=== PATIENT | female | born 1940 | race Caucasian/White ===

== ENCOUNTER 2020-03-25 10:28 | Outpatient (REF) | payer MEDICARE, SELFPAY | END 2020-03-25 10:29 | disposition home or self-care (01) | LOC: HO.LAB 10:28 | PROVIDERS: PCP Internal Medicine; Visit Provider Internal Medicine | DX: Z20.828 Contact with and (suspected) exposure to other viral communicable diseases (principal) | CPT/HCPCS: 36415; 87635 ==

== ENCOUNTER 2020-04-01 10:37 | Outpatient (REF) | payer MEDICARE, SELFPAY ==
--- NOTE | 2020-04-01 | US_ITS ---
EXAMINATION: US THYROID CLINICAL INFORMATION: Nontoxic multinodular goiter. COMPARISON: Ultrasound soft tissue head/neck thyroid dated 11/12/2018 and 04/22/2018. TECHNIQUE: Linear transducer alba-scale and color Doppler examination with attention to the region of the thyroid. FINDINGS: SIZE: Measurements of the thyroid lobes and nodules are given in sagittal, anteroposterior and transverse dimensions respectively. Right Thyroid Lobe: 3.7 x 1.4 x 1.4 cm, volume 3.7 mL. Previously 3.5 x 1.2 x 1.2 cm, volume 2.6 mL. Parenchyma: The gland echotexture is homogeneous. Thyroid vascularity is normal. Left Thyroid Lobe: 3.4 x 1.1 x 0.9 cm, volume 1.8 mL. Previously 3.2 x 0.8 x 1.2 cm, volume 1.6 mL. Parenchyma: The gland echotexture is homogeneous. Thyroid vascularity is normal. Isthmus: 0.2 cm in maximum AP dimension. Previously 0.2 cm. RIGHT THYROID LOBE: No nodules. ISTHMUS: No nodules. LEFT THYROID LOBE: There is 1 nodule seen. 1. Location: Middle. Size: 0.3 x 0.2 x 0.3 cm. Previous: Not documented on the prior study. Nodule characteristics: Hyperechoic, smooth margin, no calcification and no intranodular flow. NODES: No lymphadenopathy is seen in the tissue surrounding the thyroid gland. IMPRESSION: Small thyroid gland. Newly appreciated 3 mm hyperechoic nodule in the left lobe. The previously identified nodules in the right lobe are not appreciated on the current exam.
== END 2020-04-01 10:38 | disposition home or self-care (01) ==
LOC: HO.HMGCX 10:37
PROVIDERS: PCP Internal Medicine; Visit Provider Internal Medicine Endocrinology, Diabetes & Metabolism
DX: E04.2 Nontoxic multinodular goiter (principal)
CPT/HCPCS: 76536

== ENCOUNTER 2020-04-06 07:58 | Outpatient (REF) | payer MEDICARE, SELFPAY ==
[2020-04-06 11:29] LABS: Basophils Percent Auto 0.6 % (0-2); Eosinophils Absolute Auto 0.1 X10*3/uL (0.0-0.4); Eosinophils Percent Auto 2.2 % (0-4); Hematocrit 42.8 % (37-47); Hemoglobin 14.2 g/dl (12.0-16.0); Imm Gran Abs Auto 0.01 X10*3/uL (0.00-0.03); Imm Gran Pct Auto 0.3 % (0.0-0.4); Lymphocytes Absolute Auto 0.5 X10*3/uL (1.2-4.9); Lymphocytes Percent Auto 16.5 % (20-40); MANUAL DIFF FLAG SCAN; Mean Corpuscular HGB Conc 33.2 g/dl (31.0-35.0); Mean Corpuscular Hemoglobin 29.5 pg (27.0-33.0); Mean Platelet Volume 9.7 fL (9.4-12.3); Monocytes Absolute Auto 0.4 X10*3/uL (0.1-1.2); Monocytes Percent Auto 11.1 % (2-11); Neutrophils Absolute Auto 2.2 X10*3/uL (2.0-8.3); Neutrophils Percent Auto 69.3 % (45-73); Platelet Count 111 X10*3/uL (160-400); Red Blood Count 4.81 X10*6/uL (4.20-5.50); Red Cell Distribution Width 14.1 % (11.0-16.0); SCAN SMEAR FLAG 1; White Blood Count 3.2 X10*3/uL (4.8-10.8)
[2020-04-06 11:37] LABS: Estimated Average Glucose 108 mg/dL; Hemoglobin A1c % 5.4 %
[2020-04-06 12:12] LABS: Alanine Aminotransferase 21 U/L (0-31); Albumin Level 4.5 g/dL (3.5-5.0); Alkaline Phosphatase 85 U/L (39-117); Aspartate Amino Transferase 19 U/L (5-31); Bilirubin Direct 0.2 mg/dL (0.0-0.5); Bilirubin Total 0.6 mg/dL (0.0-1.0); Cholesterol 187 mg/dL; Glucose Fasting 106 mg/dL (60-99); HDL Cholesterol 48 mg/dL; LDL Cholesterol Calculated 105 mg/dl; Total Protein 6.8 g/dL (6.5-8.0); Triglycerides 174 mg/dL
[2020-04-06 12:26] LABS: TSH reflex Free T4 2.77 mIU/mL (0.32-4.0); Vitamin D 25-OH Total 50.5 ng/mL (>30)
[2020-04-06 12:38] LABS: SLIDE REVIEW VERIFIED
[2020-04-06 12:44] LABS: Reflex LDLD? No
== END 2020-04-06 07:59 | disposition home or self-care (01) ==
LOC: HO.HMGCLDS 07:58
PROVIDERS: PCP Internal Medicine; Visit Provider Internal Medicine Endocrinology, Diabetes & Metabolism
DX: E78.00 Pure hypercholesterolemia, unspecified (principal); R73.03 Prediabetes; E03.9 Hypothyroidism, unspecified; D69.6 Thrombocytopenia, unspecified
CPT/HCPCS: 36415; 80061; 80076; 82306; 82947; 83036; 84443; 85025

== ENCOUNTER 2020-05-17 10:43 | Outpatient (REF) | payer MEDICARE, SELFPAY ==
--- NOTE | 2020-05-17 | MM_ITS ---
EXAMINATION: MM SCREENING DIGITAL BREAST TOMOSYNTHESIS, BILATERAL CLINICAL INFORMATION: Screening. Asymptomatic. Prior history right breast excisional biopsy. The lifetime risk of breast cancer based on the Tyrer-Cuzick Model is 2%. COMPARISON: Mammography: 09/15/2018, 08/27/2017, 08/13/2016 TECHNIQUE: Digital breast tomosynthesis is performed in both the craniocaudal and mediolateral oblique views along with computer-aided detection (CAD). Synthesized 2D images are generated from the tomosynthesis. FINDINGS: There are scattered areas of fibroglandular density (ACR BI-RADS breast composition Category b). Parenchymal pattern is similar to prior studies. There is some minor scarring outer right breast similar to prior studies. Cardiac monitoring device overlies posterior medial left breast. There is no significant mass or interval architectural abnormality. Scattered calcifications in each breast is similar to prior exams. There are no significant changes. MM/MM tomosynthesis screening BI IMPRESSION: No significant changes from prior studies. ASSESSMENT: BI-RADS 2: Benign RECOMMENDATION: Routine annual mammography screening. This patient's information was entered into a reminder system with a target due date for their next mammogram.
== END 2020-05-17 10:44 | disposition home or self-care (01) ==
LOC: HO.MAMMO 10:43
PROVIDERS: PCP Internal Medicine; Visit Provider Internal Medicine
DX: Z12.31 Encounter for screening mammogram for malignant neoplasm of breast (principal)
CPT/HCPCS: 77063; 77067

== ENCOUNTER → 2020-08-10 11:20 | Outpatient (BNV) | payer MEDICARE, SELFPAY | PROVIDERS: PCP Internal Medicine; Visit Provider Internal Medicine | DX: D69.6 Thrombocytopenia, unspecified (principal) | CPT/HCPCS: 99213 ==

== ENCOUNTER 2020-10-04 10:32 | Outpatient (REF) | payer MEDICARE, SELFPAY ==
[2020-10-04 11:10] LABS: Estimated Average Glucose 105 mg/dL; Hemoglobin A1c % 5.3 %
[2020-10-04 11:27] LABS: Alanine Aminotransferase 23 U/L (0-31); Albumin Level 4.3 g/dL (3.5-5.0); Alkaline Phosphatase 88 U/L (39-117); Aspartate Amino Transferase 20 U/L (5-31); Bilirubin Direct 0.2 mg/dL (0.0-0.5); Bilirubin Total 0.7 mg/dL (0.0-1.0); Cholesterol 171 mg/dL; Glucose Fasting 105 mg/dL (60-99); HDL Cholesterol 45 mg/dL; LDL Cholesterol Calculated 91 mg/dl; Total Protein 6.7 g/dL (6.5-8.0); Triglycerides 177 mg/dL
[2020-10-04 11:58] LABS: Reflex LDLD? No
== END 2020-10-04 10:33 | disposition home or self-care (01) ==
LOC: HO.LNP 10:32
PROVIDERS: PCP Internal Medicine; Visit Provider Internal Medicine
DX: R73.03 Prediabetes (principal); E78.00 Pure hypercholesterolemia, unspecified
CPT/HCPCS: 80061; 80076; 82947; 83036

== ENCOUNTER 2020-11-10 14:39 | Outpatient (REF) | payer MEDICARE, SELFPAY ==
--- NOTE | ~2020-11-10 | XR_ITS ---
EXAMINATION: XR SINUSES CLINICAL INFORMATION: Sinusitis COMPARISON: None TECHNIQUE: 3 views of the sinuses were obtained. FINDINGS: Is normal aeration of paranasal sinuses and mastoid air sinuses without mucoperiosteal thickening or air-fluid levels. The bony sinus galan are intact. The bony orbits are intact. No gross bony abnormality seen on the visualized calvarium.. XR/XR sinus min 3V IMPRESSION: Unremarkable sinus exam.
== END 2020-11-10 14:40 | disposition home or self-care (01) ==
LOC: HO.XRAY 14:39
PROVIDERS: PCP Internal Medicine; Visit Provider Otolaryngology
DX: J32.9 Chronic sinusitis, unspecified (principal)
CPT/HCPCS: 70220

== ENCOUNTER → 2020-11-22 09:47 | Outpatient (BNVA) | payer MEDICARE, SELFPAY | PROVIDERS: PCP Internal Medicine; Referring Provider Internal Medicine; Visit Provider Internal Medicine Cardiovascular Disease | DX: Z45.09 Encounter for adjustment and management of other cardiac device (principal); I63.9 Cerebral infarction, unspecified | CPT/HCPCS: 99212 ==

== ENCOUNTER 2020-12-14 11:22 | Outpatient (REF) | payer MEDICARE, SELFPAY ==
[2020-12-14 11:45] VITALS: BP 173/81; PULSE 90; RESP 17; TEMP 36.8; O2SAT 97; BMI 26.4
--- NOTE | 2020-12-14 13:03 | P.BOP_ITS ---
Brief Operative Note Date of Service: 12/14/20 Pre-op diagnosis: Implantable loop recorder in place Procedure: removal of implantable loop recorder Implants: after obtaining informed consent patient was in the minor surgery suite. Patient was then laid flat on the operating table. implantable loop recorder was then identified. Patient's precordial area was then prepped and draped in a sterile fashion. Patient was then given 2% lidocaine with epinephrine intradermally and subcutaneously around the device. Small incision was made at the head of the device. The device was then removed with the help of Carol. the wound was then closed with Dermabond and Steri-Strips and dressed in a sterile fashion. Surgeon: Stevie Cassidy MD Anesthesia: local Was an Cashier And Waiter/Waitress used for this Procedure?: No Estimated blood loss (mL): 1 Condition: stable Disposition: same day
== END 2020-12-14 11:23 | disposition home or self-care (01) ==
LOC: HO.MS 11:22
PROVIDERS: PCP Internal Medicine; Visit Provider Internal Medicine Cardiovascular Disease
PROC: (CPT 33286; principal; 2020-12-14 12:00)
DX: Z45.09 Encounter for adjustment and management of other cardiac device (principal); Z95.818 Presence of other cardiac implants and grafts; I63.9 Cerebral infarction, unspecified; D69.6 Thrombocytopenia, unspecified; E78.00 Pure hypercholesterolemia, unspecified; Z88.2 Allergy status to sulfonamides; Z88.1 Allergy status to other antibiotic agents; Z88.7 Allergy status to serum and vaccine
CPT/HCPCS: 33286

== ENCOUNTER → 2020-12-28 10:23 | Outpatient (BNVA) | payer MEDICARE, SELFPAY | PROVIDERS: PCP Internal Medicine; Visit Provider Internal Medicine Cardiovascular Disease | DX: I63.9 Cerebral infarction, unspecified (principal) | CPT/HCPCS: 99212 ==

== ENCOUNTER 2021-04-06 10:26 | Outpatient (REF) | payer MEDICARE, SELFPAY ==
[2021-04-06 10:55] LABS: Estimated Average Glucose 111 mg/dL; Hemoglobin A1c % 5.5 %
[2021-04-06 10:59] LABS: Alanine Aminotransferase 26 U/L (0-31); Albumin Level 4.4 g/dL (3.5-5.0); Alkaline Phosphatase 86 U/L (39-117); Aspartate Amino Transferase 24 U/L (5-31); Bilirubin Direct 0.2 mg/dL (0.0-0.5); Bilirubin Total 0.5 mg/dL (0.0-1.0); Cholesterol 169 mg/dL; Glucose Fasting 116 mg/dL (60-99); HDL Cholesterol 46 mg/dL; LDL Cholesterol Calculated 96 mg/dl; Total Protein 6.8 g/dL (6.5-8.0); Triglycerides 137 mg/dL
[2021-04-06 11:17] LABS: Reflex LDLD? No
== END 2021-04-06 10:27 | disposition home or self-care (01) ==
LOC: HO.LNP 10:26
PROVIDERS: Visit Provider Internal Medicine
DX: E78.00 Pure hypercholesterolemia, unspecified (principal); R73.03 Prediabetes
CPT/HCPCS: 80061; 80076; 82947; 83036

== ENCOUNTER 2021-05-23 10:10 | Outpatient (REF) | payer MEDICARE, SELFPAY ==
--- NOTE | ~2021-05-23 | MM_ITS ---
EXAMINATION: MM SCREENING DIGITAL BREAST TOMOSYNTHESIS, BILATERAL CLINICAL INFORMATION: Screening. Asymptomatic. The lifetime risk of breast cancer based on the Tyrer-Cuzick Model is 1.3%. COMPARISON: Mammography: 05/17/2020 and studies dating back to 05/20/2012 TECHNIQUE: Digital breast tomosynthesis is performed in both the craniocaudal and mediolateral oblique views along with computer-aided detection (CAD). Synthesized 2D images are generated from the tomosynthesis. FINDINGS: There are scattered areas of fibroglandular density (ACR BI-RADS breast composition Category b). There are some stable circumscribed density seen within the right breast with no new abnormal dominant mass or suspicious grouping of microcalcifications. Within the deep superior medial aspect of the left breast approximately 8 cm from nipple, there is a grouping of calcifications with one linear calcification which may be vascular. Recommend spot magnification views in 90 degree mediolateral and craniocaudal views. MM/MM tomosynthesis screening BI IMPRESSION: Left breast calcifications for further evaluation with spot magnification views. ASSESSMENT: BI-RADS 0: Incomplete - Need Additional Imaging Evaluation RECOMMENDATION: 1. Additional views of the left breast. 2. Targeted ultrasound if warranted after review of the additional views. 3. Radiology department staff will contact the patient for additional imaging. This patient's information was entered into a reminder system with a target due date for their next mammogram.
--- NOTE | ~2021-05-23 | MM_ITS ---
EXAMINATION: BONE DENSITOMETRY CLINICAL INDICATION: Osteopenia. COMPARISON: Previous BD dated 02/24/2019 and baseline BD dated 04/22/2008. TECHNIQUE: Using a Tap[employer]wd DXA System (software version: 13.1) manufactured by [employer], dual-energy x-ray absorptiometry was performed of the lumbar spine and left hip. The images are of good technical quality. Summary results are attached. FINDINGS: AP SPINE L1-L4 (excluding L2 and L3): The data of L1-L4 has been changed to exclude the L2 and L3 vertebral bodies, because degenerative changes at these levels may cause overestimation of lumbar spine density. Current: BMD 1.047 g/cm2, Z-score 1.0, T-score -1.0, normal, 0.9% decrease from previous, 7.2% decrease from baseline (<5% change is not significant). Prior: BMD 1.056 g/cm2. Baseline: BMD 1.128 g/cm2. LEFT FEMUR, NECK: Current: BMD 0.684 g/cm2, Z-score -0.3, T-score -2.5, osteoporosis. Prior: BMD 0.736 g/cm2. Baseline: BMD 0.736 g/cm2. LEFT FEMUR, TOTAL: Current: BMD 0.842 g/cm2, Z-score 0.8, T-score -1.3, osteopenia, 2.3% decrease from previous, 7.8% decrease from baseline (<5% change is not significant). Prior: BMD 0.862 g/cm2. Baseline: BMD 0.913 g/cm2. IDENTIFIED RISK FACTORS: Menopause, height loss, hysterectomy, bilateral oophorectomy. HISTORY OF FRACTURE: None listed. MEDICATIONS: Calcium, vitamin D. MM/XR DEXA axial skeleton IMPRESSION: 1. DIAGNOSIS: Osteoporosis based on the lowest T-score value of -2.5 in the femoral neck applying World Health Organization criteria. 2. 10-YEAR FRACTURE RISK PREDICTION, FRAX: According to the guidelines, FRAX calculation should only be performed on patients in the osteopenia bone density category. 3. Treatment Recommendations: NOF guidelines recommend consideration for treatment in postmenopausal women and men age 50 and older presenting with the following: -A hip or vertebral (clinical or morphometric) fracture. -T-score less than or equal to -2.5 at the femoral neck or spine after appropriate evaluation to exclude secondary causes. -Low bone mass at the hip or spine and a 10-year fracture probability by FRAX of greater than or equal to 3% for hip fracture or greater than or equal to 20% for major osteoporotic fracture based on the [place] adapted WHO algorithm. 4. Other Recommendations: All treatment decisions require clinical judgment and consideration of individual patient factors, including patient preferences, comorbidities, previous drug use, risk factors not captured in the FRAX model (e.g. frailty, falls, vitamin D deficiency, increased bone turnover, interval significant decline in bone density) and possible under or overestimation of fracture risk by FRAX. Additional medical evaluation for secondary cause of low bone mineral density may be appropriate. FUTURE SCAN RECOMMENDATION: People with diagnosed cases of osteoporosis or at high risk for fracture should have regular bone mineral density tests. For patients eligible for Medicare, routine testing is allowed once every 2 years. The testing frequency can be increased to one year for patients who have rapidly progressing disease, those who are receiving or discontinuing medical therapy to restore bone mass, or have additional risk factors.
== END 2021-05-23 10:11 | disposition home or self-care (01) ==
LOC: HO.MAMMO 10:10
PROVIDERS: PCP Internal Medicine; Visit Provider Internal Medicine
DX: Z12.31 Encounter for screening mammogram for malignant neoplasm of breast (principal); Z13.820 Encounter for screening for osteoporosis; M85.80 Other specified disorders of bone density and structure, unspecified site; M81.0 Age-related osteoporosis without current pathological fracture; Z78.0 Asymptomatic menopausal state; Z98.890 Other specified postprocedural states; Z79.899 Other long term (current) drug therapy
CPT/HCPCS: 77063; 77067; 77080

== ENCOUNTER 2021-06-02 10:56 | Outpatient (REF) | payer MEDICARE, SELFPAY ==
--- NOTE | ~2021-06-02 | MM_ITS ---
EXAMINATION: MM BREAST DIAGNOSTIC DIGITAL, LEFT CLINICAL INFORMATION: Left breast calcifications. COMPARISON: Mammography: 05/23/2021 and studies dating back to 05/10/2012 TECHNIQUE: Digital mammography is performed in the following views: Spot magnification views in craniocaudal and 90 degree mediolateral views. FINDINGS: There are scattered areas of fibroglandular density (ACR BI-RADS breast composition Category b). Within the superomedial aspect of the left breast, there is an indeterminate grouping of calcifications without branching or linear forms. This appears new compared to prior examinations. There is no layering on 90 degree mediolateral views. I recommend stereotactic core biopsy. Results are discussed with the patient at time of visit. MM/MM added views LT IMPRESSION: Indeterminate calcifications, left breast, for which stereotactic core biopsy is recommended. ASSESSMENT: BI-RADS 4: Suspicious RECOMMENDATION: Stereotactic core biopsy, left breast calcifications, superomedial aspect. The above was discussed with the patient at time of study. Breast center patient navigator called the above recommendation to referring provider's office.
== END 2021-06-02 10:57 | disposition home or self-care (01) ==
LOC: HO.MAMMO 10:56
PROVIDERS: Visit Provider Internal Medicine
DX: R92.1 Mammographic calcification found on diagnostic imaging of breast (principal)
CPT/HCPCS: 77065

== ENCOUNTER 2021-06-12 07:51 | Outpatient (REF) | payer MEDICARE, SELFPAY ==
--- NOTE | ~2021-06-12 | MM_ITS ---
EXAMINATION: STEREOTACTIC TOMOSYNTHESIS-GUIDED VACUUM-ASSISTED BREAST BIOPSY, LEFT SPECIMEN RADIOGRAPH, LEFT POST PROCEDURE DIGITAL MAMMOGRAM, LEFT CLINICAL INFORMATION: Group of 6-8 fine calcifications posterior 11:30 o'clock left breast in area of recent cardiac loop recorder subsequently removed. COMPARISON: Mammography 06/02/2021, 05/23/2021, 05/17/2020. TECHNIQUE/PROCEDURE: Informed consent was obtained from the patient after discussion of the benefits, risks, and alternatives to biopsy today. Patient appeared to understand. Gave opportunity for questions. Patient signed consent form. BIOPSY TABLE: [employer] Prone Biopsy System. LESION: Tight group of calcifications posterior 11:30 o'clock position, possibly vascular or early dystrophic. LOCAL ANESTHESIA: 10 mL carbonated 1% lidocaine; 10 mL 1% lidocaine with epinephrine. DERMATOTOMY: Single skin ubaldo dermatotomy performed. NEEDLE: Next [employer] 9-gauge vacuum assisted core biopsy device. APPROACH: craniocaudal. TARGETING: Combination of digital breast tomosynthesis and stereotactic digital mammography used for targeting. CORES: 8. CLIP: [employer] T-shaped marker. SPECIMEN RADIOGRAPH: Specimen radiograph is taken in separate room using digital mammography. The index calcifications are present in the cores, at least 5 calcifications. POST PROCEDURE UNILATERAL DIGITAL MAMMOGRAM: The post biopsy mammogram is performed in separate room using separate digital mammography equipment from the biopsy procedure. CC and ML views are obtained. There are scattered areas of fibroglandular density (breast composition category: b). The clip marker is in position. The calcifications are markedly decreased at the biopsy site. No gross hematoma. The patient tolerated the procedure well. No immediate complications. Home instructions reviewed with the patient. Final pathology results are pending. MM/MM stereotactic biopsy LT IMPRESSION: 1. Digital tomosynthesis-guided core biopsy left breast with clip placement. 2. Specimen radiograph taken and post procedure mammogram. There is satisfactory positioning of the biopsy clip. 3. Final pathology results pending. An addendum report will be issued.
[2021-06-12] MEDS: Sodium Bicarbonate 8.4% 50 MEQ/50 ML VIAL SUBCUT (10:58)
== END 2021-06-12 07:52 | disposition home or self-care (01) ==
LOC: HO.MAMMO 07:51
PROVIDERS: PCP Internal Medicine; Visit Provider Radiology Diagnostic Radiology
DX: R92.1 Mammographic calcification found on diagnostic imaging of breast (principal)
CPT/HCPCS: 19081; 88305; A4648

== ENCOUNTER 2021-10-10 10:25 | Outpatient (REF) | payer MEDICARE, SELFPAY ==
[2021-10-10 10:28] LABS: MANUAL DIFF FLAG NO
[2021-10-10 10:43] LABS: Basophils Percent Auto 0.5 % (0-2); Eosinophils Absolute Auto 0.1 X10*3/uL (0.0-0.4); Eosinophils Percent Auto 3.2 % (0-4); Hematocrit 43.5 % (37.0-47.0); Hemoglobin 14.1 g/dl (12.0-16.0); Imm Gran Abs Auto 0.01 X10*3/uL (0.00-0.03); Imm Gran Pct Auto 0.3 % (0.0-0.4); Lymphocytes Absolute Auto 1.1 X10*3/uL (1.2-4.9); Lymphocytes Percent Auto 28.4 % (20-40); Mean Corpuscular HGB Conc 32.4 g/dl (31.0-35.0); Mean Corpuscular Hemoglobin 28.8 pg (27.0-33.0); Mean Platelet Volume 9.7 fL (9.4-12.3); Monocytes Absolute Auto 0.4 X10*3/uL (0.1-1.2); Monocytes Percent Auto 11.5 % (2-11); Neutrophils Absolute Auto 2.1 x10*3/uL (2.0-8.3); Neutrophils Percent Auto 56.1 % (45-73); Red Blood Count 4.89 X10*6/uL (4.20-5.50); Red Cell Distribution Width 13.6 % (11.0-16.0); White Blood Count 3.7 X10*3/uL (4.8-10.8)
[2021-10-10 10:48] LABS: Platelet Count 97 X10*3/uL (160-400)
[2021-10-10 10:55] LABS: Alanine Aminotransferase 21 U/L (0-31); Albumin Level 4.2 g/dL (3.5-5.0); Alkaline Phosphatase 82 U/L (39-117); Anion Gap 10 (12-20); Aspartate Amino Transferase 17 U/L (5-31); Bilirubin Total 0.8 mg/dL (0.0-1.0); Blood Urea Nitrogen 24 mg/dL (9-16); Calcium 9.4 mg/dL (8.4-10.2); Carbon Dioxide 29 mmol/L (22-29); Chloride 106 mmol/L (96-108); Cholesterol 165 mg/dL; Estimated Glomerular Filt Rate > 60; Glucose Fasting 110 mg/dL (60-99); HDL Cholesterol 42 mg/dL; LDL Cholesterol Calculated 85 mg/dl; Potassium 3.9 mmol/L (3.3-5.1); Sodium 141 mmol/L (135-145); Total Protein 6.5 g/dL (6.5-8.0); Triglycerides 191 mg/dL
[2021-10-10 11:00] LABS: Estimated Average Glucose 111 mg/dL; Hemoglobin A1c % 5.5 %
[2021-10-10 11:16] LABS: TSH reflex Free T4 3.19 uIU/mL (0.32-4.0)
[2021-10-10 11:18] LABS: Appearance Urine CLEAR; Color Urine YELLOW; Glucose Urine UA NEG (NEG); Leukocyte Esterase Urine 1+ (NEG); Nitrite Urine NEG (NEG); Urine Blood NEG (NEG); Urine Ketones NEG (NEG); Urine Protein NEG (NEG-TRACE)
[2021-10-10 11:21] LABS: Microalbum/Creatinine Ratio Ur 13.9 ug/mg cr
[2021-10-10 11:49] LABS: RBC Urine 0 /HPF (0); Renal Epithelial Cells Urine TRACE /LPF; WBC Urine 0-2 /HPF (0-4)
== END 2021-10-10 10:26 | disposition home or self-care (01) ==
LOC: HO.LNP 10:25
PROVIDERS: PCP Internal Medicine; Visit Provider Internal Medicine
DX: E03.9 Hypothyroidism, unspecified (principal); R73.03 Prediabetes; E78.00 Pure hypercholesterolemia, unspecified; D69.6 Thrombocytopenia, unspecified
CPT/HCPCS: 80053; 80061; 81001; 81003; 82043; 83036; 84443; 85025

== ENCOUNTER 2021-11-10 10:23 | Outpatient (REF) | payer MEDICARE, SELFPAY ==
--- NOTE | 2021-11-10 16:00 | MHC.AU.ANR ---
Adult Audiological Evaluation Date of Visit: 11/16/21 Reason for Appointment: Audiological evaluation due to concern for decreased hearing. Ms. Solis reports that her hearing seems to fluctuate and her son noted she was having difficulties hearing in April 2021. She feels she has the most difficulty when watching TV or when someone isn't facing her. She notes tinnitus bilaterally that she describes as a soft whooshing sound and she typically only notices it when in a quiet environment. Does patient feel they have a hearing loss?: Yes If Yes, Which Ear?: Both Ears When Was Hearing Difficulty First Noticed?: ~1 year Has hearing been tested previously?: No Hearing Handicap Inventory: HHIE SCORE: 8 Based on HHIE score, patient has: No perceived hearing handicap Ear History: Bothersome Tinnitus/Ringing/Noises in Ears: Both Ears Medical History: Medical History: Stroke, Thyroid Disease Medical History (Other): Right breast surgery , complete hysterectomy 1997, slight strokes 03/20/19 Allergies: Floxin, bactrum, latex, sulfur, sulfa, ciprofloxacin, pneumococcal vaccine Medication List: Levothyroxine, rosuvastatin, Clopidogrel, vitamins/supplements Otoscopy: Right Ear: Unremarkable Left Ear: Unremarkable Tympanometry: Tympanometry performed due to: To assess integrity of the middle ear system Right Ear: Normal Middle Ear System (Type A) Left Ear: Normal Middle Ear System (Type A) Hearing Evaluation: Transducer(s) Used: Insert Earphones, Bone Conduction Method: Conventional Audiometry Stimuli Used: Pure Tones Right Ear: Description of Hearing: Normal hearing at 250 Hz, sloping to a mild sensorineural hearing loss (SNHL) at 500 Hz, a moderate SNHL at 750-1000 Hz, then rising to normal hearing from 6622-7009 Hz, and sloping to a mild SNHL at 0008-0625 Hz, and a moderately-severe SNHL at 8000 Hz. Hearing in the right ear is worse than the left ear at 750-1000 Hz by 20 dBHL. Left Ear: Description of Hearing: Mild SNHL from 250-3000 Hz, sloping to a moderate SNHL from 4479-5770 Hz. Hearing in the left ear is worse than the right ear by 10 dBHL at 1500, 2000, & 6000 Hz, 15 dBHL at 3000 Hz, and 20 dBHL at 4000 Hz. Speech Recognition Threshold (SRT): Method Used: Monitored Live Voice Stimuli Used: Spondee Words Right Ear: 30 dBHL Left Ear: 30 dBHL Word Discrimination: Method: Recorded Lists Word Lists Used: NU-6 Right Ear: 96% at 70 dBHL Left Ear: 96% at 70 dBHL Interpretation of Results: Asymmetrical sensorineural hearing loss, right ear worse than left from 750-1000 Hz, and left ear worse than right from 1783-7370 Hz. Recommendations: Audiological re-evaluation in one year. Referral to Ear, Nose, and Throat is recommended due to asymmetric sensorineural hearing loss. Ms. Solis may benefit from binaural amplification. Recommend she return for a hearing aid evaluation, pending medical clearance by an ENT physician. Diagnosis: Primary Diagnosis: H90.3 Bilateral Sensorineural Hearing Loss Services Performed: Services Performed: Comprehensive Audiological Evaluation (CPT 42196) Tympanometry (CPT 34538) Signature: Provider: Sepideh Riggins, CCC-A
== END 2021-11-10 10:24 | disposition home or self-care (01) ==
LOC: HO.SH 10:23
PROVIDERS: Visit Provider Internal Medicine
DX: Z01.118 Encounter for examination of ears and hearing with other abnormal findings (principal); H90.3 Sensorineural hearing loss, bilateral
CPT/HCPCS: 92557; 92567

== ENCOUNTER 2022-01-04 12:07 | Emergency (ER) | payer MEDICARE, SELFPAY ==
--- NOTE | ~2022-01-04 | CT_ITS ---
EXAMINATION: CT ANGIOGRAM NECK WITH CONTRAST CT ANGIOGRAM BRAIN WITH CONTRAST CLINICAL INFORMATION: Blurred vision. History of TIA. COMPARISON: CTA head and neck 06/20/2019. TECHNIQUE: Test bolus sequences followed by intravenous administration 100 mL of Omnipaque 350. Helical imaging was performed in the axial plane from the thoracic inlet to the skull vertex. Delayed postcontrast imaging of the head was also performed. The data was processed at the medicine technologist workstation for generation of MIP sequences. Angled MIPs and volume rendered reformatted images were also generated at an offline 3D workstation. Stenoses are assessed in accordance with NASCET criteria unless otherwise indicated. This CT examination was performed using dose optimization techniques as appropriate, variously including the following: *Automated exposure control *Adjustment of mA and/or kV according to patient size (this includes techniques or standardized protocols for targeted exams where dose is matched to indication/reason for exam; i.e. extremities or head) *Use of iterative reconstruction technique DLP: 2280 mGy-cm FINDINGS: Head CT: There is no intracranial hemorrhage, large acute infarction, or mass lesion. The ventricles are normal in size and configuration without evidence of hydrocephalus. Patchy hypoattenuation is seen within the cerebral white matter, typical of chronic microangiopathy. There is mild degree of brain parenchymal volume loss. The visualized paranasal sinuses and mastoid air cells are clear. Neck CTA: Atheromatous changes are seen at the carotid bifurcations without significant stenosis. The common and internal carotid arteries are patent. Both vertebral arteries are patent. Head CTA: No proximal vessel occlusion is seen. Atheromatous changes are seen along the intradural vertebral arteries without associated stenosis. There is new focal severe stenosis of the right P1 AIRCRAFT DESIGNER segment. The welfare administrator are otherwise patent. Atheromatous changes are seen along the bilateral carotid siphons. Intracranial ICAs are patent. The ACAs and MCAs are patent. No aneurysm is seen. Non-vascular findings: The cervical soft tissues are within normal limits. There is no consolidation within the upper lungs. Multilevel degenerative changes are noted in the spine. CT/CT angio head neck IMPRESSION: No acute intracranial abnormality. No large vessel occlusion within the intracranial arteries. Focal severe stenosis of the right P1 AIRCRAFT DESIGNER segment with otherwise widely patent bilateral welfare administrator. Major neck arteries are patent without significant stenosis. This critical result was discussed with Dr. Bacon on 01/04/2022 4:16 PM, and it was ascertained that the content and urgency of the report was understood at the time of direct communication.
[2022-01-04 12:21] VITALS: BP 184/88; PULSE 80; RESP 16; TEMP 36.9; O2SAT 97; BMI 26.4
--- NOTE | 2022-01-04 12:28 | ED.GENADULT ---
HPI - General Adult General Chief complaint: General Medical Stated complaint: VISION CHANGES SINCE 5AM,H/TIA,-STROKE SCALE Time Seen by Provider: 01/04/22 12:27 Source: patient Mode of arrival: EMS Limitations: no limitations History of Present Illness HPI narrative: 81 yo female hx of HLD, occipital stroke in past presentation headache managed with plavix, migraines here with c/o intermittent blurry vision since 5am now resolved. No other symptoms. Compliant with medications. Normal day yesterday. Said it was both eyes, didn't try to cover an eye. Had no pain. Could read and see the TV during the episode. Just described it as blurry. MD complaint: blurry vision Onset (ago): hour(s) (5am today ) Location: eyes Severity: mild Relieving factors: none Exacerbating factors: none Treatments prior to arrival: none Related Data Home Medications Medication Instructions Recorded Confirmed edgardo [id number]-bor 1 ea PO DAILY 08/02/20 02/07/21 multivitamin 1 tab PO DAILY 08/02/20 02/07/21 Probiotic 1 dose PO DAILY 08/10/20 02/07/21 clopidogrel 75 mg tablet 75 mg PO DAILY 12/28/20 02/07/21 levothyroxine 50 mcg tablet 50 mcg PO DAILY 12/28/20 02/07/21 rosuvastatin 40 mg tablet 40 mg PO DAILY 12/28/20 02/07/21 Allergies Allergy/AdvReac Type Severity Reaction Status Date / Time sulfur Allergy Severe internal Verified 08/16/21 10:32 hives Sulfa (Sulfonamide Allergy Mild UNKNOWN Verified 08/16/21 10:32 Antibiotics) ciprofloxacin [Cipro] Allergy Unknown hives Verified 08/16/21 10:32 pneumococcal vaccine Allergy Unknown palm sized Verified 08/16/21 10:32 welt, stacie Review of Systems Review of Systems: Constitutional : No Weight loss, No Fever, No Chills, No Fatigue, No Malaise ENT/Mouth : No sore throat, No Rhinorrhea Eyes: No Eye Pain, No Swelling, No Redness, pos blurry vision Cardiovascular : No Chest Pain, No SOB, No Dyspnea on Exertion, No Orthopnea, No Edema, No Palpitations Respiratory : No Cough, No Sputum, No Wheezing Gastrointestinal : No Nausea, No Vomiting, No Diarrhea, No Constipation, No abdominal Pain, No Hematochezia, No Melena Genitourinary : No Dysuria, No Urinary Frequency, No Hematuria, Musculoskeletal : No joint pain, No Myalgias, No Joint Swelling Skin : No Skin Lesions, No rash Neuro : No Weakness, No Numbness, No Dizziness, No Headache Psych : No Anxiety/Panic, No Depression Heme/Lymph: No Bruising, No Bleeding,No Lymphadenopathy Endocrine : No Polyuria, No Polydipsia All other systems reviewed and are negative [facility] Past Medical History Attestation statement: The following information was validated with the patient. Medical History Cervical disc disease Esophagitis GERD (gastroesophageal reflux disease) Hypercholesterolemia Hypothyroidism Occipital stroke Pre-diabetes Thrombocytopenia Tubular adenoma of colon Surgical History H/O breast biopsy H/O colonoscopy History of esophagogastroduodenoscopy (EGD) History of hysterectomy Family History Family History (Updated 08/16/21 @ 10:31 by Josephine Evans CMA) Maternal Grandmother Colon cancer Daughter Father Heart attack Mother Stroke Social History Social History Household Members: None Housing: House Are you a primary farm or ranch animal caretaker to a significant other at home: No Do you presently have visiting nurse or other home services: No Alcohol intake: current Alcohol intake frequency: a few times a month Alcohol type: wine Patient Tobacco Use Status: Never used Tobacco Advance Directives: Yes Advance Directives on File: Yes Advance Directives Date on File: 12/28/20 service: No Current occupational status: retired Physical Exam ED Vital Signs: Vital Signs - 24 hr 01/04/22 12:21 01/04/22 15:35 Temperature 98.5 F Pulse Rate 80 69 Respiratory Rate 16 18 Blood Pressure 184/88 H 154/77 H Pulse Oximetry 97 97 Oxygen Delivery Method Room Air Room Air BMI result Body Mass Index 26.4 Appearance: Alert. Oriented X3. No acute distress. Eyes: Pupils equal, round and reactive to light. no visual field deficits ENT: Pharynx normal. Neck: Normal inspection. Neck supple. CVS: Normal heart rate and rhythm. Pulses normal. Respiratory: No respiratory distress. Breath sounds normal. Abdomen: Soft and non-tender. Skin: Skin warm and dry. Normal skin color. Normal skin turgor. Extremities: No lower extremity edema. No calf ttp Neuro: Oriented X 3. No motor deficit. No sensory deficit. NIH Stroke Scale Internal: Initial- Upon Arrival Level of Consciousness: Alert Level of Consciousness Questions: Answers both questions correctly Level of Consciousness Commands: Performs both tasks correctly Best Gaze: Normal Visual: No visual loss Facial Palsy: Normal Motor Arm (Right): No drift Motor Arm (Left): No drift Motor Leg (Right): No drift Motor Leg (Left): No drift Limb Ataxia: Absent Sensory: Normal Best Language: No aphasia Dysarthia: Normal Extinction and Inattention: No abnormality Score: 0 Course Course Course Narrative: signed out to Yi pending CTA would suspect if this was negative she could go home, has had loop recorder x 1.5 years no afib, already on plavix not aspirin due to chronic thrombocytopenia, if CTA negative given symptoms gone and no other deficits without loss of vision and it was just blurry she could even still read seems unusual for stroke with blurry vision in both eyes. still remains asymptomatic NIH 0. Medical Decision Making [facility] Narrative Medical decision making narrative: 81 yo female hx of HLD, occipital stroke in past presentation headache managed with plavix, migraines here with c/o intermittent blurry vision since 5am - currently no symptoms and NIH 0. At this time will need labs, CTA head and neck. Never lost vision and notes she could still read at that time but felt it was blurry, had no other neuro symptoms. Dispo per results and findings. Lab Data Result diagrams: 01/04/22 13:32 01/04/22 13:32 Labs: Lab Results 01/04/22 01/04/22 01/04/22 Range/Units 13:28 13:32 13:32 WBC 4.3 L (4.8-10.8) X10*3/uL RBC 4.68 (4.20-5.50) X10*6/uL Hgb 13.6 (12.0-16.0) g/dl Hct 40.7 (37.0-47.0) % MCV 87.0 (80.0-98.0) fL MCH 29.1 (27.0-33.0) pg MCHC 33.4 (31.0-35.0) g/dl RDW 14.5 (11.0-16.0) % Plt Count 107 L (160-400) X10*3/uL MPV 9.3 L (9.4-12.3) fL Immature Gran % (Auto) 0.2 (0.0-0.4) % Neut % (Auto) 66.7 (45-73) % Lymph % (Auto) 20.6 (20-40) % [place] % (Auto) 10.4 (2-11) % Eos % (Auto) 1.4 (0-4) % Baso % (Auto) 0.7 (0-2) % Lymph # (Auto) 0.9 L (1.2-4.9) X10*3/uL [place] # (Auto) 0.5 (0.1-1.2) X10*3/uL Eos # (Auto) 0.1 (0.0-0.4) X10*3/uL Baso # (Auto) 0.0 (0.0-0.2) X10*3/uL Abs Immat Gran (auto) 0.01 (0.00-0.03) X10*3/uL Absolute Neuts (auto) 2.9 (2.0-8.3) x10*3/uL Absolute Nucleated RBC 0.000 (0.0-0.012) X10*3/uL Nucleated RBC % (auto) 0.0 (0.0-0.2) /100WBC PT (10.0-13.1) SEC INR (0.9-1.1) Sodium 138 (135-145) mmol/L Potassium 4.2 (3.3-5.1) mmol/L Chloride 106 (96-108) mmol/L Carbon Dioxide 25 (22-29) mmol/L Anion Gap 11 L (12-20) BUN 16 (9-16) mg/dL Creatinine 0.74 (0.5-1.4) mg/dL Estim Creat Clear Calc 48.7 Estimated GFR > 60 Random Glucose 108 (60-115) mg/dL Calcium 8.4 D (8.4-10.2) mg/dL Magnesium 2.1 (1.6-2.6) mg/dL Total Bilirubin 0.6 (0.0-1.0) mg/dL Direct Bilirubin 0.2 (0.0-0.5) mg/dL AST 17 (5-31) U/L ALT 19 (0-31) U/L Alkaline Phosphatase 72 (39-117) U/L Troponin I High Sens (<3.5-17.0) ng/L Total Protein 6.3 L (6.5-8.0) g/dL Albumin 4.1 (3.5-5.0) g/dL COVID-19 (LISS) Negative (Negative) COVID-19 Clin Com See Note 01/04/22 01/04/22 Range/Units 13:32 13:32 WBC (4.8-10.8) X10*3/uL RBC (4.20-5.50) X10*6/uL Hgb (12.0-16.0) g/dl Hct (37.0-47.0) % MCV (80.0-98.0) fL MCH (27.0-33.0) pg MCHC (31.0-35.0) g/dl RDW (11.0-16.0) % Plt Count (160-400) X10*3/uL MPV (9.4-12.3) fL Immature Gran % (Auto) (0.0-0.4) % Neut % (Auto) (45-73) % Lymph % (Auto) (20-40) % [place] % (Auto) (2-11) % Eos % (Auto) (0-4) % Baso % (Auto) (0-2) % Lymph # (Auto) (1.2-4.9) X10*3/uL [place] # (Auto) (0.1-1.2) X10*3/uL Eos # (Auto) (0.0-0.4) X10*3/uL Baso # (Auto) (0.0-0.2) X10*3/uL Abs Immat Gran (auto) (0.00-0.03) X10*3/uL Absolute Neuts (auto) (2.0-8.3) x10*3/uL Absolute Nucleated RBC (0.0-0.012) X10*3/uL Nucleated RBC % (auto) (0.0-0.2) /100WBC PT 11.1 (10.0-13.1) SEC INR 1.0 (0.9-1.1) Sodium (135-145) mmol/L Potassium (3.3-5.1) mmol/L Chloride (96-108) mmol/L Carbon Dioxide (22-29) mmol/L Anion Gap (12-20) BUN (9-16) mg/dL Creatinine (0.5-1.4) mg/dL Estim Creat Clear Calc Estimated GFR Random Glucose (60-115) mg/dL Calcium (8.4-10.2) mg/dL Magnesium (1.6-2.6) mg/dL Total Bilirubin (0.0-1.0) mg/dL Direct Bilirubin (0.0-0.5) mg/dL AST (5-31) U/L ALT (0-31) U/L Alkaline Phosphatase (39-117) U/L Troponin I High Sens 3.5 (<3.5-17.0) ng/L Total Protein (6.5-8.0) g/dL Albumin (3.5-5.0) g/dL COVID-19 (LISS) (Negative) COVID-19 Clin Com ECG Data Attestation: I personally reviewed and interpreted this ECG as follows: Interpretation: Rate: 69 Rhythm: NSR [place]: normal Normal P waves. Normal QUENTIN. Normal QRS complex. ST T wave : normal no SMITHA qTC: normal prior studies: no acute ischemia The study has been interpreted contemporaneously by me. . Discharge Plan Discharge Clinical Impression: Blurred vision, bilateral Patient Disposition: Still a Patient Prescriptions: No Action multivitamin Tablet 1 tab PO DAILY edgardo [id number]-[id number]-N5-Qr-wny-zcl-bor 1 ea PO DAILY Probiotic 1 dose PO DAILY clopidogrel 75 mg tablet 75 mg PO DAILY levothyroxine 50 mcg tablet 50 mcg PO DAILY rosuvastatin 40 mg tablet 40 mg PO DAILY
--- NOTE | 2022-01-04 12:32 | PC.NURSE ---
Pt comes in via EMS from home after speaking with her PCP regarding vision changes since this AM. Pt has significant PMHX of TIA's. Pt states vision is normal at this time, but the changes have been intermittent all morning. Pt is A&Ox4, neuros grossly intact at this time, LCA, abd soft, non tender, +BS. Call willis within reach. Awaiting MD montoya.
--- NOTE | 2022-01-04 12:40 | ECG_ITS ---
Test Reason : blurry vision Blood Pressure : / mmHG Vent. Rate : 069 BPM Atrial Rate : 069 BPM P-R Int : 174 ms QRS Dur : 090 ms QT Int : 432 ms P-R-T Axes : 061 006 063 degrees QTc Int : 462 ms Normal sinus rhythm Normal ECG When compared with ECG of 20-MAR-2019 20:13, No significant change was found Referred By: Jennifer Bacon Electronically Signed By:AGUEDA SWANN MD
[2022-01-04 13:38] LABS: MANUAL DIFF FLAG NO
[2022-01-04 13:41] LABS: Basophils Percent Auto 0.7 % (0-2); Eosinophils Absolute Auto 0.1 X10*3/uL (0.0-0.4); Eosinophils Percent Auto 1.4 % (0-4); Hematocrit 40.7 % (37.0-47.0); Hemoglobin 13.6 g/dl (12.0-16.0); Imm Gran Abs Auto 0.01 X10*3/uL (0.00-0.03); Imm Gran Pct Auto 0.2 % (0.0-0.4); Lymphocytes Absolute Auto 0.9 X10*3/uL (1.2-4.9); Lymphocytes Percent Auto 20.6 % (20-40); Mean Corpuscular HGB Conc 33.4 g/dl (31.0-35.0); Mean Corpuscular Hemoglobin 29.1 pg (27.0-33.0); Mean Platelet Volume 9.3 fL (9.4-12.3); Monocytes Absolute Auto 0.5 X10*3/uL (0.1-1.2); Monocytes Percent Auto 10.4 % (2-11); Neutrophils Absolute Auto 2.9 x10*3/uL (2.0-8.3); Neutrophils Percent Auto 66.7 % (45-73); Platelet Count 107 X10*3/uL (160-400); Red Blood Count 4.68 X10*6/uL (4.20-5.50); Red Cell Distribution Width 14.5 % (11.0-16.0); White Blood Count 4.3 X10*3/uL (4.8-10.8)
[2022-01-04 13:50] LABS: Prothrombin Time 11.1 SEC (10.0-13.1)
[2022-01-04 13:56] LABS: Alanine Aminotransferase 19 U/L (0-31); Albumin Level 4.1 g/dL (3.5-5.0); Alkaline Phosphatase 72 U/L (39-117); Anion Gap 11 (12-20); Aspartate Amino Transferase 17 U/L (5-31); Bilirubin Direct 0.2 mg/dL (0.0-0.5); Bilirubin Total 0.6 mg/dL (0.0-1.0); Blood Urea Nitrogen 16 mg/dL (9-16); Calcium 8.4 mg/dL (8.4-10.2); Carbon Dioxide 25 mmol/L (22-29); Chloride 106 mmol/L (96-108); Creatinine Clr Calc Pharmacy 48.7; Estimated Glomerular Filt Rate > 60; Glucose Random 108 mg/dL (60-115); Magnesium 2.1 mg/dL (1.6-2.6); Potassium 4.2 mmol/L (3.3-5.1); Sodium 138 mmol/L (135-145); Total Protein 6.3 g/dL (6.5-8.0)
[2022-01-04 14:00] LABS: Troponin-I High Sensitivity 3.5 ng/L (<3.5-17.0)
[2022-01-04 14:01] LABS: COVID-19 Test Negative (Negative); IDNOW Serial# 16C4AD1C
[2022-01-04 15:35] VITALS: BP 154/77; PULSE 69; RESP 18; O2SAT 97
--- NOTE | 2022-01-04 15:45 | PC.NURSE ---
Pt remains A&Ox4, no complaints at this time. neuros grossly intact. Awaiting CT scan results. PO provided with the ok of . Call willis within reach, will continue to monitor.
[2022-01-04] MEDS: iohexoL 350 MG/ML 100 ML INFUS..BTL IV (15:48)
== END 2022-01-04 17:20 | disposition home or self-care (01) ==
PROVIDERS: Emergency Provider Emergency Medicine; PCP Internal Medicine
DX: H53.8 Other visual disturbances (principal); R51.9 Headache, unspecified; M54.2 Cervicalgia; Z79.899 Other long term (current) drug therapy; Z20.822 Contact with and (suspected) exposure to COVID-19
CPT/HCPCS: 36415; 70496; 70498; 80048; 80076; 83735; 84484; 85025; 85610; 87635; 93005; 99284; Q9967

== ENCOUNTER 2022-01-18 11:20 | Outpatient (REF) | payer MEDICARE, SELFPAY ==
--- NOTE | ~2022-01-18 | MR_ITS ---
EXAMINATION: MR BRAIN WITHOUT AND WITH CONTRAST CLINICAL INFORMATION: Sensorineural hearing loss. COMPARISON: Head CTA January 04, 2022. TECHNIQUE: Multiplanar, multisequence imaging of the brain was performed before and after the intravenous administration of 6 mL of Gadavist. FINDINGS: The inner ear structures including the cochlea, vestibules, and semicircular canals exhibit preserved CSF signal intensity with no pathologic enhancement. The vestibular aqueducts are not enlarged. Cranial nerves VII and VIII complexes are normal in morphology. No enhancing cerebellopontine angle/retrocochlear lesion. There is no intracranial mass or abnormal intracranial enhancement. There is no acute infarction. There is no intracranial hemorrhage or extra axial collection. The ventricles, sulci, and basilar cisterns are normal in size and configuration. Moderate patchy T2/FLAIR hyperintensity is noted within the cerebral white matter compatible chronic microangiopathy. Moderate degenerative changes are seen within the upper cervical spine. MR/MR head/brain wo/w con IMPRESSION: No vestibular schwannoma or retrocochlear lesion. No mass or acute infarct. No abnormal intracranial enhancement. Background changes of moderate chronic microangiopathy.
== END 2022-01-18 11:21 | disposition home or self-care (01) ==
LOC: HO.MRI 11:20
PROVIDERS: Visit Provider Otolaryngology
DX: H90.3 Sensorineural hearing loss, bilateral (principal)
CPT/HCPCS: 70553; A9585

== ENCOUNTER 2022-04-20 10:24 | Outpatient (REF) | payer MEDICARE, SELFPAY ==
[2022-04-20 10:28] LABS: MANUAL DIFF FLAG NO
[2022-04-20 11:49] LABS: Basophils Percent Auto 0.5 % (0-2); Eosinophils Absolute Auto 0.1 X10*3/uL (0.0-0.4); Eosinophils Percent Auto 3.4 % (0-4); Hematocrit 41.1 % (37.0-47.0); Hemoglobin 13.4 g/dl (12.0-16.0); Imm Gran Abs Auto 0.02 X10*3/uL (0.00-0.03); Imm Gran Pct Auto 0.5 % (0.0-0.4); Lymphocytes Absolute Auto 1.1 X10*3/uL (1.2-4.9); Lymphocytes Percent Auto 27.8 % (20-40); Mean Corpuscular HGB Conc 32.6 g/dl (31.0-35.0); Mean Corpuscular Hemoglobin 28.9 pg (27.0-33.0); Mean Corpuscular Volume 88.8 fL (80.0-98.0); Mean Platelet Volume 9.6 fL (9.4-12.3); Monocytes Absolute Auto 0.5 X10*3/uL (0.1-1.2); Neutrophils Absolute Auto 2.3 x10*3/uL (2.0-8.3); Neutrophils Percent Auto 56.8 % (45-73); Platelet Count 131 X10*3/uL (160-400); Red Blood Count 4.63 X10*6/uL (4.20-5.50); White Blood Count 4.1 X10*3/uL (4.8-10.8)
[2022-04-20 11:54] LABS: Appearance Urine Clear; Color Urine Yellow; Glucose Urine UA Negative (Negative); Leukocyte Esterase Urine Small (1+) (Negative); Nitrite Urine Negative (Negative); PH 6.5 (5.0-9.0); Specific Gravity - Urine 1.015 (1.005-1.025); UMIC TRIGGER UA YES; Urine Blood Negative (Negative); Urine Ketones Negative (Negative); Urine Protein Negative (Neg-Trace)
[2022-04-20 12:08] LABS: Estimated Average Glucose 114 mg/dL; Hemoglobin A1c % 5.6 %
[2022-04-20 12:10] LABS: Bacteria Urine None Seen (None Seen); Hyaline Casts Urine 0-2 /LPF (0-2); Squamous Epithelial Cell Urine 0-2 /HPF (0-2); WBC Urine 0-5 /HPF (0-5)
[2022-04-20 12:20] LABS: Alanine Aminotransferase 16 U/L (0-31); Albumin Level 4.2 g/dL (3.5-5.0); Alkaline Phosphatase 71 U/L (39-117); Anion Gap 15 (12-20); Aspartate Amino Transferase 18 U/L (5-31); Bilirubin Total 0.6 mg/dL (0.0-1.0); Blood Urea Nitrogen 21 mg/dL (9-16); Calcium 9.4 mg/dL (8.4-10.2); Carbon Dioxide 27 mmol/L (22-29); Chloride 105 mmol/L (96-108); Cholesterol 166 mg/dL; Estimated Glomerular Filt Rate > 60; Glucose Fasting 102 mg/dL (60-99); HDL Cholesterol 44 mg/dL; LDL Cholesterol Calculated 87 mg/dl; Potassium 4.1 mmol/L (3.3-5.1); Sodium 143 mmol/L (135-145); Total Protein 6.5 g/dL (6.5-8.0); Triglycerides 175 mg/dL
[2022-04-20 12:41] LABS: Creatinine Urine 114.68 mg/dL
== END 2022-04-20 10:25 | disposition home or self-care (01) ==
LOC: HO.LNP 10:24
PROVIDERS: Visit Provider Internal Medicine
DX: R73.03 Prediabetes (principal); E78.00 Pure hypercholesterolemia, unspecified
CPT/HCPCS: 80053; 80061; 81001; 82043; 83036; 85025

== ENCOUNTER 2022-04-26 16:02 | Outpatient (REF) | payer MEDICARE, SELFPAY ==
[2022-04-26 16:13] LABS: Appearance Urine Clear; Color Urine Yellow; Glucose Urine UA Negative (Negative); Leukocyte Esterase Urine Small (1+) (Negative); Nitrite Urine Negative (Negative); UMIC TRIGGER UA YES; Urine Blood Negative (Negative); Urine Ketones Negative (Negative); Urine Protein Negative (Neg-Trace)
[2022-04-26 16:21] LABS: Bacteria Urine None Seen (None Seen); Hyaline Casts Urine 0-2 /LPF (0-2); RBC Urine 0-2 /HPF (0-2); Squamous Epithelial Cell Urine 0-2 /HPF (0-2); WBC Urine 0-5 /HPF (0-5)
== END 2022-04-26 16:03 | disposition home or self-care (01) ==
LOC: HO.LNP 16:02
PROVIDERS: Visit Provider Internal Medicine
DX: R31.9 Hematuria, unspecified (principal)
CPT/HCPCS: 81001

== ENCOUNTER 2022-05-28 10:24 | Outpatient (REF) | payer MEDICARE, SELFPAY ==
--- NOTE | ~2022-05-28 | MM_ITS ---
EXAMINATION: MM SCREENING DIGITAL BREAST TOMOSYNTHESIS, BILATERAL CLINICAL INFORMATION: Screening. Asymptomatic. Benign left stereotactic biopsy 06/12/2021 (fibroadenomatous change and calcifications). The lifetime risk of breast cancer based on the Tyrer-Cuzick Model is under 2%. COMPARISON: Mammography: 06/12/2021, 06/02/2021, 05/23/2021, 05/17/2020, 09/15/2018 TECHNIQUE: Digital breast tomosynthesis is performed in both the craniocaudal and mediolateral oblique views along with computer-aided detection (CAD). Synthesized 2D images are generated from the tomosynthesis. FINDINGS: There are scattered areas of fibroglandular density (ACR BI-RADS breast composition Category b). There are no significant masses, abnormal calcifications, or other abnormalities. Parenchymal pattern is similar to prior studies. Again, there is biopsy clip marker posterior 11:30 left breast. No developing density. No interval abnormal calcifications. The axilla and skin contours are unremarkable. MM/MM tomosynthesis screening BI IMPRESSION: No mammographic evidence of malignancy. ASSESSMENT: BI-RADS 2: Benign RECOMMENDATION: Routine annual mammography screening. This patient's information was entered into a reminder system with a target due date for their next mammogram.
== END 2022-05-28 10:25 | disposition home or self-care (01) ==
LOC: HO.MAMMO 10:24
PROVIDERS: PCP Internal Medicine; Visit Provider Internal Medicine
DX: Z12.31 Encounter for screening mammogram for malignant neoplasm of breast (principal)
CPT/HCPCS: 77063; 77067

== ENCOUNTER 2022-10-12 11:12 | Outpatient (REF) | payer MEDICARE, SELFPAY ==
[2022-10-12 11:16] LABS: MANUAL DIFF FLAG NO
[2022-10-12 11:47] LABS: Basophils Percent Auto 0.5 % (0-2); Eosinophils Absolute Auto 0.1 X10*3/uL (0.0-0.4); Eosinophils Percent Auto 2.9 % (0-4); Hematocrit 42.6 % (37.0-47.0); Imm Gran Abs Auto 0.01 X10*3/uL (0.00-0.03); Imm Gran Pct Auto 0.3 % (0.0-0.4); Lymphocytes Absolute Auto 1.1 X10*3/uL (1.2-4.9); Lymphocytes Percent Auto 30.4 % (20-40); Mean Corpuscular HGB Conc 32.9 g/dl (31.0-35.0); Mean Corpuscular Hemoglobin 29.1 pg (27.0-33.0); Mean Corpuscular Volume 88.6 fL (80.0-98.0); Mean Platelet Volume 9.9 fL (9.4-12.3); Monocytes Absolute Auto 0.4 X10*3/uL (0.1-1.2); Monocytes Percent Auto 11.2 % (2-11); Neutrophils Absolute Auto 2.1 x10*3/uL (2.0-8.3); Neutrophils Percent Auto 54.7 % (45-73); Red Blood Count 4.81 X10*6/uL (4.20-5.50); Red Cell Distribution Width 14.1 % (11.0-16.0); White Blood Count 3.8 X10*3/uL (4.8-10.8)
[2022-10-12 11:51] LABS: Platelet Count 98 X10*3/uL (160-400)
[2022-10-12 11:58] LABS: Appearance Urine Clear; Color Urine Yellow; Glucose Urine UA Negative (Negative); Leukocyte Esterase Urine Trace (Negative); Nitrite Urine Negative (Negative); UMIC TRIGGER UACC YES; Urine Blood Negative (Negative); Urine Ketones Negative (Negative); Urine Protein Negative (Neg-Trace)
[2022-10-12 12:03] LABS: Bacteria Urine None Seen (None Seen); Hyaline Casts Urine 0-2 /LPF (0-2); RBC Urine 0-2 /HPF (0-2); Squamous Epithelial Cell Urine 0-2 /HPF (0-2); WBC Urine 0-5 /HPF (0-5)
[2022-10-12 12:06] LABS: Alanine Aminotransferase 21 U/L (0-31); Albumin Level 4.3 g/dL (3.5-5.0); Alkaline Phosphatase 74 U/L (39-117); Anion Gap 11 (12-20); Aspartate Amino Transferase 19 U/L (5-31); Bilirubin Total 0.7 mg/dL (0.0-1.0); Blood Urea Nitrogen 18 mg/dL (9-16); Calcium 9.2 mg/dL (8.4-10.2); Carbon Dioxide 29 mmol/L (22-29); Chloride 108 mmol/L (96-108); Cholesterol 182 mg/dL; Estimated Glomerular Filt Rate > 60; Glucose Fasting 108 mg/dL (60-99); HDL Cholesterol 44 mg/dL; LDL Cholesterol Calculated 103 mg/dl; Potassium 4.2 mmol/L (3.3-5.1); Sodium 144 mmol/L (135-145); Total Protein 6.2 g/dL (6.5-8.0); Triglycerides 176 mg/dL
[2022-10-12 12:19] LABS: Estimated Average Glucose 114 mg/dL; Hemoglobin A1c % 5.6 %
[2022-10-12 12:40] LABS: Creatinine Urine 140.63 mg/dL; Microalbum/Creatinine Ratio Ur 20.6 ug/mg cr
== END 2022-10-12 11:13 | disposition home or self-care (01) ==
LOC: HO.LNP 11:12
PROVIDERS: Visit Provider Internal Medicine
DX: E03.9 Hypothyroidism, unspecified (principal); R73.03 Prediabetes; E78.00 Pure hypercholesterolemia, unspecified; D69.6 Thrombocytopenia, unspecified
CPT/HCPCS: 80053; 80061; 81001; 82043; 83036; 84443; 85025

== ENCOUNTER 2023-01-22 14:54 | Outpatient (REF) | payer MEDICARE, SELFPAY ==
--- NOTE | ~2023-01-22 | US_ITS ---
EXAM: US EXTREMITY NONVASCULAR, RIGHT CLINICAL INFORMATION: Question lipoma COMPARISON: None TECHNIQUE: Grayscale and color views of the area of concern in the calf were obtained. FINDINGS: No definite sonographic correlate to the reported symptom of palpable mass. No lymphadenopathy or soft tissue mass. US/US extremity nonvascular IMPRESSION: No definite sonographic correlate to the reported symptom of palpable mass.
== END 2023-01-22 14:55 | disposition home or self-care (01) ==
LOC: HO.US 14:54
PROVIDERS: PCP Internal Medicine; Visit Provider Internal Medicine
DX: D17.23 Benign lipomatous neoplasm of skin and subcutaneous tissue of right leg (principal)
CPT/HCPCS: 76882

== ENCOUNTER 2023-04-18 11:30 | Outpatient (REF) | payer MEDICARE, SELFPAY ==
[2023-04-18 12:01] LABS: Alanine Aminotransferase 22 U/L (0-31); Albumin Level 4.1 g/dL (3.5-5.0); Alkaline Phosphatase 72 U/L (39-117); Aspartate Amino Transferase 23 U/L (5-31); Bilirubin Direct 0.2 mg/dL (0.0-0.5); Bilirubin Total 0.7 mg/dL (0.0-1.0); Cholesterol 161 mg/dL (<200); HDL Cholesterol 43 mg/dL (>40); LDL Cholesterol Calculated 84 mg/dL (<100); Total Protein 6.9 g/dL (6.5-8.0); Triglycerides 172 mg/dL (<150)
== END 2023-04-18 11:31 | disposition home or self-care (01) ==
LOC: HO.LNP 11:30
PROVIDERS: Visit Provider Internal Medicine
DX: E03.9 Hypothyroidism, unspecified (principal)
CPT/HCPCS: 80061; 80076; 84443

== ENCOUNTER 2023-05-21 10:31 | Outpatient (REF) | payer MEDICARE, SELFPAY ==
--- NOTE | ~2023-05-21 | US_ITS ---
EXAMINATION: US THYROID CLINICAL INFORMATION: Thyroid nodule. COMPARISON: Ultrasound soft tissue head/neck thyroid dated 04/01/2020 and 11/12/2018. TECHNIQUE: Linear transducer grayscale and color Doppler examination with attention to the region of the thyroid. FINDINGS: SIZE: Measurements of the thyroid lobes and nodules are given in sagittal, anteroposterior and transverse dimensions respectively. Right Thyroid Lobe: 3.5 x 1.3 x 1.0 cm, volume 2.4 mL. Previously 3.7 x 1.4 x 1.4 cm, volume 3.7 mL. Parenchyma: The gland echotexture is homogeneous. Thyroid vascularity is normal. Left Thyroid Lobe: 3.1 x 1.3 x 1.0 cm, volume 2.2 mL. Previously 3.4 x 1.1 x 0.9 cm, volume 1.8 mL. Parenchyma: The gland echotexture is homogeneous. Thyroid vascularity is normal. Isthmus: 0.3 cm in maximum AP dimension. Previously 0.2 cm. Estimated total number of nodules greater than or equal to 1 cm: 0. Fence Laborer nodules are described as follows: 1. Location: Left mid. Size: 0.3 x 0.2 x 0.2 cm, volume 0.006 mL. Previously: 0.3 x 0.2 x 0.3 cm, volume 0.009 mL. Nodule characteristics: Composition: Solid (2). Echogenicity: Hyperechoic (1). Shape: Not taller than wide (0). Margins: Ill-defined (0). Echogenic Foci: None (0). ACR TI-RADS total points: 3 ACR TI-RADS category: 3 Significant change in size (>/= 20% in 2 dimensions and minimal increase of 2 mm or 50% or greater increase in volume): No Change in features: No Change in ACR TI-RADS risk category: No NODES: No lymphadenopathy is seen in the tissue surrounding the thyroid gland. US/US thyroid IMPRESSION: No further routine follow-up is needed. ACR TI-RADS RECOMMENDATION REFERENCE: Ultrasound-guided fine-needle aspiration, follow up ultrasound, no further followup. * TR1 (0 point) and TR2 (2 points): No FNA or followup * TR3 (3 points): FNA if more than or equal to 2.5 cm in maximum dimension, follow up ultrasound in 1, 3 and 5 years if 1.5 to 2.4 cm in maximum dimension. * TR4 (4-6 points): FNA if more than or equal to 1.5 cm in maximum dimension, follow up ultrasound in 1, 2, 3 and 5 years if 1 to 1.4 cm in maximum dimension. * TR5 (more than or equal to 7 points): FNA if more than or equal to 1 cm in maximum dimension, follow up ultrasound every year for 5 years if 0.5 to 0.9 cm in maximum dimension. * TR3, TR4 or TR5 nodules that are below the size threshold for follow up receive no followup.
== END 2023-05-21 10:32 | disposition home or self-care (01) ==
LOC: HO.US 10:31
PROVIDERS: PCP Internal Medicine; Visit Provider Internal Medicine
DX: E04.1 Nontoxic single thyroid nodule (principal)
CPT/HCPCS: 76536

== ENCOUNTER 2023-06-03 10:24 | Outpatient (REF) | payer MEDICARE, SELFPAY ==
--- NOTE | ~2023-06-03 | MM_ITS ---
EXAMINATION: MM SCREENING DIGITAL BREAST TOMOSYNTHESIS, BILATERAL CLINICAL INFORMATION: Screening. Asymptomatic. The patient has a history of prior, benign right breast excision. COMPARISON: Mammography: This study is compared with prior exams dating back to 2019. TECHNIQUE: Digital breast tomosynthesis is performed in both the craniocaudal and mediolateral oblique views along with computer-aided detection (CAD). Synthesized 2D images are generated from the tomosynthesis. FINDINGS: There are scattered areas of fibroglandular density (ACR BI-RADS breast composition Category b). There are no significant masses, abnormal calcifications, or other abnormalities. There is a tissue marker present in the left breast from prior benign percutaneous biopsy. There is minor architectural changes in the lateral aspect of the right breast from prior benign excisional biopsy. MM/MM tomosynthesis screening BI IMPRESSION: No mammographic evidence of malignancy. ASSESSMENT: BI-RADS BI-RADS 2 - Benign Findings RECOMMENDATION: Routine annual mammography screening. 1 year F/U This examination should not preclude the clinical evaluation of a suspicious palpable abnormality. This patient's information was entered into a reminder system with a target due date for their next mammogram.
== END 2023-06-03 10:25 | disposition home or self-care (01) ==
LOC: HO.MAMMO 10:24
PROVIDERS: PCP Internal Medicine; Visit Provider Internal Medicine
DX: Z12.31 Encounter for screening mammogram for malignant neoplasm of breast (principal)
CPT/HCPCS: 77063; 77067

== ENCOUNTER → 2023-06-03 10:30 | Outpatient (BNV) | payer MEDICARE, SELFPAY | PROVIDERS: PCP Internal Medicine; Visit Provider Radiology Diagnostic Radiology | DX: Z12.31 Encounter for screening mammogram for malignant neoplasm of breast (principal) | CPT/HCPCS: 77063; 77067 ==

== ENCOUNTER 2023-10-11 10:51 | Outpatient (REF) | payer MEDICARE, SELFPAY ==
[2023-10-11 10:55] LABS: MANUAL DIFF FLAG NO
[2023-10-11 11:03] LABS: Basophils Percent Auto 0.8 % (0-2); Eosinophils Absolute Auto 0.1 X10*3/uL (0.0-0.4); Eosinophils Percent Auto 3.2 % (0-4); Hematocrit 43.4 % (37.0-47.0); Hemoglobin 14.5 g/dl (12.0-16.0); Imm Gran Abs Auto 0.01 X10*3/uL (0.00-0.03); Imm Gran Pct Auto 0.3 % (0.0-0.4); Lymphocytes Absolute Auto 1.3 X10*3/uL (1.2-4.9); Lymphocytes Percent Auto 34.4 % (20-40); Mean Corpuscular HGB Conc 33.4 g/dl (31.0-35.0); Mean Corpuscular Hemoglobin 29.9 pg (27.0-33.0); Mean Corpuscular Volume 89.5 fL (80.0-98.0); Mean Platelet Volume 10.2 fL (9.4-12.3); Monocytes Absolute Auto 0.4 X10*3/uL (0.1-1.2); Monocytes Percent Auto 11.7 % (2-11); Neutrophils Absolute Auto 1.9 x10*3/uL (2.0-8.3); Neutrophils Percent Auto 49.6 % (45-73); Red Blood Count 4.85 X10*6/uL (4.20-5.50); Red Cell Distribution Width 13.9 % (11.0-16.0); White Blood Count 3.8 X10*3/uL (4.8-10.8)
[2023-10-11 11:10] LABS: Platelet Count 97 X10*3/uL (160-400)
[2023-10-11 11:23] LABS: Appearance Urine Clear; Color Urine Yellow; Glucose Urine UA Negative (Negative); Leukocyte Esterase Urine Small (1+) (Negative); Nitrite Urine Negative (Negative); Specific Gravity - Urine 1.025 (1.005-1.025); UMIC TRIGGER UACC YES; Urine Blood Negative (Negative); Urine Ketones Negative (Negative); Urine Protein Negative (Neg-Trace)
[2023-10-11 11:25] LABS: Bacteria Urine None Seen (None Seen); Hyaline Casts Urine 0-2 /LPF (0-2); RBC Urine 0-2 /HPF (0-2); Squamous Epithelial Cell Urine 0-2 /HPF (0-2); UACC Culture Trigger YES
[2023-10-11 11:50] LABS: Estimated Average Glucose 114 mg/dL; Hemoglobin A1c % 5.6 % (<6.0)
[2023-10-11 12:10] LABS: Alanine Aminotransferase 19 U/L (0-31); Albumin Level 4.2 g/dL (3.5-5.0); Alkaline Phosphatase 71 U/L (39-117); Anion Gap 11 (12-20); Aspartate Amino Transferase 18 U/L (5-31); Bilirubin Total 0.5 mg/dL (0.0-1.0); Blood Urea Nitrogen 21 mg/dL (9-16); Calcium 9.3 mg/dL (8.4-10.2); Carbon Dioxide 27 mmol/L (22-29); Chloride 108 mmol/L (96-108); Cholesterol 158 mg/dL (<200); Estimated Glomerular Filt Rate > 60; Glucose Fasting 106 mg/dL (60-99); HDL Cholesterol 42 mg/dL (>40); LDL Cholesterol Calculated 83 mg/dL (<100); Potassium 4.1 mmol/L (3.3-5.1); Sodium 142 mmol/L (135-145); TSH reflex Free T4 3.02 uIU/mL (0.32-4.0); Total Protein 6.8 g/dL (6.5-8.0); Triglycerides 166 mg/dL (<150)
[2023-10-11 12:49] LABS: Microalbum/Creatinine Ratio Ur 27.8 ug/mg cr (<30)
== END 2023-10-11 10:52 | disposition home or self-care (01) ==
LOC: HO.LNP 10:51
PROVIDERS: Visit Provider Internal Medicine
DX: E03.9 Hypothyroidism, unspecified (principal); R73.03 Prediabetes; D69.6 Thrombocytopenia, unspecified; E78.00 Pure hypercholesterolemia, unspecified
CPT/HCPCS: 80053; 80061; 81001; 82043; 82570; 83036; 84443; 85025; 87086

== ENCOUNTER 2023-11-12 11:24 | Outpatient (REF) | payer MEDICARE, SELFPAY ==
--- NOTE | ~2023-11-12 | XR_ITS ---
EXAMINATION: XR KNEE, RIGHT CLINICAL INFORMATION: Acute pain. COMPARISON: None available. TECHNIQUE: Four views of the right knee. FINDINGS: The bones are diffusely demineralized. Trace joint effusion. Faint chondrocalcinosis in medial compartment and minimal chondrocalcinosis in the lateral compartment. Small tricompartmental osteophytes. Mild narrowing of the medial and lateral compartments. XR/XR knee RT 4V IMPRESSION: Mild tricompartmental degenerative changes.
== END 2023-11-12 11:25 | disposition home or self-care (01) ==
LOC: HO.HMGCX 11:24
PROVIDERS: PCP Internal Medicine; Visit Provider Internal Medicine
DX: M25.561 Pain in right knee (principal)
CPT/HCPCS: 73564

== ENCOUNTER 2023-12-11 12:08 | Outpatient (REF) | payer MEDICARE, SELFPAY ==
[2023-12-11 14:12] LABS: C Reactive Protein < 0.10 mg/dL (< or = 0.50)
[2023-12-11 14:54] LABS: Erythrocyte Sedimentation Rate 6 MM/HR (0-20)
== END 2023-12-11 12:09 | disposition home or self-care (01) ==
LOC: HO.HMGCLDS 12:08
PROVIDERS: PCP Internal Medicine; Visit Provider Optometrist
DX: H53.129 Transient visual loss, unspecified eye (principal)
CPT/HCPCS: 36415; 85652; 86140

== ENCOUNTER 2023-12-16 11:00 | Outpatient (RCR) | payer MEDICARE, SELFPAY ==
--- NOTE | 2024-01-14 08:27 | MHC.PT.DC ---
[facility] [place] [facility] [place] [facility] [place] [facility] [address] [phone] F: [phone] F: [phone] F: [phone] F: [phone] Physical Therapy Discharge Report Diagnosis: RC impingement, L Date of Surgery: n/a Date of Evaluation: 11/13/23 Date of Discharge: 01/14/24 Treatments to Date: 7 Cancellations to Date: 2 No Shows to Date: 0 Discharge Status: Discharge Summary: Pt cancelled last scheduled appointment and has not called to be rescheduled. Pt to be d/c as POC has gone past 30 days. Electronically signed by: Patty Solis, PT, DPT, ATC Please sign and return to therapist. Thank you for your referral.
== END 2024-01-14 08:28 | disposition home or self-care (01) ==
LOC: HO.PTCHIC 11:00
PROVIDERS: PCP Internal Medicine; Visit Provider Internal Medicine
DX: M75.40 Impingement syndrome of unspecified shoulder (principal)
CPT/HCPCS: 97110; 97140; 97161

== ENCOUNTER 2024-01-02 12:39 | Outpatient (REF) | payer MEDICARE, SELFPAY ==
--- NOTE | ~2024-01-02 | MR_ITS ---
EXAMINATION: MR BRAIN WITHOUT CONTRAST CLINICAL INFORMATION: Visual hallucinations. COMPARISON: MR brain 01/10/2022. TECHNIQUE: MRI of the brain was obtained using routine sequences without contrast. FINDINGS: There are scattered nonspecific foci of T2 FLAIR signal hyperintensity primarily involving the periventricular white matter and erika. No acute territorial infarct. No pathological magnetic susceptibility artifact. Intracranial vascular flow voids are maintained. There is no intracranial mass effect or midline shift. Lateral and third ventricles are normal. No hydrocephalus. Midline structures including the cervicomedullary junction are normal. No acute bone marrow signal changes. There is no mastoid or middle ear effusion. Mild paranasal sinus disease primarily affecting the ethmoid air cells. Globes and orbits are symmetric. MR/MR head/brain wo con IMPRESSION: There are scattered chronic small vessel ischemic changes primarily involving the periventricular white matter and erika. Otherwise unremarkable examination. No evidence of acute territorial infarct or hemorrhage.
== END 2024-01-02 12:40 | disposition home or self-care (01) ==
LOC: HO.MRI 12:39
PROVIDERS: Visit Provider Internal Medicine
DX: R44.1 Visual hallucinations (principal)
CPT/HCPCS: 70551

== ENCOUNTER 2024-04-13 11:14 | Outpatient (REF) | payer MEDICARE, SELFPAY ==
[2024-04-13 12:11] LABS: Estimated Average Glucose 117 mg/dL; Hemoglobin A1C 133.9031 umol/L; Hemoglobin A1c % 5.7 % (<6.0); Total Hemoglobin (HGBA1C) 3479.7529 umol/L
[2024-04-13 12:49] LABS: Alanine Aminotransferase 24 U/L (0-31); Alkaline Phosphatase 71 U/L (39-117); Aspartate Amino Transferase 28 U/L (5-31); Bilirubin Direct 0.2 mg/dL (0.0-0.5); Bilirubin Total 0.5 mg/dL (0.0-1.0); Cholesterol 160 mg/dL (<200); Glucose Fasting 101 mg/dL (60-99); HDL Cholesterol 42 mg/dL (>40); LDL Cholesterol Calculated 81 mg/dL (<100); Total Protein 6.5 g/dL (6.5-8.0); Triglycerides 186 mg/dL (<150)
[2024-04-13 13:26] LABS: Reflex LDLD? No
== END 2024-04-13 11:15 | disposition home or self-care (01) ==
LOC: HO.LNP 11:14
PROVIDERS: Visit Provider Internal Medicine
DX: E78.00 Pure hypercholesterolemia, unspecified (principal); R73.09 Other abnormal glucose
CPT/HCPCS: 80061; 80076; 82947; 83036

== ENCOUNTER 2024-06-04 10:02 | Outpatient (REF) | payer MEDICARE, SELFPAY ==
--- OUTSIDE RECORDS SUMMARY | 2024-06-04 10:11 | XMS_ITS ---
Author Organization [facility] Address [address] [place] [address] Care Team Providers Care Nuclear Plant Construction Worker Name Role Phone Owen Mcdonald MD Primary Care Provider Kiara Long Unavailable [phone] Danny Rhodes [phone] Encounters Encounter Location Date Provider Diagnosis [address] [address] 11/14/2023 Danny Rhodes Plan Of Treatment No Information Progress Notes * Melanie SOLIS RDOB:[birth year] (83 yo F)Acc No.[id number]:11/14/2023 Progress Note Patient:Melanie HO Provider:?Danny Rhodes DPM :1940???Age:83 Y???Sex:Female D ate:11/14/2023 Address:[address] [place], [place] [id number] Pcp:Owen Mcdonald MD Subjective: * Chief Complaints: * ??? * Medical History:? Objective: * Vitals:? Assessment: Plan: * Treatment: * Images: * The named appointment provid er may or may not be the originator of this progress note, and it is not deemed complete until electronically signed by the appointment provider. Sign off status: Pending * Provider:?Danny Rhodes DPM Date:? 024 Generated for Printi ng/Faxing/eTransmitting on:?06/04/2024 10:11 AM EST
--- OUTSIDE RECORDS SUMMARY | 2024-06-04 10:11 | XMS_ITS ---
Author Organization [facility] Address [address] [facility] [place] [address] Care Team Providers Care Control Systems Drafting Officer Name Role Phone Owen Mcdonald MD Primary Care Provider Efrem BeckerKiara Unavailable [phone] Black, Clary Unavailable [phone] Allergies Allergen (clinical drug ingredient) Drug/Non Drug Allergy documented on EMR Reaction Allergy Type Onset Date Status sulfamethoxazole / trimethoprim Bactrim sulfa-hives Drug Allergy Active Floxin Otic hives Drug Allergy Activ e Adhesive Tape hives Drug Allergy Act vitaly Latex hives Drug Allergy Active REASON FOR VISIT Pcp-10/15, Foot pain, Painful Toe(s), Noncovered Footcare Medications Medication SIG (Take, Route, Frequency, Duration) Notes Start Date End Date Status Magnesium 500 MG 1 tablet with a meal Orally Once a day for 30 day(s) Active calcium as directed Active ICaps AREDS Formula as directed Orally Active Vitamin D3 1000 UNIT 1 tablet Orally Onc e a day for 30 day(s) Active Multivitamins as directed Orally Active Rosuvastatin Calcium 40 MG 1 tablet Oral ly Once a day Not-Taking Aspirin 81 MG 1 tablet Orally Once a day for 30 day(s) Not-Taking Crestor 40 MG 1 tablet Orally Once a day for 30 day(s) Not-Taking Synthroid 50 MCG 1 tablet on an empty stomach in the morning Orally Once a day for 30 day(s) Not-Taking Advil 200 MG 1 tablet as needed Orally every 6 hrs 09/08/2012 Not-Taking Flax Seed Oil 1000 MG Orally Active PriLOSEC OTC 20 MG 1 tablet Orally twic e a day Not-Taking Clopidogrel Bisulfate 75 MG 1 tablet Orally Once a day for 30 day(s) Active Levothyroxine Sodium Active Simvastatin Not-Taki ng Zinc 25 MG 1 tablet with a meal Orally Once a day for 30 day(s) Active Social History Tobacco Use: Social History Observation Description Date Details (start date - stop date) Never Smoker NA - NA Tobacco Use/Smoking Question Answer Notes Are you a: nonsmoker Additional Findings: Tobacco Non-User Current no n-smoker Tobacco use other than smoking: Question Answer Notes Are you an other tobacco user? No Problems Problem Type SNOMED Code ICD Code Onset Dates Problem Status W/U Status Risk Notes Problem Acquired hallux valgus (50068514) Hallux valgus (acquired), left foot (M20.12) Active confirmed Problem Acquired hammer toe of right foot (7800046335730131) Other hammer toe(s) (acquired), right foot (M20.41) Active confirmed Problem Localized, primary osteoarthritis of the ankle and/or foot (340403886) Arthritis of joint of lesser toe, right (M19.071) Active confirmed Problem Acquired hammer toe of left foot (0732040091489577) Other hammer toe(s) (acquired), left foot (M20.42) Active confirmed Problem Localized, primary osteoarthritis of the ankle and/or foot (172842669) Arthritis of joint of lesser toe, left (M19.072) Active confirmed Vital Signs Height 5 ft in 03/05/2024 Weight 140 lbs 03/05/2024 BMI 27.34 kg/m2 03/05/2024 Blood pressure systolic 138 mm Hg 03/05/20 24 Blood pressure diastolic 58 mm Hg 024 Procedures Procedure Date Ordered Date Performed Result Body Sit e 29304-RCRT SKIN LESIONS, 2 TO 4 03/05/2024 N/A T4273-PYQJDEAZ DYSTROPHIC NAILS ANY # 03/05/2024 N/A Encounters Encounter Location Date Provider Diagnosis [facility] [address] [place] [address] 03/05/2024 Clary Black Pain in left foot M79.672 ; Pain in left ankle and joints of left foot M25.572 ; Bursitis of left foot M77.52 ; Hallux valgus (acquired), left foot M20.12 ; Pain in right foot M79.671 ; Pain in right ankle and joints of right foot M25.571 ; Bursitis of right foot M77.51 ; Hallux valgus (acquired), right foot M20.11 ; Pain in right toe(s) M79.674 ; Other hammer toe(s) (acquired), right foot M20.41 ; Arthritis of joint of lesser toe, right M19.071 ; Pain in left toe(s) M79.675 ; Other hammer toe(s) (acquired), left foot M20.42 ; Arthritis of joint of lesser toe, left M19.072 ; Subluxation of metatarsophalangeal joint of toe, initial encounter S93.149A ; Dystrophic nail L60.3 and Keratoma L57.0 Assessments Encounter Date Diagnosis (ICD Code) Assessment Notes Treatment Notes Treatment Clinical Notes Section Notes 03/05/2024 Pain in left foot (ICD-10 - M79.672) 03/05/2024 Pain in left ankle a nd joints of left foot (ICD-10 - M25.572) 03/05/2024 Bursitis of left cam t (ICD-10 - M77.52) 03/05/2024 Hallux valgus (acquired), left foot (ICD-10 - M20.12) 03/05/2024 Pain in right foot (ICD-10 - M79.671) 03/05/2024 Pain in right ankle and joints of right foot (ICD-10 - M25.571) 03/05/2024 Bursitis of right fo ot (ICD-10 - M77.51) 03/05/2024 Hallux valgus (acquired), right foot (ICD-10 - M20.11) 03/05/2024 Pain in right toe(s) (ICD-10 - M79.674) 03/05/2024 Other hammer toe(s) (acquired), right foot (ICD-10 - M20.41) 03/05/2024 Arthritis of joint o f lesser toe, right (ICD-10 - M19.071) 03/05/2024 Pain in left toe(s) (ICD-10 - M79.675) 03/05/2024 Other hammer toe(s) (acquired), left foot (ICD-10 - M20.42) 03/05/2024 Arthritis of joint o f lesser toe, left (ICD-10 - M19.072) 03/05/2024 Subluxation of metatarsophalangeal joint of toe, initial encounter (ICD-10 - S93.149A) 03/05/2024 Dystrophic nail (ICD -10 - L60.3) 03/05/2024 Keratoma (ICD-10 - L57.0) Plan Of Treatment Pending Test Test Name Order Date 87632-LUMG SKIN LESIONS, 2 TO 4 03/05/20 24 B8664-XNRVUZRV DYSTROPHIC NAILS ANY # Next Appt Details Follow Up: prn, Reason: Procedure Notes * Category Sub-Category Detail Notes Keratoma Treatment Parring or Cutting o f Benign Hyperkeratotic Lesion(s) 75284-LQ Self Pay Non-Covered Callus care- Nail Reduction Nail Reduction E3203-LE Trimmin g of noncovered dystrophic nails, any number - Progress Notes * Melanie SOLIS RDOB:[birth year] (83 yo F)Acc No.[id number]:03/05/2024 Progress Note Patient:?Melanie Solis R Provider:?Clary Amos DPM :1940???Age:83 Y???Sex:Female D ate:03/05/2024 Address:[address] [place], [place] [id number] Pcp:Owen Mcdonald MD Subjective: * Chief Complaints: * ???Pcp-10/15Foot painPainful Toe(s)Noncovered Footcare * HPI: ???Foot Pain:?Location:?Inside, Great toe joint, B/L.?Duration:?, several years.?Course:?worse.?Aggravated:?any pressure.?Treatments:?rest/alter normal daily activity.?Toe pain:?Nature:?tenderness.?Location:?, 2-5 B/L feet.?Duration:?, several years.?Course:?worse.?Aggravated by:?shoes, any pressure.?Treatments:?rest/alter normal daily activity, change in shoes.? * ROS:?General/Constitutional:?Nausea?denies.?Vomiting?denies.?Hunger Thirst?denies.?Loss appetite?denies.?Chills?denies.?Fatigue?denies.?Fever?denies.?Night Sweats?admits.?Unexplained weight loss?denies.?Unexplained weight gain?denies.?HEENTM:?Dentures?denies.?Dizziness?denies.?Glasses/contacts?admits.?Retinopathy?de nies.?Blurred/double vision?denies.?TMJ?denies.?Discharge/drainage?denies.?Implants?denies.?Sore throat?denies.?Dental implants?denies.?Hard of hearing ?denies.?Difficulty chewing/swallowing/speaking?denies.?Nose bleeds?denies.?Sore mouth?denies.?Respiratory:?On Oxygen?denies,?denies.?Pneumonia/pleurisy?denies,?denies.?Bronchitis?denies,?den ies.?Emphysema?denies,?denies.?Coughing?denies.?Cough blood?denies,?denies.?Shortness of breath?denies.?Wheezing?denies.?Wheezing?denies.?Cardiovascular:?Pacemaker?denies,?denies.?MVP?denies,?denies.?WPW?denies,?denies.?CHF?kassy es,?denies.?Heart attack?denies,?denies.?Septal defect?denies,?denies.?Rapid beat?denies,?denies.?Chest pain ?denies,?denies.?Atrial Fib.?denies,?denies.?Murmur/Palpitations?denies,?denies.?Gastrointestinal:?Hemorrhoids?denies,?denies.?Stomach/Abdominal pain?denies,?denies.?Dark blood stool?denies,?denies.?Irritable bowel ?admits,?admits.?Constipation?denies,?denies.?Diarrhea?denies,?denies.?Hematology:?Swelling?denies,?denies.?Clots?denies,?denies.?Varicose Veins?admits,?admits.?Bruising?denies,?denies.?Bleeding problem?denies,?denies.?Genitourinary:?Blood urine?denies,?denies.?Frequent/Painfu/urination/bladder control?denies,?denies.?Kidney stones?denies,?denies.?Infection (UTI)?denies,?denies.?Nephropathy?denies,?denies.?sex trans dis (STD)?denies,?denies.?Prostate?denies,?denies.?Musculoskeletal:?Hammertoes?denies,?denies.?Bunions?admits,?admits.?Back Pain?admits,?admits.?Muscle Cramps/ Resting?denies,?denies.?Muscle cramps / walking?denies,?denies.?Generalized aches and pains?denies,?denies.?Weakness?denies,?denies.?Integ.:?Mahoney?denies,?denies.?Scars?admits,?admits.?Corns/calluses?denies,?denies. ?Ingrown nails?denies,?denies.?Painful nails?denies,?denies.?Open Sores?denies,?denies.?Rashes?denies,?denies.?Neurologic:?Difficulty sleeping?denies,?denies.?Brain disorder?denies,?denies.?Numbness?denies,?denies.?Balance trouble?denies,?denies.?Confusion?denies,?denies.?Fainting/blackouts?denies,?den ies.?Tingling?denies,?denies.?Tremors?denies,?denies.? * Medical History:? * Surgical History:?right deepak st aspiration 1982right breast lumpectomy 1982right breast lumpectomy 1993colonoscopy 06/2013hysterectomy 03/1995internal loop recorder 04/23/2019 * Hospitalization/Major Diagno stic Procedure:[place] [place] 02/[place] * Family History:?Mother: dece ased, stroke.?Father: , heart attack.? * Social History:?Tobacco Use:?Tobacco Use/Smoking?Are you a:?nonsmoker ?Additional Findings: Tobacco Non-User?Current non-smoker ?Tobacco use other than smoking?Are you an other tobacco user??No ???Miscellaneous:?Caffeine: yes, 1-2 cups per day. ?Children: yes, 2. ?no Exercise. ?Marital status: . ?Occupation: retired. * Medications:?TakingMultivita mins Capsule as directed Orally Vitamin D3 1000 UNIT Tablet 1 tablet Orally Once a dayICaps AREDS Formula Tablet as directed Orally calcium as directed Magnesium 500 MG Tablet 1 tablet with a meal Orally Once a dayZinc 25 MG Tablet 1 tablet with a meal Orally Once a dayFlax Seed Oil 1000 MG Capsule Orally Levothyroxine Sodium Clopidogrel Bisulfate 75 MG Tablet 1 tablet Orally Once a dayTaking Multivitamins Capsule as directed Orally Taking Vitamin D3 1000 UNIT Tablet 1 tablet Orally Once a dayTaking ICaps AREDS Formula Tablet as directed Orally Taking calcium as directed Taking Magnesium 500 MG Tablet 1 tablet with a meal Orally Once a dayTaking Zinc 25 MG Tablet 1 tablet with a meal Orally Once a dayTaking Flax Seed Oil 1000 MG Capsule Orally Taking Levothyroxine Sodium Taking Clopidogrel Bisulfate 75 MG Tablet 1 tablet Orally Once a dayNot-Taking/PRNSimvastatin PriLOSEC OTC 20 MG Tablet Delayed Release 1 tablet Orally twice a dayAdvil 200 MG Tablet 1 tablet as needed Orally every 6 hrsSynthroid 50 MCG Tablet 1 tablet on an empty stomach in the morning Orally Once a dayCrestor 40 MG Tablet 1 tablet Orally Once a dayAspirin 81 MG Tablet Chewable 1 tablet Orally Once a dayRosuvastatin Calcium 40 MG Tablet 1 tablet Orally Once a dayMedication List reviewed and reconciled with the patientNot-Taking/PRN Simvastatin Not- Taking/PRN PriLOSEC OTC 20 MG Tablet Delayed Release 1 tablet Orally twice a dayNot- Taking/PRN Advil 200 MG Tablet 1 tablet as needed Orally every 6 hrsNot-Taking/PRN Synthroid 50 MCG Tablet 1 tablet on an empty stomach in the morning Orally Once a dayNot-Taking/PRN Crestor 40 MG Tablet 1 tablet Orally Once a dayNot-Taking/PRN Aspirin 81 MG Tablet Chewable 1 tablet Orally Once a dayNot-Taking/PRN Rosuvastatin Calcium 40 MG Tablet 1 tablet Orally Once a dayMedication List reviewed and reconciled with the patient * Allergies:?Adhesive Tape: hi vesFloxin Otic: hivesLatex: hivesBactrim: sulfa-hivesyes[Allergies Verified] Objective: * Vitals:?Ht: 5 ft, Wt: 140, B NV: 27.34, Shoe size: 5W, BP: 138/58 mm Hg, Wt-k.5 kg. * Examination: ???General Examination: ?GENERAL APPEARANCE:?Reveals a pleasant, alert, well nourished, well- developed, well hydrated individual, who demonstrates proper attention to hygiene/body habitus, and is in no acute distress, Pt serves as own historian for office visit today.?ORIENTED:?person, place, and time.?Orthopedic: ?MUSCLE STRENGTH:?5/5 all groups in a symmetrical fashion, B/L.?GAIT ABNORMALITY:?Pronated , abducted angle and base of gate , B/L.?BUNION:? Medially prominent 1st MPJ, (+) Pain on palpation, inflammation present medially, Lateral tracking 1st MPJ incompletely reducible, B/L, erythema at exostosis, inflammation present, (+) Pain on palpation.?DIGITAL DEFORMITIES:?, Digital contracture, PIPJ, 2-5 B/L, incompl- reducible with WB, or to push-up test, no over, nor underlapping.?FOOTWEAR:? shoe gear properties exacerbate patients foot/toe deformity.?Neurological: ?TINEL'S COMPRESSION:? Negative, Saphenous nerve distribution, B/L.?Nails: ?NAILS are:?Elongated, overgrown, dystrophic , 1-5 B/L.?Dermatologic: ?SKIN FINDINGS:?Skin exam reveals Keratotic lesion(s) located at , IPJ , TA , T5.?Vascular: ?DP PULSES:?2/4, B/L.?PT PULSES:?2/4, B/L.?CAPILLARY FILL TIME:?immediate, all digits, B/L.?SKIN TEMPERTURE GRADIENT OF THE LOWER EXTERMITIES:?normal, warm to cool, proximal to distal, B/L.?TROPHIC CONDITION FOR TEXTURE/ELASTICITY/TURGOR/HAIR GROWTH:?normal, B/L.?PIGMENTATION:?normal, B/L.?EDEMA:?absent, B/L.? Assessment: * Assessment: 1.?Pain in left ankle and willi ints of left foot - M25.572?2.?Pain in left foot - M79.672 (Primary)?3.?Bursitis of left foot - M77.52?4.?Hallux valgus (acquired), left foot - M20.12?5.?Pain in right foot - M79.671?6.?Pain in right ankle and joints of right foot - M25.571?7.?Bursitis of right foot - M77.51?8.?Hallux valgus (acquired), right foot - M20.11?9.?Pain in right toe(s) - M79.674?10.?Other hammer toe(s) (acquired), right foot - M20.41?11.?Arthritis of joint of lesser toe, right - M19.071?12.?Pain in left toe(s) - M79.675?13.?Other hammer toe(s) (acquired), left foot - M20.42?14.?Arthritis of joint of lesser toe, left - M19.072?15.?Subluxation of metatarsophalangeal joint of toe, initial encounter - S93.149A?16.?Dystrophic nail - L60.3?17.?Keratoma - L57.0? Plan: * Treatment: 2.?Keratoma?Procedure: 06154-OVXN SKIN LESIONS, 2 TO 4 * Procedures:?Keratoma Treatment:?Parring or Cutting of Benign Hyperkeratotic Lesion(s)?36936-IZ Self Pay Non-Covered Callus care-.?Nail Reduction:?Nail Reduction?V5462-YV Trimming of noncovered dystrophic nails, any number -.? * Procedure Codes:?81287 TRIM SKIN LESIONS, 2 TO 4 $60, Modifiers: GY G0127 TRIMMING DYSTROPHIC NAILS ANY #, Modifiers: GY * Preventive Medicine:? ??Counseling:?Discussion:?-14: Office or other outpatient visit for the evaluation and management of an established patient, which required a medically appropriate history and/or examination and MODERATE level of DECISION MAKING for: 1 OR MORE CHRONIC PROBLEM(S) THATS WORSENING, 2 STABLE CHRONIC PROBLEMS, A NEWLY DIAGNOSED PROBLEM WITH UNCERTAIN PROGNOSIS, AN ACUTE COMPLICATED INJURY WITH MULTIPLE TREATMENT OPTIONS, OR AN ACUTE PROBLEM WITH ACCOMPANYING SYSTEMIC SYMPTOMS, THAT POSE(S) A MODERATE RISK OF MORBIDITY. THIS CONDITION MAY ALSO INCLUDE RX DRUG MANAGEMENT, OR A DECISON FOR MINOR SURGERY. The visit on the day of the encounter encompassed interpreting the data and educating the patient as to the nature of their condition, treatment options available according to their individual PMH, meds, allergies, and overall health/living conditions, as well as any potential risks or complications that may occur from a failure to adhere to, and participate in, the recommended course of therapy. The discussion included a complete verbal, and/or written explanation of the examination results, any x-rays taken, the proposed diagnosis, and outline of the treatment plan. A schedule for future care needs was also explained. The patient verbalized an understanding of the instructions at this time and agreed to be an active participant in their treatment. If the patient should think of any questions or concerns after the visit, I have encouraged the patient to call the office.?BioMech.:?I discussed the Pts foot biomechanics with them and how it relates to their problem.?Digital Surgery:?The patient defers on any surgical treatment.?Digital Treatment:?HT- I explained to the patient the possible etiologies of Hammertoes, including genetics/foot type/shoegear/activity level/exercise routine and the risks/benefits of all the different treatment options for their pain including: No treatment at all, Rest, Ice, New/supportive/wider/deeper Shoegear, Digital Padding/Strapping/Taping/Bracing/Gel protective sleeves, Foot/Ankle AFO Bracing, Stretching exercises, Deep Tissue Massage, Arch support/shoe inserts with splay metatarsal padding, and Custom orthoses. I insisted that any digital devices be removed daily and not worn overnight for safety. The patient is to carefully examine the toes daily for any skin irritation while using any splinting or padding device. The advantages and disadvantages of each option were discussed and the patients questions re: shoegear, padding, custom vs prefabricated inserts, activity level, and consistency in home treatment regimens for optimal success were answered to their verbally confirmed satisfaction, HV - I explained to the patient the risks/benefits of all the different treatment options for their pain including: No treatment at all, Rest, Ice, New/supportive/wider/deeper Shoegear, Digital Padding/Strapping/Taping/Bracing/Gel protective sleeves, Foot/Ankle AFO Bracing, Stretching exercises, Deep Tissue Massage, Arch support/shoe inserts with splay metatarsal padding, and Custom orthoses. I insisted that any digital devices be removed daily and not worn overnight for safety. The patient is to carefully examine the toes daily for any skin irritation while using any splinting or padding device. The advantages and disadvantages of each option were discussed and the patients questions re: shoegear, padding, custom vs prefabricated inserts, activity level, and consistency in home treatment regimens for optimal success were answered to their verbally confirmed satisfaction, HV - I explained to the patient the risks/benefits of all the different treatment options for their pain including: No treatment at all, Rest, Ice, New/supportive/wider/deeper Shoegear, Digital Padding/Strapping/Taping/Bracing/Gel protective sleeves, Foot/Ankle AFO Bracing, Stretching exercises, Deep Tissue Massage, Arch support/shoe inserts with splay metatarsal padding, and Custom orthoses. I insisted that any digital devices be removed daily and not worn overnight for safety. The patient is to carefully examine the toes daily for any skin irritation while using any splinting or padding device. The advantages and disadvantages of each option were discussed and the patients questions re: shoegear, padding, custom vs prefabricated inserts, activity level, and consistency in home treatment regimens for optimal success were answered to their verbally confirmed satisfaction, Recomm, rest, ice, proper shoegear, padding, orthotics, anti-inflammatories or tylenol as tolerated, topical analgesics, cortisone injections.? * Follow Up:?prn * Images: * Sign off status: Completed true * Provider:?Clary Amos DPM Date:?2023 Generated for Martina hughes/Jesse/Fatou on:?06/04/2024 10:11 AM EST History and Physical Notes * HPI (History of Present Illness) Category Sub-Category Detail Notes Category Not es Toe pain Nature: tenderness Location: , 2-5 B/L feet Duration: , several years Course: worse Aggravated by: shoes, any pressure Treatments: rest/alter normal da kaleb activity, change in shoes Foot Pain Location: Inside, Great toe joint, B/L Duration: , several years Course: worse Aggravated: any pressure Treatments: rest/alter normal da kaleb activity Examination Category Sub-Category Detail Notes Category Not es Neurological TINEL'S COMPRESSION: Negative, S aphenous nerve distribution, B/L Dermatologic SKIN FINDINGS: Skin exam reveal s Keratotic lesion(s) located at , IPJ , TA , T5 Orthopedic GAIT ABNORMALITY: Pronated , abd ucted angle and base of gate , B/L BUNION: Medially prominent 1 st MPJ, (+) Pain on palpation, inflammation present medially, Lateral tracking 1st MPJ incompletely reducible, B/L, erythema at exostosis, inflammation present, (+) Pain on palpation FOOTWEAR: shoe gear properties exacerbate patients foot/toe deformity DIGITAL DEFORMITIES: , Digital contractu re, PIPJ, 2-5 B/L, incompl-reducible with WB, or to push-up test, no over, nor underlapping MUSCLE STRENGTH: 5/5 all groups in a symmetrical fashion, B/L General Examination GENERAL APPEARANCE: Reveals a pleasant, alert, well nourished, well-developed, well hydrated individual, who demonstrates proper attention to hygiene/body habitus, and is in no acute distress, Pt serves as own historian for office visit today ORIENTED: person, place, and t michi Vascular DP PULSES(B): 2/4, B/L PT PULSES(B): 2/4, B/L CAPILLARY FILL TIME: immediate, all digi ts, B/L TEMPERTURE GRADIENT(C): normal, warm to cool, proximal to distal, B/L TROPHIC CONDITION-TEXTURE/ELASTICITY/TURGOR/HAIR GROWTH(B): normal, B/L EDEMA(C): absent, B/L PIGMENTATION: normal, B/L Nails NAILS are: Elongated, overgrown, dystro phic , 1-5 B/L
--- OUTSIDE RECORDS SUMMARY | 2024-06-04 10:11 | XMS_ITS ---
Author Organization [facility] Address [address] [place] [id number] Care Team Providers Care Revenue Inspector Name Role Phone Owen Mcdonald MD Primary Care Provider Kiara Long Unavailable [phone] Danny Rhodes [phone] Encounters Encounter Location Date Provider Diagnosis [address] [address] 01/01/2024 Danny Rhodes Plan Of Treatment No Information Progress Notes * Melanie SOLIS RDOB:[birth year] (83 yo F)Acc No.[id number]:01/01/2024 Progress Note Patient:Melanie HO Provider:?Danny Rhodes DPM :1940???Age:83 Y???Sex:Female D ate:01/01/2024 Address:[address] [place], [place] [id number] Pcp:Owen Mcdonald MD Subjective: * Chief Complaints: [...]
--- OUTSIDE RECORDS SUMMARY | 2024-06-04 10:12 | XMS_ITS ---
Author Organization Owen Mcdonald MD Address [address] [place], [place] [phone] Care Team Providers Care Biological Scientist Name Role Phone Owen Mcdonald Primary Care Provider [phone] REASON FOR VISIT 6 month MEDICATIONS Medication SIG (Take, Route, Frequency, Duration) Notes Start Date End Date Status Clopidogrel Bisulfate 75 MG TAKE 1 TABLET BY MOUTH EVERY DAY for 90 Active Levothyroxine Sodium 50 MCG TAKE 1 TABLET BY MOUTH EVERY DAY IN THE MORNING ON AN EMPTY STOMACH Active Ibuprofen 800 MG 1 tablet with food o r milk Orally Three times a day for 30 day(s) 03/12/2017 Not-Taking Imitrex 50 MG 1 tablet as needed Orally Twice a day for 30 days 02/02/2019 Not-Taking LORazepam 0.5 MG 1 tablet as needed Orally Once a day for 14 days 04/03/2019 Not-Taking Triamcinolone Acetonide 0.5 % 1 application Externally daily for 30 days 04/23/2023 Active Rosuvastatin Calcium 40 MG TAKE 1 TABLET BY MOUTH EVERY DAY Active Citracal Calcium+D A ctive Vitamin D 2000 UNIT as directed Orally twice a day Active VITAL SIGNS BMI 28.62 kg/m2 04/20/2024 Blood pressure systolic 112 mm Hg 04/20/20 24 Blood pressure diastolic 58 mm Hg 024 Height 60.5 in 04/20/2024 Weight 149 lbs 04/20/2024 weight is up 9 pounds since 02-06-24 Encounters Encounter Location Date Provider Diagnosis Owen Mcdonald MD [address] [place] [phone] 04/20/2024 Owen Mcdonald Prediabetes R73.09 ; Anxiety F41.9 and Pure hypercholesterolemia E78.00 ASSESSMENTS Encounter Date Diagnosis Assessment Notes Treatment Notes Treatment Clinical Notes 04/20/2024 Prediabetes (ICD-10 - R73.09) will continue to monitor , labs pending 04/20/2024 Anxiety (ICD-10 - F41.9) if she does get worse to have her try something. is going to see what her friend is taking 04/20/2024 Pure hypercholestero lemia (ICD-10 - E78.00) stable, will continue current regiment PLAN OF TREATMENT Medication Medication Name Sig Start Date Stop Date Notes Rosuvastatin Calcium 40 MG TAKE 1 TABLET BY MOUTH EVERY DAY Treatment Notes Assessment Notes Prediabetes will continue to mon itor , labs pending Anxiety if she does get wors e to have her try something. is going to see what her friend is taking Pure hypercholesterolemia stable, will c ontinue current regiment Pending Test Test Name Order Date Hemoglobin A1c 04/20/2024 Glucose, finger stick 04/20/2024 Next Appt Details Follow Up: 6 Months, Reason: Provider Name:Owen burnette, 10/19/2024 07:15:00 AM, [address] [place] [address], [address], [phone], Provider Name:Owen burnette, 10/26/2024 10:30:00 AM, [address] [place] [address], [phone], Progress Notes * Examination Category Sub-Category Detail Notes General Examination GENERAL APPEARANCE: alert, w ell hydrated, in no distress HEAD: normocephalic HEART: no murmurs, rubs, ga llops , regular rate and rhythm LUNGS: no wheezes, rales, r honchi , good air movement , clear to auscultation bilaterally SKIN: good turgor
--- OUTSIDE RECORDS SUMMARY | 2024-06-04 10:12 | XMS_ITS ---
Author Organization Owen Sotomayor MD Address [address] [place], [place] [phone] Care Team Providers Care Miter Grinder Operator Name Role Phone Owen Sotomayor Primary Care Provider REASON FOR REFERRAL Reason RIGHT KNEE PAIN Diagnosis 1 Right knee pain (M25 .561) Referral Organization Owen Sotomayor MD Referring Provider First Name Owen Referring Provider Last Name Harry Referring Provider Speciality Internal M edicine Referred Provider Attain, Physical The rapy Referred Provider Specialty Physical The rapist General Notes Shelly Wagner 02/10/2024 01:58:03 PM EDT > HER APPT IS SCHEDULED FOR 02/26/24 AT 130PM, Shelly Wagner 02/27/2024 08:24:46 AM EDT > PLAN OF CARE RECD Referral Priority Routine Referral Appointment Date 02/26/2024 REASON FOR VISIT talk about Migraines, MRI results MEDICATIONS Medication SIG (Take, Route, Frequency, Duration) Notes Start Date End Date Status Ibuprofen 800 MG 1 tablet with food o r milk Orally Three times a day for 30 day(s) 03/12/2017 Not-Taking Imitrex 50 MG 1 tablet as needed Orally Twice a day for 30 days 02/02/2019 Not-Taking Rosuvastatin Calcium 40 MG TAKE 1 TABLET BY MOUTH EVERY DAY Active LORazepam 0.5 MG 1 tablet as needed Orally Once a day for 14 days 04/03/2019 Not-Taking Levothyroxine Sodium 50 MCG TAKE 1 TABLET BY MOUTH EVERY DAY IN THE MORNING ON AN EMPTY STOMACH Active Citracal Calcium+D A ctive Clopidogrel Bisulfate 75 MG TAKE 1 TABLET BY MOUTH EVERY DAY for 90 Active Vitamin D 2000 UNIT as directed Orally twice a day Active Triamcinolone Acetonide 0.5 % 1 application Externally daily for 30 days 04/23/2023 Active VITAL SIGNS BMI 26.89 kg/m2 02/06/2024 Blood pressure systolic 138 mm Hg 02/06/20 24 Blood pressure diastolic 54 mm Hg 024 Height 60.5 in 02/06/2024 Weight 140 lbs 02/06/2024 Encounters Encounter Location Date Provider Diagnosis Owen Sotomayor MD [address] [place] [address] [place] [phone] 02/06/2024 Owen Sotomayor Acute migraine G43.909 ; Dysfunction of left rotator cuff M67.912 and Pain in right knee M25.561 ASSESSMENTS Encounter Date Diagnosis Assessment Notes Treatment Notes Treatment Clinical Notes 02/06/2024 Acute migraine (ICD-10 - G43.909) going to see neuro at [facility]. NO APPT YET BUT BUT DR SOTOMAYOR AND DR OAKES SPOKE THIS WEEK. MELANIE WILL CALL FOR APPT AT NEUROLOGY AND LET US KNOW 02/06/2024 Dysfunction of left rotator cuff (ICD-10 - M67.912) is getting better 02/06/2024 Pain in right knee (ICD-10 - M25.561) REFERRAL FAXED TO AT AT PATIENT REQUEST , ALONG WITH P.T. ORDER FROM FOR RIGHT KNEE PAIN REFERRAL to physical therapy AT FAX [phone] PLAN OF TREATMENT Treatment Notes Assessment Notes Acute migraine going to see neuro a t [facility]. NO APPT YET BUT BUT DR SOTOMAYOR AND DR OAKES SPOKE THIS WEEK. MELANIE WILL CALL FOR APPT AT NEUROLOGY AND LET US KNOW Dysfunction of left rotator cuff is gett ing better Pain in right knee REFERRAL FAXED TO AT AT PATIENT REQUEST , ALONG WITH P.T. ORDER FROM FOR RIGHT KNEE PAIN REFERRAL to physical therapy [facility] FAX [phone] Referrals Referral Date Details 02/26/2024 02/26/2024, RIGHT KN EE PAIN, Physical Therapy Attain Next Appt Details Provider Name:Owen burnette, 10/19/2024 07:15:00 AM, [address], [address], [place], [place], [phone], Provider Name:Owen burnette, 10/26/2024 10:30:00 AM, [address], [address], [place], [place], [phone], Progress Notes * Examination Category Sub-Category Detail Notes General Examination GENERAL APPEARANCE: alert, w ell hydrated, in no distress HEAD: normocephalic HEART: regular rate and rhy thm, no murmurs, rubs, gallops LUNGS: no wheezes, rales, r honchi, good air movement, clear to auscultation bilaterally SKIN: good turgor EXTREMITIES: with pain in rt knee and swelling of the knee Consultation Request Notes Referral Date Referring Provider Referred Provider Not es 02/06/2024 Owen Sotomayor, Physical Therapy RIGHT KNEE PAIN
--- OUTSIDE RECORDS SUMMARY | 2024-06-04 10:12 | XMS_ITS ---
Author Organization Owen Mcdonald MD Address [address] [place], [place] [phone] Care Team Providers Care Automobile Accessories Installer Name Role Phone Owen Mcdonald Primary Care Provider RESULTS Component Value Reference Range Notes Liver Panel Reviewed date:04/13/2024 04:43:37 PM Interpretation: Performing Lab:[facility], [address] [place] [phone] Notes/Report: Bilirubin Total 0.5 0.0-1.0 mg/dL Bilirubin Direct 0.2 0.0-0.5 mg/dL Aspartate Amino Transferase 28 5-31 U/L Alanine Aminotransferase 24 0-31 U/L Total Protein 6.5 6.5-8.0 g/dL Albumin Level 4.0 3.5-5.0 g/dL Alkaline Phosphatase 71 39-117 U/L Glucose Fasting Reviewed date:04/13/2024 04:42:43 PM Interpretation: Performing Lab:[facility], [address] [place] [phone] Notes/Report: Glucose Fasting 101 60-99 mg/dL A fasting glucose from 100-125 mg/dl is considered impaired (pre-diabetes). Lipid Panel with Reflex Reviewed date:04/13/2024 04:46:00 PM Interpretation: Performing Lab:[facility], [address] [place] [phone] Notes/Report: Triglycerides 186 <150 mg/dL Desirable Triglyceride: less than 150 mg/dL Borderline High Triglyceride 150-199 mg/dL High Triglyceride: 200-499 mg/dL Very High Triglyceride: greater than or equal to 5OO mg/dL Cholesterol 160 <200 mg/dL Desirable Cholesterol: less than 200 mg/dL Borderline High Cholesterol: 200-239 mg/dL High Cholesterol: greater than 239 mg/dL LDL Cholesterol Calculated 81 <100 mg/dL Desirable LDL: less than 100 mg/dL Near Optimal/Above Optimal LDL: 110-129 mg/dL Borderline High LDL: 130-159 mg/dL High LDL: 160-189 mg/dL Very High LDL: greater than or equal to 190 mg/dL HDL Cholesterol 42 >40 mg/dL Desirable HDL: greater than 40 mg/dL Note: This HDL assay may give artificially low results in patients with liver disease. Hemoglobin A1c Reviewed date:04/13/2024 12:56:41 PM Interpretation: Performing Lab:[facility], [address] [place] [phone] Notes/Report: Hemoglobin A1c % 5.7 <6.0 % Hemoglobin A1C Reference Range Adults: 4.8 - 6.0 % Non diabetic: < 6.0 % Goal: < 7.0 % Additional Action Suggested: > 8.0 % Note: Hemoglobin A1c results are invalid for patients with abnormal amounts of HbF. Blood transfusions may impact the HbA1c concentration in the patient sample. Estimated Average Glucose 117 eAG = Estimated average glucose which is %A1C expressed as average glucose, using the formula of the [id number] Average Glucose study (ADAG), Diabetes Care, Vol.31,#8, Jan. 2007 REASON FOR VISIT fasting lipids Encounters Encounter Location Date Provider Diagnosis Owen Mcdonald MD [address] [place] [address] Drive [address] [place], [place] [phone] 04/13/2024 Owen Mcdonald Pure hypercholestero lemia E78.00 and Prediabetes R73.09 ASSESSMENTS Encounter Date Diagnosis Assessment Notes Treatment Notes Treatment Clinical Notes 04/13/2024 Pure hypercholestero lemia (ICD-10 - E78.00) 04/13/2024 Prediabetes (ICD-10 - R73.09) PLAN OF TREATMENT Next Appt Details Provider Name:Owen burnette, 10/19/2024 07:15:00 AM, [address] [place] [address], [address], [place], [place], [phone], Provider Name:Owen burnette, 10/26/2024 10:30:00 AM, [address] [place] [address], [address], [place], [place], [phone],
--- OUTSIDE RECORDS SUMMARY | 2024-06-04 10:12 | XMS_ITS | Patient Health Record ---
Author Organization [facility] [place] Address [address] [place] [address] Care Team Providers Care Wood Sawyer Name Role Phone Harry MACKEY, Owen Primary Care Provider Kiara Long Unavailable [phone] Black, Clary Unavailable [phone] Danny Rhodes Unavailable [phone] Allergies Allergen (clinical drug ingredient) Drug/Non Drug Allergy documented on EMR Reaction Allergy Type Onset Date Status sulfamethoxazole / trimethoprim Bactrim sulfa-hives Drug Allergy Active Floxin Otic hives Drug Allergy Activ e Adhesive Tape hives Drug Allergy Act vitaly Latex hives Drug Allergy Active Reason For Referral No Information Medications Medication SIG (Take, Route, Frequency, Duration) Notes Start Date End Date Status ICaps AREDS Formula as directed Orally Active Vitamin D3 1000 UNIT 1 tablet Orally Onc e a day for 30 day(s) Active Multivitamins as directed Orally Active Flax Seed Oil 1000 MG Orally Active Zinc 25 MG 1 tablet with a meal Orally Once a day for 30 day(s) Active Magnesium 500 MG 1 tablet with a meal Orally Once a day for 30 day(s) Active Rosuvastatin Calcium 40 MG 1 tablet Oral ly Once a day Not-Taking calcium as directed Active PriLOSEC OTC 20 MG 1 tablet Orally twic e a day Not-Taking Clopidogrel Bisulfate 75 MG 1 tablet Orally Once a day for 30 day(s) Active Levothyroxine Sodium Active Simvastatin Not-Taki ng Aspirin 81 MG 1 tablet Orally Once a day for 30 day(s) Not-Taking Crestor 40 MG 1 tablet Orally Once a day for 30 day(s) Not-Taking Synthroid 50 MCG 1 tablet on an empty stomach in the morning Orally Once a day for 30 day(s) Not-Taking Advil 200 MG 1 tablet as needed Orally every 6 hrs 09/08/2012 Not-Taking Social History Tobacco Use: Social History Observation [...] Status W/U Status Risk Notes Problem Acquired hammer toe of right foot (4714823621037342) Other hammer toe(s) (acquired), right foot (M20.41) Active confirmed Problem Acquired hammer toe of left foot (6651936301069973) Other hammer toe(s) (acquired), left foot (M20.42) Active confirmed Problem 274365076157128 Hallux valgus (acquired), right foot (M20.11) Active confirmed Problem Acquired hallux valgus (38429273) Hallux valgus (acquired), left foot (M20.12) Active confirmed Problem 866265538786422 Hallux valgus (acquired), right foot (M20.11) Active confirmed Problem 383611336 Hammer toe of right foot (M20.41) Active confirmed Problem 950993261863080 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 Problem 70401195167727347 Atherosclerosi s of artery of both lower extremities (I70.203) Active confirmed Problem Localized, primary osteoarthritis of the ankle and/or foot (382509542) Arthritis of joint of lesser toe, left (M19.072) Active confirmed Problem Localized, primary osteoarthritis of the ankle and/or foot (166789431) Arthritis of joint of lesser toe, right (M19.071) Active confirmed Vital Signs Blood pressure diastolic 58 mm Hg 03/05/2024 Height 5 ft in 03/05/2024 Blood pressure systolic 138 mm Hg 03/05/2024 Weight 140 lbs 03/05/2024 BMI 27.34 kg/m2 03/05/2024 Procedures Procedure Date Ordered Date Performed Result Body Sit e 78117-NDRS SKIN LESIONS, 2 TO 4 03/05/2024 N/A [id number] DYSTROPHIC NAILS ANY # 03/05/2024 N/A Encounters [facility] [address] [facility]/05/[facility]24 Clary Black Pain in left foot [...] ; Dystrophic nail L60.3 and Keratoma L57.0 [facility] [address] [address] 11/14/2023 Kiara Becker Assessments Encounter Date Diagnosis (ICD Code) Assessment Notes Treatment Notes Treatment Clinical Notes Section Notes 03/05/2024 Pain in left ankle a nd joints of left foot (ICD-10 - M25.572) 03/05/2024 Pain in left foot (ICD-10 - M79.672) 03/05/2024 Bursitis of left cam t (ICD-10 [...] Treatment Pending Test Test Name Order Date X ray : Foot, right 2V 09/08/2012 X ray : Foot, right 2V 09/07/2013 X ray : Foot, right 3V 10/29/2017 X ray : Foot, right 3V 04/11/2022 40337-GUIO SKIN LESIONS, 2 TO 4 03/05/20 24 [id number] DYSTROPHIC NAILS ANY # Insurance Providers Payer Name Payer Address Payer Phone Subscriber Number Group Number Insured Name Patient Relationship to Insured Coverage Start Date Coverage End Date Medicare [employer] [address] [place] [address] [phone] [id number] Melanie Solis Self - patient is the insured [facility] [address] [place] [address] [phone] [id number] Melanie Solis Self - patient is the insured Medical (General) History Medical History History ICD Code Back,Hip,and Knee pain hypercholesterolemia chicken pox measles headaches/migraines macular degeneration reflux sciatica chronic sinusitis CAD (Cholesterol) Diverticulosis Hiatal hernia Thyroid disorder Surgical History Surgery Date(Month/Year) right breast aspiration 1981 right breast lumpectomy 1981 right breast lumpectomy 1992 colonoscopy 06/2013 hysterectomy 03/1995 internal loop recorder 04/23/2019 Hospitalization History Reason Date(Month/Year) [facility] [place]/2019
--- OUTSIDE RECORDS SUMMARY | 2024-06-04 10:13 | XMS_ITS ---
Author Organization [facility] Address [address] [place] [address] Care Team Providers Care Channel Cementer Outsole Machine Name Role Phone Owen Mcdonald MD Primary Care Provider Ranjit Ventura Jr Unavailable ALLERGIES Allergen (clinical drug ingredient) Drug/Non Drug Allergy documented on EMR Reaction Allergy Type Onset Date Status Floxin Otic Unknown Drug Allergy Activ e sulfamethoxazole / trimethoprim Bactrim Unknown Drug Allergy Active Substance with sulfonamide structure and antibacterial mechanism of action (substance) sulfa (uncoded) Unknown Allergy Active REASON FOR VISIT Patient presents today for acid REFLUX MEDICATIONS Medication SIG (Take, Route, Frequency, Duration) Notes Start Date End Date Status Probiotic 250 MG 1 capsule Orally onc e a day Active PriLOSEC OTC 20 MG 1 tablet Orally twic e a day Not-Taking Vitamin D3 2000 UNIT 1 tablet Orally twi ce a day Active Citracal +D3 250-107-500 MG-MG-UNIT 2 Orally twice a day Active ICaps 1 1 Orally twice a day Active Flaxseed Oil 1000 MG 1 Orally twice a day Active Synthroid 50 MCG 1 tablet Orally Once a day Active Multi Vitamin/Minerals 1 1 Orally qd Active Crestor 40 MG 1 tablet Orally Once a day Active Clopidogrel Bisulfate 75 MG 1 tablet Orally Once a day for 30 day(s) Active Magnesium 300 MG 1 capsule with a david l Orally Once a day for 30 day(s) Active Levothyroxine Sodium 50 MCG 1 tablet in the morning on an empty stomach Orally Once a day for 30 day(s) Active Rosuvastatin Calcium 40 MG 1 tablet Oral ly Once a day for 30 day(s) Active Vitamin D (Cholecalciferol) 50 MCG (1999) 1 capsule Orally Once a day for 30 day(s) Active SOCIAL HISTORY Sex Assigned At : Social History Observation Description Sex Assigned At Unknown Alcohol Screen Question Answer Notes Did you have a drink containing alcohol in the p ast year? No Points 0 Interpretation Negative VITAL SIGNS BMI 27.20 kg/m2 07/29/2023 Blood pressure systolic 000 mm Hg 07/29/19 24 Blood pressure diastolic 00 mm Hg 024 Height 59.50 in 07/29/2023 Temperature 97.1 degrees Fahrenheit 07/29/19 24 Weight 137 lbs 07/29/2023 Encounters Encounter Location Date Provider Diagnosis [facility] [address] [place] [address] 07/29/2023 Ranjit Quinn Jr Screening for colon cancer Z12.11 and Gastro-esophageal reflux disease without esophagitis K21.9 ASSESSMENTS Encounter Date Diagnosis Assessment Notes Treatment Notes Treatment Clinical Notes 07/29/2023 Screening for colon cancer (ICD-10 - Z12.11) 07/29/2023 Gastro-esophageal reflux disease without esophagitis (ICD-10 - K21.9) Gastroesophageal reflux disease material was printed PLAN OF TREATMENT Treatment Notes Assessment Notes Gastro-esophageal reflux dis ease without esophagitis Gastroesophageal reflux disease material was printed Next Appt Details Follow Up: 1 Year, Reason: Provider Name:Ranjit gilmore Jr, 07/29/2024 10:00:00 AM, [address], [address], [place], [address],
--- OUTSIDE RECORDS SUMMARY | 2024-06-04 10:13 | XMS_ITS | Patient Health Record ---
Author Organization Owen Sotomayor MD Address [address] [place], [place] [id number] Care Team Providers Care Medical Records Assistant Name Role Phone wOen Sotomayor Primary Care Provider [phone] RESULTS Component Value Reference Range Notes Jared Mora Reviewed date:10/11/2023 12:40:51 PM Interpretation: Performing Lab:[facility], [address] [place] [phone] Notes/Report: Jared Mora See Note Specimen held untested for 24 hours; Call to request Chemistry testing. Urine Culture Reviewed date:10/12/2023 05:39:24 PM Interpretation: Performing Lab:[facility], [address] [place] [phone] Notes/Report: Urine Culture No growth. Complete Blood Count Auto Di ff Reviewed date:10/11/2023 04:55:56 PM Interpretation: Performing Lab:[facility], [address] [place] [phone] Notes/Report: White Blood Count 3.8 4.8-10.8 X10*3/uL Red Blood Count 4.85 4.20-5.50 X10*6/uL Hemoglobin 14.5 12.0-16.0 g/dl Hematocrit 43.4 37.0-47.0 % Mean Corpuscular Volume 89.5 80.0-98.0 fL Mean Corpuscular Hemoglobin 29.9 27.0-33.0 pg Mean Corpuscular HGB Conc 33.4 31.0-35.0 g/dl Red Cell Distribution Width 13.9 11.0-16.0 % Platelet Count 97 160-400 X10*3/uL Mean Platelet Volume 10.2 9.4-12.3 fL Neutrophils Percent Auto 49.6 45-73 % Imm Gran Pct Auto 0.3 0.0-0.4 % Lymphocytes Percent Auto 34.4 20-40 % Monocytes Percent Auto 11.7 2-11 % Eosinophils Percent Auto 3.2 0-4 % Basophils Percent Auto 0.8 0-2 % NRBC Pct Auto 0.0 0.0-0.2 /100WBC Neutrophils Absolute Auto 1.9 2.0-8.3 x10*3/u L Imm Gran Abs Auto 0.01 0.00-0.03 X10*3/uL Lymphocytes Absolute Auto 1.3 1.2-4.9 X10*3/u L Monocytes Absolute Auto 0.4 0.1-1.2 X10*3/uL Eosinophils Absolute Auto 0.1 0.0-0.4 X10*3/u L Basophils Absolute Auto 0.0 0.0-0.2 X10*3/uL NRBC Abs Auto 0.000 0.0-0.012 X10*3/uL Comprehensive [place]. Panel Fa st Reviewed date:10/11/2023 12:51:05 PM Interpretation: Performing Lab:[facility], [address] [place] [phone] Notes/Report: Sodium 142 135-145 mmol/L Potassium 4.1 3.3-5.1 mmol/L Chloride 108 96-108 mmol/L Carbon Dioxide 27 22-29 mmol/L Anion Gap 11 12-20 Blood Urea Nitrogen 21 9-16 mg/dL Creatinine 0.80 0.5-1.4 mg/dL Estimated Glomerular Filt Rate > 60 NOTE: For -Malagasy individuals, multiply the result by 1.210. Chronic Kidney Disease: Estimated GFR < 60 mL/min/1.73m2 Severe Kidney Disease: Estimated GFR < 15 mL/min/1.73m2 Glucose Fasting 106 60-99 mg/dL A fasting glucose from 100-125 mg/dl is considered impaired (pre-diabetes). Calcium 9.3 8.4-10.2 mg/dL Bilirubin Total 0.5 0.0-1.0 mg/dL Aspartate Amino Transferase 18 5-31 U/L Alanine Aminotransferase 19 0-31 U/L Total Protein 6.8 6.5-8.0 g/dL Albumin Level 4.2 3.5-5.0 g/dL Alkaline Phosphatase 71 39-117 U/L Lipid Panel Reviewed date:10/11/2023 12:50:23 PM Interpretation: Performing Lab:[address] [phone] Notes/Report: Triglycerides 166 <150 mg/dL Desirable Triglyceride: less than 150 mg/dL Borderline High Triglyceride 150-199 mg/dL High Triglyceride: 200-499 mg/dL Very High Triglyceride: greater than or equal to 5OO mg/dL Cholesterol 158 <200 mg/dL Desirable Cholesterol: less than 200 mg/dL Borderline High Cholesterol: 200-239 mg/dL High Cholesterol: greater than 239 mg/dL LDL Cholesterol Calculated 83 <100 mg/dL Desirable LDL: less than 100 mg/dL Near Optimal/Above Optimal LDL: 110-129 mg/dL Borderline High LDL: 130-159 mg/dL High LDL: 160-189 mg/dL Very High LDL: greater than or equal to 190 mg/dL HDL Cholesterol 42 >40 mg/dL Desirable HDL: greater than 40 mg/dL Note: This HDL assay may give artificially low results in patients with liver disease. TSH reflex Free T4 Reviewed date:10/11/2023 12:41:55 PM Interpretation: Performing Lab:[address] [phone] Notes/Report: TSH reflex Free T4 3.02 0.32-4.0 uIU/mL Microalbumin, Random Reviewed date:10/11/2023 12:51:13 PM Interpretation: Performing Lab:[facility], [address] [place] [phone] Notes/Report: Creatinine Urine 125.80 Microalbumin Urine 35.0 Microalbum/Creatinine Ratio Ur 27.8 <30 ug/mg cr Albumin/Creatinine Ratio Reference Ranges: Normal: < 30 ug/mg creatinine Microalbuminuria: 30 - 300 ug/mg creatinine Clinical Albuminuria: > 300 ug/mg creatinine Hemoglobin A1c Reviewed date:10/11/2023 12:50:14 PM Interpretation: Performing Lab:[facility], [address] [place] [phone] Notes/Report: Hemoglobin A1c % 5.6 <6.0 % Hemoglobin A1C Reference Range Adults: 4.8 - 6.0 % Non diabetic: < 6.0 % Goal: < 7.0 % Additional Action Suggested: > 8.0 % Note: Hemoglobin A1c results are invalid for patients with abnormal amounts of HbF. Blood transfusions may impact the HbA1c concentration in the patient sample. Estimated Average Glucose 114 eAG = Estimated average glucose which is %A1C expressed as average glucose, using the formula of the H4C-Oszwotb Average Glucose study (ADAG), Diabetes Care, Vol.31,#8, Jan. 2007 UA ClnCatch+Micro w/rflx Cul t Reviewed date:10/11/2023 04:55:23 PM Interpretation: Performing Lab:[facility], [address] [place] [phone] Notes/Report: Urine, Clean Catch Color Urine Yellow Appearance Urine Clear PH 6.0 5.0-9.0 Glucose Urine UA Negative Negative mg/dL Urine Blood Negative Negative Specific Marston - Urine 1.025 1.005-1.025 Urine Protein Negative Neg-Trace mg/dL Urine Ketones Negative Negative mg/dL Nitrite Urine Negative Negative Leukocyte Esterase Urine Small (1+) Negative RBC Urine 0-2 0-2 /HPF WBC Urine 11-20 0-5 /HPF Squamous Epithelial Cell Urine 0-2 0-2 /HPF Bacteria Urine None Seen None Seen Hyaline Casts Urine 0-2 0-2 /LPF Occult Blood, Stool, Guaiac Reviewed date:10/22/2023 10:59:45 AM Interpretation:Negative Performing Lab: Notes/Report: Negative Occult Blood, Stool, Guaiac Neg XR knee RT 4V Reviewed date:11/25/2023 12:18:51 PM Interpretation: Performing Lab: Notes/Report: [facility] [place] [address] XRay Report Signed Patient: Melanie Solis MR#: [id number] : 1940 Acct:[id number] Age/Sex: 83 / F ADM Date: 11/12/23 Loc: HO.HMGCX Attending Dr: Owen Sotomayor MD Ordering Physician: Owen Sotomayor MD Date of Service: 11/12/23 Procedure(s): XR knee RT 4V Accession Number(s): [id number] cc: Owen Sotomayor MD EXAMINATION: XR KNEE, RIGHT CLINICAL INFORMATION: Acute pain. COMPARISON: None available. TECHNIQUE: Four views of the right knee. FINDINGS: The bones are diffusely demineralized. Trace joint effusion. Faint chondrocalcinosis in medial compartment and minimal chondrocalcinosis in the lateral compartment. Small tricompartmental osteophytes. Mild narrowing of the medial and lateral compartments. XR/XR knee RT 4V IMPRESSION: Mild tricompartmental degenerative changes. Dictated By: Aurora Hill MD Signed By: <Electronically signed by Aurora Hill MD in OV> 11/25/23 0441 DD/ 1135 TD/TT: Qa Consultant: Erythrocyte Sedimentation Ra te Reviewed date:12/12/2023 05:13:41 PM Interpretation: Performing Lab:[facility], [address] [place] [phone] Notes/Report: Erythrocyte Sedimentation Rate 6 0-20 MM/HR Patients with polycythemia and many hemoglobin abnormalities may have depressed sed rates whereas patients with anemia may have elevated sed rates. C Reactive Protein Reviewed date:12/12/2023 05:13:11 PM Interpretation: Performing Lab:[facility], [address] [place] [phone] Notes/Report: C Reactive Protein < 0.10 < or = 0.50 mg/dL MR head/brain wo con Reviewed date:01/02/2024 04:18:55 PM Interpretation: Performing Lab: Notes/Report: [address] [place] [address] Magnetic Resonance Report Signed Patient: Melanie Solis MR#: [id number] : 1940 Acct:[id number] Age/Sex: 83 / F ADM Date: 01/02/24 Loc: HO.MRI Attending Dr: Owen Sotomayor MD Ordering Physician: Owen Sotomayor MD Date of Service: 01/02/24 Procedure(s): MR head/brain wo con Accession Number(s): [id number] cc: Owen Sotomayor MD EXAMINATION: MR BRAIN WITHOUT CONTRAST CLINICAL INFORMATION: Visual hallucinations. COMPARISON: MR brain 01/10/2022. TECHNIQUE: MRI of the brain was obtained using routine sequences without contrast. FINDINGS: There are scattered nonspecific foci of T2 FLAIR signal hyperintensity primarily involving the periventricular white matter and erika. No acute territorial infarct. No pathological magnetic susceptibility artifact. Intracranial vascular flow voids are maintained. There is no intracranial mass effect or midline shift. Lateral and third ventricles are normal. No hydrocephalus. Midline structures including the cervicomedullary junction are normal. No acute bone marrow signal changes. There is no mastoid or middle ear effusion. Mild paranasal sinus disease primarily affecting the ethmoid air cells. Globes and orbits are symmetric. MR/MR head/brain wo con IMPRESSION: There are scattered chronic small vessel ischemic changes primarily involving the periventricular white matter and erika. Otherwise unremarkable examination. No evidence of acute territorial infarct or hemorrhage. Dictated By: Dickson Maravilla MD Signed By: <Electronically signed by Dickson Maravilla MD in OV> 01/02/24 1409 DD/ 1335 TD/TT: Qa Consultant: VICTOR M Mora Reviewed date:04/13/2024 12:58:02 PM Interpretation: Performing Lab:[facility], [address] [place] [phone] Notes/Report: Jared Mora See Note Specimen held untested for 24 hours; Call to request Chemistry testing. Liver Panel Reviewed date:04/13/2024 04:43:37 PM Interpretation: Performing Lab:[address] [phone] Notes/Report: Bilirubin Total 0.5 0.0-1.0 mg/dL Bilirubin Direct 0.2 0.0-0.5 mg/dL Aspartate Amino Transferase 28 5-31 U/L Alanine Aminotransferase 24 0-31 U/L Total Protein 6.5 6.5-8.0 g/dL Albumin Level 4.0 3.5-5.0 g/dL Alkaline Phosphatase 71 39-117 U/L Glucose Fasting Reviewed date:04/13/2024 04:42:43 PM Interpretation: Performing Lab:[facility], [address] [place] [phone] Notes/Report: Glucose Fasting 101 60-99 mg/dL A fasting glucose from 100-125 mg/dl is considered impaired (pre-diabetes). Lipid Panel with Reflex Reviewed date:04/13/2024 04:46:00 PM Interpretation: Performing Lab:[facility], [address] [place] [phone] Notes/Report: Triglycerides 186 <150 mg/dL Desirable Triglyceride: [...] A1c Reviewed date:04/13/2024 12:56:41 PM Interpretation: Performing Lab:[facility], [address] [place] [phone] Notes/Report: Hemoglobin A1c % 5.7 <6.0 % [...] average glucose, using the formula of the F8W-Eqyilrt Average Glucose study (ADAG), Diabetes Care, Vol.31,#8, 2007 REASON FOR REFERRAL Reason poor balance please alexandro and treat Diagnosis 1 Poor balance (R26.89 ) Referral Organization Owen Sotomayor MD Referring Provider First Name Owen Referring Provider Last Name Harry Referring Provider Speciality Internal edicine Referred Provider [facility] Referred Provider Specialty Physical The rapist General Notes Tatiana Condon 10:02:09 AM EDT > patient will be making her own appt in [facility] , Tatiana Condon 11/11/2023 03:24:30 PM EDT > karlyn will call with appt date and time Referral Priority Routine Referral Appointment Date 11/13/2023 Reason acute pain of left s houlder please eval and treat for PT Diagnosis 1 Acute pain of left s houlder (M25.512) Referral Organization Owen Sotomayor MD Referring Provider First Name Owen Referring Provider Last Name Harry Referring Provider Speciality Internal edicine Referred Provider [facility] Referred Provider Specialty Physical The rapist General Notes Tatiana Condon 02:37:38 PM EDT > orders given to patient for her extended PT, she will be making her own appt Referral Priority Routine Reason visual hallucination s Diagnosis 1 Visual hallucination s (R44.1) Referral Organization Owen Sotomayor MD Referring Provider First Name Owen Referring Provider Last Name Harry Referring Provider Speciality Internal edicine Referred Provider LAWRENCE OAKES Referred Provider Specialty Neurology General Notes Tatiana Condon 02:37:22 PM EDT > info faxed , Tatiana Condon 01/13/2024 10:01:17 AM EDT > was told to refKristy vanegas Patti A 01/27/2024 12:48:54 PM EDT > DR OAKES WANTES TO SPEAK WITH DR Lowe ON THIS CASE, I INFORMED THEM THAT HE WOULD BE BACK FROM VACATION 02/03/24 , Shelly Wagner 02/10/2024 01:56:43 PM EDT > THE 2 TAWANNA ODONNELL AND MELANIE HAS APPT 02/11/24 AT 8:30AM WITH Kristy SIMMONS Patti A 02/13/2024 08:21:56 AM EDT > OFFICE NOTE RECD Referral Priority Routine Referral Appointment Date 02/11/2024 Reason RIGHT KNEE PAIN Diagnosis 1 Right knee pain (M25 .561) Referral Organization Owen Sotomayor MD Referring Provider First Name Owen Referring Provider Last Name Harry Referring Provider Speciality Internal M edicine Referred Provider Attain, Physical The jo ann Referred Provider Specialty Physical The rapist General Notes Shelly Wagner 02/10/2024 01:58:03 PM EDT > HER APPT IS SCHEDULED FOR 02/26/24 AT 130PM, Shelly Wagner 02/27/2024 08:24:46 AM EDT > PLAN OF CARE RECD Referral Priority Routine Referral Appointment Date 02/26/2024 MEDICATIONS Medication SIG (Take, Route, Frequency, Duration) Notes Start Date End Date Status Triamcinolone Acetonide 0.5 % 1 application Externally daily for 30 days 04/23/2023 Active Clopidogrel Bisulfate 75 MG TAKE 1 TABLET BY MOUTH EVERY DAY for 90 Active Rosuvastatin Calcium 40 MG TAKE 1 TABLET BY MOUTH EVERY DAY Active Citracal Calcium+D A ctive Vitamin D 2000 UNIT as directed Orally twice a day Active Levothyroxine Sodium 50 MCG TAKE 1 [...] a day for 14 days 04/03/2019 Not-Taking IMMUNIZATIONS Vaccine Route Administration Date Status Comme nts Flu Vaccine IM Intramuscular 06/03/2012 Administered PPSV23 (Pnemovax) Unknown 08/21/2009 Administered Flu Vaccine IM Intramuscular 02/24/2013 Administered Prevnar 13 IM Intramuscular 01/15/2014 Administered Influenza High Dose IM Intramuscular 04/03/2018 Administer ed pt was given the vaccine at [facility]. Influenza High Dose IM Intramuscular 04/14/2019 Administer ed Fluarix Quadrivalent Unknown 02/15/2020 Administered Wa aleks's Covid Vaccine Unknown 08/01/2020 Administered Covid Vaccine Unknown 08/22/2020 Administered Pfizer Influenza High Dose Unknown 03/03/2021 Administered SARS-COV-2 Pfizer Unknown 04/21/2021 Administered SARS-COV-2 Pfizer Unknown 10/10/2021 Administered Influenza High Dose Unknown 02/23/2022 Administered PPSV23 (Pnemovax) IM Intramuscular 10/18/2022 Administered Flu Vaccine Unknown 09/06/2014 Refused Fluarix Quadrivalent Unknown 03/25/2015 Refused Fluarix Quadrivalent Unknown 09/18/2016 Refused Fluarix Quadrivalent Unknown 03/22/2017 Refused PPSV23 (Pnemovax) Unknown 10/04/2017 Refused SOCIAL HISTORY Tobacco Use: Social History Observation Description Date Details (start date - stop date) Former Smoker NA - NA Sex Assigned At : Social History Observation Description Sex Assigned At Unknown Tobacco Use/Smoking Question Answer Notes Patient is a former smoker How long has it been since y ou last smoked? > 10 years Additional Findings: Tobacco Non-User Fo rmer smoker, currently using no form of tobacco Alcohol Screen Question Answer Notes Did you have a drink containing alcohol in the p ast year? No Points 0 Interpretation Negative PROBLEMS Problem Type ICD Code Onset Dates Problem Status W/U Status Risk SNOMED Code Notes Problem Thyroid nodule (E04.1) Active confirmed 096394346 Problem Thrombocytopenia (D69.6) Active confirmed 160402749 Problem Anxiety (F41.9) Active confirmed Anxiet y (39073564) Problem Visual hallucination s (R44.1) Active confirmed 30493515 Problem Arthritis (M19.90) Active confirmed 372 3001 Problem Osteopenia (M85.80) Active confirmed 31 8264514 Problem Tubular adenoma of colon (D12.6) Active confirmed 125603953 Problem Gastroesophageal reflux disease without esophagitis (K21.9) Active confirmed 601973522 Problem Acquired hypothyroidism (E03.9) Active confirmed 456612577 Problem Prediabetes (R73.09) Active confirmed 9 371754 Problem Osteoporosis (M81.0) Active confirmed O steoporosis (90194386) Problem Migraine with aura a nd without status migrainosus, not intractable (G43.109) Active confirmed 9988666 Problem Cervical disc diseas e (M50.90) Active confirmed 123526261 Problem Intrinsic eczema (L20.84) Active confirmed 40015550 Problem Hearing loss (H91.90) Active confirmed Hearing loss (29333017) Problem Sciatica of right si de (M54.31) Active confirmed 54252345 Problem History of palpitations (Z87.898) Active confirmed 171853019 Problem Pure hypercholesterolemia (E78.00) Active confirmed 978055895 Problem Arthritis of knee (M17.10) Active confirmed 156510436 Problem Balance problems (R26.89) Active confirmed Problem with balance (385110813) Problem Poor balance (R26.89) Active confirmed 605983184 Problem Arthritis of left kn ee (M17.12) Active confirmed 0501682889422506 Problem Acute migraine (G43.909) Active confirmed 498352362148028 VITAL SIGNS Blood pressure diastolic 58 mm Hg 04/20/2024 tuan ght is up 9 pounds since 02-06-24 Height 60.5 in 04/20/2024 weight is up 9 pounds since 02-06-24 Blood pressure systolic 112 mm Hg 04/20/2024 weig ht is up 9 pounds since 02-06-24 Weight 149 lbs 04/20/2024 weight is up 9 pounds since 02-06-24 BMI 28.62 kg/m2 04/20/2024 weight is up 9 pounds since 02-06-24 Encounters Encounter Location Date Provider Diagnosis Owen Sotomayor MD [address] [place] [id number] 10/22/2023 Owen Sotomayor Acute pain of right knee M25.561 ; Poor balance R26.89 ; Acquired hypothyroidism E03.9 ; Prediabetes R73.09 ; Pure hypercholesterolemia E78.00 ; Colon cancer screening Z12.11 and Depression screening Z13.31 Owen Sotomayor MD [address] [place] [id number] 10/11/2023 Owen Sotomayor Acquired hypothyroid ism E03.9 ; Prediabetes R73.09 ; Pure hypercholesterolemia E78.00 and Thrombocytopenia D69.6 Owen Sotomayor MD [address] [place] [id number] 04/13/2024 Owen Sotomayor Pure hypercholestero lemia E78.00 and Prediabetes R73.09 Owen Sotomayor MD [address] [place] [id number] 04/20/2024 Owen Sotomayor Prediabetes R73.09 ; Anxiety F41.9 and Pure hypercholesterolemia E78.00 Owen Sotomayor MD [address] [place] [id number] 11/07/2023 Owen Sotomayor Rotator cuff impinge ment syndrome, left M75.42 Owen Sotomayor MD [address] [place] [id number] 12/10/2023 Owen Sotomayor Acute migraine G43.9 09 and Acute pain of left shoulder M25.512 Owen Sotomayor MD [address] [place] [id number] 12/24/2023 Owen Sotomayor Arthritis of left kn ee M17.12 ; Visual hallucinations R44.1 and Chronic daily headache R51.9 Owen Sotomayor MD [address] [id number] 02/06/2024 Owen Sotomayor Acute migraine G43.9 09 ; Dysfunction of left rotator cuff M67.912 and Pain in right knee M25.561 Owen Sotomayor MD [address] [id number] 12/12/2023 Owen Sotomayor ASSESSMENTS Encounter Date Diagnosis Assessment Notes Treatment Notes Treatment Clinical Notes 10/22/2023 Acute pain of right knee (ICD-10 - M25.561) order given to patient, pending diagnostic testing 10/22/2023 Poor balance (ICD-10 - R26.89) referral [place] [facility] [place] 10/11/2023 Acquired hypothyroid ism (ICD-10 - E03.9) 10/11/2023 Prediabetes (ICD-10 - R73.09) 04/13/2024 Prediabetes (ICD-10 - R73.09) 04/13/2024 Pure hypercholestero lemia (ICD-10 - E78.00) 04/20/2024 Anxiety (ICD-10 - F41.9) if she does get worse to have her try something. is going to see what her friend is taking 04/20/2024 Prediabetes (ICD-10 - R73.09) will continue to monitor , labs pending 11/07/2023 Rotator cuff impinge ment syndrome, left (ICD-10 - M75.42) wants to try physical therapy. if it doesn't work will send to ortho for injection/patient has orders for physical therapy 12/10/2023 Acute pain of left shoulder (ICD-10 - M25.512) extend her physical therapy/ orders given to patient for her extended Physical therapy 12/10/2023 Acute migraine (ICD- 10 - G43.909) has some flashing light but only a brief second. will go see ophthalmology to be certain that it is not a detached retina 12/24/2023 Visual hallucination s (ICD-10 - R44.1) pending diagnostic testing, do referral to dr payam oakes. send copy of last physical/ order faxed to [facility] CS dept 12/24/2023 Arthritis of left kn ee (ICD-10 - M17.12) discussed injections and she doesn't want them 02/06/2024 Dysfunction of left rotator cuff (ICD-10 - M67.912) is getting better 02/06/2024 Acute migraine (ICD- 10 - G43.909) going to see neuro at [facility]. NO APPT YET BUT BUT DR SOTOMAYOR AND DR OAKES SPOKE THIS WEEK. MELANIE WILL CALL FOR APPT AT NEUROLOGY AND LET US KNOW 10/22/2023 Acquired hypothyroid ism (ICD-10 - E03.9) stable, will continue current regiment 10/11/2023 Pure hypercholestero lemia (ICD-10 - E78.00) 04/20/2024 Pure hypercholestero lemia (ICD-10 - E78.00) stable, will continue current regiment 12/24/2023 Chronic daily headac he (ICD-10 - R51.9) symptoms are going on for a month and are new so needs further evaluation 02/06/2024 Pain in right knee (ICD-10 - M25.561) REFERRAL FAXED TO AT AT PATIENT REQUEST , ALONG WITH P.T. ORDER FROM FOR RIGHT KNEE PAIN REFERRAL to physical therapy AT FAX [phone] 10/22/2023 Prediabetes (ICD-10 - R73.09) stable, no need for medication at this time 10/11/2023 Thrombocytopenia (IC D-10 - D69.6) 10/22/2023 Pure hypercholestero lemia (ICD-10 - E78.00) stable, will continue current regiment 10/22/2023 Colon cancer screeni ng (ICD-10 - Z12.11) guaiac negative 10/22/2023 Depression screening (ICD-10 - Z13.31) negative screen 10/22/2023 Other Total time spen t on the date of the encounter is 45 minutes including both face to face time spent and time spent reviewing documentation, and counseling the patient. PLAN OF TREATMENT Pending Test Test Name Order Date Electrocardiogram (EKG) 08/18/2015 Electrocardiogram (EKG) 10/04/2017 Hemoglobin A1c 04/20/2024 Glucose, finger stick 04/20/2024 CBC w DIFF 12/08/2018 MRI BRAIN NO CONTRAST 12/24/2023 MAMMOGRAM DIGITAL BILATERAL SCREEN 04/13 US SOFT TISSUE 01/10/2023 STEREO BX INITIAL SITE 06/02/2021 STEREO BX INITIAL SITE 06/05/2021 US extremity nonvascular 01/11/2023 US thyroid 04/23/2023 XR knee RT 3V 10/22/2023 Future Test Test Name Order Date US THYROID 11/14/2019 BONE DENSITY DEXA 04/14/2021 Next Appt Details Provider Name:Owen burnette, 10/19/2024 07:15:00 AM, [address] [place] [address], [address], [phone], Provider Name:Owen carr, 10/26/2024 10:30:00 AM, [address] [place] [address], [place] [address], [place], [place], [phone], Insurance Providers Payer Name Payer Address Payer Phone Subscriber Number Group Number Insured Name Patient Relationship to Insured Coverage Start Date Coverage End Date [employer] [address] [place] [address] [id number] Melanie Solis Self - patient is the insured [employer] OF [facility] [address] [place] [address] [id number] Melanie Solis Self - patient is the insured MEDICAL (GENERAL) HISTORY Medical History History ICD Code upper endoscopy 2011 colonoscopy 2008 due in 5 ye ars; colonoscopy 07/22/[address] Quinn, colonoscopy done 09/18/17 Normal no need to repeat complete Hysterectomy 02/1995 Upper Endoscopy w/Biopsy 06/26/[address] Quinn
--- OUTSIDE RECORDS SUMMARY | 2024-06-04 10:13 | XMS_ITS | Data Portability ---
Author Organization [facility] Address [address] [place] [address] Assessment No assessment recorded. Plan of Treatment Reminders Order Date Submit Date Provider Last Modified By Organization Details Last Modified Time Details Appointments None recorded. Lab None recorded. Referral None recorded. Procedures None recorded. Surgeries None recorded. Imaging None recorded. Medication Orders prednisone 20 mg tablet 2022 023 [facility] #[id number], [address] [place], [address], 18:35:40 Claritin 10 mg tablet 2022 023 [facility] #[id number], [address] [place], [address], 18:35:41 Patient TargetsNo targets recorded. Patient Instructions Encounter Date Encounter Id Patient Instructions Last Modified By Organization Details Last Modified Time 12/30/2022 [id number] hives: care instructions [email or web address] Not available 12/30/2022 18:35:38 COOL COMPRESSES, COOL SHOWERS, MAY BE SOOTHING SINCE HEAT OF ANY SOURCE SEEMS TO MAKE RASH MORE IRRITATING AVOID SCRATCHING WHICH MAY SET UP A SECONDARY INFECTION REQUIRING ADDITIONAL TREATMENT ANTIHISTAMINES MAY HELP SOME OF THE REDNESS AND ITCH (ZYRTEC, MIKE, CLARITIN) BENADRYL IS 4 HOUR ANTIHISTAMINE AND CAN TAKE AT OPPOSITE END OF DAY THE OTHER OPTIONS BUT THIS CAN MAKE YOU TIRED AVOID USING ADDITIONAL CORTISONE CREAMS ON SKIN IF YOU ARE ALREADY TAKING PREDNISONE BY MOUTH Go to the Emergency Department immediately if your symptoms worsen or if you develop new symptoms that concern you. We recommend that you follow up with your primary care physician within 1 week. Failure to follow up as recommended may result in significant adverse health consequences. NO NSAIDS LIKE IBUPROFEN WHILE ON STEROIDS/PREDNISON E. TAKE WITH FOOD, PREFERRABLY BREAKFAST MAY TALK TYLENOL ONLY [email or web address] Not available 12/30/2022 18:35:36 Reason for Referral None Reported. Problems Name Problem SNOMED Code Status Onset Date Resolution Date Notes Provider Name and Address Organization Details Recorded Time Disorder of thyroid gland 31705202 Active 2022 NANCY JERSONJOSE velasquez PA - [facility] 3 18:13:44 Hypercholes terolemia 28474550 Active 2022 NANCY JERSONJOSE velasquez, PA - [facility] 3 18:14:25 Transient cerebral ischemia 583379531 Completed 201812/30/2022 NANCY JERSONJOSE velasquez PA - [facility] 18:15:42 Problem Notes None recorded. Procedures Surgical History Date Name Laterality Status Provider Name and Address Organization Details Recorded Time breast procedure completed NANCY JERSON PA - [facility] 12/30/2022 18:16:31 hysterectomy completed NANCY JERSON PA - [facility] 12/30/2022 18:16:41 Imaging Results None recorded. Procedure Notes None recorded. Medical Equipment None Reported. Allergies Allergen ID Allergen Name Allergen Category Reaction Reaction Severity Criticality Documentation Date Start Date Code Code System Note Provider Name and Address Organization Details Recorded Time 972420 Substance with sulfonami de structure and antibacte rial mechanism of action (substanc e) medicatio n hives Not available Not available 12/30/2022 14407 8003 SNOMED NANCY JERSON [facility], [place] - [facility] 3 18:12:37 Medications Name Sig Start Date Stop Date Status Note LastModified by Organization Details LastModified Time Claritin 10 mg tablet Take 1 tablet every day by oral route in the morning for 30 days. 2022 active Not Available Not Available Not Avai lable prednisone 20 mg tablet Take 2 tablets every day by oral route in the morning for 3 days. 2022 active Not Available Not Available Not Avai lable clopidogrel 75 mg tablet TAKE 1 TABLET BY MOUTH EVERY DAY active Not Available Not Available No t Available levothyroxi ne 50 mcg tablet TAKE 1 TABLET BY MOUTH EVERY DAY IN THE MORNING ON AN EMPTY STOMACH active Not Available Not Available No t Available hydrocortis one 2.5 % topical cream 12/30 completed Not Available Not Available Not Available nystatin 100,000 unit/gram topical powder APPLY TO AFFECTED AREAS BELOW THE BREASTS AFTER SHOWERS 12/30 completed Not Available Not Available Not Available fluocinonid e 0.05 % topical solution APPLY TO AFFECTED AREA ON THE SCALP 1-2 TIMES DAILY FOR 2 WEEKS BREAK FOR 1 WEEK THEN REPEAT NEEDED FOR ITCHING 12/30 completed Not Available Not Available Not Available rosuvastati n 40 mg tablet TAKE 1 TABLET BY MOUTH EVERY DAY active Not Available Not Available No t Available escitalopra m 5 mg tablet TAKE 1 TABLET BY MOUTH EVERY DAY 12/30 completed Not Available Not Available Not Available BinaxNOW COVID-19 Ag Self Test kit TEST DIRECTED TODAY 12/30 completed Not Available Not Available Not Available Vitals Date Recorded Body height Body mass index (BMI) Body weight Oxygen saturation Oxygen saturation in Arterial blood by Pulse oximetry Heart rate Respiratory rate Body temperature Systolic blood pressure Diastolic blood pressure Provider Name and Address Organization Details Last Updated DateTime 152.4 cm 26.4 kg/m2 78938.9 7 g 96 % 96 % 75 /min 16 /min 98.5 [degF] 147 mm[Hg] 78 mm[Hg] NANCY Rodriguez [facility] 18:20:00 Social History Question Answer Notes LastModified by Organizat ion Details LastModified Time Tobacco Smoking Status Never Smoker NANCY velasquez PA - [facility] 12/30/2022 18:16:53 What Is Your Level Of Alcohol Consumption? None Information not available 12/30/2022 Are You Currently Employed? No Information not available 12/30/2022 Do You Use Any Illicit Or Recreational Drugs? No Information not available 12/30/2022 Have You Recently Traveled Abroad? No Information not available 12/30/2022 Are You Currently In School? No Information not available 12/30/2022 Do You Or Have You Ever Used Any Other Forms Of Tobacco Or Nicotine? No Information not available 12/30/2022 Sex: Unknown Functional Status None recorded. Mental Status None recorded. Family History Nothing Reported. Medical History No medical history recorded. Gynecological HistoryNo gynecological history recorded. Obstetrics History GPAL:G 0 P 0 0 0 0 Immunizations Vaccine Type Date Status Note Provider Nam e and Address Organization Details Recorded Time Influenza, high-dose, quadrivalent, PF 0 completed NANCY JERSON null, PA - [facility] 12/30/2022 18:12:17 Influenza, high-dose, quadrivalent, PF 2 completed NANCY JERSON null, PA - [facility] 12/30/2022 18:12:17 Influenza, high-dose, quadrivalent, PF 1 completed NANCY JERSON null, PA - [facility] 12/30/2022 18:12:17 COVID-19, mRNA, LNP-S, PF, 30 mcg/0.3 mL dose 1 completed NANCY JERSON null, PA - [facility] 12/30/2022 18:12:17 COVID-19, mRNA, LNP-S, PF, 30 mcg/0.3 mL dose 1 completed NANCY JERSON null, PA - [facility] 12/30/2022 18:12:17 COVID-19, mRNA, LNP-S, PF, 30 mcg/0.3 mL dose 1 completed NANCY JERSON null, PA - [facility] 12/30/2022 18:12:17 COVID-19, mRNA, LNP-S, PF, 30 mcg/0.3 mL dose, pari-sucrose 2 completed NANCY JERSON null, PA - [facility] 12/30/2022 18:12:17 COVID-19, mRNA, LNP-S, bivalent, PF, 30 mcg/0.3 mL dose 2 completed NANCY JERSON null, PA - [facility] 12/30/2022 18:12:17 pneumococcal polysaccharide PPV23 3 completed NANCY JERSON null, PA - [facility] 12/30/2022 18:12:17 HIV 1 completed NANCY JERSON null, PA - [facility] 12/30/2022 18:12:17 Influenza, high-dose, trivalent, PF 8 completed NANCY JERSON null, PA - [facility] 12/30/2022 18:12:17 Influenza, high-dose, trivalent, PF 9 completed NANCY JERSON null, PA - [facility] 12/30/2022 18:12:17 Past Encounters Encounter ID Performer Location Encounter Start Date Encounter Closed Date Diagnosis/Indication Diagnosis SNOMED-CT Code Diagnosis ICD10 Code [id number] [address] [address] 09/26/2018 13:11:03 09/26/2018 14:06:13 [id number] [place] [address] [address] 12/30/2022 17:17:26 12/30/2022 18:37:12 Pruritic rash 82865426 L28.2 Health Concerns Section Related Observation LastModified by Organization Detai ls LastModified Time None Recorded Concern Status LastModified by Organization Details LastModified Time None Recorded Advance Directives Directive None Recorded Payers Encounter Date Sequence Insurance Name Policy Number Policy Garza Covered Member ID Garza Member ID Guarantor Name 09/26/2018 1 [place] Melanie R Irma [id number] Melanie Irma 09/26/2018 2 [place] [id number] Melanie R Irma [id number] Melanie Irma 12/30/2022 1 [place] Melanie R Irma [id number] Melanie Irma 12/30/2022 2 [place] [id number] Melanie R Irma [id number] Melanie Irma Notes Date Note Type Note Provider Name and Address Organization Details Recorded Time 3 text/html UC Rash/Skin LesionReported bypatient.source of patient informationInformation obtained from patient; Patient arrived at Urgent Care ambulatory Location:neck; arms; back Quality:itchy;red;spreading Severity:mild Duration:2 days Context:new detergent or skin product;new medications being taken: herbal; no exposure to hair dye; no expsoure to new clothes/jewelry; no recent travel; no recent illness; no pets/animals in home; not affiliated with chemicals/pesticides Alleviating Factors:nothing gives relief Associated Symptoms:no fever; no fatigue Markus Harvey NP [address] [place], [address], [place] - [facility] 12/30/2022 18:35:54 OBGyn Episode No OBEpisode recorded.
--- OUTSIDE RECORDS SUMMARY | 2024-06-04 10:13 | XMS_ITS | Patient Health Record ---
Author Organization [facility] Address [address] [place] [address] Care Team Providers Care Rack Cleaner Name Role Phone Owen Mcdonald MD Primary Care Provider Ranjit Ventura Jr Unavailable ALLERGIES Allergen (clinical drug ingredient) Drug/Non Drug Allergy documented on EMR Reaction Allergy Type Onset Date Status Floxin Otic Unknown Drug Allergy Activ e sulfamethoxazole / trimethoprim Bactrim Unknown Drug Allergy Active Substance with sulfonamide structure and antibacterial mechanism of action (substance) sulfa (uncoded) Unknown Allergy Active REASON FOR REFERRAL No Information MEDICATIONS Medication SIG (Take, Route, Frequency, Duration) Notes Start Date End Date Status Clopidogrel Bisulfate 75 MG 1 tablet Orally Once a day for 30 day(s) Active Magnesium 300 MG 1 capsule with a david l Orally Once a day for 30 day(s) Active Probiotic 250 MG 1 capsule Orally onc e a day Active Levothyroxine Sodium 50 MCG 1 tablet in the morning on an empty stomach Orally Once a day for 30 day(s) Active Rosuvastatin Calcium 40 MG 1 tablet Oral ly Once a day for 30 day(s) Active PriLOSEC OTC 20 MG 1 tablet Orally twic e a day Not-Taking ICaps 1 1 Orally twice a day Active Flaxseed Oil 1000 MG 1 Orally twice a day Active Vitamin D (Cholecalciferol) 50 MCG (2000 UT) 1 capsule Orally Once a day for 30 day(s) Active Vitamin D3 2000 UNIT 1 tablet Orally twi ce a day Active Citracal +D3 250-107-500 MG-MG-UNIT 2 Orally twice a day Active Synthroid 50 MCG 1 tablet Orally Once a day Active Multi Vitamin/Minerals 1 1 Orally qd Active Crestor 40 MG 1 tablet Orally Once a day Active IMMUNIZATIONS Vaccine Route Administration Date Status Comme nts Influenza Unknown 03/06/2021 Administered Influenza Unknown 04/16/2023 Administered SOCIAL HISTORY Sex Assigned At : Social History Observation Description Sex Assigned At Unknown Alcohol Screen Question Answer Notes Did you have a drink containing alcohol in the p ast year? No Points 0 Interpretation Negative PROBLEMS Problem Type ICD Code Onset Dates Problem Status W/U Status Risk SNOMED Code Notes Problem Gastro-esophagea l reflux disease without esophagitis (K21.9) Active confirmed 549912746 Problem Change in bowel habits (R19.4) Active confirmed 813263964 Problem Screening for colon cancer (Z12.11) Active confirmed 111430526 VITAL SIGNS Temperature 97.1 degrees Fahrenheit 07/29/2023 Blood pressure diastolic 00 mm Hg 07/29/2023 Height 59.50 in 07/29/2023 Blood pressure systolic 000 mm Hg 07/29/2023 Weight 137 lbs 07/29/2023 BMI 27.20 kg/m2 07/29/2023 Encounters Encounter Location Date Provider Diagnosis [facility] [address] [place] [address] 07/29/2023 Ranjit Quinn Jr Screening for colon cancer Z12.11 and Gastro-esophageal reflux disease without esophagitis K21.9 ASSESSMENTS Encounter Date Diagnosis Assessment Notes Treatment Notes Treatment Clinical Notes 07/29/2023 Gastro-esophageal reflux disease without esophagitis (ICD-10 - K21.9) Gastroesophageal reflux disease material was printed 07/29/2023 Screening for colon cancer (ICD-10 - Z12.11) PLAN OF TREATMENT Pending Test Test Name Order Date XR BARIUM SWALLOW-ESOPHAGUS 03/29/2016 Future Test Test Name Order Date COLONOSCOPY 11/07/2012 UPPER GI ENDOSCOPY 03/29/2016 COLONOSCOPY 06/26/2017 Next Appt Details Provider Name:Ranjit gilmore Jr, 07/29/2024 10:00:00 AM, [address], [address], [place], [address], Insurance Providers Payer Name Payer Address Payer Phone Subscriber Number Group Number Insured Name Patient Relationship to Insured Coverage Start Date Coverage End Date MEDICARE OF [place] [address] [place] [id number] SOPHIE ENCISO Self - patient is the insured MEDEX ATTN CLAIMS [address] [place] [address] [id number] SOPHIE ENCISO Self - patient is the insured MEDICAL (GENERAL) HISTORY Medical History History ICD Code colonoscopy 09/18/17, negativ e. Personal history and family history of colon polyps and cancer, followup optional. GERD, EGD 06/26/16 no Oconnor's esophagus. Hyperlipidemia Hypothyroidism CVA Surgical History Surgery Date(Month/Year) hysterectomy lumpectomy, right breast RT breast aspirastion Hospitalization History Reason Date(Month/Year) small strokes occipital nerve 2019
== END 2024-06-04 10:03 | disposition home or self-care (01) ==
LOC: HO.MAMMO 10:02
PROVIDERS: PCP Internal Medicine; Visit Provider Internal Medicine
DX: Z12.31 Encounter for screening mammogram for malignant neoplasm of breast (principal)
CPT/HCPCS: 77063; 77067

== ENCOUNTER → 2024-06-04 10:15 | Outpatient (BNV) | payer MEDICARE, SELFPAY | PROVIDERS: PCP Internal Medicine; Visit Provider Internal Medicine | DX: Z12.31 Encounter for screening mammogram for malignant neoplasm of breast (principal) | CPT/HCPCS: 77063; 77067 ==

== ENCOUNTER 2024-07-28 15:19 | Outpatient (REF) | payer MEDICARE, SELFPAY ==
--- OUTSIDE RECORDS SUMMARY | 2024-07-28 15:22 | XMS_ITS | Data Portability ---
Author Organization [facility] Address [address] [place] [address] Assessment No assessment recorded. Plan of Treatment Reminders Order Date Submit Date Provider Last Modified By Organization Details Last Modified Time Details Appointments None recorded. Lab None recorded. Referral None recorded. Procedures None recorded. Surgeries None recorded. Imaging None recorded. Medication Orders prednisone 20 mg tablet 2022 023 [facility] #[id number], [address] [place], [address], 18:35:40 Claritin 10 mg tablet 2022 023 [facility] #[id number], [address] [place], [address], 18:35:41 Patient TargetsNo targets recorded. Patient Instructions Encounter Date Encounter Id Patient Instructions Last Modified By Organization Details Last Modified Time 12/30/2022 [id number] hives: care instructions [email or web address] Not available 12/30/2022 [...] Details Recorded Time Disorder of thyroid gland 43481404 Active 2022 NANCY JERSONJOSE velasquez PA - [facility] 3 18:13:44 Hypercholes terolemia 88231312 Active 2022 NANCY JERSONJOSE velasquez, PA - [facility] 3 18:14:25 Transient cerebral ischemia 875041060 Completed 201812/30/2022 NANCY JERSONJOSE velasquez PA - [...] Name and Address Organization Details Recorded Time 461095 Substance with sulfonami de structure and antibacte rial mechanism of action (substanc e) medicatio n hives Not available Not available 12/30/2022 95742 8003 SNOMED NANCY JERSON [facility], [place] - [facility] 3 18:12:37 [...] by Pulse oximetry Heart rate Respiratory rate Pain severity - 0-10 verbal numeric rating [Score] - Reported Body temperature Systolic blood pressure Diastolic blood pressure Provider Name and Address Organization Details Last Updated DateTime 152.4 cm 26.4 kg/m2 61266.9 7 g 96 % 96 % 75 /min 16 /min 0 98.5 [degF] 147 mm[Hg] 78 mm[Hg] NANCY DUFFYTEAU PA - [facility] 18:20:00 Social History Question Answer Notes LastModified by Organizat ion Details LastModified Time Tobacco Smoking Status Never Smoker NANCY ARTHUR ron PA - [facility] 12/30/2022 18:16:53 What [...] Diagnosis/Indication Diagnosis SNOMED-CT Code Diagnosis ICD10 Code Diagnosis Note [id number] [address] [address] 09/26/2018 13:11:03 09/26/2018 14:06:13 [id number] Markus Harvey NP [address] [address] 12/30/2022 17:17:26 12/30/2022 18:37:12 Pruritic rash 00747694 L28.2 Health Concerns Section Related Observation LastModified by Organization Detai ls LastModified Time None Recorded Concern Status LastModified by Organization Details LastModified Time None Recorded Advance Directives Directive None Recorded Payers Encounter Date Sequence Insurance Name Policy Number Policy Garza Covered Member ID Garza Member ID Guarantor Name 09/26/2018 1 [place] Melanie R Irma [id number] Melanie Irma 09/26/2018 2 [place] [id number] Melanie R Irma [id number] Melanie Irma 12/30/2022 1 [place] Melanie R Irma [id number] Melanie Irma 12/30/2022 2 [place] [id number] Melanie R Irma [id number] Melanie Irma Notes Date Note Type [...] Harvey NP [address] [place], [address], [place] - [facility] 12/30/2022 18:35:54 OBGyn Episode No OBEpisode recorded.
--- OUTSIDE RECORDS SUMMARY | 2024-07-28 15:22 | XMS_ITS | Data Portability ---
Author Organization [place] - [facility], Allergy Address [address] [address] Care Team Providers Care Music Composer Name Role Phone MILA SOTOMAYOR Primary Care Provider [phone] Assessment Encounter Date Assessment Date Assessment LastModified by Organization Details LastModified Time 12/25/2023 12/25/2023 83-year-old female presents for evaluation of hearing loss. Cerumen impaction removed bilaterally. Bilateral tympanic membranes are intact with well aerated middle ear spaces. Audiometric testing demonstrated mild asymmetric sensorineural hearing loss. Previous MRI was negative for retrocochlear pathology. We will continue to observe and plan for yearly audiometric testing, or sooner with any changes in her hearing. Patient is a candidate for amplification and medical clearance was provided today. [email or web address] Not available 12/25/2023 12:49:53 Plan of Treatment Reminders Order Date Submit Date Provider Last Modified By Organization Details Last Modified Time Details Appointments None record ed. Lab None record ed. Referral None record ed. Procedures None record ed. Surgeries None record ed. Imaging None record ed. Medication Orders None record ed. Patient TargetsNo targets recorded. Patient InstructionsNo instructions recorded. Reason for Referral None Reported. Results Created Date Observation Date Name Description Value Unit Range Abnormal Flag Note LastModifiedBy Organization Detail LastModifiedTime 12/30/19 24 audio gram No observ ation record ed. [email or web address] Not Available 01/2024 13:29:11 02/12/20 24 11/10/2021 imagi ng/di agnos tic resul t No observ ation record ed. [email or web address] Not Available 03:25:18 02/12/20 24 11/10/2021 imagi ng/di agnos tic resul t No observ ation record ed. [email or web address] Not Available 03:25:19 02/12/20 24 12/19/2021 imagi ng/di agnos tic resul t No observ ation record ed. [email or web address] Not Available 03:25:24 02/12/20 24 01/18/2022 imagi ng/di agnos tic resul t No observ ation record ed. [email or web address] Not Available 03:25:42 02/12/20 24 02/07/2022 imagi ng/di agnos tic resul t No observ ation record ed. [email or web address] Not Available 03:25:47 02/12/20 24 02/27/2022 audio gram No observ ation record ed. [email or web address] Not Available 03:26:02 Result Notes None recorded. Problems Name Problem SNOMED Code Status Onset Date Resolution Date Notes Provider Name and Address Organization Details Recorded Time Deviated nasal septum 690143225 Active 2021 Deviated nasal septum; Note: Date Diagnosed : 12/29/2021 3:45 PM (J34.2) Not Available [facility] 4 02:27:48 Posterior rhinorrhe a 84888326 Active 2021 Postnasal drip; Note: Date Diagnosed : 12/29/2021 3:45 PM (R09.82) Not Available [facility] 4 02:28:04 Sensorine ural hearing loss of bilateral ears 389494885 Active 2021 Sensorine ural hearing loss, bilateral ; Note: Date Diagnosed : 12/29/2021 3:45 PM (H90.3) Not Available [facility] 4 02:27:55 Chronic rhinitis 24067286 Active 2021 Chronic rhinitis; Note: Date Diagnosed : 12/29/2021 3:45 PM (J31.0) Not Available [facility] 4 02:27:40 Bilateral tinnitus 03977888117 02 Active 2021 Tinnitus, bilateral ; Note: Date Diagnosed : 12/29/2021 3:45 PM (H93.13) Not Available [facility] 4 02:27:58 Impacted cerumen of bilateral ears 44732502639 81076 Active 2023 MARISOL COATS PA-C 100 [facility] [place] [address], [place], [address] , [facility] - [facility] 4 12:47:20 Sensorine ural hearing loss of bilateral ears 410133561 Active 2023 MARISOL COATS PA-C 100 [facility],[place] [address], [facility] [place], [address] , [facility] - [facility] 4 12:47:35 Dysphonia 81332984 Active 2023 Hoarsenes s; Note: Date Diagnosed : 09/25/2023 11:42 AM (R49.0) Not Available [facility] 4 02:27:30 Problem Notes None recorded. Procedures Surgical History Date Name Laterality Status Provider Name and Address Organization Details Recorded Time 4 Comp Audio with Tymps (25480 & 73608) completed DEBBI MITTAL MA, [facility] 100 [facility],[place] [address], [place], [address], [facility] 12/25/2023 12:12:18 Cerumen removal without microscope bilat completed MARISOL COATS PA-C [address] [place] [address],[place] [address], [place], [address], [facility] - [facility] [place] 12/25/2023 12:47:16 Imaging Results Imaging Date Name Status LastModified by Organiz ation Details LastModified Time 12/30/2023 audiogram completed [email or web address] Information n ot available 12/30/2023 13:29:11 11/10/2021 imaging/diagno stic result completed Information not available 02/12/2024 03:25:18 11/10/2021 imaging/diagno stic result completed Information not available 02/12/2024 03:25:19 12/19/2021 imaging/diagno stic result completed Information not available 02/12/2024 03:25:24 01/18/2022 imaging/diagno stic result completed Information not available 02/12/2024 03:25:42 02/07/2022 imaging/diagno stic result completed Information not available 02/12/2024 03:25:47 02/27/2022 audiogram completed Information not available 02/12/2024 03:26:02 Procedure Notes None recorded. Medical Equipment None Reported. Allergies Allergen ID Allergen Name Allergen Category Reaction Reaction Severity Criticality Documentation Date Start Date Code Code System Note Provider Name and Address Organization Details Recorded Time 716090 fluticaso ne Not available lighthead edness Not available Not available 01/24/2024 14259 RxNorm React ion: Light heade dness ; Not Available [facility] 4 00:24:24 25539 floxacill in Not available other Not available Not available 11/05/2023 4448 RxNorm React ion: Unkno wn; Not Available [facility] 4 00:52:01 15323 Bactrim medicatio n other Not available Not available 11/05/2023 21407 9 RxNorm React ion: Unkno wn; Not Available [facility] 4 00:52:08 Medications Name Sig Start Date Stop Date Status Note LastModified by Organization Details LastModified Time triamcinolon e acetonide 0.5 % topical cream APPLY TOPICALLY TO THE AFFECTED AREA DAILY active Not Available Not Available N ot Available prednisone 20 mg tablet TAKE 2 TABLETS BY MOUTH EVERY DAY IN THE MORNING FOR 3 DAYS. active Not Available Not Available No t Available clopidogrel 75 mg tablet TAKE 1 TABLET BY MOUTH EVERY DAY active Not Available Not Available No t Available prednisolone acetate 1 % eye drops,suspen pauline SHAKE LIQUID AND INSTILL 1 DROP IN LEFT EYE THREE TIMES DAILY FOR 1 WEEK active Not Available Not Available No t Available levothyroxin e 50 mcg tablet TAKE 1 TABLET BY MOUTH EVERY DAY IN THE MORNING ON AN EMPTY STOMACH active Not Available Not Available No t Available hydrocortiso ne 2.5 % topical cream active Not Available Not Available Not Available azelastine 137 mcg (0.1 %) nasal spray USE 2 SPRAYS IN EACH NOSTRIL TWICE DAILY DIRECTED active Not Available Not Available Not Available hydrocortiso ne 2.5 % topical ointment APPLY TO THE AFFECTED AREAS ON THE FACE TWICE DAILY FOR ONE WEEK ON AND ONE WEEK OFF. REPEAT NEEDED active Not Available Not Available No t Available sodium fluoride 1.1 % dental gel APPLY PEA SIZED AMOUNT OF THE PASTE TO TOOTHBRUSH AND BRUSH FOR 2 MINUTES active Not Available Not Available No t Available loratadine 10 mg tablet TAKE 1 TABLET BY MOUTH EVERY DAY IN THE MORNING active Not Available Not Available No t Available tobramycin 0.3 %-dexamethas one 0.1 % eye drops,suspen pauline SHAKE LIQUID AND INSTILL 1 DROP IN LEFT EYE FOUR TIMES DAILY FOR 7 TO 10 DAYS active Not Available Not Available N ot Available rosuvastatin 40 mg tablet TAKE 1 TABLET BY MOUTH EVERY DAY active Not Available Not Available No t Available Vitals None Recorded Social History None recorded. Functional Status None recorded. Mental Status None recorded. Family History Nothing Reported. Medical History No medical history recorded. Gynecological HistoryNo gynecological history recorded. Obstetrics History GPAL:G 0 P 0 0 0 0 Past Encounters Encounter ID Performer Location Encounter Start Date Encounter Closed Date Diagnosis/Indication Diagnosis SNOMED-CT Code Diagnosis ICD10 Code Diagnosis Note [id number] SOFIA EDGAR MD [facility] [address] [address] 12/25/2023 10:51:24 12/25/2023 12:50:30 Impacted cerumen of bilateral ears 8348525407 655761 H61.23 Sensorineu ral hearing loss of bilateral ears 679991886 H90.3 [id number] DEBBI MITTAL MA, CCC-A [facility] [address] [address] 12/25/2023 12:11:34 12/31/2023 11:38:32 Sensorineural hearing loss of bilateral ears 368606505 H90.3 RIGHT EAR: Borderline normal/ mild SNHL thru 4000Hz dropping to a severe loss. Excellent speech clarity. Type A tympanogra m.LEFT EAR: Borderline normal / mild SNHL thru 4000Hz sloping to a severe hearing loss with excellent speech clarity. Type A tympanogra m. Health Concerns Section Related Observation LastModified by Organization Detai ls LastModified Time None Recorded Concern Status LastModified by Organization Details LastModified Time None Recorded Advance Directives Directive None Recorded Payers Encounter Date Sequence Insurance Name Policy Number Policy Garza Covered Member ID Garza Member ID Guarantor Name 12/25/2023 2 [place] [id number] Melanie R Irma [id number] Melanie R Irma 12/25/2023 1 [place] Melanie R Irma [id number] Melanie R Irma 12/25/2023 2 [place] [id number] Melanie R Irma [id number] Melanie R Irma 12/25/2023 1 [place] Melanie R Irma [id number] Melanie R Irma Notes Date Note Type Note Provider Name and Address Organization Details Recorded Time 12/25/2023 text/html 83-year-old dagoberto ba presents for updated audiometric testing. History of asymmetric hearing loss and negative MRI 12/2021 for retrocochlear pathology. Is considering hearing aids pending cost. Notes hearing is decreased over the past two years, but denies otalgia and otorrhea.Also had fiberoptic laryngoscopy at the previous visit for throat clearing and postnasal drip which demonstrated bowing of the vocal cords. Has not tried Azelastine as recommended. Has also tried Flonase but developed blurry vision with use. SOFIA EDGAR MD [address] [place] [address], [address], [facility] - [facility] 12/25/2023 14:36:40 OBGyn Episode No OBEpisode recorded.
[2024-07-28 15:34] LABS: C Reactive Protein 0.36 mg/dL (< or = 0.50)
[2024-07-28 16:09] LABS: Erythrocyte Sedimentation Rate 18 MM/HR (0-20)
== END 2024-07-28 15:20 | disposition home or self-care (01) ==
LOC: HO.LNP 15:19
PROVIDERS: Visit Provider Internal Medicine
DX: Z00.00 Encounter for general adult medical examination without abnormal findings (principal)
CPT/HCPCS: 85652; 86140

== ENCOUNTER 2024-08-11 11:44 | Outpatient (REF) | payer MEDICARE, SELFPAY ==
--- NOTE | ~2024-08-11 | XR_ITS ---
EXAMINATION: XR BILATERAL HIPS WITH AP PELVIS CLINICAL INFORMATION: PAIN IN HIP COMPARISON: None available. TECHNIQUE: AP view of the pelvis and 2 views of each hip were obtained. FINDINGS: No fracture, dislocation, or suspicious bone lesion. Mild hip joint osteoarthritis bilaterally. Alignment is anatomic. Femoral heads are normal in contour without AVN. Normal acetabular coverage bilaterally. Spurring of the pubic symphysis. Sacroiliac joints and sacrum are unremarkable. Soft tissues appear normal aside from diffuse vascular calcification. XR/XR hip BI w PEL1V IMPRESSION: No acute finding bilateral hips. Mild bilateral hip joint osteoarthritis. Electronically signed by: Greg Stanton MD 08/11/2024 02:21 PM ANICETO
--- OUTSIDE RECORDS SUMMARY | 2024-08-11 12:56 | XMS_ITS ---
Author Organization [facility] Address [address] [place] [address] Care Team Providers Care Fairground Operator Name Role Phone Owen Mcdonald MD Primary Care Provider Ranjit Ventura Jr Unavailable [phone] ALLERGIES Allergen (clinical drug ingredient) Drug/Non Drug [...] day(s) Active Vitamin D (Cholecalciferol) 50 MCG (1999 ID) 1 capsule Orally Once a day for [...] 07/29/2023 Encounters Encounter Location Date Provider Diagnosis [facility] [address] [place] [address] 07/29/2023 Ranjit Quinn Jr Screening for colon [...] 1 Year, Reason: Provider Name:Ranjit gilmore Jr, 08/02/2025 10:40:00 AM, [address], [address], [place], [address],
--- OUTSIDE RECORDS SUMMARY | 2024-08-11 12:56 | XMS_ITS | Data Portability ---
Author Organization [place] - [facility], Allergy Address [address] [address] Care Team Providers Care Sapphire Stylus Grinder Name Role Phone MILA SOTOMAYOR Primary Care Provider [phone] Assessment Encounter Date Assessment Date Assessment LastModified [...] amplification and medical clearance was provided today. [email or web address] Not available 12/25/2023 12:49:53 Plan of Treatment [...] audio gram No observ ation record ed. [email or web address] Not Available 01/2024 13:29:11 02/12/20 24 11/10/2021 [...] Organization Details Recorded Time Deviated nasal septum 549684752 Active 2021 Deviated nasal septum; Note: Date Diagnosed : 12/29/2021 3:45 PM (J34.2) Not Available [facility] 4 02:27:48 Posterior rhinorrhe a 14917060 Active 2021 Postnasal drip; Note: Date Diagnosed : 12/29/2021 3:45 PM (R09.82) Not Available [facility] 4 02:28:04 Sensorine ural hearing loss of bilateral ears 241346005 Active 2021 Sensorine ural hearing loss, bilateral ; Note: Date Diagnosed : 12/29/2021 3:45 PM (H90.3) Not Available [facility] 4 02:27:55 Chronic rhinitis 27536960 Active 2021 Chronic rhinitis; Note: Date Diagnosed : 12/29/2021 3:45 PM (J31.0) Not Available [facility] 4 02:27:40 Bilateral tinnitus 17572335856 02 Active 2021 Tinnitus, bilateral ; Note: Date Diagnosed : 12/29/2021 3:45 PM (H93.13) Not Available [facility] 4 02:27:58 Impacted cerumen of bilateral ears 87203932277 04277 Active 2023 MARISOL COATS PA-C 100 [facility] [place] [address], [place], [address] , [facility] - [facility] 4 12:47:20 Sensorine ural hearing loss of bilateral ears 874240950 Active 2023 MARISOL COATS PA-C 100 [facility],[place] [address], [facility] [place], [address] , [facility] - [facility] 4 12:47:35 Dysphonia 23997519 Active 2023 Hoarsenes s; Note: Date Diagnosed : 09/25/2023 11:42 AM (R49.0) Not Available [facility] 4 02:27:30 Problem Notes None recorded. Procedures Surgical History Date Name Laterality Status Provider Name and Address Organization Details Recorded Time 4 Comp Audio with Tymps (40646 & 93388) completed DEBBI MITTAL MA, [facility] 100 [facility],[place] [address], [place], [address], [facility] 12/25/2023 12:12:18 Cerumen removal without microscope bilat completed MARISOL COATS PA-C [address] [place] [address],[place] [address], [place], [address], [facility] - [facility] [place] 12/25/2023 12:47:16 Imaging Results Imaging Date Name Status LastModified by Organiz ation Details LastModified Time 12/30/2023 audiogram completed [email or web address] Information n ot available 12/30/2023 13:29:11 11/10/2021 [...] Name and Address Organization Details Recorded Time 854730 fluticaso ne Not available lighthead edness Not available Not available 01/24/2024 86379 RxNorm React ion: Light heade dness ; Not Available [facility] 4 00:24:24 10464 floxacill in Not available other Not available Not available 11/05/2023 4448 RxNorm React ion: Unkno wn; Not Available [facility] 4 00:52:01 37452 Bactrim medicatio n other Not available Not available 11/05/2023 86247 9 RxNorm React ion: Unkno wn; Not Available [facility] 4 00:52:08 Medications Name Sig Start [...] Note [id number] SOFIA EDGAR MD [facility] [address] [address] 12/25/2023 10:51:24 12/25/2023 12:50:30 Impacted cerumen of bilateral ears 6678569552 501669 H61.23 Sensorineu ral hearing loss of bilateral ears 773331098 H90.3 [id number] DEBBI MITTAL MA, CCC-A [facility] [address] [address] 12/25/2023 12:11:34 12/31/2023 11:38:32 Sensorineural hearing loss of bilateral ears 220358433 H90.3 RIGHT EAR: Borderline normal/ mild SNHL [...] Name 12/25/2023 2 [place] [id number] Melanie R Irma [id number] Melanie R Irma 12/25/2023 1 [place] Melanie R Irma [id number] Melanie R Irma 12/25/2023 2 [place] [id number] Melanie R Irma [id number] Melanie R Irma 12/25/2023 1 [place] Melanie R Irma [id number] Melanie R Irma Notes Date Note [...] blurry vision with use. SOFIA EDGAR MD [address] [place] [address], [address], [facility] - [facility] 12/25/2023 14:36:40 OBGyn Episode No OBEpisode recorded.
--- OUTSIDE RECORDS SUMMARY | 2024-08-11 12:56 | XMS_ITS ---
Author Organization [facility] Address [address] [place] [address] Care Team Providers Care Cash Register Operator Name Role Phone Owen Mcdonald MD Primary Care Provider Kiara Long Unavailable [phone] Danny Rhodes [phone] Encounters Encounter Location Date Provider Diagnosis [address] [address] 01/01/2024 Danny Rhodes Plan Of Treatment No Information Progress Notes * Melanie SOLIS RDOB:[birth year] (83 yo F)Acc No.[id number]:01/01/2024 Progress Note Patient:Melanie HO Provider:?Danny Rhodes DPM :1940???Age:83 Y???Sex:Female D ate:01/01/2024 Address:[address] [place], [place] [address] Pcp:Owen Mcdonald MD Subjective: * Chief Complaints: [...] DPM Date:? 024 Generated for Printi ng/Faxing/eTransmitting on:?08/11/2024 12:56 PM EST
--- OUTSIDE RECORDS SUMMARY | 2024-08-11 12:56 | XMS_ITS ---
Author Organization [facility] Address [address] [place] [address] Care Team Providers Care Management Services Technician Name Role Phone Owen Mcdonald MD Primary Care Provider Kiara Long Unavailable [phone] Danny Rhodes [phone] Encounters Encounter Location Date Provider Diagnosis [address] [address] 11/14/2023 Danny Rhodes Plan Of Treatment No Information Progress Notes * Melanie SOLIS RDOB:[birth year] (83 yo F)Acc No.[id number]:11/14/2023 Progress Note Patient:Melanie HO Provider:?Danny Rhodes DPM :1940???Age:83 Y???Sex:Female D ate:11/14/2023 Address:[address] [place], [place] [address] Pcp:Owen Mcdonald MD Subjective: * Chief Complaints: [...] Date:? 024 Generated for Printi ng/Faxing/eTransmitting on:?08/11/2024 12:55 PM EST
--- OUTSIDE RECORDS SUMMARY | 2024-08-11 12:56 | XMS_ITS ---
Author Organization [facility] Address [address] [place] [address] Care Team Providers Care Medicine Tech Name Role Phone Owen Mcdonald MD Primary Care Provider Efrem BeckerKiara Unavailable [phone] Black, Clary Unavailable [phone] Allergies Allergen (clinical drug ingredient) Drug/Non Drug [...] Status Risk Notes Problem Acquired hallux valgus (13698639) Hallux valgus (acquired), left foot (M20.12) Active confirmed Problem Acquired hammer toe of right foot (1044188794968841) Other hammer toe(s) (acquired), right foot (M20.41) Active confirmed Problem Localized, primary osteoarthritis of the ankle and/or foot (068689216) Arthritis of joint of lesser toe, right (M19.071) Active confirmed Problem Acquired hammer toe of left foot (2200962702881020) Other hammer toe(s) (acquired), left foot (M20.42) Active confirmed Problem Localized, primary osteoarthritis of the ankle and/or foot (263358410) Arthritis of joint of lesser toe, left (M19.072) Active confirmed Vital Signs Height 5 ft in 03/05/2024 Weight 140 lbs 03/05/2024 BMI 27.34 kg/m2 03/05/2024 Blood pressure systolic 138 mm Hg 03/05/20 24 Blood pressure diastolic 58 mm Hg 024 Procedures Procedure Date Ordered Date Performed Result Body Sit e 47728-ZYSH SKIN LESIONS, 2 TO 4 03/05/2024 N/A V8745-IKBZSSKF DYSTROPHIC NAILS ANY # 03/05/2024 N/A Encounters Encounter Location Date Provider Diagnosis [facility] [address] [place] [address] 03/05/2024 Clary Black Pain in left foot [...] Treatment Pending Test Test Name Order Date 86031-SDLC SKIN LESIONS, 2 TO 4 03/05/20 24 X5028-GXAYXFXM DYSTROPHIC NAILS ANY # Next Appt Details Follow Up: prn, Reason: Procedure Notes * Category Sub-Category Detail Notes Keratoma Treatment Parring or Cutting o f Benign Hyperkeratotic Lesion(s) 35165-DD Self Pay Non-Covered Callus care- Nail Reduction Nail Reduction V8877-YK Trimmin g of noncovered dystrophic nails, any number - Progress Notes * Melanie SOLIS RDOB:[birth year] (83 yo F)Acc No.[id number]:03/05/2024 Progress Note Patient:?Melanie Solis R Provider:?Clary Amos DPM :1940???Age:83 Y???Sex:Female D ate:03/05/2024 Address:[address] [place], [place] [address] Pcp:Owen Mcdonald MD Subjective: * Chief Complaints: [...] loop recorder 04/23/2019 * Hospitalization/Major Diagno stic Procedure:?[facility] - slight stroke 02/2019 * Family History:?Mother: [...] * Vitals:?Ht: 5 ft, Wt: 140, B OK: 27.34, Shoe size: 5W, BP: 138/58 mm [...] L60.3?17.?Keratoma - L57.0? Plan: * Treatment: 2.?Keratoma?Procedure: 70690-QXKS SKIN LESIONS, 2 TO 4 * Procedures:?Keratoma Treatment:?Parring or Cutting of Benign Hyperkeratotic Lesion(s)?05520-BT Self Pay Non-Covered Callus care-.?Nail Reduction:?Nail Reduction?T0828-FF Trimming of noncovered dystrophic nails, any number -.? * Procedure Codes:?39035 TRIM SKIN LESIONS, 2 TO 4 $60, [...] Amos DPM Date:?2023 Generated for Martina hughes/Jesse/Fatou on:?08/11/2024 12:56 PM EST History and Physical Notes * HPI [...] person, place, and t michi Vascular DP PULSES (B): 2/4, B/L PT PULSES (B): 2/4, B/L CAPILLARY FILL TIME: immediate, all digi ts, B/L TEMPERTURE GRADIENT (C): normal, warm to cool, proximal to distal, B/L TROPHIC CONDITION-TEXTURE/ELASTICITY/TURGOR/HAIR GROWTH (B): normal, B/L EDEMA (C): absent, B/L PIGMENTATION: normal, B/L Nails NAILS are: Elongated, overgrown, dystro phic , 1-5 B/L
--- OUTSIDE RECORDS SUMMARY | 2024-08-11 12:56 | XMS_ITS | Data Portability ---
Author Organization [facility] Address [address] [place] [address] Assessment No assessment recorded. Plan of Treatment Reminders Order Date Submit Date Provider Last Modified By Organization Details Last Modified Time Details Appointments None recorded. Lab None recorded. Referral None recorded. Procedures None recorded. Surgeries None recorded. Imaging None recorded. Medication Orders prednisone 20 mg tablet 2022 023 [facility] #[id number], [address] [place], [address], 18:35:40 Claritin 10 mg tablet 2022 023 [facility] #[id number], [address] [place], [address], 18:35:41 Patient TargetsNo targets recorded. 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 Active 2022 NANCY JERSONJOSE velasquez [place] - [facility] 3 18:13:44 Hypercholes terolemia 96264496 Active 2022 NANCY JERSONJOSE velasquez, [place] - [facility] 3 18:14:25 Transient cerebral ischemia 618899147 Completed 201812/30/2022 NANCY JERSONJOSE velasquez PA - [...] Name and Address Organization Details Recorded Time 476323 Substance with sulfonami de structure and antibacte rial mechanism of action (substanc e) medicatio n hives Not available Not available 12/30/2022 61598 8003 SNOMED NANCY JERSON [facility], [place] - [facility] 3 18:12:37 Medications [...] Last Updated DateTime 152.4 cm 26.4 kg/m2 30438.9 7 g 96 % 96 % 75 [...] SNOMED-CT Code Diagnosis ICD10 Code Diagnosis Note [id number] [address] [address] 09/26/2018 13:11:03 09/26/2018 14:06:13 [id number] Markus Harvey [place] [address] [address] 12/30/2022 17:17:26 12/30/2022 18:37:12 Pruritic rash 08595546 L28.2 Health Concerns Section Related Observation LastModified by Organization Detai ls LastModified Time None Recorded Concern Status LastModified by Organization Details LastModified Time None Recorded Advance Directives Directive None Recorded Payers Encounter Date Sequence Insurance Name Policy Number Policy Garza Covered Member ID Garza Member ID Guarantor Name 09/26/2018 1 [place] [employer] Melanie R Irma [id number] Melanie Irma 09/26/2018 2 [place] [id number] Melanie R Irma [id number] Melanie Irma 12/30/2022 1 [place] [employer] Melanie R Irma [id number] Melanie Irma 12/30/2022 2 [place] [id number] Melanie R Irma [id number] Melanie Irma Notes Date Note Type [...] Harvey NP [address] [place], [address], [place] - [facility] 12/30/2022 18:35:54 OBGyn Episode No OBEpisode recorded.
--- OUTSIDE RECORDS SUMMARY | 2024-08-11 12:56 | XMS_ITS ---
Author Organization Owen Mcdonald MD Address [address] [place], [place] [id number] Care Team Providers Care Slip Maker Name Role Phone Owen Mcdonald Primary Care Provider REASON FOR VISIT 2 WEEK F/U Medications Medication SIG (Take, Route, Frequency, Duration) Notes Start Date End Date Status Clopidogrel Bisulfate 75 MG TAKE 1 TABLET BY MOUTH EVERY DAY for 90 Active Ibuprofen 800 MG 1 tablet with food o r milk Orally Three times a day for 30 day(s) 03/12/2017 Not-Taking Levothyroxine Sodium 50 MCG TAKE 1 TABLET BY MOUTH EVERY DAY IN THE MORNING ON AN EMPTY STOMACH for 90 Active LORazepam 0.5 MG 1 tablet as needed Orally Once a day for 14 days 04/03/2019 Not-Taking Imitrex 50 MG 1 tablet as needed Orally Twice a day for 30 days 02/02/2019 Not-Taking Citracal Calcium+D A ctive Triamcinolone Acetonide 0.5 % 1 application Externally daily for 30 days 04/23/2023 Active Vitamin D 2000 UNIT as directed Orally twice a day Active Rosuvastatin Calcium 40 MG TAKE 1 TABLET BY MOUTH EVERY DAY for 90 Active Vital Signs Blood pressure systolic 134 mm Hg 08/11/19 25 Blood pressure diastolic 60 mm Hg 025 Height 60.5 in 08/11/2024 Weight 143 lbs 08/11/2024 BMI 27.47 kg/m2 08/11/2024 Encounters Encounter Location Date Provider Diagnosis Owen Mcdonald MD [address] [place] [phone] 08/11/2024 Owen Mcdonald Pain in right hip M25.551 and Pain in left hip M25.552 Assessments Encounter Date Diagnosis (ICD Code) Assessment Notes Treatment Notes Treatment Clinical Notes Section Notes 08/11/2024 Pain in right hip (ICD-10 - M25.551) 08/11/2024 Pain in left hip (ICD-10 - M25.552) since she got better a little with stopping the rosuvastin will try going longer without Plan Of Treatment Treatment Notes Assessment Notes Pain in left hip since she got better a little with stopping the rosuvastin will try going longer without Pending Test Test Name Order Date XR hip BI w PEL1V 08/11/2024 Next Appt Details Follow Up: 3 Weeks, Reason: Provider Name:Owen burnette, 10/19/2024 07:15:00 AM, [address] [place] [address], [address], [phone], Provider Name:Owen burnette, 10/26/2024 10:30:00 AM, [address] [place] [address], [phone], Provider Name:Owen burnette, 07/29/2025 01:30:00 PM, [address] [place] [address], [address], [phone], Progress Notes * Melanie SOLIS RDOB:[birth year] (83 yo F)Acc No.[id number]:08/11/2024 Progress Notes Patient:?Melanie SOLIS Provider:?Owen Mcdonald MD :1940???Age:83 Y???Sex:Female D ate:08/11/2024 Address: [address], [address] [id number] Subjective: * Chief Complaints: * ???1. 2 WEEK F/U. * HPI: ???Symptom(s):? still having pain in groin and thighs with standing. in the back. no further radiation hurt more in past. is some ways a little better after stopping rosuvastatin. * ROS:?General/Constitutional:?Denies?Chills.?Denies?Fatigue.?Denies?Fever.?Denies?Headache.?ENT:?Denies?Sore throat.?Respiratory:?Denies?Cough.?Denies?Shortness of breath at rest.?Denies?Shortness of breath with exertion.?Gastrointestinal:?Denies?Diarrhea.?Denies?Nausea.? * Medical History:?Upper endos copy 2011, colonoscopy 2008 due in 5 years; colonoscopy 07/22/[address] Quinn, colonoscopy done 09/18/17 Normal no need to repeat , complete Hysterectomy 02/1995, Upper Endoscopy w/Biopsy 06/26/[address] Quinn. * Medications:?Taking Citracal Calcium+D , Taking Vitamin D 2000 UNIT Capsule as directed Orally twice a day , Taking Triamcinolone Acetonide 0.5 % Cream 1 application Externally daily , Taking Rosuvastatin Calcium 40 MG Tablet TAKE 1 TABLET BY MOUTH EVERY DAY , Taking Clopidogrel Bisulfate 75 MG Tablet TAKE 1 TABLET BY MOUTH EVERY DAY , Taking Levothyroxine Sodium 50 MCG Tablet TAKE 1 TABLET BY MOUTH EVERY DAY IN THE MORNING ON AN EMPTY STOMACH , Not-Taking/PRN Ibuprofen 800 MG Tablet 1 tablet with food or milk Orally Three times a day , Not-Taking/PRN Imitrex 50 MG Tablet 1 tablet as needed Orally Twice a day , Not-Taking/PRN LORazepam 0.5 MG Tablet 1 tablet as needed Orally Once a day , Medication List reviewed and reconciled with the patient * Allergies:?sulfa: hives, Pne umovax 23: pain and redness, Cipro: hives - Onset Date 03/26/2019. Objective: * Vitals:?Ht: 60.5, Wt: 143, B NH:27.47, BP:134/60, Wt-k.86. * ???Past Orders: ???Lab:C Reactive Protein (O rder Date - 07/28/2024) (Collection Date & Time - 07/28/2024 01:45 AM) ? Value Reference Range ?C Reactive Protein 0.36 < or = 0.50 - mg/dL ???Lab:Erythrocyte Sedimenta tion Rate (Order Date - 07/28/2024) (Collection Date & Time - 07/28/2024 01:45 AM) ? Value Reference Range ?Erythrocyte Sedimentation Rate 18 0-20 - MM/HR * Examination: ???General Examination: ?GENERAL APPEARANCE:?normal.?MUSCULOSKELETAL:?no pain on palpation of hips..? Assessment: * Assessment: 1.?Pain in right hip - M25.5 51 (Primary)???2.?Pain in left hip - M25.552??? Plan: * Treatment: 2.?Pain in left hip? Notes: since she got better a little with stopping the rosuvastin will try going longer without ? * Follow Up:?3 Weeks * * The named appointment provid er may or may not be the originator of this progress note, and it is not deemed complete until electronically signed by the appointment provider. Sign off status: Pending * Provider:?Owen Mcdonald MD Date:?0 08/11/2024 Generated for Martina hughes/Jesse/Donnyitting on:?08/11/2024 12:56 PM EST History and Physical Notes * HPI (History of Present Illness) Category Sub-Category Detail Notes Category Not es Symptom(s) still having pa in in groin and thighs with standing. in the back. no further radiation hurt more in past. is some ways a little better after stopping rosuvastatin. Examination Category Sub-Category Detail Notes Category Not es General Examination GENERAL APPEARANCE: normal MUSCULOSKELETAL: no pain on palpation of hips.
--- OUTSIDE RECORDS SUMMARY | 2024-08-11 12:56 | XMS_ITS ---
Author Organization [facility] Address [address] [place] [address] Care Team Providers Care Power Electronics Engineer Name Role Phone Owen Mcdonald MD Primary Care Provider Ranjit Ventura Jr Unavailable [phone] ALLERGIES Allergen (clinical drug ingredient) Drug/Non Drug Allergy documented on EMR Reaction Allergy Type Onset Date Status Floxin Otic Unknown Drug Allergy Activ e sulfamethoxazole / trimethoprim Bactrim Unknown Drug Allergy Active Substance with sulfonamide structure and antibacterial mechanism of action (substance) sulfa (uncoded) Unknown Allergy Active REASON FOR VISIT Patient presents today for acid reflux MEDICATIONS Medication SIG (Take, Route, Frequency, Duration) Notes Start Date End Date Status Levothyroxine Sodium 50 MCG 1 tablet in the morning on an empty stomach Orally Once a day for 30 day(s) Active Clopidogrel Bisulfate 75 MG 1 tablet Orally Once a day for 30 day(s) Active Multi Vitamin/Minerals 1 1 Orally qd Active Synthroid 50 MCG 1 tablet Orally Once a day Active Magnesium 300 MG 1 capsule with a david l Orally Once a day for 30 day(s) Active PriLOSEC OTC 20 MG 1 tablet Orally twic e a day Not-Taking Vitamin D (Cholecalciferol) 50 MCG (2000 UT) 1 capsule Orally Once a day for 30 day(s) Active Probiotic 250 MG 1 capsule Orally onc e a day Active Vitamin D3 2000 UNIT 1 tablet Orally twi ce a day Active ICaps 1 1 Orally twice a day Active Flaxseed Oil 1000 MG 1 Orally twice a day Active SOCIAL HISTORY Sex Assigned At : Social History Observation Description Sex Assigned At Unknown Alcohol Screen Question Answer Notes Did you have a drink containing alcohol in the p ast year? No Points 0 Interpretation Negative VITAL SIGNS BMI 28.40 kg/m2 07/29/2024 Blood pressure systolic 000 mm Hg 07/29/19 25 Blood pressure diastolic 00 mm Hg 025 Height 59.50 in 07/29/2024 Temperature 97.5 degrees Fahrenheit 07/29/19 25 Weight 143 lbs 07/29/2024 Encounters Encounter Location Date Provider Diagnosis [facility] [address] [place] [address] 07/29/2024 Ranjit Quinn Jr Gastro-esophageal reflux disease without esophagitis K21.9 and Screening for colon cancer Z12.11 ASSESSMENTS Encounter Date Diagnosis Assessment Notes Treatment Notes Treatment Clinical Notes 07/29/2024 Gastro-esophageal reflux disease without esophagitis (ICD-10 - K21.9) Gastroesophageal reflux disease material was printed 07/29/2024 Screening for colon cancer (ICD-10 - Z12.11) PLAN OF TREATMENT Treatment Notes Assessment Notes Gastro-esophageal reflux dis ease without esophagitis Gastroesophageal reflux disease material was printed Next Appt Details Follow Up: 1 Year, Reason: Provider Name:Ranjit gilmore Jr, 08/02/2025 10:40:00 AM, [address], [address], [place], [address],
--- OUTSIDE RECORDS SUMMARY | 2024-08-11 12:57 | XMS_ITS ---
Author Organization Owen Mcdonald MD Address [address] [place], [place] [id number] Care Team Providers Care Diazo Technician Name Role Phone Owen Mcdonald Primary Care Provider Results Component Value Reference Range Notes Erythrocyte Sedimentation Ra te Reviewed date:07/28/2024 07:23:33 PM Interpretation: Performing Lab:[facility], [address] [place] [phone] Notes/Report: Erythrocyte Sedimentation Rate 18 0-20 MM/HR Patients with polycythemia and many hemoglobin abnormalities may have depressed sed rates whereas patients with anemia may have elevated sed rates. REASON FOR VISIT 6 month f/u visit, AWV Medications Medication SIG (Take, Route, Frequency, Duration) Notes Start Date End Date Status Imitrex 50 MG 1 tablet as needed Orally Twice a day for 30 days 02/02/2019 Not-Taking Clopidogrel Bisulfate 75 MG TAKE 1 TABLET BY MOUTH EVERY DAY for 90 Active Ibuprofen 800 MG 1 tablet with food o r milk Orally Three times a day for 30 day(s) 03/12/2017 Not-Taking Rosuvastatin Calcium 40 MG TAKE 1 TABLET BY MOUTH EVERY DAY for 90 Active LORazepam 0.5 MG 1 tablet as needed Orally Once a day for 14 days 04/03/2019 Not-Taking Levothyroxine Sodium 50 MCG TAKE 1 TABLET BY MOUTH EVERY DAY IN THE MORNING ON AN EMPTY STOMACH Active Vitamin D 2000 UNIT as directed Orally twice a day Active Triamcinolone Acetonide 0.5 % 1 application Externally daily for 30 days 04/23/2023 Active Citracal Calcium+D A ctive Social History Tobacco Use: Social History Observation Description Date Details (start date - stop date) Former Smoker NA - NA Tobacco Use/Smoking Question Answer Notes Patient is a former smoker How long has it been since y ou last smoked? > 10 years Additional Findings: Tobacco Non-User Fo rmer smoker, currently using no form of tobacco Alcohol Screen Question Answer Notes Did you have a drink containing alcohol in the p ast year? No Points 0 Interpretation Negative Problems Problem Type SNOMED Code ICD Code Onset Dates Problem Status W/U Status Risk Notes Problem 37031127 Polymyalgia rheumatica (M35.3) Active confirmed Vital Signs Blood pressure systolic 112 mm Hg 07/28/19 25 Blood pressure diastolic 60 mm Hg 025 Height 60.5 in 07/28/2024 Weight 143 lbs 07/28/2024 BMI 27.47 kg/m2 07/28/2024 weight is down 6 pounds [facility] 04-20-24 Encounters Encounter Location Date Provider Diagnosis Owen Mcdonald MD [address] [place] [address] [address] [place], [place] [phone] 07/28/2024 Owen Mcdonald Polymyalgia rheumatica M35.3 and Encounter for Medicare annual examination with abnormal findings Z00.01 Assessments Encounter Date Diagnosis (ICD Code) Assessment Notes Treatment Notes Treatment Clinical Notes Section Notes 07/28/2024 Polymyalgia rheumatica (ICD-10 - M35.3) may be related to the statins. will try stopping it for a couple weeks and if not better will try prednisone 07/28/2024 Encounter for Medicare annual examination with abnormal findings (ICD-10 - Z00.01) Plan Of Treatment Treatment Notes Assessment Notes Polymyalgia rheumatica may be related to the statins. will try stopping it for a couple weeks and if not better will try prednisone Pending Test Test Name Order Date CRP 07/28/2024 Next Appt Details Follow Up: 1 Year, Reason: A [place] Provider Name:Owen Mcknight ier, 10/19/2024 07:15:00 AM, [address], [address], [place], [phone], Provider Name:Owen Mcknight ier, 10/26/2024 10:30:00 AM, [address], [address], [place], [place], [phone], Provider Name:Owen Mcknight ier, 07/29/2025 01:30:00 PM, [address], [address], [place], [phone], Progress Notes * Melanie SOLIS RDOB:[birth year] (83 yo F)Acc No.[id number]:07/28/2024 Progress Note Patient:?FERNIE Melanie R Provider:?Owen Mcdonald MD :1940???Age:83 Y???Sex:Female D ate:07/28/2024 Address:[address] [place], [place] [id number] Subjective: * Chief Complaints: * ???6 month f/u visit, AWV * HPI: ???Depression Screening:?PHQ-9?Little interest or pleasure in doing things?Not at all,?Feeling down, depressed, or hopeless?Not at all,?Trouble falling or staying asleep, or sleeping too much?Not at all,?Feeling tired or having little energy?Not at all,?Poor appetite or overeating?Not at all,?Feeling bad about yourself or that you are a failure, or have let yourself or your family down?Not at all,?Trouble concentrating on things, such as reading the newspaper or watching television?Not at all,?Moving or speaking so slowly that other people could have noticed; or the opposite, being so fidgety or restless that you have been moving around a lot more than usual?Not at all,?Thoughts that you would be better off or of hurting yourself in some way?Not at all,?Total Score?0.?Interpretation and Intervention?Depression Screening Findings?Negative,?Follow-Up for Depression?: review of PHQ-9 found negative result, no follow-up needed.?Communication Needs:?Communication Needs?Does the patient have a hearing impairment?No,?Does the patient have a vision impairment??Yes,?If yes, what is the vision impairment??Glasses,?Does the patient have a cognition impairment??No.?Fall Risk:?History?Have you had any falls with injury in the past year??No,?Have you had two or more falls in the past year??No.?SDOH Questions:?SDOH Questions?In the past year have you been worried about losing housing??No,?In the past year have you or any family members you live with been unable to get any of the following when it was really needed? Check all that apply:?None.?Annual Wellness Visit:?c/o of?Annual Wellness Visit.?Medical / Social History Reviewed?The following items were reviewed and updated during today's visit?Past Medical History, [place] of Care, Surgical/Hospitalization History, Current medications including OTC and supplements, Family History, Tobacco use, Alcohol use, Illicit drug use.?Home Safety?Throw rugs??No,?Grab bars??Yes,?Raised toilet seats??No,?Working smoke detectors??Yes,?Working carbon monoxide detectors??Yes.?Activities of Daily Living (ADLs)?Difficulty bathing or showering??No,?Difficulty dressing??No,?Difficulty using the toilet??No,?Difficulty getting in and out of bed??No,?Difficulty walking??No,?Receives help from another person with any of the above?No.?End-of-Life Planning?End of Life Planning?Not needed.?Answers for HPI/ROS submitted by the patient?Change in Weight?No,?Change in hearing?No.? HRA filled out by the patient, reviewed by Provider and scanned. ???Symptom(s):? patient is a 83 yo female here for 6 month follow up visit, complaining of pain in upper thighs. came on at the same time. worse with getting out of chair. walking is okay. started at [employer]/ getting worse. heat helps it. no pain in arms. And AWV. * ROS:?General/Constitutional:?Denies?Chills.?Denies?Fatigue.?Denies?Fever.?Denies?Headache.?ENT:?Patient denies?decreased sense of smell, any loss of taste, sore throat.?Denies?Sore throat.?Respiratory:?Denies?Cough.?Denies?Shortness of breath at rest.?Denies?Shortness of breath with exertion.?Gastrointestinal:?Denies?Diarrhea.?Denies?Nausea.?Musculoskeletal:?Patient denies?muscle aches.?Peripheral Vascular:?Patient denies?red and blue toes.? * Medical History:? * Surgical History:? * Hospitalization/Major Diagno stic Procedure:? * Family History:?Father: dece ased 43 yrs.?Mother: 83 yrs, colon cancer.?1 son(s) . .? Father-[place] Mother-CVA, Denies mental health/substance abuse family history, No pertinent family medical history, Denies mental health/substance abuse family history. * Social History:?Tobacco Use:?Tobacco Use/Smoking?Patient is a?former smoker,?How long has it been since you last smoked??> 10 years,?Additional Findings: Tobacco Non-User?Former smoker, currently using no form of tobacco.?Drugs/Alcohol:?Alcohol Screen?Did you have a drink containing alcohol in the past year??No,?Points?0,?Interpretation?Negative.?Miscellaneous:?Caffeine: no, decaff. Children: yes. Community involvements: no. Exercise: yes, balance exercises and squats. Housing: owning. Living with: alone. Marital status: single. Occupation: unemployed. Pets: none. Travel outside of the [place]: no. * Medications:?TakingCitracal Calcium+D Vitamin D 2000 UNIT Capsule as directed Orally twice a day Triamcinolone Acetonide 0.5 % Cream 1 application Externally daily Levothyroxine Sodium 50 MCG Tablet TAKE 1 TABLET BY MOUTH EVERY DAY IN THE MORNING ON AN EMPTY STOMACH Rosuvastatin Calcium 40 MG Tablet TAKE 1 TABLET BY MOUTH EVERY DAY Clopidogrel Bisulfate 75 MG Tablet TAKE 1 TABLET BY MOUTH EVERY DAY Taking Citracal Calcium+D Taking Vitamin D 2000 UNIT Capsule as directed Orally twice a day Taking Triamcinolone Acetonide 0.5 % Cream 1 application Externally daily Taking Levothyroxine Sodium 50 MCG Tablet TAKE 1 TABLET BY MOUTH EVERY DAY IN THE MORNING ON AN EMPTY STOMACH Taking Rosuvastatin Calcium 40 MG Tablet TAKE 1 TABLET BY MOUTH EVERY DAY Taking Clopidogrel Bisulfate 75 MG Tablet TAKE 1 TABLET BY MOUTH EVERY DAY Not-Taking/PRNIbuprofen 800 MG Tablet 1 tablet with food or milk Orally Three times a day Imitrex 50 MG Tablet 1 tablet as needed Orally Twice a day LORazepam 0.5 MG Tablet 1 tablet as needed Orally Once a day Medication List reviewed and reconciled with the patientNot-Taking/PRN Ibuprofen 800 MG Tablet 1 tablet with food or milk Orally Three times a day Not-Taking/PRN Imitrex 50 MG Tablet 1 tablet as needed Orally Twice a day Not-Taking/PRN LORazepam 0.5 MG Tablet 1 tablet as needed Orally Once a day Medication List reviewed and reconciled with the patient * Allergies:?sulfa: hivesPneum ovax 23: pain and rednessCipro: hives - Onset Date 03/26/2019yes[Allergies Verified] Objective: * Vitals:?Ht: 60.5, Wt: 143, B [place]:27.47, BP:112/60, Wt-k.86. weight is down 6 pounds since 04-20-24. * Examination: ???AWV: ?Balance?.?Hearing?.?EKG? Not clinically necessary.?Written plan?Completed.?General Examination: ?GENERAL APPEARANCE:?alert, well hydrated, in no distress.?HEAD:?no evidence of any tenderness over the temperal arteries.?HEART:?no murmurs, rubs, gallops.?LUNGS:?no wheezes, rales, rhonchi, good air movement, clear to auscultation bilaterally.?EXTREMITIES:?upper non tender. thighs weak and tender.? Assessment: * Assessment: 1.?Polymyalgia rheumatica - M35.3???2.?Encounter for Medicare annual examination with abnormal findings - Z00.01??? Plan: * Treatment: * Labs:? * ?Lab: CRP ?Lab: Erythrocyte Sedime ntation Rate (Collection Date & Time - 07/28/2024 01:45 AM) * Procedure Codes:?08859 VENIP UNCT, ROUTINE*G0439 ANNUAL WELLNESS VST; PPS SUBSQT VST * Preventive Medicine:? ??Counseling:?Care goal follow-up plan:?Counseling for abnormal BMI provided?Yes,?Above Normal BMI Follow-up?Dietary management education, guidance, and counseling, Dietary needs education, Giving encouragement to exercise.?Exercise?.?Communication to patient:?Counseling for nutrition provided?Yes,?Counseling for physical activity provided?Yes.?Social:?diet:?Discussed the importance of eating a nutritious healthy food on a regular basis,?exercise:?Discussed the benefits of any exercise for overall health and well-being,?alcohol and drugs:?Discussed the dangers of excessive alcohol intake.? ??SCREENING:?Colonoscopy?Next screening is scheduled.?Mammogram?Annual Mammogram recommended pt will self schedule.? ??Immunizations:?Influenza?Have you had a flu shot since the most recent February 22??Yes.?Covid?patient vaccincated.? ??Screening/Special Tests:?Colonoscopy?.?Mammogram?.? * Follow Up:?1 Year (Reason: A [place]) * * Sign off status: Completed true * Provider:?Owen Mcdonald MD Date:?0 07/28/2024 Generated for Martina hughes/Jesse/eTransmitting on:?08/11/2024 12:57 PM EST History and Physical Notes * HPI (History of Present Illness) Category Sub-Category Detail Notes Category Not es Symptom(s) patient is a 83 yo female here for 6 month follow up visit, complaining of pain in upper thighs. came on at the same time. worse with getting out of chair. walking is okay. started at [employer]/ getting worse. heat helps it. no pain in arms. And AWV Depression Screening PHQ-9 Little inte rest or pleasure in doing things: Not at all Feeling down, depressed, or hopeless: No t at all Trouble falling or staying asleep, or sl eeping too much: Not at all Feeling tired or having little energy: N ot at all Poor appetite or overeating: Not at all Feeling bad about yourself o r that you are a failure, or have let yourself or your family down: Not at all Trouble concentrating on thi ngs, such as reading the newspaper or watching television: Not at all Moving or speaking so slowly that other people could have noticed; or the opposite, being so fidgety or restless that you have been moving around a lot more than usual: Not at all Thoughts that you would be b joan off or of hurting yourself in some way: Not at all Total Score: 0 Interpretation and Intervention Depression Lori alvarez Findings: Negative Follow-Up for Depression: : review of PH Q-9 found negative result, no follow-up needed SDOH Questions SDOH Questions In the past year have you been worried about losing housing?: No In the past year have you or any family members you live with been unable to get any of the following when it was really needed? Check all that apply:: None Fall Risk History Have you had any falls with injury i n the past year?: No Have you had two or more falls in the st year?: No Communication Needs Communication Needs Does the patient have a hearing impairment: No Does the patient have a vision impairmen t?: Yes ?If yes, what is the vision impairment?: Glasses Does the patient have a cognition impair ment?: No Annual Wellness Visit of Annual Wellness Vis it HRA filled out by the patient, reviewed by Provider and scanned. Medical / Social History [facility]ed [facility] items were reviewed and updated during today's visit: Past Medical History, [place] of Care, Surgical/Hospitalization History, Current medications including OTC and supplements, Family History, Tobacco use, Alcohol use, Illicit drug use Home Safety Throw rugs?: No Grab bars?: Yes Raised toilet seats?: No Working smoke detectors?: Yes Working carbon monoxide detectors?: Yes Activities of Daily Living (ADLs) Difficulty bat eleazar or showering?: No Difficulty dressing?: No Difficulty using the toilet?: No Difficulty getting in and out of bed?: N o Difficulty walking?: No Receives help from another person with a [place] of the above: No End-of-Life Planning End of Life Planning: Not n eeded Answers for HPI/ROS submitted by the patient Kay elizabeth in Weight: No Change in hearing: No Examination Category Sub-Category Detail Notes Category Not es General Examination GENERAL APPEARANCE: alert, w ell hydrated, in no distress HEAD: no evidence of any t enderness over the temperal arteries HEART: no murmurs, rubs, ga llops LUNGS: no wheezes, rales, r honchi, good air movement, clear to auscultation bilaterally EXTREMITIES: upper non tender. th ighs weak and tender AWV Balance Romberg: Yes . Tandem walk: No . Walk and Turn: Yes . Rise from sit to stand: No .has trouble getting out of chair Hearing Whisper test: Pass . EKG Not clinically anita enriquez Written plan Completed
--- OUTSIDE RECORDS SUMMARY | 2024-08-11 12:57 | XMS_ITS ---
Author Organization Owen Mcdonald MD Address [address] [place], [place] [id number] Care Team Providers Care Lbd Teacher Name Role Phone Owen Mcdonald Primary Care Provider [phone] REASON FOR VISIT 6 month Medications Medication SIG (Take, Route, Frequency, Duration) [...] as directed Orally twice a day Active Vital Signs Blood pressure systolic 112 mm Hg 04/20/20 24 Blood pressure diastolic 58 mm Hg 024 Height 60.5 in 04/20/2024 Weight 149 lbs 04/20/2024 BMI 28.62 kg/m2 04/20/2024 weight is up 9 pounds since 02-06-24 Encounters Encounter Location Date Provider Diagnosis Owen Mcdonald MD [address] [place] [phone] 04/20/2024 Owen Mcdonald Prediabetes R73.09 ; Anxiety F41.9 and Pure hypercholesterolemia E78.00 Assessments Encounter Date Diagnosis (ICD Code) Assessment Notes Treatment Notes Treatment Clinical Notes Section Notes 04/20/2024 Prediabetes (ICD-10 - R73.09) will continue to monitor , labs pending 04/20/2024 Anxiety (ICD-10 - F41.9) if she does get worse to have her try something. is going to see what her friend is taking 04/20/2024 Pure hypercholesterolemia (ICD-10 - E78.00) stable, will continue current regiment Plan Of Treatment Medication Medication Name Sig Start Date Stop [...] Reason: Provider Name:Owen burnette, 10/19/2024 07:15:00 AM, [address] [place] [address], [address], [phone], Provider Name:Owen burnette, 10/26/2024 10:30:00 AM, [address] [place] [address], [phone], Provider Name:Owen burnette, 07/29/2025 01:30:00 PM, [address] [place] [address], [phone], Progress Notes * Melanie SOLIS RDOB:[birth year] (83 yo F)Acc No.[id number]:04/20/2024 Progress Notes Patient:?Melanie Solis Provider:?Owen Mcdonald MD :1940???Age:83 Y???Sex:Female D ate:04/20/2024 Address:[address] [place] [address] [id number] Subjective: * Chief Complaints: * ???6 month * HPI: ???Symptom(s):? patient is a 83 yo female here for 6 month follow up visit/ has some anxiety and it causes her migraines. * ROS:?General/Constitutional:?Denies?Chills.?Denies?Fatigue.?Denies?Fever.?Denies?Headache.?ENT:?Patient denies?decreased sense of smell, any loss of taste, sore throat.?Denies?Sore throat.?Respiratory:?Denies?Cough.?Denies?Shortness of breath at rest.?Denies?Shortness of breath with exertion.?Gastrointestinal:?Denies?Diarrhea.?Denies?Nausea.?Musculoskeletal:?Patient denies?muscle aches.?Peripheral Vascular:?Patient denies?red and blue toes.? * Medical History:? * Surgical History:? * Hospitalization/Major Diagno stic Procedure:? * Medications:?TakingCitracal Calcium+D Vitamin D 2000 UNIT Capsule as directed Orally twice a dayTriamcinolone Acetonide 0.5 % Cream 1 application Externally dailyClopidogrel Bisulfate 75 MG Tablet TAKE 1 TABLET BY MOUTH EVERY DAY Levothyroxine Sodium 50 MCG Tablet TAKE 1 TABLET BY MOUTH EVERY DAY IN THE MORNING ON AN EMPTY STOMACH Rosuvastatin Calcium 40 MG Tablet TAKE 1 TABLET BY MOUTH EVERY DAY Taking Citracal Calcium+D Taking Vitamin D 2000 UNIT Capsule as directed Orally twice a dayTaking Triamcinolone Acetonide 0.5 % Cream 1 application Externally dailyTaking Clopidogrel Bisulfate 75 MG Tablet TAKE 1 TABLET BY MOUTH EVERY DAY Taking Levothyroxine Sodium 50 MCG Tablet TAKE 1 TABLET BY MOUTH EVERY DAY IN THE MORNING ON AN EMPTY STOMACH Taking Rosuvastatin Calcium 40 MG Tablet TAKE 1 TABLET BY MOUTH EVERY DAY Not-Taking/PRNIbuprofen 800 MG Tablet 1 tablet with food or milk Orally Three times a dayImitrex 50 MG Tablet 1 tablet as needed Orally Twice a dayLORazepam 0.5 MG Tablet 1 tablet as needed Orally Once a dayMedication List reviewed and reconciled with the patientNot-Taking/PRN Ibuprofen 800 MG Tablet 1 tablet with food or milk Orally Three times a dayNot-Taking/PRN Imitrex 50 MG Tablet 1 tablet as needed Orally Twice a dayNot-Taking/PRN LORazepam 0.5 MG Tablet 1 tablet as needed Orally Once a dayMedication List reviewed and reconciled with the patient * Allergies:?sulfa: hivesPneum ovax 23: pain and rednessCipro: hives - Onset Date 03/26/2019yes[Allergies Verified] Objective: * Vitals:?Ht: 60.5, Wt:149, BM I:28.62, BP:112/58 weight is up 9 pounds since 02-06-24. * ???Past Orders: ???Lab:Lipid Panel with Refl ex (Order Date - 04/13/2024) (Collection Date - 04/13/2024) ? Value Reference Range ?Triglycerides 186 H <150 - mg/dL ?Cholesterol 160 <200 - m g/dL ?LDL Cholesterol Calculated 81 <100 - mg/dL ?HDL Cholesterol 42 >40 - mg/dL ???Lab:Hemoglobin A1c (Order Date - 04/13/2024) (Collection Date - 04/13/2024) ? Value Reference Range ?Hemoglobin A1c % 5.7 <6. 0 - % ?Estimated Average Glucose 117 - mg/dL ???Lab:Liver Panel (Order Da 04/13/2024) (Collection Date - 04/13/2024) ? Value Reference Range ?Bilirubin Total 0.5 0.0- 1.0 - mg/dL ?Bilirubin Direct 0.2 0.0 -0.5 - mg/dL ?Aspartate Amino Transferase 28 5-31 - U/L ?Alanine Aminotransferase 24 0-31 - U/L ?Total Protein 6.5 6.5-8. 0 - g/dL ?Albumin Level 4.0 3.5-5. 0 - g/dL ?Alkaline Phosphatase 71 39-117 - U/L ???Lab:Glucose Fasting (Orde r Date - 04/13/2024) (Collection Date - 04/13/2024) ? Value Reference Range ?Glucose Fasting 101 H 60-9 9 - mg/dL * Examination: ???General Examination: ?GENERAL APPEARANCE:?alert, well hydrated, in no distress.?HEAD:?normocephalic.?SKIN:?good turgor.?HEART:?no murmurs, rubs, gallops , regular rate and rhythm.?LUNGS:?no wheezes, rales, rhonchi , good air movement , clear to auscultation bilaterally.? Assessment: * Assessment: 1.?Prediabetes - R73.09?2.?A nxiety - F41.9?3.?Pure hypercholesterolemia - E78.00? Plan: * Treatment: 2.?Anxiety? Notes: if she does get worse to have her try something. is going to see what her friend is taking?? 3.?Pure hypercholesterolemia ? Continue Rosuvastatin Calcium Tablet, 40 MG, TAKE 1 TABLET BY MOUTH EVERY DAY.?? Notes: stable, will continue current regiment?? * Procedure Codes:?02289 ASSAY , GLUCOSE, BLOOD QUANT, Modifiers: QW 06127 GLYCATED HEMOGLOBIN TEST, Modifiers: QW * Follow Up:?6 Months * * Sign off status: Completed true * Provider:?Owen Mcdonald MD Date:?1 Generated for Anai saul/Jesse/eTransmitting on:?08/11/2024 12:56 PM EST History and Physical Notes * HPI (History of Present Illness) Category Sub-Category Detail Notes Category Not es Symptom(s) patient is a 83 yo female here for 6 month follow up visit/ has some anxiety and it causes her migraines Examination Category Sub-Category Detail Notes Category Not es General Examination GENERAL APPEARANCE: alert, w ell hydrated, in no distress HEAD: normocephalic HEART: no murmurs, rubs, ga llops , regular rate and rhythm LUNGS: no wheezes, rales, r honchi , good air movement , clear to auscultation bilaterally SKIN: good turgor
--- OUTSIDE RECORDS SUMMARY | 2024-08-11 12:58 | XMS_ITS | Patient Health Record ---
Author Organization [facility] Address [address] [place] [address] Care Team Providers Care Dragline Operator Name Role Phone Owen Mcdonlad MD Primary Care Provider Ranjit Ventura Jr [...] capsule Orally onc e a day Active Multi Vitamin/Minerals 1 1 Orally qd Active Synthroid 50 MCG 1 tablet Orally Once a day Active Vitamin D3 2000 UNIT 1 tablet Orally twi ce a day Active ICaps 1 1 Orally twice a day Active Flaxseed Oil 1000 MG 1 Orally twice a day Active IMMUNIZATIONS Vaccine Route Administration Date Status Comme nts Influenza Unknown 03/06/2021 Administered Influenza Unknown 04/16/2023 Administered Influenza Unknown 04/14/2024 Administered SOCIAL HISTORY Sex Assigned At : Social History Observation Description Sex Assigned At Unknown Alcohol Screen Question Answer Notes Did you have a drink containing alcohol in the p ast year? No Points 0 Interpretation Negative PROBLEMS Problem Type ICD Code Onset Dates Problem Status W/U Status Risk SNOMED Code Notes Problem Gastro-esophagea l reflux disease without esophagitis (K21.9) Active confirmed 297372430 Problem Change in bowel habits (R19.4) Active confirmed 494257313 Problem Screening for colon cancer (Z12.11) Active confirmed 287860448 VITAL SIGNS Temperature 97.5 degrees Fahrenheit 07/29/2024 Blood pressure diastolic 00 mm Hg 07/29/2024 Height 59.50 in 07/29/2024 Blood pressure systolic 000 mm Hg 07/29/2024 Weight 143 lbs 07/29/2024 BMI 28.40 kg/m2 07/29/2024 Encounters Encounter Location Date Provider Diagnosis [facility] [address] [place] [address] 07/29/2024 Ranjit Quinn Jr Gastro-esophageal reflux disease [...] Next Appt Details Provider Name:Ranjit gilmore Jr, 08/02/2025 10:40:00 AM, [address], [address], [place], [address], Insurance Providers Payer Name Payer Address Payer Phone Subscriber Number Group Number Insured Name Patient Relationship to Insured Coverage Start Date Coverage End Date [place] [address] [place] [address] [phone] [id number] SOPHIE ENCISO Self - patient is the insured MEDEX ATTN CLAIMS [address] [place] [address] [phone] [id number] FERNIESOPHIE Self - patient is the insured MEDICAL (GENERAL) HISTORY Medical History History ICD Code colonoscopy 09/18/17, negativ e. Personal history and family history of colon polyps and cancer, followup optional. GERD, EGD 06/26/16 no Oconnor's esophagus. Hyperlipidemia Hypothyroidism CVA Surgical History Surgery Date(Month/Year) hysterectomy lumpectomy, right breast Hospitalization History Reason Date(Month/Year) small strokes occipital nerve 2019
--- OUTSIDE RECORDS SUMMARY | 2024-08-11 12:58 | XMS_ITS | Patient Health Record ---
Author Organization [facility] [place] Address [address] [place] [address] Care Team Providers Care Veneer Layer Name Role Phone Harry MACKEY, Owen Primary Care Provider Kiara Long Unavailable [phone] Black, Clary Unavailable [phone] Danny Rhodes Unavailable [phone] Allergies Allergen (clinical drug ingredient) Drug/Non Drug [...] Problem Acquired hammer toe of right foot (1848462477596760) Other hammer toe(s) (acquired), right foot (M20.41) Active confirmed Problem Acquired hammer toe of left foot (1354208188309931) Other hammer toe(s) (acquired), left foot (M20.42) Active confirmed Problem 414623018614646 Hallux valgus (acquired), right foot (M20.11) Active confirmed Problem Acquired hallux valgus (78439483) Hallux valgus (acquired), left foot (M20.12) Active confirmed Problem 597912545535200 Hallux valgus (acquired), right foot (M20.11) Active confirmed Problem 760650777 Hammer toe of right foot (M20.41) Active confirmed Problem 474583993612463 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 Problem 53525368431285132 Atherosclerosi s of artery of both lower extremities (I70.203) Active confirmed Problem Localized, primary osteoarthritis of the ankle and/or foot (697412198) Arthritis of joint of lesser toe, left (M19.072) Active confirmed Problem Localized, primary osteoarthritis of the ankle and/or foot (242173818) Arthritis of joint of lesser toe, right (M19.071) Active confirmed Vital Signs Blood pressure diastolic 58 mm Hg 03/05/2024 Height 5 ft in 03/05/2024 Blood pressure systolic 138 mm Hg 03/05/2024 Weight 140 lbs 03/05/2024 BMI 27.34 kg/m2 03/05/2024 Procedures Procedure Date Ordered Date Performed Result Body Sit e 24811-ZDDR SKIN LESIONS, 2 TO 4 03/05/2024 N/A G8283-YTLELBLI DYSTROPHIC NAILS ANY # 03/05/2024 N/A Encounters Encounter Location Date [facility] [address] 03/05/2024 Clary Black Pain in left foot [...] ; Dystrophic nail L60.3 and Keratoma L57.0 [facility] [address] [address] 11/14/2023 Kiara Becker Assessments Encounter Date Diagnosis [...] X ray : Foot, right 3V 04/11/2022 13267-NXRS SKIN LESIONS, 2 TO 4 03/05/20 24 Z5407-AIKVJDMG DYSTROPHIC NAILS ANY # Insurance Providers Payer Name Payer Address Payer Phone Subscriber Number Group Number Insured Name Patient Relationship to Insured Coverage Start Date Coverage End Date Medicare National Govt Svcs Inc [address] [place] [address] [phone] [id number] Melanie Solis Self - patient is the insured [facility] [address] [place] [address] [phone] [id number] Melanie Solis Self - patient is [...] recorder 04/23/2019 Hospitalization History Reason Date(Month/Year) [facility] [place]
== END 2024-08-11 11:45 | disposition home or self-care (01) ==
LOC: HO.XRAY 11:44
PROVIDERS: PCP Internal Medicine; Visit Provider Internal Medicine
DX: M25.551 Pain in right hip (principal)
CPT/HCPCS: 73521

== ENCOUNTER → 2024-08-11 11:51 | Outpatient (BNV) | payer MEDICARE, SELFPAY | PROVIDERS: PCP Internal Medicine; Visit Provider Radiology Diagnostic Radiology | DX: M16.0 Bilateral primary osteoarthritis of hip (principal) | CPT/HCPCS: 73521 ==

== ENCOUNTER 2024-08-16 12:42 | Outpatient (REF) | payer MEDICARE, SELFPAY ==
--- NOTE | ~2024-08-16 | MR_ITS ---
CLINICAL HISTORY: LBP MR lumbar spine with and without gadolinium Comparison: CR - LUMBAR SPINE 2TO 3 [id number] - 08/18/15 15:09 EST Findings: 5 lumbar type vertebral bodies are present by plain film. There is loss of normal lumbar lordosis. 4 mm of retrolisthesis of L2 on L3. 6 mm of anterolisthesis of L4 on L5. No acute fracture or pathologic bone lesion. Mild reactive signal throughout the endplates of the lumbar and lower thoracic spine. Cauda equina and conus medullaris within normal limits. Paraspinous musculature intact. L1-L2: Moderate disc desiccation. Mild disc height loss and diffuse disc bulge. Mild bilateral facet and ligamentum flavum hypertrophy. Mild canal stenosis. Mild bilateral foraminal stenosis. L2-L3:Moderate disc height loss and desiccation. Mild diffuse disc bulge with superimposed left far lateral protrusion. Mild bilateral facet hypertrophy. Mild canal stenosis. Moderate left and mild right foraminal stenosis. L3-L4:Moderate disc height loss and desiccation. Mild diffuse disc bulge. Mild bilateral facet and ligamentum flavum hypertrophy. Mild canal stenosis. Moderate bilateral foraminal stenosis. L4-L5: Moderate disc height loss and desiccation. Mild diffuse disc bulge. Moderate bilateral facet hypertrophy. Mild canal stenosis. Moderate bilateral foraminal stenosis. L5-S1:Moderate disc desiccation. Mild disc height loss and diffuse disc bulge. Mild bilateral facet hypertrophy. Mild canal stenosis. Moderate right and mild left foraminal stenosis. IMPRESSION: 1. Multilevel degenerative disc and facet disease, as well as ligamentum flavum hypertrophy. 2. Mild multilevel canal stenoses. 3. Multilevel gzfd-kx-tyyeedhu foraminal stenoses as described above. This document has been electronically signed by: Ayde Roberts MD on 08/16/2024 18:33:10
--- OUTSIDE RECORDS SUMMARY | 2024-08-16 12:56 | XMS_ITS ---
Author Organization Owen Mcdonald MD Address [address] [place] [phone] Care Team Providers Care Compensator Worker Name Role Phone Owen Mcdonald Primary Care Provider [phone] REASON FOR VISIT PT orders Encounters Encounter Location Date Provider Diagnosis Owen Mcdonald MD [address] [facility] [address] [place] [phone] 08/13/2024 Owen Mcdonald Plan Of Treatment Next Appt Details Provider Name:Owen burnette, 09/01/2024 11:15:00 AM, [address] [place] [address], [address], [phone], Provider Name:Owen burnette, 10/19/2024 07:15:00 AM, [address] [place] [address], [address], [phone], Provider Name:Owen burnette, 10/26/2024 10:30:00 AM, [address] [place] [address], [address], [phone], Provider Name:Owen Deshaun Tabathalouie vasile, 07/29/2025 01:30:00 PM, [address], [place], [place], [phone], Progress Notes * Melanie SOLIS RDOB:[birth year] (83 yo F)Acc No.[id number]:08/13/2024 Patient:?Melanie SOLIS :1940???Age:83 Y???Sex:Female Address:[address] [place] [address] * true * Date:? Generated for Martina hughes/Jesse/eTransmitting on:?08/16/2024 12:56 PM EST
--- OUTSIDE RECORDS SUMMARY | 2024-08-16 12:56 | XMS_ITS ---
Author Organization [facility] Address [address] [place] [address] Care Team Providers Care Resident Buyer Name Role Phone Owen Mcdonald MD Primary Care Provider Kiara Long Unavailable [phone] Danny Rhodes [phone] Encounters Encounter Location Date Provider Diagnosis [address] [address] 11/14/2023 Danny Rhodes Plan Of Treatment No Information Progress Notes * Melanie SOLIS RDOB:[birth year] (83 yo F)Acc No.[id number]:11/14/2023 Progress Note Patient:Melanie HO Provider:?Danny Rhodes DPM :1940???Age:83 Y???Sex:Female D ate:11/14/2023 Address:[address] [place], [place] [address] Pcp:Owen Mcdonald MD Subjective: * Chief Complaints: [...] DPM Date:? 024 Generated for Printi ng/Faxing/eTransmitting on:?08/16/2024 12:56 PM EST
--- OUTSIDE RECORDS SUMMARY | 2024-08-16 12:56 | XMS_ITS | Data Portability ---
Author Organization [place] [facility] Address [address] [address] Care Team Providers Care Associate Trainer Name Role Phone MILA SOTOMAYOR Primary Care Provider Assessment Encounter Date Assessment Date Assessment LastModified [...] amplification and medical clearance was provided today. [email or web address] Not available 12/25/2023 12:49:53 Plan of Treatment [...] audio gram No observ ation record ed. [email or web address] Not Available 01/2024 13:29:11 02/12/20 24 11/10/2021 [...] Organization Details Recorded Time Deviated nasal septum 233721396 Active 2021 Deviated nasal septum; Note: Date Diagnosed : 12/29/2021 3:45 PM (J34.2) Not Available [facility] 4 02:27:48 Posterior rhinorrhe a 28868037 Active 2021 Postnasal drip; Note: Date Diagnosed : 12/29/2021 3:45 PM (R09.82) Not Available [facility] 4 02:28:04 Sensorine ural hearing loss of bilateral ears 734275236 Active 2021 Sensorine ural hearing loss, bilateral ; Note: Date Diagnosed : 12/29/2021 3:45 PM (H90.3) Not Available [facility] 4 02:27:55 Chronic rhinitis 84974337 Active 2021 Chronic rhinitis; Note: Date Diagnosed : 12/29/2021 3:45 PM (J31.0) Not Available [facility] 4 02:27:40 Bilateral tinnitus 33206813364 02 Active 2021 Tinnitus, bilateral ; Note: Date Diagnosed : 12/29/2021 3:45 PM (H93.13) Not Available Critical [facility] hospital 4 02:27:58 Impacted cerumen of bilateral ears 48065330673 05455 Active 2023 MARISOL COATS PA-C [address] [facility] [place] [address], [place], [address] , [facility] 4 12:47:20 Sensorine ural hearing loss of bilateral ears 123152187 Active 2023 MARISOL COATS PA-C [address] [facility],[place] [address], [place], [address] , [facility] 4 12:47:35 Dysphonia 41023824 Active 2023 Hoarsenes s; Note: Date Diagnosed : 09/25/2023 11:42 AM (R49.0) Not Available Critical access hospital 4 02:27:30 Problem Notes None recorded. Procedures Surgical History Date Name Laterality Status Provider Name and Address Organization Details Recorded Time 4 Comp Audio with Tymps (76564 & 32603) completed DEBBI MITTAL [place], [facility] [address] [facility],[place] [address], [place], [address], [facility] 12/25/2023 12:12:18 Cerumen removal without microscope bilat completed MARISOL COATS PA-C [address] [place] [address],[place] [address], [place], [address], [facility] 12/25/2023 12:47:16 Imaging Results Imaging Date Name Status LastModified by Organiz ation Details LastModified Time 12/30/2023 audiogram completed [id number] Information n ot available 12/30/2023 13:29:11 11/10/2021 [...] Name and Address Organization Details Recorded Time 353284 fluticaso ne Not available lighthead edness Not available Not available 01/24/2024 17899 RxNorm React ion: Light heade dness ; Not Available [facility] 4 00:24:24 38093 floxacill in Not available other Not available Not available 11/05/2023 4448 RxNorm React ion: Unkno wn; Not Available [facility] 4 00:52:01 72048 Bactrim medicatio n other Not available Not available 11/05/2023 41586 9 RxNorm React ion: Unkno wn; Not Available [facility] 4 00:52:08 Medications Name Sig Start Date [...] Note 6328 SOFIA EDGAR MD [facility] [address] [address] 12/25/2023 10:51:24 12/25/2023 12:50:30 Impacted cerumen of bilateral ears 4256416454 035630 H61.23 Sensorineu ral hearing loss of bilateral ears 112043458 H90.3 6491 DEBBI MITTAL MA, CCC-A [facility] [address] [address] 12/25/2023 12:11:34 12/31/2023 11:38:32 Sensorineural hearing loss of bilateral ears 458020423 H90.3 RIGHT EAR: Borderline normal/ mild SNHL [...] Name 12/25/2023 2 [place] [id number] Melanie R Irma [id number] Melanie R Irma 12/25/2023 1 [place] Melanie R Irma [id number] Melanie R Irma 12/25/2023 2 [place] [id number] Melanie R Irma [id number] Melanie R Irma 12/25/2023 1 [place] Melanie R Irma [id number] Melanie R Irma Notes Date Note [...] blurry vision with use. SOFIA EDGAR MD [address] [place] [address], [address], [facility] 12/25/2023 14:36:40 OBGyn Episode No OBEpisode recorded.
--- OUTSIDE RECORDS SUMMARY | 2024-08-16 12:57 | XMS_ITS ---
Author Organization [facility] Address [address] [place] [phone] Care Team Providers Care Tobacco Drier Operator Name Role Phone Owen Mcdonald Primary Care Provider Results Component Value Reference Range Notes XR hip BI w PEL1V Reviewed date:08/13/2024 10:12:56 AM Interpretation: Performing Lab: Notes/Report: [facility] [address] [place] [address] XRay Report Signed Patient: Melanie Solis MR#: [id number] : 1940 Acct:[id number] Age/Sex: 83 / F ADM Date: 08/11/24 Loc: HO.ADRIANO Attending Dr: Owen Mcdonald MD Ordering Physician: Owen Mcdonald MD Date of Service: 08/11/24 Procedure(s): XR hip BI w PEL1V Accession Number(s): [id number] cc: Owen Mcdonald MD EXAMINATION: XR BILATERAL HIPS WITH AP PELVIS CLINICAL INFORMATION: PAIN IN HIP COMPARISON: None available. TECHNIQUE: AP view of the pelvis and 2 views of each hip were obtained. FINDINGS: No fracture, dislocation, or suspicious bone lesion. Mild hip joint osteoarthritis bilaterally. Alignment is anatomic. Femoral heads are normal in contour without AVN. Normal acetabular coverage bilaterally. Spurring of the pubic symphysis. Sacroiliac joints and sacrum are unremarkable. Soft tissues appear normal aside from diffuse vascular calcification. XR/XR hip BI w PEL1V IMPRESSION: No acute finding bilateral hips. Mild bilateral hip joint osteoarthritis. Electronically signed by: Greg Stanton MD 08/11/2024 02:21 PM EST Dictated By: Greg Stanton MD Signed By: <Electronically signed by Greg Stanton MD in OV> 08/11/24 1421 DD/ 1151 TD/TT: 08/11/24 1234 Ethernet Network Architect: [place] [id number] XRay Report Signed Patient: Kay Solis MR#: [id number] : 1940 Acct:[id number] Age/Sex: 83 / F ADM Date: 08/11/24 Loc: HO.XRAY Attending Dr: Owen Mcdonald MD Ordering Physician: Owen Mcdonald MD Date of Service: 08/11/24 Procedure(s): XR hip BI w PEL1V Accession Number(s): [id number] cc: Owen Mcdonald MD EXAMINATION: XR BILATERAL HIPS WI TH AP PELVIS CLINICAL INFORMATION: PAIN IN HIP COMPARISON: None available. TECHNIQUE: AP view of the pelvi s and 2 views of each hip were obtained. FINDINGS: No fracture, disloca tion, or suspicious bone lesion. Mild hip joint osteo arthritis bilaterally. Alignment is anatomic. Femoral heads are no rmal in contour without AVN. Normal acetabular co verage bilaterally. Spurring of the pubi c symphysis. Sacroiliac joints an d sacrum are unremarkable. Soft tissues appear normal aside from diffuse vascular calcification. X R/XR hip BI w PEL1V IMPRESSION: No acute finding maximilian ateral hips. Mild bilateral hip joint osteoarthritis. Electronically renate d by: Greg Stanton MD 08/11/2024 02:21 PM [facility] Dictated By: Greg Stanton MD Signed By: <Elza be signed by Greg Stanton MD in OV> 08/11/24 1421 DD/ 1151 TD/TT: 08/11/24 1234 Ethernet Network Architect: REASON FOR VISIT 2 WEEK F/U Medications [...] Location Date Provider Diagnosis Owen Mcdonald MD [address] [place] [address] [place] [phone] 08/11/2024 Owen Mcdonald Pain in right hip M25.551 and Pain in left hip M25.552 Assessments Encounter Date Diagnosis (ICD Code) Assessment Notes Treatment Notes Treatment Clinical Notes Section Notes 08/11/2024 Pain in right hip (ICD-10 - M25.551) 08/11/2024 Pain in left hip (ICD-10 - M25.552) since she got better a little with stopping the rosuvastin will try going longer without, will continue to monitor Plan Of Treatment Treatment Notes Assessment Notes Pain in left hip since she got better a little with stopping the rosuvastin will try going longer without, will continue to monitor Next Appt Details Follow Up: 3 Weeks, Reason: Provider Name:Owen burnette, 09/01/2024 11:15:00 AM, [address], [address], [place], [phone], Provider Name:Owen carr, 10/19/2024 07:15:00 AM, [address], [place], [place], [phone], Provider Name:Owen carr, 10/26/2024 10:30:00 AM, [address] [place] [address], Suite [facility], [place], [place], [phone], Provider Name:Owen burnette, 07/29/2025 01:30:00 PM, [address] [place] [address], Suite [facility], [place], [place], [phone], Progress Notes * Melanie SOLIS RDOB:[birth year] (83 yo F)Acc No.[id number]:08/11/2024 Progress Notes Patient:?Melanie SOLIS R Provider:?Owen Mcdonald MD :1940???Age:83 Y???Sex:Female D ate:08/11/2024 Address:[address] [place], [place] [phone] Subjective: * Chief Complaints: * ???1. 2 WEEK F/U. * HPI: ???Symptom(s):?patient is a 83 yo female here for 2 week follow up visit, still having pain in groin and thighs with standing. in the back. no further radiation hurt more in past. is some ways a little better after stopping rosuvastatin. * ROS:?General/Constitutional:?Denies?Chills.?Denies?Fatigue.?Denies?Fever.?Denies?Headache.?ENT:?Patient denies?decreased sense of smell, any loss of taste, sore throat.?Denies?Sore throat.?Respiratory:?Denies?Cough.?Denies?Shortness of breath at rest.?Denies?Shortness of breath with exertion.?Gastrointestinal:?Denies?Diarrhea.?Denies?Nausea.?Musculoskeletal:?Patient denies?muscle aches.?Peripheral Vascular:?Patient denies?red and blue toes.? * Medical History:?Upper endos copy 2011, colonoscopy [...] Objective: * Vitals:?Ht: 60.5, Wt: 143, B ID:27.47, BP:134/60, Wt-k.86. * ???Past Orders: ???Lab:C Reactive [...] stopping the rosuvastin will try going longer without, will continue to monitor?? * Follow Up:?3 Weeks * * The named appointment provid er may or may not be the originator of this progress note, and it is not deemed complete until electronically signed by the appointment provider. Sign off status: Pending * Provider:?Owen Mcdonald MD Date:?0 08/11/2024 Generated for Martina hughes/Jesse/Donnyitting on:?08/16/2024 12:56 PM EST History and Physical Notes * HPI (History of Present Illness) Category Sub-Category Detail Notes Category Not es Symptom(s) patient is a 83 yo female here for 2 week follow up visit, still having pain in groin and thighs with standing. in the back. no further radiation hurt more in past. is some ways a little better after stopping rosuvastatin. Examination Category Sub-Category Detail Notes Category Not es General Examination GENERAL APPEARANCE: normal MUSCULOSKELETAL: no pain on palpation of hips.
--- OUTSIDE RECORDS SUMMARY | 2024-08-16 12:57 | XMS_ITS ---
Author Organization [facility] Address [address] [place] [address] Care Team Providers Care Sales Representative Livestock Name Role Phone Owen Mcdonald MD Primary Care Provider Efrem BeckerKiaar Unavailable [phone] Black, Clary Unavailable [phone] Allergies Allergen (clinical drug ingredient) Drug/Non Drug [...] Status Risk Notes Problem Acquired hallux valgus (49256434) Hallux valgus (acquired), left foot (M20.12) Active confirmed Problem Acquired hammer toe of right foot (4951187558819745) Other hammer toe(s) (acquired), right foot (M20.41) Active confirmed Problem Localized, primary osteoarthritis of the ankle and/or foot (165751016) Arthritis of joint of lesser toe, right (M19.071) Active confirmed Problem Acquired hammer toe of left foot (8053654909910889) Other hammer toe(s) (acquired), left foot (M20.42) Active confirmed Problem Localized, primary osteoarthritis of the ankle and/or foot (002997372) Arthritis of joint of lesser toe, left (M19.072) Active confirmed Vital Signs Height 5 ft in 03/05/2024 Weight 140 lbs 03/05/2024 BMI 27.34 kg/m2 03/05/2024 Blood pressure systolic 138 mm Hg 03/05/20 24 Blood pressure diastolic 58 mm Hg 024 Procedures Procedure Date Ordered Date Performed Result Body Sit e 44358-DMOZ SKIN LESIONS, 2 TO 4 03/05/2024 N/A T3154-BFOIMACA DYSTROPHIC NAILS ANY # 03/05/2024 N/A Encounters Encounter Location Date Provider Diagnosis [facility] [address] [place] [address] 03/05/2024 Clary Black Pain in left foot [...] Treatment Pending Test Test Name Order Date 49974-KKVQ SKIN LESIONS, 2 TO 4 03/05/20 24 M1822-SZMOGZYU DYSTROPHIC NAILS ANY # Next Appt Details Follow Up: prn, Reason: Procedure Notes * Category Sub-Category Detail Notes Keratoma Treatment Parring or Cutting o f Benign Hyperkeratotic Lesion(s) 87858-IS Self Pay Non-Covered Callus care- Nail Reduction Nail Reduction I1440-DK Trimmin g of noncovered dystrophic nails, any number - Progress Notes * Melanie SOLIS RDOB:[birth year] (83 yo F)Acc No.[id number]:03/05/2024 Progress Note Patient:?Melanie Solis R Provider:?Clary Amos DPM :1940???Age:83 Y???Sex:Female D ate:03/05/2024 Address:[address] [place], [place] [address] Pcp:Owen Mcdonald MD Subjective: * Chief Complaints: [...] loop recorder 04/23/2019 * Hospitalization/Major Diagno stic Procedure:[place] [place] * Family History:?Mother: [...] * Vitals:?Ht: 5 ft, Wt: 140, B MT: 27.34, Shoe size: 5W, BP: 138/58 mm [...] L60.3?17.?Keratoma - L57.0? Plan: * Treatment: 2.?Keratoma?Procedure: 11118-SQPT SKIN LESIONS, 2 TO 4 * Procedures:?Keratoma Treatment:?Parring or Cutting of Benign Hyperkeratotic Lesion(s)?50888-SQ Self Pay Non-Covered Callus care-.?Nail Reduction:?Nail Reduction?Y8229-KS Trimming of noncovered dystrophic nails, any number -.? * Procedure Codes:?17362 TRIM SKIN LESIONS, 2 TO 4 $60, [...] Amos DPM Date:?2023 Generated for Martina hughes/Jesse/Fatou on:?08/16/2024 12:57 PM EST History and Physical Notes [...]
--- OUTSIDE RECORDS SUMMARY | 2024-08-16 12:57 | XMS_ITS ---
Author Organization [facility] Address [address] [place] [address] Care Team Providers Care Pulverizing And Sifting Operator Name Role Phone wOen Mcdonald MD Primary Care Provider Ranjit Ventura [...] 07/29/2024 Encounters Encounter Location Date Provider Diagnosis [facility] [address] [facility] [address] [place] [address] 07/29/2024 Ranjit Quinn Jr Gastro-esophageal reflux disease [...] Name:Ranjit gilmore Jr, 08/02/2025 10:40:00 AM, [address] [facility], [address], [place], [address],
--- OUTSIDE RECORDS SUMMARY | 2024-08-16 12:57 | XMS_ITS ---
Author Organization [facility] Address [address] [place] [address] Care Team Providers Care Medical Program Specialist Name Role Phone Owen Mcdonald MD Primary Care Provider Kiara Long Unavailable [phone] Danny Rhodes [phone] Encounters Encounter Location Date Provider Diagnosis [address] [address] 01/01/2024 Danny Rhodes Plan Of Treatment No Information Progress Notes * Melanie SOLIS RDOB:[birth year] (83 yo F)Acc No.[id number]:01/01/2024 Progress Note Patient:Melanie HO Provider:?Danny Rhodes DPM :1940???Age:83 Y???Sex:Female D ate:01/01/2024 Address:[address] [place], [place] [address] Pcp:Owen Mcdonald MD Subjective: * Chief Complaints: [...] Date:? 024 Generated for Printi ng/Faxing/eTransmitting on:?08/16/2024 12:57 PM EST
--- OUTSIDE RECORDS SUMMARY | 2024-08-16 12:57 | XMS_ITS ---
Author Organization [facility] Address [address] [place] [address] Care Team Providers Care Charge Rn Name Role Phone Owen Mcdonald MD Primary [...] Active Vitamin D (Cholecalciferol) 50 MCG (1999 MT) 1 capsule Orally Once a day for [...] 07/29/2023 Encounters Encounter Location Date Provider Diagnosis [facility] [address] [place] [address] 07/29/2023 Ranjit Quinn Jr Screening for colon [...] Name:Ranjit gilmore Jr, 08/02/2025 10:40:00 AM, [address], [address], [place], [address],
--- OUTSIDE RECORDS SUMMARY | 2024-08-16 12:57 | XMS_ITS | Data Portability ---
Author Organization [facility] Address [address] [place] [address] Assessment No assessment recorded. Plan of Treatment Reminders Order Date Submit Date Provider Last Modified By Organization Details Last Modified Time Details Appointments None recorded. Lab None recorded. Referral None recorded. Procedures None recorded. Surgeries None recorded. Imaging None recorded. Medication Orders prednisone 20 mg tablet 2022 023 [facility] #[id number], [address] [place], [address], 18:35:40 Claritin 10 mg tablet 2022 023 [facility] #[id number], [address] [place], [address], 18:35:41 Patient TargetsNo targets recorded. 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 NANCY JERSONJOSE velasquez [place] - [facility] 3 18:13:44 Hypercholes terolemia 55563107 Active 2022 NANCY JERSONJOSE velasquez, [place] - [facility] 3 18:14:25 Transient cerebral ischemia 870051917 Completed 201812/30/2022 NANCY JERSONJOSE velasquez PA - [...] Name and Address Organization Details Recorded Time 061777 Substance with sulfonami de structure and antibacte rial mechanism of action (substanc e) medicatio n hives Not available Not available 12/30/2022 93894 8003 SNOMED NANCY JERSON [facility], [place] - [facility] 3 18:12:37 Medications [...] Last Updated DateTime 152.4 cm 26.4 kg/m2 87125.9 7 g 96 % 96 % 75 [...] SNOMED-CT Code Diagnosis ICD10 Code Diagnosis Note [id number] [address] [address] 09/26/2018 13:11:03 09/26/2018 14:06:13 [id number] Markus Harvey NP [address] [address] 12/30/2022 17:17:26 12/30/2022 18:37:12 Pruritic rash 46247597 L28.2 Health Concerns Section Related Observation LastModified by Organization Detai ls LastModified Time None Recorded Concern Status LastModified by Organization Details LastModified Time None Recorded Advance Directives Directive None Recorded Payers Encounter Date Sequence Insurance Name Policy Number Policy Garza Covered Member ID Garza Member ID Guarantor Name 09/26/2018 1 [place] [employer] Melanie R Irma [id number] Melanie Irma 09/26/2018 2 [place] [id number] Melanie R Irma [id number] Melanie Irma 12/30/2022 1 [place] Melanie R Irma [id number] Mleanie Irma 12/30/2022 2 [place] [id number] Melanie R Irma [id number] Melanie Irma Notes Date Note Type [...] Harvey NP [address] [place], [address], [place] - [facility] 12/30/2022 18:35:54 OBGyn Episode No OBEpisode recorded.
--- OUTSIDE RECORDS SUMMARY | 2024-08-16 12:58 | XMS_ITS | Patient Health Record ---
Author Organization [facility] [employer] Address [address] [place] [address] Care Team Providers Care Chief Investigator Name Role Phone Harry MACKEY, Owen Primary Care Provider Kiara Long Unavailable [phone] Black, Clary Unavailable [phone] Danny Rhodes Unavailable [phone] Allergies Allergen (clinical drug ingredient) Drug/Non Drug [...] Problem Acquired hammer toe of right foot (8595424731817941) Other hammer toe(s) (acquired), right foot (M20.41) Active confirmed Problem Acquired hammer toe of left foot (8386999091838975) Other hammer toe(s) (acquired), left foot (M20.42) Active confirmed Problem 944371004772447 Hallux valgus (acquired), right foot (M20.11) Active confirmed Problem Acquired hallux valgus (56709090) Hallux valgus (acquired), left foot (M20.12) Active confirmed Problem 523630215289828 Hallux valgus (acquired), right foot (M20.11) Active confirmed Problem 905982626 Hammer toe of right foot (M20.41) Active confirmed Problem 251893178002559 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 Problem 84990857582259278 Atherosclerosi s of artery of both lower extremities (I70.203) Active confirmed Problem Localized, primary osteoarthritis of the ankle and/or foot (467801047) Arthritis of joint of lesser toe, left (M19.072) Active confirmed Problem Localized, primary osteoarthritis of the ankle and/or foot (810652143) Arthritis of joint of lesser toe, right (M19.071) Active confirmed Vital Signs Blood pressure diastolic 58 mm Hg 03/05/2024 Height 5 ft in 03/05/2024 Blood pressure systolic 138 mm Hg 03/05/2024 Weight 140 lbs 03/05/2024 BMI 27.34 kg/m2 03/05/2024 Procedures Procedure Date Ordered Date Performed Result Body Sit e 79437-[facility] SKIN LESIONS, 2 TO 4 03/05/2024 N/A [id number] DYSTROPHIC NAILS ANY # 03/05/2024 N/A Encounters Encounter Location Date Provider Diagnosis [facility] [address] 03/05/2024 Clary Black Pain in left foot [...] ; Dystrophic nail L60.3 and Keratoma L57.0 [facility] [address] [address] 11/14/2023 Kiara Becker Assessments Encounter Date Diagnosis [...] X ray : Foot, right 3V 04/11/2022 06771-[facility]QS SKIN LESIONS, 2 TO 4 03/05/20 24 [id number] DYSTROPHIC NAILS ANY # Insurance Providers Payer Name Payer Address Payer Phone Subscriber Number Group Number Insured Name Patient Relationship to Insured Coverage Start Date Coverage End Date Medicare National [employer]t [employer] [address] [facility] [place] [address] [phone] [id number] Melanie Solis Self - [facility] the insured [facility] [address] [place] [address] [phone] [id number] Melanie Solis Self - patient is [...] loop recorder 04/23/2019 Hospitalization History Reason Date(Month/Year) [facility] [place]
--- OUTSIDE RECORDS SUMMARY | 2024-08-16 12:58 | XMS_ITS | Patient Health Record ---
Author Organization [facility] Address [address] [place] [address] Care Team Providers Care Health Informatics Specialist Name Role Phone Owen Mcdonald MD [...] reflux disease without esophagitis (K21.9) Active confirmed 170739534 Problem Change in bowel habits (R19.4) Active confirmed 719346780 Problem Screening for colon cancer (Z12.11) Active confirmed 350813231 VITAL SIGNS Temperature 97.5 degrees Fahrenheit 07/29/2024 Blood pressure diastolic 00 mm Hg 07/29/2024 Height 59.50 in 07/29/2024 Blood pressure systolic 000 mm Hg 07/29/2024 Weight 143 lbs 07/29/2024 BMI 28.40 kg/m2 07/29/2024 Encounters Encounter Location Date Provider Diagnosis [facility] [address] [place] [address] 07/29/2024 Ranjit Quinn Jr Gastro-esophageal reflux disease [...] Name:Ranjit gilmore Jr, 08/02/2025 10:40:00 AM, [address], [address], [place], [address], Insurance Providers Payer Name Payer Address Payer Phone Subscriber Number Group Number Insured Name Patient Relationship to Insured Coverage Start Date Coverage End Date MEDICARE OF [place] [address] [place] [address] [id number] SOPHIE ENCISO Self - patient is the insured [employer] ATT[employer] CLAIMS [address] [place] [address] [id number] FERNIESOPHIE Self - patient is the [...]
--- OUTSIDE RECORDS SUMMARY | 2024-08-16 12:58 | XMS_ITS ---
Author Organization Owen Mcdonald MD Address [address] [place] [phone] Care Team Providers Care Hand Mixer Name Role Phone Owen Mcdonald Primary Care Provider [phone] REASON FOR VISIT MRI orders Encounters Encounter Location Date Provider Diagnosis Owen Mcdonald MD [address] [facility] [address] [place] [phone] 08/13/2024 Owen Mcdonald Lumbar back pain M54.50 Assessments Encounter Date Diagnosis (ICD Code) Assessment Notes Treatment Notes Treatment Clinical Notes Section Notes 08/13/2024 Lumbar back pain (ICD-10 - M54.50) Plan Of Treatment Pending Test Test Name Order Date MRI LUMBAR SPINE NO CONTRAST 08/13/2024 Next Appt Details Provider Name:Owen burnette, 09/01/2024 11:15:00 AM, [address] [place] [address], [address], [phone], Provider Name:Owen burnette, 10/19/2024 07:15:00 AM, [address] [place] [address], [address], [phone], Provider Name:Owen Mcknight ier, 10/26/2024 10:30:00 AM, [address], [address], [place], [phone], Provider Name:Owen Mcknight ier, 07/29/2025 01:30:00 PM, [address], [address], [place], [phone], Progress Notes * Melanie SOLIS RDOB:[birth year] (83 yo F)Acc No.[id number]:08/13/2024 Patient:?Melanie SOLIS R :1940???Age:83 Y???Sex:Female Address:[address] [place] [address] Subjective: * Chief Complaints: * ???MRI orders * Medical History:? * Surgical History:? * Hospitalization/Major Diagno stic Procedure:? * Medications:? Objective: * Vitals:? * Physical Examination:? Assessment: * Assessment: 1.?Lumbar back pain - M54.50 ??? Plan: * Treatment: * Procedure Codes:? * true * Date:? Generated for Martina hughes/Jesse/eTransmitting on:?08/16/2024 12:57 PM EST
== END 2024-08-16 12:43 | disposition home or self-care (01) ==
LOC: HO.MRI 12:42
PROVIDERS: PCP Internal Medicine; Visit Provider Internal Medicine
DX: M54.50 Low back pain, unspecified (principal)
CPT/HCPCS: 72148

== ENCOUNTER → 2024-08-16 13:10 | Outpatient (BNV) | payer MEDICARE, SELFPAY | PROVIDERS: PCP Internal Medicine; Visit Provider Radiology Diagnostic Radiology | DX: M54.50 Low back pain, unspecified (principal); M51.369 Other intervertebral disc degeneration, lumbar region without mention of lumbar back pain or lower extremity pain; M48.062 Spinal stenosis, lumbar region with neurogenic claudication | CPT/HCPCS: 72148 ==

== ENCOUNTER 2024-10-13 07:43 | Outpatient (REF) | payer MEDICARE, SELFPAY ==
--- NOTE | 2024-10-13 | EMG_ITS ---
PROCEDURES: Bilateral median and ulnar motor and sensory studies were performed. Bilateral radial sensory study was performed and paraspinal muscles were tested with a needle. IMPRESSION: 1. Jikv-jc-kamouwpb bilateral median neuropathy across carpal tunnel. 2. Right Hector Chip anastomosis, normal variant. MD KASSIDY Shah/HECTOR / [id number]
--- OUTSIDE RECORDS SUMMARY | 2024-10-13 07:47 | XMS_ITS ---
Author Organization [facility] Address [address] [place] [phone] Care Team Providers Care First Aid Nurse Name Role Phone Owen Mcdonald MD Primary Care Provider Kiara Long Unavailable [phone] Danny Rhodes [phone] Encounters Encounter Location Date Provider Diagnosis [address] [phone] 01/01/2024 Danny Rhodes Plan Of Treatment No Information Progress Notes * Melanie SOLIS RDOB:[birth year] (84 yo F)Acc No.[id number]:01/01/2024 Progress Note Patient:Melanie HO Provider:?Danny Rhodes DPM :1940???Age:83 Y???Sex:Female D ate:01/01/2024 Address:[address] [place], [place] [id number] Pcp:Owen Mcdonald MD Subjective: * Chief Complaints: [...] DPM Date:? 024 Generated for Printi ng/Faxing/eTransmitting on:?10/13/2024 07:47 AM EDT
--- OUTSIDE RECORDS SUMMARY | 2024-10-13 07:47 | XMS_ITS | Data Portability ---
Author Organization [facility] Address [address] [place] [address] Assessment No assessment recorded. Plan of Treatment Reminders Order Date Submit Date Provider Last Modified By Organization Details Last Modified Time Details Appointments None recorded. Lab None recorded. Referral None recorded. Procedures None recorded. Surgeries None recorded. Imaging None recorded. Medication Orders prednisone 20 mg tablet 2022 023 [facility]acy #[id number], [address] [place], [address], 18:35:40 Claritin 10 mg tablet 2022 023 [facility] #[id number], [address] [place], [address], 18:35:41 Patient TargetsNo targets recorded. Patient Instructions Encounter Date Encounter Id Patient Instructions Last Modified By Organization Details Last Modified Time 12/30/2022 [id number] hives: care instructions [email or web address] Not available 12/30/2022 [...] Details Recorded Time Disorder of thyroid gland 85837839 Active 2022 NANCY JERSONJOSE velasquez [place] - [facility] 3 18:13:44 Hypercholes terolemia 68986857 Active 2022 NANCY JERSONJOSE vleasquez, [place] - [facility] 3 18:14:25 Transient cerebral ischemia 695004014 Completed 201812/30/2022 NANCY JERSONJOSE velasquez [place] - [...] Name and Address Organization Details Recorded Time 647004 Substance with sulfonami de structure and antibacte rial mechanism of action (substanc e) medicatio n hives Not available Not available 12/30/2022 36515 8003 SNOMED NANCY JERSON [facility], [place] - [facility] 3 [...] Last Updated DateTime 152.4 cm 26.4 kg/m2 48985.9 7 g 96 % 96 % 75 [...] SNOMED-CT Code Diagnosis ICD10 Code Diagnosis Note [id number] [address] [address] 09/26/2018 13:11:03 09/26/2018 14:06:13 [id number] [place]us Harvey [place] [address] [address] 12/30/2022 17:17:26 12/30/2022 18:37:12 Pruritic rash 39298926 L28.2 Health Concerns Section Related Observation LastModified by Organization Detai ls LastModified Time None Recorded Concern Status LastModified by Organization Details LastModified Time None Recorded Advance Directives Directive None Recorded Payers Encounter Date Sequence Insurance Name Policy Number Policy Garza Covered Member ID Garza Member ID Guarantor Name 09/26/2018 1 [place] [employer] Melanie R Irma [id number] Melanie Irma 09/26/2018 2 [place] [id number] Melanie R Irma [id number] Melanie Irma 12/30/2022 1 [place] Melanie R Irma [id number] Melanie Irma 12/30/2022 2 [place] [id number] Melanie R Irma [id number] Melanie Irma Notes Date Note Type [...] Harvey NP [address] [place], [address], [place] - [facility] 12/30/2022 18:35:54 OBGyn Episode No OBEpisode recorded.
--- OUTSIDE RECORDS SUMMARY | 2024-10-13 07:47 | XMS_ITS ---
Author Organization Owen Mcdonald MD Address [address] [place], [place] [id number] Care Team Providers Care Securities Counselor Name Role Phone Owen Mcdonald Primary Care Provider [phone] REASON FOR VISIT left wrist pain x [...] Status Risk Notes Problem Carpal tunnel syndrome (72227956) Carpal tunnel syndrome (G56.00) Active confirmed Vital Signs Blood pressure systolic 154 mm Hg 09/29/19 25 Blood pressure diastolic 56 mm Hg 025 Height 60.5 in 09/28/2024 Weight 140 lbs 09/28/2024 BMI 26.89 kg/m2 09/28/2024 Encounters Encounter Location Date Provider Diagnosis Owen Mcdonald MD [address] [place] [phone] 09/28/2024 Owen Mcdonald Carpal tunnel syndrome G56.00 Assessments Encounter Date Diagnosis (ICD Code) Assessment Notes Treatment Notes Treatment Clinical Notes Section Notes 09/28/2024 Carpal tunnel syndrome (ICD-10 - G56.00) try a wrist splint/ order faxed to [facility] dept, pending diagnostic testing Plan Of Treatment Treatment Notes Assessment Notes Carpal tunnel syndrome try a wrist splin t/ order faxed to [facility] dept, pending diagnostic testing Pending Test Test Name Order Date EMG 09/28/2024 Nerve Conduction Study 09/28/2024 Next Appt Details Follow Up: 4 Weeks, Reason: Provider Name:Owen burnette, 10/19/2024 07:15:00 AM, [address] [place] [address], [address], [phone], Provider Name:Owen burnette, 10/26/2024 10:30:00 AM, [address] [place] [address], [address], [phone], Provider Name:Owen burnette, 07/29/2025 01:30:00 PM, [address] [place] [address], [phone], Progress Notes * Melanie SOLIS RDOB:[birth year] (84 yo F)Acc No.[id number]:09/28/2024 Progress Notes Patient:?Melanie SOLIS Provider:?Owen Mcdonald MD :1940???Age:84 Y???Sex:Female D ate:09/28/2024 Address: [address] [facility] Subjective: * Chief Complaints: * ???Left wrist pain x 1 week no injury * HPI: ???Symptom(s):?patient is a 84 yo female here with complaint of left wrist pain/ starting therapy for hips and thighs/ going to at for therapy/ wrists are very sore and fingers tingle. taking tyleonol for pain. legs got rubbery from the gabapentin. pain goes from biceps to fingers. * ROS:?General/Constitutional:?Denies?Chills.?Denies?Fatigue.?Denies?Fever.?Denies?Headache.?ENT:?Denies?Sore throat.?Respiratory:?Denies?Cough.?Denies?Shortness of breath at rest.?Denies?Shortness of breath with exertion.?Gastrointestinal:?Denies?Diarrhea.?Denies?Nausea.? * Medical History:? * Surgical History:? * [...] 03/26/2019yes[Allergies Verified] Objective: * Vitals:?Ht: 60.5, Wt: 140, B OH:26.89, BP:154/56, Repeat BP:120/55, Wt-k.5. * Examination: ???General Examination: ?GENERAL APPEARANCE:?alert, well hydrated, in no distress.?HEAD:?normocephalic.?SKIN:?good turgor.?HEART:?no murmurs, rubs, gallops, regular rate and rhythm.?LUNGS:?no wheezes, rales, rhonchi, good air movement, clear to auscultation bilaterally.?NEUROLOGIC:?tenderness over the carpal tunnel on the left and normal dtr's on both upper extremities..? Assessment: * Assessment: 1.?Carpal tunnel syndrome - G56.00 (Primary)??? Plan: * Treatment: * Procedure Codes:? * Follow Up:?4 Weeks * * Sign off status: Completed true * Provider:?Owen Mcdonald MD Date:?0 09/28/2024 Generated for Martina hughes/Jesse/Fatou on:?10/13/2024 07:47 AM EDT History and Physical Notes * [...]
--- OUTSIDE RECORDS SUMMARY | 2024-10-13 07:47 | XMS_ITS ---
Author Organization [facility] Address [address] [place] [phone] Care Team Providers Care Motel Operator Name Role Phone Owen Mcdonald MD Primary Care Provider Kiara Long Unavailable [phone] Danny Rhodes [phone] Encounters Encounter Location Date Provider Diagnosis [address] [phone] 11/14/2023 Danny Rhodes Plan Of Treatment No Information Progress Notes * Melanie SOLIS RDOB:[birth year] (84 yo F)Acc No.[id number]:11/14/2023 Progress Note Patient:Melanie HO Provider:?Danny Rhodes DPM :1940???Age:83 Y???Sex:Female D ate:11/14/2023 Address:[address] [place], [place] [id number] Pcp:Owen Mcdonald MD Subjective: * Chief Complaints: [...] Date:? 024 Generated for Printi ng/Faxing/eTransmitting on:?10/13/2024 07:46 AM EDT
--- OUTSIDE RECORDS SUMMARY | 2024-10-13 07:47 | XMS_ITS ---
Author Organization Owen Mcdonald MD Address [address] [place] [phone] Care Team Providers Care Head Up Operator Name Role Phone Owen Mcdonald Primary Care Provider REASON FOR VISIT 3 WEEK F/U Encounters Encounter Location Date Provider Diagnosis Owen Mcdonald MD [address] [facility] [address] [place] [phone] 09/01/2024 Owen Mcdonald Plan Of Treatment Next Appt Details Provider Name:Owen burnette, 10/19/2024 07:15:00 AM, [address] [place] [address], [address] [place] [address], [phone], Provider Name:Owen burnette, 10/26/2024 10:30:00 AM, [address] [place] [address], [address], [phone], Provider Name:Owen burnette, 07/29/2025 01:30:00 PM, [address] [place] [address], [address], [phone], Progress Notes * Melanie SOLIS RDOB:[birth year] (84 yo F)Acc No.[id number]:09/01/2024 Progress Notes Patient:Melanie HO Provider:?Owen Mcdonald MD :1940???Age:83 Y???Sex:Female D ate:09/01/2024 Address:[address] [place], [place] [phone] Subjective: * Chief Complaints: * ???1. 3 WEEK F/U. * Medical History:? Objective: * Vitals:? Assessment: Plan: * Treatment: * * The named appointment provid er may or may not be the originator of this progress note, and it is not deemed complete until electronically signed by the appointment provider. Sign off status: Pending * Provider:?Owen Mcdonald MD Date:?0 09/01/2024 Generated for Martina hughes/Jesse/eTransmitting on:?10/13/2024 07:46 AM EDT
--- OUTSIDE RECORDS SUMMARY | 2024-10-13 07:47 | XMS_ITS ---
Author Organization [facility] Address [address] [place] [address] Care Team Providers Care Biomathematician Name Role Phone Owen Mcdonald MD Primary Care Provider Ranjit Ventura Jr Unavailable [phone] Allergies Allergen (clinical drug ingredient) Drug/Non Drug Allergy documented on EMR Reaction Allergy Type Onset Date Status Floxin Otic Unknown Drug Allergy Activ e sulfamethoxazole / trimethoprim Bactrim Unknown Drug Allergy Active Substance with sulfonamide structure and antibacterial mechanism of action (substance) sulfa (uncoded) Unknown Allergy Active REASON FOR VISIT Patient presents today for acid REFLUX Medications Medication SIG (Take, Route, Frequency, Duration) [...] Active Vitamin D (Cholecalciferol) 50 MCG (1999 AL) 1 capsule Orally Once a day for 30 day(s) Active Social History Alcohol Screen Question Answer Notes Did you have a drink containing alcohol in the p ast year? No Points 0 Interpretation Negative Vital Signs Temperature 97.1 degrees Fahrenheit 07/29/19 24 Blood pressure systolic 000 mm Hg 07/29/19 24 Blood pressure diastolic 00 mm Hg 024 Height 59.50 in 07/29/2023 Weight 137 lbs 07/29/2023 BMI 27.20 kg/m2 07/29/2023 Encounters Encounter Location Date Provider Diagnosis [facility] [address] [place] [address] 07/29/2023 Ranjit Quinn Jr Screening for colon cancer Z12.11 and Gastro-esophageal reflux disease without esophagitis K21.9 Assessments Encounter Date Diagnosis (ICD Code) Assessment Notes Treatment Notes Treatment Clinical Notes Section Notes 07/29/2023 Screening for colon cancer (ICD-10 - Z12.11) At this time, she is doing well. She will continue dietary measures. We discussed diet, lifestyle modifications , and weight management and the treatment of reflux. Followup will be in one year. She will call she has any problems. She is up-to-date on colorectal cancer screening. 07/29/2023 Gastro-esophage al reflux disease without esophagitis (ICD-10 - K21.9) Gastroesophageal reflux disease material was printed At this time, she is doing well. She will continue dietary measures. We discussed diet, lifestyle modifications , and weight management and the treatment of reflux. Followup will be in one year. She will call she has any problems. She is up-to-date on colorectal cancer screening. Plan Of Treatment Treatment Notes Assessment Notes Gastro-esophageal reflux dis ease without esophagitis Gastroesophageal reflux disease material was printed Next Appt Details Follow Up: 1 Year, Reason: Provider Name:Ranjit gilmore Jr, 08/02/2025 10:40:00 AM, [address], [address], [place], [address], Progress Notes * MELANIE ENCISO RDOB:[birth year] (82 yo F)Acc No.[id number]:07/29/2023 Progress Notes Patient:?MELANIE ENCISO Provider:?Ranjit Quinn MD :1940???Age:82 Y???Sex:Female D ate:07/29/2023 Address:[address] [place], [place] [phone] Pcp:Owen Mcdonald MD Subjective: * Chief Complaints: * ???1. Patient presents today for acid REFLUX. * HPI: ???New symptom(s):? Melanie is a pleasant 83-year-old woman seen today in followup of gastroesophageal reflux disease and colon cancer screening. She was last seen in February 2021. Since that time, she reports her reflux symptoms are doing well. She has been able to stop taking omeprazole and is currently using dietary measures to control her reflux. Licorice seems to help her symptoms. She is taking probiotics regularily. She has no dysphagia, hematemesis, or melena. Weight and appetite have been stable. * Medical History:?colonoscopy 09/18/17, negative. Personal history and family history of colon polyps and cancer, followup optional., GERD, EGD 06/26/16 no Oconnor's esophagus., Hyperlipidemia, Hypothyroidism, CVA. * Surgical History:?hysterecto my , lumpectomy, right breast , RT breast aspirastion . * Hospitalization/Major Diagno stic Procedure:?small strokes occipital nerve 2019. * Family History:?Father: dece ased, diagnosed with Heart disease.?Mother: .?Maternal Grand Mother: , colon cancer, diagnosed with Colon cancer.? No family history of colon polyps, liver cancer. * Social History:?Tobacco Use:?Tobacco Use/Smoking?Are you a: nonsmoker.?Drugs/Alcohol:?Alcohol Screen?Did you have a drink containing alcohol in the past year??No,?Points?0,?Interpretation?Negative.?Miscellaneous:?Marital status: . Occupation: retired. * Medications:?Taking Vitamin D (Cholecalciferol) 50 MCG (2000 UT) Capsule 1 capsule Orally Once a day, Taking Magnesium 300 MG Capsule 1 capsule with a meal Orally Once a day, Taking Clopidogrel Bisulfate 75 MG Tablet 1 tablet Orally Once a day, Taking Rosuvastatin Calcium 40 MG Tablet 1 tablet Orally Once a day, Taking Levothyroxine Sodium 50 MCG Tablet 1 tablet in the morning on an empty stomach Orally Once a day, Taking Synthroid 50 MCG Tablet 1 tablet Orally Once a day, Taking Crestor 40 MG Tablet 1 tablet Orally Once a day, Taking Multi Vitamin/Minerals 1 Tablet 1 Orally qd, Taking Flaxseed Oil 1000 MG Capsule 1 Orally twice a day, Taking ICaps 1 Capsule 1 Orally twice a day, Taking Citracal +D3 250-107-500 MG-MG-UNIT Tablet Chewable 2 Orally twice a day, Taking Vitamin D3 2000 UNIT Capsule 1 tablet Orally twice a day, Taking Probiotic 250 MG Capsule 1 capsule Orally once a day, Not-Taking/PRN PriLOSEC OTC 20 MG Tablet Delayed Release 1 tablet Orally twice a day, Discontinued Colyte with Flavor Packs 240 GM Solution Reconstituted As directed Orally Over the specified time., Medication List reviewed and reconciled with the patient * Allergies:?sulfa, Bactrim, F loxin Otic. Objective: * Vitals:?Wt: 137 lbs, Ht: 59. 50 in, BMI:27.20 Index, BP: 000/00 mm Hg, Temp: 97.1. * Examination: ???General Examination: ???On examination today, she appears well. Skin is anicteric. Lungs are clear. Heart shows a regular rate and rhythm. Abdomen soft without focal masses or tenderness. Extremities are without edema. Assessment: * Assessment: 1.?Gastro-esophageal reflux disease without esophagitis - K21.9 (Primary)?2.?Screening for colon cancer - Z12.11? At this time, she is doing w ell. She will continue dietary measures. We discussed diet, lifestyle modifications, and weight management and the treatment of reflux. Followup will be in one year. She will call she has any problems. She is up-to-date on colorectal cancer screening. Plan: * Treatment: * Procedure Codes:?G9903 Pt sc rn tbco id as non user, G9745 DOC RSN FOR NOT SCREEN/REC F/U HBP * Preventive Medicine:? ??Counseling:?Care goal follow-up plan:?Above Normal BMI Follow-up?Giving encouragement to exercise,?BMI management provided?Yes.? ??Urinary Incontinence:?Urinary Incontinence?Assessment:?Absent,?Plan of care documented:?No, reason not specified.? * Follow Up:?1 Year * * Sign off status: Completed true * Provider:?Ranjit Quinn MD Date:?0 07/29/2023 Generated for ArthaYantrai saul/Jesse/eTransmitting on:?10/13/2024 07:47 AM EDT History and Physical Notes * HPI (History of Present Illness) Category Sub-Category Detail Notes Category Not es New symptom(s) Melanie is a pleasant 83-year-old woman seen today in followup of gastroesophageal reflux disease and colon cancer screening. She was last seen in February 2021. Since that time, she reports her reflux symptoms are doing well. She has been able to stop taking omeprazole and is currently using dietary measures to control her reflux. Licorice seems to help her symptoms. She is taking probiotics regularily. She has no dysphagia, hematemesis, or melena. Weight and appetite have been stable. Examination Category Sub-Category Detail Notes Category Not es General Examination On exami nation today, she appears well. Skin is anicteric. Lungs are clear. Heart shows a regular rate and rhythm. Abdomen soft without focal masses or tenderness. Extremities are without edema.
--- OUTSIDE RECORDS SUMMARY | 2024-10-13 07:47 | XMS_ITS | Data Portability ---
Author Organization [place] [facility], All[facility] Address [address] [address] Care Team Providers Care Line Maintainer Name Role Phone MILA SOTOMAYOR Primary Care Provider [phone] Assessment Encounter Date Assessment Date Assessment LastModified [...] amplification and medical clearance was provided today. [email or web address] Not available 12/25/2023 12:49:53 Plan of Treatment [...] audio gram No observ ation record ed. [email or web address] Not Available 01/2024 13:29:11 02/12/20 24 11/10/2021 [...] Organization Details Recorded Time Deviated nasal septum 754510220 Active 2021 Deviated nasal septum; Note: Date Diagnosed : 12/29/2021 3:45 PM (J34.2) Not Available [facility] 4 02:27:48 Posterior rhinorrhe a 03275432 Active 2021 Postnasal drip; Note: Date Diagnosed : 12/29/2021 3:45 PM (R09.82) Not Available [facility] 4 02:28:04 Sensorine ural hearing loss of bilateral ears 352382818 Active 2021 Sensorine ural hearing loss, bilateral ; Note: Date Diagnosed : 12/29/2021 3:45 PM (H90.3) Not Available [facility] 4 02:27:55 Chronic rhinitis 56411464 Active 2021 Chronic rhinitis; Note: Date Diagnosed : 12/29/2021 3:45 PM (J31.0) Not Available [facility] 4 02:27:40 Bilateral tinnitus 44117878011 02 Active 2021 Tinnitus, bilateral ; Note: Date Diagnosed : 12/29/2021 3:45 PM (H93.13) Not Available [facility] 4 02:27:58 Impacted cerumen of bilateral ears 04358613697 80354 Active 2023 MARISOL COATS PA-C [facility] [place] [address], [place], [address] , [facility] - [facility] 4 12:47:20 Sensorine ural hearing loss of bilateral ears 974451902 Active 2023 MARISOL COATS PA-C [address] [facility],[place] [address], [place], [phone] , [facility] - [facility] 4 12:47:35 Dysphonia 37429085 Active 2023 Hoarsenes s; Note: Date Diagnosed : 09/25/2023 11:42 AM (R49.0) Not Available [facility] 4 02:27:30 Problem Notes None recorded. Procedures Surgical History Date Name Laterality Status Provider Name and Address Organization Details Recorded Time 4 Comp Audio with Tymps (03876 & 95087) completed DEBBI MITTAL [place], [facility] [address] [facility],[place] [address], [place], [address], [facility] 12/25/2023 12:12:18 Cerumen removal without microscope bilat completed MARISOL COATS PA-C [address] [place] [address],[place] [address], [place], [address], [facility] - [facility] 12/25/2023 12:47:16 Imaging Results Imaging Date Name Status LastModified by Organiz ation Details LastModified Time 12/30/2023 audiogram completed [email or web address] Information n ot available 12/30/2023 13:29:11 11/10/2021 [...] Name and Address Organization Details Recorded Time 085520 fluticaso ne Not available lighthead edness Not available Not available 01/24/2024 93464 RxNorm React ion: Light heade dness ; Not Available [facility] 4 00:24:24 22964 floxacill in Not available other Not available Not available 11/05/2023 4448 RxNorm React ion: Unkno wn; Not Available [facility] 4 00:52:01 55013 Bactrim medicatio n other Not available Not available 11/05/2023 73224 9 RxNorm React ion: Unkno wn; Not Available [facility] 4 00:52:08 Medications Name Sig Start Date [...] Note [id number] SOFIA EDGAR MD [facility] [address] [address] 12/25/2023 10:51:24 12/25/2023 12:50:30 Impacted cerumen of bilateral ears 2210851969 566603 H61.23 Sensorineu ral hearing loss of bilateral ears 185680136 H90.3 6491 DEBBI MITTAL MA, CCC-A [facility] [address] [address] 12/25/2023 12:11:34 12/31/2023 11:38:32 Sensorineural hearing loss of bilateral ears 043622661 H90.3 RIGHT EAR: Borderline normal/ mild SNHL [...] Name 12/25/2023 2 [place] [id number] Melanie R Irma [id number] Melanie R Irma 12/25/2023 1 [place] Melanie R Irma [id number] Melanie R Irma 12/25/2023 2 [place] [id number] Melanie R Irma [id number] Melanie R Irma 12/25/2023 1 [place] Melanie R Irma [id number] Melanie R Irma Notes Date Note [...] blurry vision with use. SOFIA EDGAR MD [address] [place] [address], [phone], [facility] - [facility] 12/25/2023 14:36:40 OBGyn Episode No OBEpisode recorded.
--- OUTSIDE RECORDS SUMMARY | 2024-10-13 07:47 | XMS_ITS ---
Author Organization [facility] Address [address] [place] [id number] Care Team Providers Care Make Up Artist Name Role Phone Owen Mcdonald MD Primary Care Provider Ranjit Ventura Jr Unavailable Allergies Allergen (clinical drug ingredient) Drug/Non Drug Allergy documented on EMR Reaction Allergy Type Onset Date Status Floxin Otic Unknown Drug Allergy Activ e sulfamethoxazole / trimethoprim Bactrim Unknown Drug Allergy Active Substance with sulfonamide structure and antibacterial mechanism of action (substance) sulfa (uncoded) Unknown Allergy Active REASON FOR VISIT Patient presents today for acid reflux Medications Medication SIG (Take, Route, Frequency, Duration) [...] MG 1 Orally twice a day Active Social History Alcohol Screen Question Answer Notes Did you have a drink containing alcohol in the p ast year? No Points 0 Interpretation Negative Vital Signs Temperature 97.5 degrees Fahrenheit 07/29/19 25 Blood pressure systolic 000 mm Hg 07/29/19 25 Blood pressure diastolic 00 mm Hg 025 Height 59.50 in 07/29/2024 Weight 143 lbs 07/29/2024 BMI 28.40 kg/m2 07/29/2024 Encounters Encounter Location Date Provider Diagnosis [facility] [address] [place] [address] 07/29/2024 Ranjit Quinn Jr Gastro-esophageal reflux disease without esophagitis K21.9 and Screening for colon cancer Z12.11 Assessments Encounter Date Diagnosis (ICD Code) Assessment Notes Treatment Notes Treatment Clinical Notes Section Notes 07/29/2024 Gastro-esophag eal reflux disease without esophagitis (ICD-10 - K21.9) Gastroesophageal reflux disease material was printed She is doing well. We discussed diet, lifestyle modifications, and weight management regarding the treatment of reflux. She will continue her present supplementation therapy. She is up-to-date on colorectal cancer screening. She reports today that she is using probiotics and prunes irregularity. She will continue this. Followup will be in 12 months. 07/29/2024 Screening for colon cancer (ICD-10 - Z12.11) She is doing well. We discussed diet, lifestyle modifications, and weight management regarding the treatment of reflux. She will continue her present supplementation therapy. She is up-to-date on colorectal cancer screening. She reports today that she is using probiotics and prunes irregularity. She will continue this. Followup will be in 12 months. Plan Of Treatment Treatment Notes Assessment Notes Gastro-esophageal reflux dis ease without esophagitis Gastroesophageal reflux disease material was printed Next Appt Details Follow Up: 1 Year, Reason: Provider Name:Ranjit gilmore Jr, 08/02/2025 10:40:00 AM, [address], [address], [place], [phone], Progress Notes * MELANIE ENCISO RDOB:[birth year] (83 yo F)Acc No.[id number]:07/29/2024 Progress Notes Patient:?MELANIE ENCISO Provider:?Ranjit Quinn MD :[id number]???Age:83 Y???Sex:Female D ate:07/29/2024 Address:[address] [place], [place] [id number] Pcp:Owen Mcdonald MD Subjective: * Chief Complaints: * ???1. Patient presents today for acid reflux. * HPI: ???New symptom(s):? Melanie is a pleasant 83-year-old woman seen today in followup of gastroesophageal reflux disease and colon cancer screening. She was last seen in a year ago. Since that time, she's been doing well. She treats her reflux with a licorice extract supplement and this controls her symptoms well. She has not required proton pump inhibitors. She has no dysphagia, hematemesis, or melena. She follows a low salt diet and watches her weight. ?She has no lower GI symptoms and her last colonoscopy in August 2017 was basically negative. We discussed that further screening is optional at this age. * Medical History:?colonoscopy 09/18/17, negative. Personal history and family history of colon polyps and cancer, followup optional., GERD, EGD 06/26/16 no Oconnor's esophagus., Hyperlipidemia, Hypothyroidism, CVA. * Surgical History:?hysterecto my , lumpectomy, right breast . * Hospitalization/Major Diagno stic Procedure:?small strokes [...] * Medications:?Taking Vitamin D (Cholecalciferol) 50 MCG (1999) Capsule 1 capsule Orally Once a day, [...] Capsule 1 Orally twice a day, Taking Vitamin D3 2000 UNIT Capsule 1 tablet Orally twice a day, Taking Probiotic 250 MG Capsule 1 capsule Orally once a day, Not-Taking/PRN PriLOSEC OTC 20 MG Tablet Delayed Release 1 tablet Orally twice a day, Discontinued Crestor 40 MG Tablet 1 tablet Orally Once a day, Discontinued Citracal +D3 250-107-500 MG-MG-UNIT Tablet Chewable 2 Orally twice a day, Discontinued Rosuvastatin Calcium 40 MG Tablet 1 tablet Orally Once a day, Medication List reviewed and reconciled with the patient * Allergies:?sulfa, Bactrim, F loxin Otic. Objective: * Vitals:?Wt: 143 lbs, Ht: 59. 50 in, BMI:28.40 Index, BP: 000/00 mm Hg, Temp: 97.5. * Examination: ???General Examination: ???On examination today, she appears well. Skin is anicteric. Lungs are clear. Heart shows regular rate and rhythm. Abdomen is soft without focal mass or tenderness. Extremities are without edema. Assessment: * Assessment: 1.?Gastro-esophageal reflux disease without esophagitis - K21.9 (Primary)?2.?Screening for colon cancer - Z12.11? She is doing well. We discus sed diet, lifestyle modifications, and weight management regarding the treatment of reflux. She will continue her present supplementation therapy. She is up-to-date on colorectal cancer screening. She reports today that she is using probiotics and prunes irregularity. She will continue this. Followup will be in 12 months. Plan: * Treatment: * Procedure Codes:?G9903 Pt sc rn tbco id as non user, G9745 DOC RSN FOR NOT SCREEN/REC F/U HBP * Preventive Medicine:? ??Counseling:?Care goal follow-up plan:?Above Normal BMI Follow-up?Giving encouragement to exercise,?BMI management provided?Yes.? ??Urinary Incontinence:?Urinary Incontinence?Assessment:?Absent,?Plan of care documented:?No, reason not specified.? ??Screenings:?Fall Risk Screening?Fall Risk Assessment:?No falls in the past year,?Screening:?No falls in the past year,?Assessment:?Not performed, no reason specified,?Plan of Care:?Not documented, no reason specified.? * Follow Up:?1 Year * * Sign off status: Completed true * Provider:?Ranjit Quinn MD Date:?0 07/29/2024 Generated for Martina hughes/Jesse/eTransmitting on:?10/13/2024 07:46 AM EDT History and Physical Notes * HPI (History of Present Illness) Category Sub-Category Detail Notes Category Not es New symptom(s) Melanie is a pleasant 83-year-old woman seen today in followup of gastroesophageal reflux disease and colon cancer screening. She was last seen in a year ago. Since that time, she's been doing well. She treats her reflux with a licorice extract supplement and this controls her symptoms well. She has not required proton pump inhibitors. She has no dysphagia, hematemesis, or melena. She follows a low salt diet and watches her weight. She has no lower GI symptoms and her last colonoscopy in August 2017 was basically negative. We discussed that further screening is optional at this age. Examination Category Sub-Category Detail Notes Category Not es General Examination On exami nation today, she appears well. Skin is anicteric. Lungs are clear. Heart shows regular rate and rhythm. Abdomen is soft without focal mass or tenderness. Extremities are without edema.
--- OUTSIDE RECORDS SUMMARY | 2024-10-13 07:48 | XMS_ITS | Patient Health Record ---
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 Name Role Phone Owen Sotomayor Primary Care Provider Results Component Value Reference Range Notes Occult Blood, Stool, Guaiac Reviewed date:10/22/2023 10:59:45 AM Interpretation:Negative Performing Lab: Notes/Report: Negative Occult Blood, Stool, Guaiac Neg Liver Panel Reviewed date:04/13/2024 04:43:37 PM Interpretation: Performing Lab:[facility], [address] [place] [phone] Notes/Report: Bilirubin Total 0.5 0.0-1.0 mg/dL Bilirubin Direct 0.2 0.0-0.5 mg/dL Aspartate Amino Transferase 28 5-31 U/L Alanine Aminotransferase 24 0-31 U/L Total Protein 6.5 6.5-8.0 g/dL Albumin Level 4.0 3.5-5.0 g/dL Alkaline Phosphatase 71 39-117 U/L Glucose Fasting Reviewed date:04/13/2024 04:42:43 PM Interpretation: Performing Lab:[facility], [address] [place] [phone] Notes/Report: Glucose Fasting 101 60-99 mg/dL A fasting glucose from 100-125 mg/dl is considered impaired (pre-diabetes). Lipid Panel with Reflex Reviewed date:04/13/2024 04:46:00 PM Interpretation: Performing Lab:[facility], [address] [place] [phone] Notes/Report: Triglycerides 186 <150 mg/dL Desirable Triglyceride: [...] A1c Reviewed date:04/13/2024 12:56:41 PM Interpretation: Performing Lab:[facility], [address] [place] [phone] Notes/Report: Hemoglobin A1c % 5.7 <6.0 % [...] average glucose, using the formula of the J9O-Gillikm Average Glucose study (ADAG), Diabetes Care, Vol.31,#8, Jan. 2007 Erythrocyte Sedimentation Ra te Reviewed date:07/28/2024 07:23:33 PM Interpretation: Performing Lab:[facility], [address] [place] [phone] Notes/Report: Erythrocyte Sedimentation Rate 18 0-20 MM/HR Patients with polycythemia and many hemoglobin abnormalities may have depressed sed rates whereas patients with anemia may have elevated sed rates. XR hip BI w PEL1V Reviewed date:08/13/2024 10:12:56 AM Interpretation: Performing Lab: Notes/Report: [address] [address] XRay Report Signed Patient: Melanie Solis MR#: [id number] : 1940 Acct:[id number] Age/Sex: 83 / F ADM Date: 08/11/24 Loc: HO.XRAY Attending Dr: Owen Sotomayor MD Ordering Physician: Owen Sotomayor MD Date of Service: 08/11/24 Procedure(s): XR hip BI w PEL1V Accession Number(s): [id number] cc: Owen Sotomayor MD EXAMINATION: XR BILATERAL HIPS WITH AP [...] by: Greg Stanton MD 08/11/2024 02:21 PM [facility] [place] [place] Dictated By: Greg Stanton MD Signed By: <Electronically signed by Greg Stanton MD in OV> 08/11/24 1421 DD/ 1151 TD/TT: 08/11/24 1234 Help Desk Support: [address] [address] XRay Report Signed Patient: Melanie Solis MR#: [id number] : 1940 Acct:[id number] Age/Sex: 83 / F ADM Date: 08/11/24 Loc: HO.XRAY Attending Dr: Owen Sotomayor MD Ordering Physician: Owen Sotomayor MD Date of Service: 08/11/24 Procedure(s): XR hip BI w PEL1V Accession Number(s): [id number] cc: Owen Sotomayor MD EXAMINATION: XR BILATERAL HIPS WI TH AP PELVIS CLINICAL INFORMATION: PAIN IN HIP COMPARISON: None available. TECHNIQUE: AP view of the pelvi s and 2 views of each hip were obtained. FINDINGS: No fracture, dislocation, or suspicious bone lesion. Mild hip joint osteoarthritis bilaterally. Alignment is anatomic. Femoral heads are no rmal in contour without AVN. Normal acetabular coverage bilaterally. Spurring of the pubi c symphysis. Sacroiliac joints an d sacrum are unremarkable. Soft tissues appear normal aside from diffuse vascular calcification. X R/XR hip BI w PEL1V IMPRESSION: No acute finding bilateral hips. Mild bilateral hip joint osteoarthritis. Electronically renate d by: Greg Stanton MD 08/11/2024 02:21 PM [facility] [place] [place] Dictated By: Greg Stanton MD Signed By: <Electronically signed by Greg Stanton MD in OV> 08/11/24 1421 DD/ 1151 TD/TT: 08/11/24 1234 Help Desk Support: XR knee RT 4V Reviewed date:11/25/2023 12:18:51 PM Interpretation: Performing Lab: Notes/Report: [facility] [address] [facility] [facility] [place] [address] XRay Report Signed Patient: Melanie Solis MR#: [id number] : 1940 Acct:[id number] Age/Sex: 83 / F ADM Date: 11/12/23 Loc: HO.HMGCX Attending Dr: Owen Sotomayor MD Ordering Physician: Owen Sotomayor MD Date of Service: 11/12/23 Procedure(s): XR knee RT 4V Accession Number(s): [id number] cc: Owen Sotomayor MD EXAMINATION: XR KNEE, [...] signed by Aurora Hill MD in OV> 11/25/23440 DD/ 1135 TD/TT: Help Desk Support: [facility] [address] [place] [address] [place] [address] XRay Report Signed Patient: Melanie Solis MR#: [id number] : 1940 Acct:[id number] Age/Sex: 83 / F ADM Date: 11/12/23 [facility]: Owen Sotomayor MD Ordering Physician: Owen Sotomayor MD Date of Service: 11/12/23 Procedure(s): XR kne e RT 4V Accession Number(s): [id number] cc: Owen Sotomayor MD EXAMINATION: XR KNEE, RIGHT CLINICAL INFORMATION: Acute pain. COMPARISON: None available. TECHNIQUE: Four views of the ri ght knee. FINDINGS: The bones are diffus alberta demineralized. Trace joint effusion. Faint chondrocalcinosis in medial compartment and minimal chondrocalcinosis in the lateral compartment. Small tricompartmental osteophytes. Mild narrowing of the med ial and lateral compartments. X R/XR knee RT 4V IMPRESSION: Mild tricompartmenta l degenerative changes. Dictated By: Aurora Hill MD Signed By: <Electronically signed by Aurora Hill MD in OV> 11/25/23440 DD/ 1135 TD/TT: Help Desk Support: Erythrocyte Sedimentation Ra te Reviewed date:12/12/2023 05:13:41 PM Interpretation: Performing Lab:[facility], [address] [place] [phone] Notes/Report: Erythrocyte Sedimentation Rate 6 0-20 MM/HR Patients with polycythemia and many hemoglobin abnormalities may have depressed sed rates whereas patients with anemia may have elevated sed rates. C Reactive Protein Reviewed date:12/12/2023 05:13:11 PM Interpretation: Performing Lab:[facility], [address] [place] [phone] Notes/Report: C Reactive Protein < 0.10 < or = 0.50 mg/dL MR head/brain wo con Reviewed date:01/02/2024 04:18:55 PM Interpretation: Performing Lab: Notes/Report: [address] [address] Magnetic Resonance Report Signed Patient: Melanie Solis MR#: [id number] : 1940 Acct:[id number] Age/Sex: 83 / F ADM Date: 01/02/24 Loc: HO.MRI Attending Dr: Owen Sotomayor MD Ordering Physician: Owen Sotomayor MD Date of Service: 01/02/24 Procedure(s): MR head/brain wo con Accession Number(s): [id number] cc: Owen Sotomayor MD EXAMINATION: MR BRAIN [...] MD Signed By: <Electronically signed by Dickson Marvailla MD in OV> 01/02/24 1409 DD/ 1335 TD/TT: Help Desk Support: [address] [place] [address] Magnetic Resonance Report Signed Patient: Melanie Solis MR#: [id number] : 1940 Acct:[id number] Age/Sex: 83 / F ADM Date: 01/02/24 Loc: HO.MRI Attending Dr: Owen Sotomayor MD Ordering Physician: Owen Sotomayor MD Date of Service: 01/02/24 Procedure(s): MR head/brain wo con Accession Number(s): [id number] cc: Owen Sotomayor MD EXAMINATION: MR BRAIN WITHOUT CONTRAST CLINICAL INFORMATION: Visual hallucinations. COMPARISON: MR brain 01/10/2022. TECHNIQUE: MRI of the brain was obtained using routine sequences without contrast. FINDINGS: There are scattered nonspecific foci of T2 FLAIR signal hyperintensity primarily involving the periventricular white matter and erika. No acute territorial infarct. No pathological magnetic susceptibility artifact. Intracranial vascula r flow voids are maintained. There is no intracranial mass ef fect or midline shift. Lateral and third ventricles are normal. No hydrocephalus. Midline structures including the cervicomedullary junction are normal. No acute bone marrow signal changes. There is no mastoid or middle ear effusion. Mild paranasal sinus disease primar kaleb affecting the ethmoid air cells. Globes and orbits are symmetric. M R/MR head/brain wo con IMPRESSION: There are scattered chronic small vessel ischemic changes primarily involving the periventricular white matter and erika. Otherwise unremarkable examination. No evidence of acute territorial infarct or hemorrhage. 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 MM tomosynthesis screening B I Reviewed date:06/11/2024 04:54:47 PM Interpretation: Performing Lab: Notes/Report: [address] [place] [address] Mammography Report Signed Patient: Melanie Solis MR#: [id number] : 1940 Acct:[id number] Age/Sex: 83 / F ADM Date: 06/04/24 Loc: HO.MAMMO Attending Dr: Owen Sotomayor MD Ordering Physician: Owen Sotomayor MD Results: 2Be nign Findings Date of Service: 06/04/24 Follow Up: 1 Year From Orig ina Mammogram Procedure(s): MM tomosynthesis screening BI Accession Number(s): [id number] cc: Owen Sotomayor MD EXAMINATION: MM SCREENING DIGITAL BREAST TOMOSYNTHESIS, BILATERAL CLINICAL INFORMATION: Screening. Asymptomatic. COMPARISON: Mammography: Comparison is made with available priors TECHNIQUE: Digital breast mammography with tomosynthesis is performed in both the craniocaudal and mediolateral oblique views along with computer-aided detection (CAD). FINDINGS: The breasts are heterogeneously dense, which may obscure small masses (ACR BI-RADS breast composition Category c). Right post surgical changes. Left marker clip. There are no significant masses, abnormal calcifications, or other abnormalities. MM/MM tomosynthesis screening BI IMPRESSION: No mammographic evidence of malignancy. ASSESSMENT: BI-RADS BI-RADS 2 - Benign Findings RECOMMENDATION: Routine annual mammography screening. 1 year F/U This examination should not preclude the clinical evaluation of a suspicious palpable abnormality. This patient's information was entered into a reminder system with a target due date for their next mammogram. Electronically signed by: Marquita Andre DO 06/11/2024 10:09 AM [facility] [place] [place] Dictated By: Marquita Andre DO Signed By: <Electronically signed by Marquita Andre DO in OV> 06/11/24 1009 DD/ 1015 TD/TT: 06/04/24 1040 Help Desk Support: [address] [place] [address] Mammography Report Signed Patient: Melanie Solis MR#: [id number] : 1940 Acct:[id number] Age/Sex: 83 / F ADM Date: 06/04/24 Loc: HO.MAMMO Attending Dr: Owen Sotomayor MD Ordering Physician: Owne Sotomayor MD Results: 2Be nign Findings Date of Service: 06/04/24 Follow Up: 1 Year From Orig inal Mammogram Procedure(s): MM tomosynthesis screening BI Accession Number(s): [id number] cc: Owen Sotomayor MD EXAMINATION: MM SCREENING DIGITAL BREAST TOMOSYNTHESIS, BILATERAL CLINICAL INFORMATION: Screening. Asymptomatic. COMPARISON: Mammography: Compari son is made with available priors TECHNIQUE: Digital breast mammography with tomosynthesis is performed in both the craniocaudal and mediolateral oblique views along with computer-aided detection (CAD). FINDINGS: The breasts are heterogeneously dense, which may obscure small masses (ACR BI-RADS breast composition Category c). Right post surgical changes. Left marker clip. There are no signifi cant masses, abnormal calcifications, or other abnormalities. M M/MM tomosynthesis screening BI IMPRESSION: No mammographic evid ence of malignancy. ASSESSMENT: BI-RADS BI-RADS 2 - Benign Findings RECOMMENDATION: Routine annual mammography screening. 1 year F/U This examination shalom uld not preclude the clinical evaluation of a suspicious palpable abnormality. This patient's information was entered into a reminder system with a target due date for their next mammogram. Electronically renate d by: Marquita Andre DO 06/11/2024 10:09 AM [facility] [place] [place] Dictated By: Marquita Andre DO Signed By: <Electronically signed by Marquita Andre DO in OV> 06/11/24 1009 DD/ 1015 TD/TT: 06/04/24 1040 Help Desk Support: C Reactive Protein Reviewed date:07/28/2024 07:21:12 PM Interpretation: Performing Lab:[facility], [address] [place] [phone] Notes/Report: C Reactive Protein 0.36 < or = 0.50 mg/dL MR lumbar spine wo con Reviewed date:08/17/2024 12:31:14 PM Interpretation: Performing Lab: Notes/Report: [address] [address] Magnetic Resonance Report Signed Patient: Melanie Solis MR#: [id number] : 1940 Acct:[id number] Age/Sex: 83 / F ADM Date: 08/16/24 Loc: HO.MRI Attending Dr: Owen Sotomayor MD Ordering Physician: Owen Sotomayor MD Date of Service: 08/16/24 Procedure(s): MR lumbar spine wo con Accession Number(s): [id number] cc: Owen Sotomayor MD CLINICAL HISTORY: LBP MR lumbar spine with and without gadolinium Comparison: CR - LUMBAR SPINE 2TO 3 [id number] - 08/18/15 15:09 EST Findings: 5 lumbar type vertebral bodies are present by plain film. There is loss of normal lumbar lordosis. 4 mm of retrolisthesis of L2 on L3. 6 mm of anterolisthesis of L4 on L5. No acute fracture or pathologic bone lesion. Mild reactive signal throughout the endplates of the lumbar and lower thoracic spine. Cauda equina and conus medullaris within normal limits. Paraspinous musculature intact. L1-L2: Moderate disc desiccation. Mild disc height loss and diffuse disc bulge. Mild bilateral facet and ligamentum flavum hypertrophy. Mild canal stenosis. Mild bilateral foraminal stenosis. L2-L3:Moderate disc height loss and desiccation. Mild diffuse disc bulge with superimposed left far lateral protrusion. Mild bilateral facet hypertrophy. Mild canal stenosis. Moderate left and mild right foraminal stenosis. L3-L4:Moderate disc height loss and desiccation. Mild diffuse disc bulge. Mild bilateral facet and ligamentum flavum hypertrophy. Mild canal stenosis. Moderate bilateral foraminal stenosis. L4-L5: Moderate disc height loss and desiccation. Mild diffuse disc bulge. Moderate bilateral facet hypertrophy. Mild canal stenosis. Moderate bilateral foraminal stenosis. L5-S1:Moderate disc desiccation. Mild disc height loss and diffuse disc bulge. Mild bilateral facet hypertrophy. Mild canal stenosis. Moderate right and mild left foraminal stenosis. IMPRESSION: 1. Multilevel degenerative disc and facet disease, as well as ligamentum flavum hypertrophy. 2. Mild multilevel canal stenoses. 3. Multilevel pesu-zb-tyufqhjq foraminal stenoses as described above. This document has been electronically signed by: Ayde Roberts MD on 08/16/2024 18:33:10 Dictated By: Ayde Roberts MD Signed By: <Electronically signed by Ayde Roberts MD in OV> 08/16/241832 DD/ 32 TD/TT: 08/16/241832 Help Desk Support: [place] [address] Magnetic Resonance Report Signed Patient: Melanie Solis MR#: [id number] : 1940 Acct:[id number] Age/Sex: 83 / F ADM Date: 08/16/24 Loc: HO.MRI Attending Dr: Owen Sotomayor MD Ordering Physician: Owen Sotomayor MD Date of Service: 08/16/24 Procedure(s): MR lum bar spine wo con Accession Number(s): [id number] cc: Owen Sotomayor MD CLINICAL HISTORY: LBP MR lumbar spine with and without gadolinium Comparison: CR - LUM BAR SPINE 2TO 3 [id number] - 08/18/15 15:09 EST Findings: 5 lumbar type verteb ral bodies are present by plain film. There is loss of normal lumbar lordos is. 4 mm of retrolisthesis of L2 on L3. 6 mm of anterolisthesis of L 4 on L5. No acute fracture or pathologic bone lesion. Mild reactive signal throughout the endpl ates of the lumbar and lower thoracic spine. Cauda equina and con us medullaris within normal limits. Paraspinous musculat ure intact. L1-L2: Moderate disc desiccation. Mild disc height loss and diffuse disc bulge. Mild bilatera l facet and ligamentum flavum hypertrophy. Mild canal stenosis. Mild bilat eral foraminal stenosis. L2-L3:Moderate disc height loss and desiccation. Mild diffuse disc bulge with superimposed le ft far lateral protrusion. Mild bilateral facet hypertrophy. Mild ca nal stenosis. Moderate left and mild right foraminal stenosis. L3-L4:Moderate disc height loss and desiccation. Mild diffuse disc bulge. Mild bilateral facet and ligamentum flavum hypertrophy. Mild canal stenosis. Moderate bilateral foraminal stenosis. L4-L5: Moderate disc height loss and desiccation. Mild diffuse disc bulge. Moderate bilateral f acet hypertrophy. Mild canal stenosis. Moderate bilateral foraminal stenosis. L5-S1:Moderate disc desiccation. Mild disc height loss and diffuse disc bulge. Mild bilatera l facet hypertrophy. Mild canal stenosis. Moderate right and mild left foraminal stenosis. IMPRESSION: 1. Multilevel degenerative disc and facet disease, as well as ligamentum flavum hypertrophy. 2. Mild multilevel c anal stenoses. 3. Multilevel fcqr-wd-htueygux foraminal stenoses as described above. This document has be en electronically signed by: Ayde Roberts MD on 08/16/2024 18:33:10 Dictated By: Ayde Roberts MD Signed By: <Electronically signed by Ayde Roberts MD in OV> 08/16/241832 DD/ 32 TD/TT: 08/16/241832 Help Desk Support: Reason For Referral Reason poor balance please alexandro and treat Diagnosis 1 Poor balance (R26.89 ) Referral Organization Owen Sotomayor MD Referring Provider First Name Owen Referring Provider Last Name Harry Referring Provider Speciality Internal edicine Referred Provider [facility] Referred Provider Specialty Physical The rapist General Notes Tatiana Condon 10:02:09 AM EDT > patient will be making her own appt in [facility] , Tatiana Condon 11/11/2023 03:24:30 PM EDT > patietn will call with appt date and time Referral Priority Routine Referral Appointment Date 11/13/2023 Reason acute pain of left s houlder please eval and treat for PT Diagnosis 1 Acute pain of left s houlder (M25.512) Referral Organization Owen Sotomayor MD Referring Provider First Name Owen Referring Provider Last Name Harry Referring Provider Speciality Internal edicine Referred Provider [facility] Referred Provider Specialty Physical The rapist [...] Provider Speciality Internal M edicine Referred Provider [facility] Referred Provider Specialty Neurology General Notes Tatiana Condon 02:37:22 PM EDT > info faxed Taurus Annette 01/13/2024 10:01:17 AM EDT > was told to refax Kristy Patti A 01/27/2024 12:48:54 PM EDT > [...] Provider Speciality Internal M edicine Referred Provider Vandana, Physical Nilesh cherry Referred Provider Specialty Physical The rapist General Notes Shelly Wagner 02/10/2024 01:58:03 PM EDT > HER APPT IS SCHEDULED FOR 02/26/24 AT 130PM, Shelly Wagner 02/27/2024 08:24:46 AM EDT > PLAN OF CARE RECD Referral Priority Routine Referral Appointment Date 02/26/[address] ease eval and treat Diagnosis 1 Spinal stenosis (M48 .00) Referral Organization Owen Sotomayor MD Referring Provider First Name Owen Referring Provider Last Name Harry Referring Provider Speciality Internal M edicine Referred Provider [facility] Referred Provider Specialty Physical Med icine General Notes Tatiana Condon 0 08/24/2024 09:47:46 AM >info faxedTaurus Annette 08/27/2024 02:55:33 PM >referral info mailed Referral Priority Routine Referral Appointment Date 09/09/2024 Medications Medication SIG (Take, Route, Frequency, Duration) [...] a day Active Citracal Calcium+D A ctive LORazepam 0.5 MG 1 tablet as needed Orally Once a day for 14 days 04/03/2019 Not-Taking Immunizations Vaccine Route Administration Date Status Comme nts Flu Vaccine IM Intramuscular 06/03/2012 Administered PPSV23 (Pnemovax) Unknown 08/21/2009 Administered Flu Vaccine IM Intramuscular 02/24/2013 Administered Prevnar 13 IM Intramuscular 01/15/2014 Administered Influenza High Dose IM Intramuscular 04/03/2018 Administer ed pt was given the vaccine at [facility]. Influenza High Dose IM Intramuscular 04/14/2019 Administer ed Fluarix Quadrivalent Unknown 02/15/2020 Administered [facility]'s Covid Vaccine Unknown 08/01/2020 Administered Covid Vaccine [...] 03/22/2017 Refused PPSV23 (Pnemovax) Unknown 10/04/2017 Refused Social History Tobacco Use: Social History Observation [...] Problem Status W/U Status Risk Notes Problem 582646291 Thyroid nodule (E04.1) Active confirm ed Problem 474014309 Thrombocytopenia (D69.6) Active confirmed Problem Carpal tunnel syndrome (05721191) Carpal tunnel syndrome (G56.00) Active confirmed Problem Anxiety (20202834) Anxiety (F41.9) Active confi rmed Problem 41928792 Polymyalgia rheu matica (M35.3) Active confirmed Problem 42160824 Visual hallucina tions (R44.1) Active confirmed Problem 8870865 Arthritis (M19.90) Active confirmed Problem 487965070 Osteopenia (M85.80) Active confirmed Problem 825440922 Tubular adenoma of colon (D12.6) Active confirmed Problem 104646775 Gastroesophageal reflux disease without esophagitis (K21.9) Active confirmed Problem 422581767 Acquired hypothyroidism (E03.9) Active confirmed Problem 1144124 Prediabetes (R73.09) Active confirmed Problem Osteoporosis (32228571) Osteoporosis (M81.0) Active confirmed Problem 4818311 Migraine with au ra and without status migrainosus, not intractable (G43.109) Active confirmed Problem 902690972 Cervical disc di sease (M50.90) Active confirmed Problem 96037419 Intrinsic eczema (L20.84) Active confirmed Problem Hearing loss (38826430) Hearing loss (H91.90) Active confirmed Problem 09714543 Sciatica of righ t side (M54.31) Active confirmed Problem 149735329 History of palpitations (Z87.898) Active confirmed Problem 486688884 Pure hypercholesterolemia (E78.00) Active confirmed Problem 013292173 Arthritis of kne e (M17.10) Active confirmed Problem Problem with balance (095909220) Balance problems (R26.89) Active confirmed Problem 893564133 Poor balance (R26.89) Active confirme d Problem 4159392870297165 Arthritis of le ft knee (M17.12) Active confirmed Problem 874366460722284 Acute migraine (G43.909) Active confirmed Vital Signs Blood pressure diastolic 56 mm Hg 09/28/2024 Height 60.5 in 09/28/2024 Blood pressure systolic 154 mm Hg 09/28/2024 Weight 140 lbs 09/28/2024 BMI 26.89 kg/m2 09/28/2024 Encounters Encounter Location Date Provider Diagnosis Owen Sotomayor MD [address] [place] [id number] 10/22/2023 Owen Sotomayor Acute pain of right knee M25.561 ; Poor balance R26.89 ; Acquired hypothyroidism E03.9 ; Prediabetes R73.09 ; Pure hypercholesterolemia E78.00 ; Colon cancer screening Z12.11 and Depression screening Z13.31 Owen Sotomayor MD [address] [place] [address] [id number] 11/07/2023 Owen Sotomayor Rotator cuff impinge ment syndrome, left M75.42 Owen Sotomayor MD [address] [place] [id number] 12/10/2023 Owen Sotomayor Acute migraine G43.9 09 and Acute pain of left shoulder M25.512 Owen Sotomayor MD [address] [place] [id number] 12/24/2023 Owen Sotomayor Arthritis of left kn ee M17.12 ; Visual hallucinations R44.1 and Chronic daily headache R51.9 Owen Sotomayor MD [address] [place] [id number] 02/06/2024 Owen Sotomayor Acute migraine G43.9 09 ; Dysfunction of left rotator cuff M67.912 and Pain in right knee M25.561 Owen Sotomayor MD [address] [place] [id number] 04/13/2024 Owen Sotomayor Pure hypercholestero lemia E78.00 and Prediabetes R73.09 Owen Sotomayor MD [address] [place] [address] [id number] 04/20/2024 Owen Sotomayor Prediabetes R73.09 ; Anxiety F41.9 and Pure hypercholesterolemia E78.00 Owen Sotomayor MD [address] [place] [address] [id number] 07/28/2024 Owen Sotomayor Polymyalgia rheumati ca M35.3 and Encounter for Medicare annual examination with abnormal findings Z00.01 Owen Sotomayor MD [address] [place] [address] [id number] 08/11/2024 Owen Sotomayor Pain in right hip M2 5.551 and Pain in left hip M25.552 Owen Sotomayor MD [address] [place] [address] [id number] 08/24/2024 Owen Sotomayor Spinal stenosis M48. 00 Owen Sotomayor MD [address] [place] [address] [id number] 09/28/2024 Owen Sotomayor Carpal tunnel syndro me G56.00 Owen Sotomayor MD [address] [place] [address] [id number] 12/12/2023 Owen Sotomayor MD [address] [place] [address] [id number] 08/13/2024 Owen Sotomayor MD [address] [place] [address] [id number] 08/13/2024 Owen Sotomayor Lumbar back pain M54 .50 Owen Sotomayor MD [address] [place] [address] [id number] 08/21/2024 Owen Sotomayor MD [address] [place] [address] [id number] 08/25/2024 Owen Sotomayor Assessments Encounter Date Diagnosis (ICD Code) Assessment Notes Treatment Notes Treatment Clinical Notes Section Notes 10/22/2023 Acute pain of right knee (ICD-10 - M25.561) order given to patient, pending diagnostic testing 10/22/2023 Poor balance (ICD-10 - R26.89) referral to [facility] physical therapy. at [place] 11/07/2023 Rotator cuff impingement syndrome, left (ICD-10 - M75.42) wants to try physical therapy. if it doesn't work will send to ortho for injection/patien t has orders for physical therapy 12/10/2023 Acute migraine (ICD- 10 - G43.909) has some flashing light but only a brief second. 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 send copy of last physical/ order faxed to [facility] dept 02/06/2024 Acute migraine (ICD- 10 - G43.909) going to see neuro at [facility]. NO APPT YET BUT BUT DR SOTOMAYOR AND DR OAKES SPOKE THIS WEEK. MELANIE WILL CALL FOR APPT AT NEUROLOGY AND LET US KNOW 02/06/2024 Dysfunction of left rotator cuff (ICD-10 - M67.912) is getting better 04/13/2024 Pure hypercholesterolemia (ICD-10 - E78.00) 04/13/2024 Prediabetes (ICD-10 - R73.09) 04/20/2024 Prediabetes (ICD-10 - R73.09) will continue to monitor , labs pending 04/20/2024 Anxiety (ICD-10 - F41.9) if she does get worse to have her try something. is going to see what her friend is taking 07/28/2024 Polymyalgia rheumati ca (ICD-10 - M35.3) may be related to the statins. will try stopping it for a couple weeks and if not better will try prednisone 08/11/2024 Pain in right hip (ICD-10 - M25.551) 08/11/2024 Pain in left hip (ICD-10 - M25.552) since she got better a little with stopping the rosuvastin will try going longer without, will continue to monitor 08/24/2024 Spinal stenosis (ICD -10 - M48.00) discussed finding of MRI with patient, referral to [facility] 09/28/2024 Carpal tunnel syndro me (ICD-10 - G56.00) try a wrist splint/ order faxed to [facility] dept, pending diagnostic testing 08/13/2024 Lumbar back pain (ICD-10 - M54.50) 10/22/2023 Acquired hypothyroid ism (ICD-10 - E03.9) stable, will continue current regiment 12/24/2023 Chronic daily headac he (ICD-10 - R51.9) symptoms are going on for a month and are new so needs further evaluation 02/06/2024 Pain in right knee (ICD-10 - M25.561) REFERRAL FAXED TO AT AT PATIENT REQUEST , ALONG WITH P.T. ORDER FROM FOR RIGHT KNEE PAIN REFERRAL to physical therapy AT FAX [phone] 04/20/2024 Pure hypercholesterolemia (ICD-10 - E78.00) stable, will continue current regiment 07/28/2024 Encounter for Medica re annual examination with abnormal findings (ICD-10 - Z00.01) 10/22/2023 Prediabetes (ICD-10 - R73.09) stable, no need for medication at this time 10/22/2023 Pure hypercholesterolemia (ICD-10 - E78.00) stable, will continue current regiment 10/22/2023 Colon cancer screeni ng (ICD-10 - Z12.11) guaiac negative 10/22/2023 Depression screening (ICD-10 - Z13.31) negative screen 10/22/2023 Other Total time spen t on the date of the encounter is 45 minutes including both face to face time spent and time spent reviewing documentation, and counseling the patient. Plan Of Treatment Pending Test Test Name Order Date Electrocardiogram (EKG) 08/18/2015 Electrocardiogram (EKG) 10/04/2017 Hemoglobin A1c 04/20/2024 Glucose, finger stick 04/20/2024 CRP 07/28/2024 MRI BRAIN NO CONTRAST 12/24/2023 MRI LUMBAR SPINE NO CONTRAST 08/13/2024 MAMMOGRAM DIGITAL BILATERAL SCREEN 04/13 US SOFT TISSUE 01/10/2023 STEREO BX INITIAL SITE 06/02/2021 STEREO BX INITIAL SITE 06/05/2021 EMG 09/28/2024 Nerve Conduction Study 09/28/2024 US extremity nonvascular 01/11/2023 US thyroid 04/23/2023 XR knee RT 3V 10/22/2023 Future Test Test Name Order Date US THYROID 11/14/2019 BONE DENSITY DEXA 04/14/2021 Next Appt Details Provider Name:Owen Mcknight ier, 10/19/2024 07:15:00 AM, [address] [place] [address], [address], [place], [place], [phone], Provider Name:Owen Mcknight ier, 10/26/2024 10:30:00 AM, [address] [place] [address], [address], [place], [place], [phone], Provider Name:Owen Mcknight ier, 07/29/2025 01:30:00 PM, [address] [place] [address], [address], [place], [place], [phone], Insurance Providers Payer Name Payer Address Payer Phone Subscriber Number Group Number Insured Name Patient Relationship to Insured Coverage Start Date Coverage End Date MEDICARE NHIC [address] [place] [address] [id number] Irma Melanie Self - patient is the insured MEDEX BC OF [facility] [id number] [place] [address] [id number] IrmaStacie sparrowlotte Self - patient is the insured Medical (General) History Medical History History ICD Code upper endoscopy 2011 colonoscopy 2008 due in 5 ye ars; colonoscopy 07/22/[address] Quinn, colonoscopy done 09/18/17 Normal no need to repeat complete Hysterectomy 02/1995 Upper Endoscopy w/Biopsy 06/26/[address] Quinn
--- OUTSIDE RECORDS SUMMARY | 2024-10-13 07:48 | XMS_ITS | Patient Health Record ---
Author Organization [facility] [place] Address [address] [place] [address] Care Team Providers Care Cabana Attendant Name Role Phone Harry MACKEY, Owen Primary Care Provider Kiara Long Unavailable [phone] Black, Clary Unavailable [phone] Danny Rhodes Unavailable [phone] Allergies Allergen (clinical drug ingredient) Drug/Non Drug [...] Problem Acquired hammer toe of right foot (5466885837253295) Other hammer toe(s) (acquired), right foot (M20.41) Active confirmed Problem Acquired hammer toe of left foot (1599607815520774) Other hammer toe(s) (acquired), left foot (M20.42) Active confirmed Problem 018152968352322 Hallux valgus (acquired), right foot (M20.11) Active confirmed Problem Acquired hallux valgus (29500121) Hallux valgus (acquired), left foot (M20.12) Active confirmed Problem 284436283863060 Hallux valgus (acquired), right foot (M20.11) Active confirmed Problem 509301417 Hammer toe of right foot (M20.41) Active confirmed Problem 543811914881868 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 Problem 99370402769439252 Atherosclerosi s of artery of both lower extremities (I70.203) Active confirmed Problem Localized, primary osteoarthritis of the ankle and/or foot (507308231) Arthritis of joint of lesser toe, left (M19.072) Active confirmed Problem Localized, primary osteoarthritis of the ankle and/or foot (141464257) Arthritis of joint of lesser toe, right (M19.071) Active confirmed Vital Signs Blood pressure diastolic 58 mm Hg 03/05/2024 Height 5 ft in 03/05/2024 Blood pressure systolic 138 mm Hg 03/05/2024 Weight 140 lbs 03/05/2024 BMI 27.34 kg/m2 03/05/2024 Procedures Procedure Date Ordered Date Performed Result Body Sit e 64045-JQGN SKIN LESIONS, 2 TO 4 03/05/2024 N/A O0631-LRGXBWME DYSTROPHIC NAILS ANY # 03/05/2024 N/A Encounters Encounter [facility] Date [facility] [address] 03/05/2024 Clary Black Pain in left foot [...] ; Dystrophic nail L60.3 and Keratoma L57.[address] [facility] [address] [address] 11/14/2023 Kiara Becker Assessments Encounter Date Diagnosis [...] X ray : Foot, right 3V 04/11/2022 01426-DOLH SKIN LESIONS, 2 TO 4 03/05/20 24 C6587-QHJMGOXD DYSTROPHIC NAILS ANY # Insurance Providers Payer Name Payer Address Payer Phone Subscriber Number Group Number Insured Name Patient Relationship to Insured Coverage Start Date Coverage End Date Medicare National [employer]t [employer] [address] [facility] [address] [phone] [id number] Melanie Solis Self - patient is the insured [facility] [address] [place] [address] [phone] [id number] Melanie Solis Self - patient is [...] loop recorder 04/23/2019 Hospitalization History Reason Date(Month/Year) [facility] [place] [facility] - slight stroke 02/2019
--- OUTSIDE RECORDS SUMMARY | 2024-10-13 07:48 | XMS_ITS ---
Author Organization [facility] Address [address] [facility] [place] [address] Care Team Providers Care After School Program Teacher Name Role Phone Owen Mcdonald MD Primary Care Provider Efrem BeckerKiara Unavailable [phone] Black, Clary Unavailable [phone] Allergies Allergen (clinical drug ingredient) Drug/Non Drug [...] Status Risk Notes Problem Acquired hallux valgus (69243570) Hallux valgus (acquired), left foot (M20.12) Active confirmed Problem Acquired hammer toe of right foot (5251703728405631) Other hammer toe(s) (acquired), right foot (M20.41) Active confirmed Problem Localized, primary osteoarthritis of the ankle and/or foot (696493089) Arthritis of joint of lesser toe, right (M19.071) Active confirmed Problem Acquired hammer toe of left foot (7913845469431033) Other hammer toe(s) (acquired), left foot (M20.42) Active confirmed Problem Localized, primary osteoarthritis of the ankle and/or foot (402332146) Arthritis of joint of lesser toe, left (M19.072) Active confirmed Vital Signs Height 5 ft in 03/05/2024 Weight 140 lbs 03/05/2024 BMI 27.34 kg/m2 03/05/2024 Blood pressure systolic 138 mm Hg 03/05/20 24 Blood pressure diastolic 58 mm Hg 024 Procedures Procedure Date Ordered Date Performed Result Body Sit e 79463-AHNJ SKIN LESIONS, 2 TO 4 03/05/2024 N/A L6467-AJKLTPCF DYSTROPHIC NAILS ANY # 03/05/2024 N/A Encounters Encounter Location Date Provider Diagnosis [facility] [address] [place] [address] 03/05/2024 Clary Black Pain in left foot [...] Treatment Pending Test Test Name Order Date 87758-KYLS SKIN LESIONS, 2 TO 4 03/05/20 24 V8498-NMQYGDQL DYSTROPHIC NAILS ANY # Next Appt Details Follow Up: prn, Reason: Procedure Notes * Category Sub-Category Detail Notes Keratoma Treatment Parring or Cutting o f Benign Hyperkeratotic Lesion(s) 42274-[place] Self Pay Non-Covered Callus care- Nail Reduction Nail Reduction O3559-BN Trimmin g of noncovered dystrophic nails, any number - Progress Notes * Melanie SOLIS RDOB:[birth year] (83 yo F)Acc No.[id number]:03/05/2024 Progress Note Patient:?Melanie Solis R Provider:?Clary Amos DPM :1940???Age:83 Y???Sex:Female D ate:03/05/2024 Address:[address] [place], [place] [id number] Pcp:Owen Mcdonald MD Subjective: * Chief Complaints: [...] loop recorder 04/23/2019 * Hospitalization/Major Diagno stic Procedure:?[facility] [place] [facility] - slight stroke 02/2019 * Family [...] * Vitals:?Ht: 5 ft, Wt: 140, B VA: 27.34, Shoe size: 5W, BP: 138/58 mm [...] L60.3?17.?Keratoma - L57.0? Plan: * Treatment: 2.?Keratoma?Procedure: 27258-BXFU SKIN LESIONS, 2 TO 4 * Procedures:?Keratoma Treatment:?Parring or Cutting of Benign Hyperkeratotic Lesion(s)?12781-[place] Self Pay Non-Covered Callus care-.?Nail Reduction:?Nail Reduction?I3875-VK Trimming of noncovered dystrophic nails, any number -.? * Procedure Codes:?64254 TRIM SKIN LESIONS, 2 TO 4 $60, [...] Amos DPM Date:?2023 Generated for Martina hughes/Jesse/Fatou on:?10/13/2024 07:47 AM [...] exostosis, inflammation present, (+) Pain on palpation FOOTWEAR EVALUATION: shoe gear propertie s exacerbate patients foot/toe deformity DIGITAL DEFORMITIES: , [...]
--- OUTSIDE RECORDS SUMMARY | 2024-10-13 07:48 | XMS_ITS | Patient Health Record ---
Author Organization [facility] Address [address] [place] [address] Care Team Providers Care Top Case Assembler Name Role Phone Owen Mcdonald MD Primary Care Provider Ranjit Ventura Jr Unavailable Allergies Allergen (clinical drug ingredient) Drug/Non Drug Allergy documented on EMR Reaction Allergy Type Onset Date Status Floxin Otic Unknown Drug Allergy Activ e sulfamethoxazole / trimethoprim Bactrim Unknown Drug Allergy Active Substance with sulfonamide structure and antibacterial mechanism of action (substance) sulfa (uncoded) Unknown Allergy Active Reason For Referral No Information [...] MG 1 Orally twice a day Active Immunizations Vaccine Route Administration Date Status Comme nts Influenza Unknown 03/06/2021 Administered Influenza Unknown 04/16/2023 Administered Influenza Unknown 04/14/2024 Administered Social History Alcohol Screen Question Answer Notes Did you have a drink containing alcohol in the p ast year? No Points 0 Interpretation Negative Problems Problem Type SNOMED Code ICD Code Onset Dates Problem Status W/U Status Risk Notes Problem 093869654 Gastro-esophagea l reflux disease without esophagitis (K21.9) Active confirmed Problem 193439159 Change in bowel habits (R19.4) Active confirmed Problem 973912072 Screening for colon cancer (Z12.11) Active confirmed Vital Signs Temperature 97.5 degrees Fahrenheit 07/29/2024 Blood pressure diastolic 00 mm Hg 07/29/2024 Height 59.50 in 07/29/2024 Blood pressure systolic 000 mm Hg 07/29/2024 Weight 143 lbs 07/29/2024 BMI 28.40 kg/m2 07/29/2024 Encounters Encounter Location Date Provider Diagnosis [facility] [address] [place] [address] 07/29/2024 Ranjit Quinn Jr Gastro-esophageal reflux disease [...] be in 12 months. Plan Of Treatment Pending Test Test Name Order Date XR BARIUM SWALLOW-ESOPHAGUS 03/29/2016 Future Test Test Name Order Date COLONOSCOPY 11/07/2012 UPPER GI ENDOSCOPY 03/29/2016 COLONOSCOPY 06/26/2017 Next Appt Details Provider Name:Ranjit gilmore Jr, 08/02/2025 10:40:00 AM, [address], [address], [place], [address], Insurance Providers Payer Name Payer Address Payer Phone Subscriber Number Group Number Insured Name Patient Relationship to Insured Coverage Start Date Coverage End Date MEDICARE OF [place] [address] [place] [address] [id number] SOPHIE ENCISO Self - patient is the insured MEDEX ATTN CLAIMS [address] [place] [address] [id number] NATE ENCISOTE Self - patient is the insured Medical (General) History Medical History History ICD Code colonoscopy 09/18/17, negativ e. Personal history and family history of colon polyps and cancer, followup optional. GERD, EGD 06/26/16 no Oconnor's esophagus. Hyperlipidemia Hypothyroidism CVA Surgical History Surgery Date(Month/Year) hysterectomy lumpectomy, right breast Hospitalization History Reason Date(Month/Year) small strokes occipital nerve 2019
--- OUTSIDE RECORDS SUMMARY | 2024-10-13 07:48 | XMS_ITS ---
Author Organization Owen Mcdonald MD Address [address] [place] [phone] Care Team Providers Care Director Of Assisted Living Name Role Phone Owen Mcdonald Primary Care Provider [phone] REASON FOR VISIT FYI patient fell Encounters Encounter Location Date Provider Diagnosis Owen Mcdonald MD [address] [facility] [address] [place] [phone] 08/25/2024 Owen Mcdonald Plan Of Treatment Next Appt Details Provider Name:Owen burnette, 10/19/2024 07:15:00 AM, [address] [place] [address], [address] [place] [address], [phone], Provider Name:Owen burnette, 10/26/2024 10:30:00 AM, [address] [place] [address], [address], [phone], Provider Name:Owen burnette, 07/29/2025 01:30:00 PM, [address] [place] [address], [address], [phone], Progress Notes * Melanie SOLIS RDOB:[birth year] (83 yo F)Acc No.[id number]:08/25/2024 Patient:?FERNIEMelanie LIZAMA R :1940???Age:83 Y???Sex:Female Address:[address] [place] [address] * true * Date:? Generated for Anai saul/Jesse/eTransmitting on:?10/13/2024 07:47 AM EDT
== END 2024-10-13 07:44 | disposition home or self-care (01) ==
LOC: HO.NEURO 07:43
PROVIDERS: PCP Internal Medicine; Visit Provider Internal Medicine
DX: G56.01 Carpal tunnel syndrome, right upper limb (principal); G56.02 Carpal tunnel syndrome, left upper limb
CPT/HCPCS: 95886; 95911

== ENCOUNTER 2024-10-19 10:20 | Outpatient (REF) | payer MEDICARE, SELFPAY ==
[2024-10-19 10:25] LABS: MANUAL DIFF FLAG NO
[2024-10-19 10:45] LABS: Estimated Average Glucose 114 mg/dL; Hemoglobin A1c % 5.6 % (<6.0)
[2024-10-19 10:49] LABS: Basophils Percent Auto 0.3 % (0-2); Eosinophils Absolute Auto 0.1 X10*3/uL (0.0-0.4); Hematocrit 40.3 % (37.0-47.0); Hemoglobin 13.4 g/dl (12.0-16.0); Imm Gran Abs Auto 0.01 X10*3/uL (0.00-0.03); Imm Gran Pct Auto 0.1 % (0.0-0.4); Lymphocytes Absolute Auto 1.3 X10*3/uL (1.2-4.9); Lymphocytes Percent Auto 18.8 % (20-40); Mean Corpuscular HGB Conc 33.3 g/dl (31.0-35.0); Mean Corpuscular Hemoglobin 28.8 pg (27.0-33.0); Mean Corpuscular Volume 86.7 fL (80.0-98.0); Mean Platelet Volume 8.8 fL (9.4-12.3); Monocytes Absolute Auto 0.6 X10*3/uL (0.1-1.2); Monocytes Percent Auto 8.9 % (2-11); Neutrophils Absolute Auto 4.9 x10*3/uL (2.0-8.3); Neutrophils Percent Auto 70.9 % (45-73); Platelet Count 189 X10*3/uL (160-400); Red Blood Count 4.65 X10*6/uL (4.20-5.50); Red Cell Distribution Width 14.6 % (11.0-16.0); White Blood Count 6.9 X10*3/uL (4.8-10.8)
[2024-10-19 11:06] LABS: Alanine Aminotransferase 13 U/L (0-31); Albumin Level 4.3 g/dL (3.5-5.0); Alkaline Phosphatase 70 U/L (39-117); Anion Gap 15 (12-20); Aspartate Amino Transferase 21 U/L (5-31); Bilirubin Total 0.5 mg/dL (0.0-1.0); Blood Urea Nitrogen 19 mg/dL (9-16); Calcium 9.8 mg/dL (8.4-10.2); Carbon Dioxide 27 mmol/L (22-29); Chloride 102 mmol/L (96-108); Cholesterol 122 mg/dL (<200); Estimated Glomerular Filt Rate > 60; Glucose Fasting 111 mg/dL (60-99); HDL Cholesterol 44 mg/dL (>40); LDL Cholesterol Calculated 51 mg/dL (<100); Potassium 4.2 mmol/L (3.3-5.1); Sodium 140 mmol/L (135-145); TSH reflex Free T4 1.94 uIU/mL (0.32-4.0); Triglycerides 138 mg/dL (<150)
--- OUTSIDE RECORDS SUMMARY | 2024-10-19 12:05 | XMS_ITS ---
Author Organization [facility] Address [address] [place] [address] Care Team Providers Care Auxiliary Engineer Name Role Phone Owen Mcdonald MD Primary Care Provider Kiara Long Unavailable [phone] Danny Rhodes [phone] Encounters Encounter Location Date Provider Diagnosis [address] [address] 11/14/2023 Danny Rhodes Plan Of Treatment No Information Progress Notes * Melanie SOLIS RDOB:[birth year] (84 yo F)Acc No.[id number]:11/14/2023 Progress Note Patient:Melanie HO Provider:?Danny Rhodes DPM :1940???Age:83 Y???Sex:Female D ate:11/14/2023 Address:[address] [place], [place] [id number] Pcp:Owen Mcdonald MD Subjective: * Chief Complaints: [...] DPM Date:? 024 Generated for Printi ng/Faxing/eTransmitting on:?10/19/2024 12:05 PM EDT
--- OUTSIDE RECORDS SUMMARY | 2024-10-19 12:06 | XMS_ITS ---
Author Organization [facility] Address [address] [place] [address] Care Team Providers Care Channel Cementer Name Role Phone Owen Mcdonald MD Primary Care Provider Kiara Long Unavailable [phone] Danny Rhodes [phone] Encounters Encounter Location Date Provider Diagnosis [address] [address] 01/01/2024 Danny Rhodes Plan Of Treatment No Information Progress Notes * Melanie SOLIS RDOB:[birth year] (84 yo F)Acc No.[id number]:01/01/2024 Progress Note Patient:Melanie HO Provider:?Danny Rhodes DPM :1940???Age:83 Y???Sex:Female D ate:01/01/2024 Address:[address] [place], [place] [address] Pcp:Owen Mcdonald MD Subjective: * Chief Complaints: [...] Date:? 024 Generated for Printi ng/Faxing/eTransmitting on:?10/19/2024 12:06 PM EDT
--- OUTSIDE RECORDS SUMMARY | 2024-10-19 12:06 | XMS_ITS | Patient Health Record ---
Author Organization [facility] [place] Address [address] [place] [address] Care Team Providers Care Pilot Manager Name Role Phone Harry MACKEY, Owen Primary Care Provider Kiara Long Unavailable [phone] Black, Clary Unavailable [phone] Danny Rhodes Unavailable [phone] Allergies Allergen (clinical drug ingredient) Drug/Non Drug [...] Problem Acquired hammer toe of right foot (1884952636135293) Other hammer toe(s) (acquired), right foot (M20.41) Active confirmed Problem Acquired hammer toe of left foot (7179431362311052) Other hammer toe(s) (acquired), left foot (M20.42) Active confirmed Problem 224983708714789 Hallux valgus (acquired), right foot (M20.11) Active confirmed Problem Acquired hallux valgus (08472620) Hallux valgus (acquired), left foot (M20.12) Active confirmed Problem 282462518752807 Hallux valgus (acquired), right foot (M20.11) Active confirmed Problem 987376786 Hammer toe of right foot (M20.41) Active confirmed Problem 068303692798986 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 Problem 61206701122474577 Atherosclerosi s of artery of both lower extremities (I70.203) Active confirmed Problem Localized, primary osteoarthritis of the ankle and/or foot (005563182) Arthritis of joint of lesser toe, left (M19.072) Active confirmed Problem Localized, primary osteoarthritis of the ankle and/or foot (209932008) Arthritis of joint of lesser toe, right (M19.071) Active confirmed Vital Signs Blood pressure diastolic 58 mm Hg 03/05/2024 Height 5 ft in 03/05/2024 Blood pressure systolic 138 mm Hg 03/05/2024 Weight 140 lbs 03/05/2024 BMI 27.34 kg/m2 03/05/2024 Procedures Procedure Date Ordered Date Performed Result Body Sit e 54992-LMUU SKIN LESIONS, 2 TO 4 03/05/2024 N/A C1283-DENJFEGS DYSTROPHIC NAILS ANY # 03/05/2024 N/A Encounters Encounter [facility] Date [facility] [address] 03/05/2024 Clary Black Pain in left foot [...] ; Dystrophic nail L60.3 and Keratoma L57.0 [facility] [address] [address] 11/14/2023 Kiara Becker Assessments Encounter Date Diagnosis [...] X ray : Foot, right 3V 04/11/2022 81507-YFVN SKIN LESIONS, 2 TO 4 03/05/20 24 R2573-OFZLRDBV DYSTROPHIC NAILS ANY # Insurance Providers Payer Name Payer Address Payer Phone Subscriber Number Group Number Insured Name Patient Relationship to Insured Coverage Start Date Coverage End Date Medicare [employer] [address] [place] [address] [phone] [id number] Melanie Solis Self - [facility] the [facility] [address] [place] [address] [phone] [id number] Melanie Solis Self - patient is [...] loop recorder 04/23/2019 Hospitalization History Reason Date(Month/Year) [facility] - slight stroke 02/2019
--- OUTSIDE RECORDS SUMMARY | 2024-10-19 12:06 | XMS_ITS ---
Author Organization [facility] Address [address] [place] [address] Care Team Providers Care Carpenter Foreman Name Role Phone Owen Mcdonald MD Primary Care Provider Efrem BeckerKiara Unavailable [phone] Black, Clary Unavailable [phone] Allergies Allergen (clinical drug ingredient) Drug/Non Drug [...] Status Risk Notes Problem Acquired hallux valgus (02038125) Hallux valgus (acquired), left foot (M20.12) Active confirmed Problem Acquired hammer toe of right foot (2877745995728697) Other hammer toe(s) (acquired), right foot (M20.41) Active confirmed Problem Localized, primary osteoarthritis of the ankle and/or foot (864336178) Arthritis of joint of lesser toe, right (M19.071) Active confirmed Problem Acquired hammer toe of left foot (0870697202435774) Other hammer toe(s) (acquired), left foot (M20.42) Active confirmed Problem Localized, primary osteoarthritis of the ankle and/or foot (379660094) Arthritis of joint of lesser toe, left (M19.072) Active confirmed Vital Signs Height 5 ft in 03/05/2024 Weight 140 lbs 03/05/2024 BMI 27.34 kg/m2 03/05/2024 Blood pressure systolic 138 mm Hg 03/05/20 24 Blood pressure diastolic 58 mm Hg 024 Procedures Procedure Date Ordered Date Performed Result Body Sit e 15534-SAVU SKIN LESIONS, 2 TO 4 03/05/2024 N/A W5770-QAENEKJL DYSTROPHIC NAILS ANY # 03/05/2024 N/A Encounters Encounter Location Date Provider Diagnosis [facility] [address] [place] [address] 03/05/2024 Clary Black Pain in left foot [...] Treatment Pending Test Test Name Order Date 99676-NEAA SKIN LESIONS, 2 TO 4 03/05/20 24 O7739-WKUNAYXM DYSTROPHIC NAILS ANY # Next Appt Details Follow Up: prn, Reason: Procedure Notes * Category Sub-Category Detail Notes Keratoma Treatment Parring or Cutting o f Benign Hyperkeratotic Lesion(s) 67740-PC Self Pay Non-Covered Callus care- Nail Reduction Nail Reduction J4015-HK Trimmin g of noncovered dystrophic nails, any number - Progress Notes * Melanie SOLIS RDOB:[birth year] (83 yo F)Acc No.[id number]:03/05/2024 Progress Note Patient:?Melanie Solis R Provider:?Clary Amos DPM :1940???Age:83 Y???Sex:Female D ate:03/05/2024 Address:[address] [place], [place] [address] Pcp:Owen Mcdonald MD Subjective: * Chief Complaints: [...] loop recorder 04/23/2019 * Hospitalization/Major Diagno stic Procedure:?[facility] - slight stroke 02/2019 * Family History:?Mother: [...] * Vitals:?Ht: 5 ft, Wt: 140, B AL: 27.34, Shoe size: 5W, BP: 138/58 mm [...] L60.3?17.?Keratoma - L57.0? Plan: * Treatment: 2.?Keratoma?Procedure: 19008-QNQF SKIN LESIONS, 2 TO 4 * Procedures:?Keratoma Treatment:?Parring or Cutting of Benign Hyperkeratotic Lesion(s)?94930-AM Self Pay Non-Covered Callus care-.?Nail Reduction:?Nail Reduction?M5786-GR Trimming of noncovered dystrophic nails, any number -.? * Procedure Codes:?23322 TRIM SKIN LESIONS, 2 TO 4 $60, [...] Amos DPM Date:?2023 Generated for Martina hughes/Jesse/Fatou on:?10/19/2024 12:06 PM EDT History and Physical Notes * [...]
--- OUTSIDE RECORDS SUMMARY | 2024-10-19 12:06 | XMS_ITS | Data Portability ---
Author Organization [facility] Address [address] [place] [address] Assessment No assessment recorded. Plan of Treatment Reminders Order Date Submit Date Provider Last Modified By Organization Details Last Modified Time Details Appointments None recorded. Lab None recorded. Referral None recorded. Procedures None recorded. Surgeries None recorded. Imaging None recorded. Medication Orders prednisone 20 mg tablet 2022 023 [id number], [address] [place], [address], 18:35:40 Claritin 10 mg tablet 2022 023 [facility], [address] [place], [address], 18:35:41 Patient TargetsNo targets recorded. Patient Instructions Encounter Date Encounter Id Patient Instructions Last Modified By Organization Details Last Modified Time 12/30/2022 [id number] hives: care instructions [email or web address] Not available 12/30/2022 [...] Details Recorded Time Disorder of thyroid gland 08217422 Active 2022 NANCY JERSONOJSE velasquez [place] - [facility] 3 18:13:44 Hypercholes terolemia 09999341 Active 2022 NANCY JERSONJOSE velasquez, [place] - [facility] 3 18:14:25 Transient cerebral ischemia 941728013 Completed 201812/30/2022 NANCY JERSONJOSE velasquez [place] - [...] Name and Address Organization Details Recorded Time 656031 Substance with sulfonami de structure and antibacte rial mechanism of action (substanc e) medicatio n hives Not available Not available 12/30/2022 78254 8003 SNOMED NANCY JERSON [facility], [place] - [facility] 3 18:12:37 [...] Last Updated DateTime 152.4 cm 26.4 kg/m2 04445.9 7 g 96 % 96 % 75 [...] SNOMED-CT Code Diagnosis ICD10 Code Diagnosis Note [id number] [address] [address] 09/26/2018 13:11:03 09/26/2018 14:06:13 [id number] Markus Harvey [place] [address] [address] 12/30/2022 17:17:26 12/30/2022 18:37:12 Pruritic rash 63104029 L28.2 Health Concerns Section Related Observation LastModified by Organization Detai ls LastModified Time None Recorded Concern Status LastModified by Organization Details LastModified Time None Recorded Advance Directives Directive None Recorded Payers Encounter Date Sequence Insurance Name Policy Number Policy Garza Covered Member ID Garza Member ID Guarantor Name 09/26/2018 1 [place] [employer] Melanie R Irma [id number] Melanie Irma 09/26/2018 2 [place] [id number] Melanie R Irma [id number] Melanie Irma 12/30/2022 1 [place] Melanie R Irma [id number] Melanie Irma 12/30/2022 2 [place] [id number] Melanie R Irma [id number] Melanie Irma Notes Date Note Type [...] Harvey NP [address] [place], [address], [place] - [facility] 12/30/2022 18:35:54 OBGyn Episode No OBEpisode recorded.
--- OUTSIDE RECORDS SUMMARY | 2024-10-19 12:06 | XMS_ITS | Data Portability ---
Author Organization [place] - [facility], Allergy Address [address] [address] Care Team Providers Care Senior Corporate Accountant Name Role Phone MILA SOTOMAYOR Primary Care [...] amplification and medical clearance was provided today. [email or web address] Not available 12/25/2023 12:49:53 Plan of Treatment [...] audio gram No observ ation record ed. [email or web address] Not Available 01/2024 13:29:11 02/12/20 24 11/10/2021 [...] Organization Details Recorded Time Deviated nasal septum 052333923 Active 2021 Deviated nasal septum; Note: Date Diagnosed : 12/29/2021 3:45 PM (J34.2) Not Available [facility] 4 02:27:48 Posterior rhinorrhe a 40842635 Active 2021 Postnasal drip; Note: Date Diagnosed : 12/29/2021 3:45 PM (R09.82) Not Available [facility] 4 02:28:04 Sensorine ural hearing loss of bilateral ears 061890622 Active 2021 Sensorine ural hearing loss, bilateral ; Note: Date Diagnosed : 12/29/2021 3:45 PM (H90.3) Not Available [facility] 4 02:27:55 Chronic rhinitis 14176042 Active 2021 Chronic rhinitis; Note: Date Diagnosed : 12/29/2021 3:45 PM (J31.0) Not Available [facility] 4 02:27:40 Bilateral tinnitus 21110171127 02 Active 2021 Tinnitus, bilateral ; Note: Date Diagnosed : 12/29/2021 3:45 PM (H93.13) Not Available [facility] 4 02:27:58 Impacted cerumen of bilateral ears 31995926426 56945 Active 2023 MARISOL COATS PA-C [facility],[place] [address], [place], [address] , [facility] - [facility] 4 12:47:20 Sensorine ural hearing loss of bilateral ears 473975397 Active 2023 MARISOL COATS PA-C 100 [facility],[place] [address], [place], [address] , [facility] - [facility] 4 12:47:35 Dysphonia 46065923 Active 2023 Hoarsenes s; Note: Date Diagnosed : 09/25/2023 11:42 AM (R49.0) Not Available [facility] 4 02:27:30 Problem Notes None recorded. Procedures Surgical History Date Name Laterality Status Provider Name and Address Organization Details Recorded Time 4 Comp Audio with Tymps (58451 & 49266) completed DEBBI MITTAL [place], [facility] [address] [facility],[place] [address], [place], [address], [facility] 12/25/2023 12:12:18 Cerumen removal without microscope bilat completed MARISOL COATS PA-C [address] [place] [address],[place] [address], [place], [address], [facility] - [facility] 12/25/2023 12:47:16 Imaging Results Imaging Date Name Status LastModified by Organiz ation Details LastModified Time 12/30/2023 audiogram completed [id number] Information n ot available 12/30/2023 13:29:11 11/10/2021 [...] Name and Address Organization Details Recorded Time 941952 fluticaso ne Not available lighthead edness Not available Not available 01/24/2024 93666 RxNorm React ion: Light heade dness ; Not Available [facility] 4 00:24:24 [address] floxacill in Not available other Not available Not available 11/05/2023 4448 RxNorm React ion: Unkno wn; Not Available [facility] 4 00:52:01 03904 Bactrim medicatio n other Not available Not available 11/05/2023 05834 9 RxNorm React ion: Unkno wn; Not Available [facility] 4 00:52:08 Medications Name Sig Start Date [...] Code Diagnosis ICD10 Code Diagnosis Note [id number] SOIFA EDGAR MD [facility] [address] [address] 12/25/2023 10:51:24 12/25/2023 12:50:30 Impacted cerumen of bilateral ears [id number] 218514 H61.23 Sensorineu ral hearing loss of bilateral ears 865489411 H90.3 [id number] DEBBI MITTAL MA, CCC-A [facility] [address] [address] 12/25/2023 12:11:34 12/31/2023 11:38:32 Sensorineural hearing loss of bilateral ears 243224418 H90.3 RIGHT EAR: Borderline normal/ mild SNHL [...] Name 12/25/2023 2 [place] [id number] Melanie R Irma [id number] Melanie R Irma 12/25/2023 1 [place] Melanie R Irma [id number] Melanie R Irma 12/25/2023 2 [place] [id number] Melanie R Irma [id number] Melanie R Irma 12/25/2023 1 [place] Melanie R Irma [id number] Melanie R Irma Notes Date Note [...] blurry vision with use. SOFIA EDGAR MD [address] [place] [address], [address], [facility] - [facility] 12/25/2023 14:36:40 OBGyn Episode No OBEpisode recorded.
== END 2024-10-19 10:21 | disposition home or self-care (01) ==
LOC: HO.LNP 10:20
PROVIDERS: Visit Provider Internal Medicine
DX: E03.9 Hypothyroidism, unspecified (principal); R73.09 Other abnormal glucose; E78.00 Pure hypercholesterolemia, unspecified; D69.6 Thrombocytopenia, unspecified
CPT/HCPCS: 80053; 80061; 83036; 84443; 85025

== ENCOUNTER 2024-10-26 13:22 | Outpatient (REF) | payer MEDICARE, SELFPAY ==
[2024-10-26 13:28] LABS: Appearance Urine Turbid; Color Urine Dark Yellow; Glucose Urine UA Negative (Negative); Leukocyte Esterase Urine Small (1+) (Negative); Nitrite Urine Negative (Negative); PH 7.5 (5.0-9.0); Specific Gravity - Urine 1.015 (1.005-1.025); UMIC TRIGGER UACC YES; Urine Blood Negative (Negative); Urine Ketones Negative (Negative); Urine Protein Negative (Neg-Trace)
[2024-10-26 13:30] LABS: Bacteria Urine None Seen (None Seen); Hyaline Casts Urine 0-2 /LPF (0-2); RBC Urine 0-2 /HPF (0-2); Squamous Epithelial Cell Urine 0-2 /HPF (0-2); UACC Culture Trigger YES
[2024-10-26 14:20] LABS: Creatinine Urine 47.28 mg/dL; Microalbum/Creatinine Ratio Ur 16.9 ug/mg cr (<30)
--- OUTSIDE RECORDS SUMMARY | 2024-10-26 14:50 | XMS_ITS ---
Author Organization [facility] Address [address] [place] [address] Care Team Providers Care Powerhouse Mechanic Apprentice Name Role Phone Owen Mcdonald MD Primary Care Provider Kiara Long Unavailable [phone] Danny Rhodes [phone] Encounters Encounter Location Date Provider Diagnosis [address] [address] 11/14/2023 Danny Rhodes Plan Of Treatment No Information Progress Notes * Melanie SOLIS RDOB:[birth year] (84 yo F)Acc No.[id number]:11/14/2023 Progress Note Patient:Melanie HO Provider:?Danny Rhodes DPM :1940???Age:83 Y???Sex:Female D ate:11/14/2023 Address:[address] [place], [place] [address] Pcp:Owen Mcdonald MD Subjective: * Chief Complaints: [...] DPM Date:? 024 Generated for Printi ng/Faxing/eTransmitting on:?10/26/2024 02:49 PM EDT
--- OUTSIDE RECORDS SUMMARY | 2024-10-26 14:50 | XMS_ITS | Data Portability ---
Author Organization [facility] Address [address] [place] [address] Assessment No assessment recorded. Plan of Treatment Reminders Order Date Submit Date Provider Last Modified By Organization Details Last Modified Time Details Appointments None recorded. Lab None recorded. Referral None recorded. Procedures None recorded. Surgeries None recorded. Imaging None recorded. Medication Orders prednisone 20 mg tablet 2022 023 [facility][id number], [address] [place], [address], 18:35:40 Claritin 10 mg tablet 2022 023 [facility] #[id number], [address] [place], [address], 18:35:41 Patient TargetsNo targets recorded. Patient Instructions Encounter Date Encounter Id Patient Instructions Last Modified By Organization Details Last Modified Time 12/30/2022 [id number] hives: care instructions [email or web address] Not available 12/30/2022 [...] Details Recorded Time Disorder of thyroid gland 72037661 Active 2022 NANCY JERSONJOSE velasquez [place] - [facility] 3 18:13:44 Hypercholes terolemia 11939295 Active 2022 NANCY JERSONJOSE velasquez, [place] - [facility] 3 18:14:25 Transient cerebral ischemia 609205432 Completed 201812/30/2022 NANCY JERSONJOSE velasquez PA - [...] Name and Address Organization Details Recorded Time 655217 Substance with sulfonami de structure and antibacte rial mechanism of action (substanc e) medicatio n hives Not available Not available 12/30/2022 10811 8003 SNOMED NANCY JERSON [facility], [place] - [facility] 3 18:12:37 [...] Last Updated DateTime 152.4 cm 26.4 kg/m2 33577.9 7 g 96 % 96 % 75 [...] SNOMED-CT Code Diagnosis ICD10 Code Diagnosis Note [id number] [facility] [address] [address] 09/26/2018 13:11:03 09/26/2018 14:06:13 [id number] Markus Harvey [place] [address] [address] [address] 12/30/2022 17:17:26 12/30/2022 18:37:12 Pruritic rash 50493797 L28.2 Health Concerns Section Related Observation LastModified by Organization Detai ls LastModified Time None Recorded Concern Status LastModified by Organization Details LastModified Time None Recorded Advance Directives Directive None Recorded Payers Encounter Date Sequence Insurance Name Policy Number Policy Garza Covered Member ID Garza Member ID Guarantor Name 09/26/2018 1 [place] Melanie R Irma [id number] Melanie Irma 09/26/2018 2 [place] [id number] Melanie R Irma [id number] Melanie Irma 12/30/2022 1 [place] Melanie R Irma [id number] Melanie Irma 12/30/2022 2 [place] [id number] Melanie R Irma [id number] Melanie Irma Notes Date Note Type [...] Harvey NP [address] [place], [address], [place] - [facility] 12/30/2022 18:35:54 OBGyn Episode No OBEpisode recorded.
--- OUTSIDE RECORDS SUMMARY | 2024-10-26 14:50 | XMS_ITS | Data Portability ---
Author Organization [place] [facility], All[facility] Address [address] [address] Care Team Providers Care Personalized Living Manager Name Role Phone MILA SOTOMAYOR Primary Care [...] amplification and medical clearance was provided today. [email or web address] Not available 12/25/2023 12:49:53 Plan of Treatment [...] audio gram No observ ation record ed. Not Available 01/2024 13:29:11 02/12/20 24 11/10/2021 [...] Organization Details Recorded Time Deviated nasal septum 585461884 Active 2021 Deviated nasal septum; Note: Date Diagnosed : 12/29/2021 3:45 PM (J34.2) Not Available [facility] 4 02:27:48 Posterior rhinorrhe a 48579360 Active 2021 Postnasal drip; Note: Date Diagnosed : 12/29/2021 3:45 PM (R09.82) Not Available [facility] 4 02:28:04 Sensorine ural hearing loss of bilateral ears 215973826 Active 2021 Sensorine ural hearing loss, bilateral ; Note: Date Diagnosed : 12/29/2021 3:45 PM (H90.3) Not Available [facility] 4 02:27:55 Chronic rhinitis 10539014 Active 2021 Chronic rhinitis; Note: Date Diagnosed : 12/29/2021 3:45 PM (J31.0) Not Available [facility] 4 02:27:40 Bilateral tinnitus 65972244470 02 Active 2021 Tinnitus, bilateral ; Note: Date Diagnosed : 12/29/2021 3:45 PM (H93.13) Not Available [facility] 4 02:27:58 Impacted cerumen of bilateral ears 18604429776 02388 Active 2023 MARISOL COATS PA-C [address] [facility] [place] [address], [place], [address] , [facility] [place] 4 12:47:20 Sensorine ural hearing loss of bilateral ears 655117850 Active 2023 MARISOL COATS PA-C [address] [facility],[place] [address], [facility] [place], [address] , [facility] - [facility] [place] 4 12:47:35 Dysphonia 61795649 Active 2023 Hoarsenes s; Note: Date Diagnosed : 09/25/2023 11:42 AM (R49.0) Not Available [facility] 4 02:27:30 Problem Notes None recorded. Procedures Surgical History Date Name Laterality Status Provider Name and Address Organization Details Recorded Time 4 Comp Audio with Tymps - 19744 & 42389 completed DEBBI MITTAL MA, CCC-A [address] [facility],[place] [address], [place], [address], [facility] - [facility] [place] 12/25/2023 12:12:18 Cerumen removal without microscope bilat completed MARISOL COATS PA-C [address] [facility],[place] [address], [place], [address], [facility] - [facility] [place] 12/25/2023 12:47:16 Imaging Results Imaging Date Name Status LastModified by Organiz ation Details LastModified Time 12/30/2023 audiogram completed Information n ot available 12/30/2023 13:29:11 11/10/2021 [...] Name and Address Organization Details Recorded Time 061974 fluticaso ne Not available lighthead edness Not available Not available 01/24/2024 35244 RxNorm React ion: Light heade dness ; Not Available [facility] 4 00:24:24 34373 floxacill in Not available other Not available Not available 11/05/2023 4448 RxNorm React ion: Unkno wn; Not Available [facility] 4 00:52:01 44402 Bactrim medicatio n other Not available Not available 11/05/2023 46484 9 RxNorm React ion: Unkno wn; Not Available [facility] 4 00:52:08 Medications Name Sig Start Date [...] Code Diagnosis ICD10 Code Diagnosis Note 6328 MARISOL COATS PA-C [facility] [address] [address] 12/25/2023 10:51:24 12/25/2023 12:50:30 Impacted cerumen of bilateral ears 2778313403 297105 H61.23 Sensorineu ral hearing loss of bilateral ears 179002480 H90.3 6491 DEBBI MITTAL MA, CCC-A [facility] [address] [address] 12/25/2023 12:11:34 12/31/2023 11:38:32 Sensorineural hearing loss of bilateral ears 592100359 H90.3 RIGHT EAR: Borderline normal/ mild SNHL [...] Name 12/25/2023 2 [place] [id number] Melanie R Irma [id number] Melanie R Irma 12/25/2023 1 [place] Melanie R Irma [id number] Melanie R Irma 12/25/2023 2 [place] [id number] Melanie R Irma [id number] Melanie R Irma 12/25/2023 1 [place] Melanie R Irma [id number] Melanie R Irma Notes Date Note [...] blurry vision with use. SOFIA EDGAR MD [address] [place] [address], [address], [facility] - [facility] 12/25/2023 14:36:40 OBGyn Episode No OBEpisode recorded.
--- OUTSIDE RECORDS SUMMARY | 2024-10-26 14:50 | XMS_ITS ---
Author Organization [facility] Address [address] [place] [address] Care Team Providers Care Catering Service Manager Name Role Phone Owen Mcdonald MD Primary [...] 07/29/2024 Encounters Encounter Location Date Provider Diagnosis [facility] [address] [place] [address] 07/29/2024 Ranjit Qunin Jr Gastro-esophageal reflux disease without esophagitis K21.9 [...] Name:Ranjit gilmore Jr, 08/02/2025 10:40:00 AM, [address], [address], [place], [address], Progress Notes * MELANIE ENCISO RDOB:[birth year] (83 yo F)Acc No.[id number]:07/29/2024 Progress Notes Patient:?MELANIE ENCISO Provider:?Ranjit Quinn MD :1940???Age:83 Y???Sex:Female D ate:07/29/2024 Address:[address] [place], [place] [phone] Pcp:Owen Mcdonald MD Subjective: * Chief Complaints: [...] MD Date:?0 07/29/2024 Generated for Martina hughes/Jesse/eTransmitting on:?10/26/2024 02:50 PM EDT History and Physical Notes * [...]
--- OUTSIDE RECORDS SUMMARY | 2024-10-26 14:51 | XMS_ITS ---
Author Organization Owen Mcdonald MD Address [address] [place], [place] [id number] Care Team Providers Care Chief Informatics Officer Name Role Phone Owen Mcdonald Primary Care Provider Results Component Value Reference Range Notes Microalbumin, Random (Not ye t reviewed by provider) Interpretation: Performing Lab:[facility], [address] [place] [phone] Notes/Report: Creatinine Urine 47.28 Microalbumin Urine 8.0 Microalbum/Creatinine Ratio Ur 16.9 <30 ug/mg cr Albumin/Creatinine Ratio Reference Ranges: Normal: < 30 ug/mg creatinine Microalbuminuria: 30 - 300 ug/mg creatinine Clinical Albuminuria: > 300 ug/mg creatinine UA ClnCatch+Micro w/rflx Cul t Reviewed date:10/26/2024 02:01:04 PM Interpretation: Performing Lab:[facility], [address] [place] [id number] Notes/Report: Urine, Clean Catch Color Urine Dark Yellow Appearance Urine Turbid PH 7.5 5.0-9.0 Glucose Urine UA Negative Negative mg/dL Urine Blood Negative Negative Specific [place] - Urine 1.015 1.005-1.025 Urine Protein Negative [...] Condon 0 10/26/2024 11:08:52 AM >referral info faxed Referral Priority Routine REASON FOR VISIT comp visits, Patient states [...] Signs Blood pressure systolic 134 mm Hg 05/05/20 25 Blood pressure diastolic 50 mm Hg 025 Height 60.5 in 10/26/2024 Weight 136 lbs 10/26/2024 BMI 26.12 kg/m2 10/26/2024 weight is dwn 4 pounds since 09-28-24 Encounters Encounter Location Date Provider Diagnosis Owen Mcdonald MD [address] [place] [address] [place] [phone] 10/26/2024 Owen Mcdonald Prediabetes R73.09 ; Pure hypercholesterolemia E78.00 ; Acquired hypothyroidism E03.9 ; Poor balance R26.89 and Carpal tunnel syndrome G56.00 Assessments Encounter Date Diagnosis (ICD Code) Assessment Notes Treatment Notes Treatment Clinical Notes Section Notes 10/26/2024 Prediabetes (ICD-10 - R73.09) 10/26/2024 Pure hypercholesterolemia (ICD-10 - E78.00) 10/26/2024 Acquired hypothyroid ism (ICD-10 - E03.9) 10/26/2024 Poor balance (ICD-10 - R26.89) send to [facility] neurology/ dr oakes 10/26/2024 Carpal tunnel syndro me (ICD-10 - G56.00) awaiting surgery Plan Of Treatment Treatment Notes Assessment Notes Poor balance send to [facility] neurolo gy/ dr oakes Carpal tunnel syndrome awaiting surgery Pending Test Test Name Order Date Microalbumin, Random 10/26/2024 Referrals Referral Date Details 10/26/2024 10/26/2024, poor bal ance please eval and treat Has been there before, [facility] Next Appt Details Follow Up: 2 Months, Reason: Provider Name:Owen burnette, 12/29/2024 11:00:00 AM, [address] [place] [address], [address] [place] [address], [phone], Provider Name:Owen burnette, 04/23/2025 08:00:00 AM, [address] [place] [address], [address], [phone], Provider Name:Owen burnette, 04/29/2025 10:15:00 AM, [address] [place] [address], [address], [phone], Provider Name:Owen Mcknight ier, 07/29/2025 01:30:00 PM, [address], [address], [place], [phone], Provider Name:Owen Mcknight ier, 09/21/2025 08:00:00 AM, [address], [address], [place], [phone], Provider Name:Owen Mcknight ier, 09/28/2025 09:30:00 AM, [address], [address], [place], [phone], Progress Notes * Melanie SOLIS RDOB:[birth year] (84 yo F)Acc No.[id number]:10/26/2024 Patient:?Melanie SOLIS R Provider:?Owen Mcdonald MD :1940???Age:84 Y???Sex:Female D ate:10/26/2024 Address:[address] [place], [place] [id number] Subjective: * Chief Complaints: * ???1. Comp visits. 2. Patien t states very unsteady. * HPI: ???Depression Screening:?PHQ-9?Little interest or pleasure [...] of PHQ-9 found negative result, no follow-up needed.? having trouble ambulation. having groceries delivered because can't carry the up the stairs. ???Communication Needs:?Communication Needs?Does the patient have a hearing [...] it was really needed? Check all that apply:?None.?Symptom(s):? patient is a 84 yo female here for visit with review of recent labs and follow up of chronic issues. * ROS:?General/Constitutional:?Change in appetite?denies.?Chills?denies.?Fever?denies.?Ophthalmologic:?Blurred vision?denies.?Discharge?denies.?Pain?denies.?ENT:?Decreased hearing?denies.?Sore throat?denies.?Swollen glands?denies.?Endocrine:?Cold intolerance?denies.?Excessive thirst?denies.?Heat intolerance?denies.?Weight loss?denies.?Respiratory:?Cough?denies.?Shortness of breath at rest?denies.?Shortness of breath with exertion?denies.?Wheezing?denies.?Cardiovascular:?Chest pain at rest?denies.?Chest pain with exertion?denies.?Irregular heartbeat?denies.?Shortness of breath?denies.?Gastrointestinal:?Abdominal pain?denies.?Change in bowel habits?denies.?Diarrhea?denies.?Nausea?denies.?Rectal bleeding?denies.?Vomiting?denies .?Genitourinary:?Blood in urine?denies.?Difficulty urinating?denies.?Frequent urination?denies.?Urinary incontinence?Denies.?Musculoskeletal:?Patient complaining of?pain in her left wrist.?Painful joints?denies.?Weakness?denies.?Skin:?Dry skin?denies.?Itching?denies.?Denies?Mole(s),? changes in moles, new moles or any lesions of concern.?Denies?Photosensitivity.?Rash?denies.?Neurologic:?Admits?Balance difficulty.?Admits?Dizziness,?denies.?Fainting?denies.?Admits?Gait abnormality.?Denies?Headache,?denies.? * Medical History:?Upper endos copy 2011, colonoscopy 2008 due in 5 years; colonoscopy 07/22/[address] Quinn, colonoscopy done 09/18/17 Normal no need to repeat , complete Hysterectomy 02/1995, Upper Endoscopy w/Biopsy 06/26/[address] Quinn, Thyroid nodule. needs no further follow up 2022. * Family History:?Father: dece ased 43 yrs.?Mother: 83 yrs, colon cancer.?1 son(s) . .? Father-CA Mother-CVA, Denies mental health/substance abuse family history, [...] unemployed. Pets: none. Travel outside of the [facility]: no. * Medications:?Taking Citracal Calcium+D , Taking Vitamin [...] Date 03/26/2019. Objective: * Vitals:?Ht: 60.5, Wt: 136, B CA:26.12, BP:134/50, Wt-k.69. weight is dwn 4 pounds since 09-28-24. * ???Past Orders: ???Lab:Lipid Panel (Order Da te - 10/19/2024) (Collection Date & Time - 10/19/2024 07:15 AM) ? Value Reference Range ?Triglycerides 138 <150 - mg/dL ?Cholesterol 122 <200 - m g/dL ?LDL Cholesterol Calculated 51 <100 - mg/dL ?HDL Cholesterol 44 >40 - mg/dL ???Lab:TSH reflex Free T4 (O rder Date - 10/19/2024) (Collection Date & Time - 10/19/2024 07:15 AM) ? Value Reference Range ?TSH reflex Free T4 1.94 0 .32-4.0 - uIU/mL ???Lab:Hemoglobin A1c (Order Date - 10/19/2024) (Collection Date & Time - 10/19/2024 07:15 AM) ? Value Reference Range ?Hemoglobin A1c % 5.6 <6. 0 - % ?Estimated Average Glucose 114 - mg/dL Lab:Complete Blood [...] g/dl) Hematocrit 40.3 (Ref Range: 37.0-47.0 %) 36.6?L (Ref Range: 37.0-47.0 %) Mean Corpuscular Volume [...] (Ref Range: 160-400 X10*3/uL) Mean Platelet Volume 8.8?L (Ref Range: 9.4-12.3 fL) 8.2?L (Ref Range: 9.4-12.3 fL) Neutrophils Percent Auto 70.9 (Ref Range: 45-73 %) 65.9 (Ref Range: 45-73 %) Imm Gran Pct Auto 0.1 (Ref Range: 0.0-0.4 %) 0.4 (Ref Range: 0.0-0.4 %) Lymphocytes Percent Auto 18.8?L (Ref Range: 20-40 %) 21.6 (Ref Range: [...] X10*3/uL) 0.000 (Ref Range: 0.0-0.012 X10*3/uL) ???Lab:Comprehensive [place]. Panel Fast (Order Date - 10/19/2024) (Collection Date & Time - 10/19/2024 07:15 AM)?ValueReference Range?Wiydtq497851- 145 - mmol/L?Bilirubin Total0.50.0-1.0 - mg/dL?Aspartate Amino Ddigjzuflhn006-40 - U/L?Alanine Gbhovbrjmcewqbwt951-26 - U/L?Total Protein7.06.5-8.0 - g/dL?Albumin Level4.33.5-5.0 - g/dL?Alkaline Byfuzcsndrj3005-826 - U/L?Potassium4.23.3-5.1 - mmol/L?Esnlhuef51789-646 - mmol/L?Carbon Vygvlmt8082-82 - mmol/L?Anion Cnc5261-47 -?Blood Urea Mifiteun46S0-43 - mg/dL?Creatinine0.690.5-1.4 - mg/dL?Estimated Glomerular Filt Rate> 60-?Glucose Mptyfgq269A40-55 - mg/dL?Calcium9.88.4-10.2 - mg/dL ???Lab:Vitamin B12 and Folate (Order Date - 10/13/2024) (Collection Date & Time - 10/13/2024 03:21PM)?ValueReference Range?Vitamin [id number] - pg/mL?Prphrc94.4> or = 4.0 - ng/mL ???Lab:Lactate Dehydrogenase (Order Date - 10/13/2024) (Collection Date & Time - 10/13/2024 03:21 PM)?ValueReference Range?Lactate Povyzayirwbye117039-684 - U/L * Examination: ???General Examination: ?GENERAL APPEARANCE:?well developed, well nourished, in no acute distress.?HEAD:?normocephalic, atraumatic.?EYES:?pupils equal, round, reactive to light and accommodation, sclera non-icteric.?EARS:?normal.?ORAL CAVITY:?mucosa moist.?THROAT:?clear.?NECK/THYROID:?neck supple, full range of motion, no cervical lymphadenopathy, no bruits.?SKIN:?warm and dry, no suspicious lesions.?HEART:?regular rate and rhythm, S1, S2 normal, no murmurs.?LUNGS:?clear to auscultation bilaterally.?BREASTS:?No mass, no lump.?ABDOMEN:?soft, nontender, nondistended, bowel sounds present, normal, no organomegaly , no masses palpable.?RECTAL EXAM:?no masses palpable, stool guaiac negative.?FEMALE GENITOURINARY:?not done.?EXTREMITIES:?no clubbing, cyanosis, or edema.?NEUROLOGIC:?nonfocal, motor strength normal upper and lower extremities, sensory exam intact no tremor and no cog wheeling?.? Assessment: * Assessment: 1.?Prediabetes - R73.09 (Kenisha taylor)???2.?Pure hypercholesterolemia - E78.00???3.?Acquired hypothyroidism - E03.9???4.?Poor balance - R26.89???5.?Carpal tunnel syndrome - G56.00??? Plan: * Treatment: 2.?Pure hypercholesterolemia ?LAB: Microalbumin, Random (Collection Date & Time - 10/26/2024 10:30 AM) ?LAB: UA ClnCatch+Micro w/rflx Cult (Collection Date & Time - 10/26/2024 10:30 AM) 3.?Poor balance? Notes: send to [facility] neurology/ dr oakes? Referral To:[facility]??Neurology ?Reason:poor balance please eval and treat Has been there before 4.?Carpal tunnel syndrome? Notes: awaiting surgery?? * Follow Up:?2 Months * * The named appointment provid er may or may not be the originator of this progress note, and it is not deemed complete until electronically signed by the appointment provider. Sign off status: Pending * Provider:?Owen Mcdonald MD Date:?0 10/26/2024 Generated for Martina hughes/Jesse/eTtalitasmitting on:?10/26/2024 02:51 PM EDT History and Physical Notes * [...] round, reactive to light and accommodation, sclera non- icteric EARS: normal THROAT: clear NECK/THYROID: neck supple, [...]
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
--- OUTSIDE RECORDS SUMMARY | 2024-10-26 14:51 | XMS_ITS ---
Author Organization Owen Mcdonald MD Address [address] [place], [place] [phone] Care Team Providers Care Type Caster Name Role Phone Owen Mcdonald Primary Care Provider Results Component Value Reference Range Notes Complete Blood Count Auto Di ff Reviewed date:10/19/2024 12:45:02 PM Interpretation: Performing Lab:[facility], [address] [place] [address] Notes/Report: White Blood Count 6.9 4.8-10.8 X10*3/uL [...] NRBC Abs Auto 0.000 0.0-0.012 X10*3/uL Comprehensive [place]. Panel Fa st Reviewed date:10/19/2024 05:13:39 PM Interpretation: Performing Lab:[facility], [address] [place] [phone] Notes/Report: Sodium 140 135-145 mmol/L Potassium 4.2 [...] Panel Reviewed date:10/19/2024 12:45:11 PM Interpretation: Performing Lab:[address] [address] Notes/Report: Triglycerides 138 <150 mg/dL Desirable Triglyceride: [...] T4 Reviewed date:10/19/2024 12:44:44 PM Interpretation: Performing Lab:[address] [address] Notes/Report: TSH reflex Free T4 1.94 0.32-4.0 uIU/mL Hemoglobin A1c Reviewed date:10/19/2024 12:44:36 PM Interpretation: Performing Lab:[address] [address] Notes/Report: Hemoglobin A1c % 5.6 <6.0 % [...] average glucose, using the formula of the D2Q-Vlarwyf Average Glucose study (ADAG), Diabetes Care, Vol.31,#8, Jan. 2007 REASON FOR VISIT yearly fasting labs Encounters Encounter Location Date Provider Diagnosis Owen Mcdonald MD [address] [place] [phone] 10/19/2024 Owen Mcdonald Acquired hypothyroid ism E03.9 [...] Cult 10/19/2024 Next Appt Details Provider Name:Owen burnette, 12/29/2024 11:00:00 AM, [address] [place] [address], [address], [phone], Provider Name:Owen burnette, 04/23/2025 08:00:00 AM, [address] [place] [address], [phone], Provider Name:Owen burnette, 04/29/2025 10:15:00 AM, [address] [place] [address], [phone], Provider Name:Owen burnette, 07/29/2025 01:30:00 PM, [address] [place] [address], [phone], Provider Name:Owen burnette, 09/21/2025 08:00:00 AM, [address] [place] [address], [phone], Provider Name:Owen burnette, 09/28/2025 09:30:00 AM, [address] [place] [address], [phone], Progress Notes * Melanie SOLIS RDOB:[birth year] (84 yo F)Acc No.[id number]:10/19/2024 Progress Note Patient:Melanie HO Provider:?Owen Mcdonald MD :1940???Age:84 Y???Sex:Female D ate:10/19/2024 Address:[address] [place], [place] [phone] Subjective: * Chief Complaints: * ???1. Yearly fasting labs. * Medical History:? Objective: * Vitals:? Assessment: * Assessment: 1.?Acquired hypothyroidism - E03.9 (Primary)???2.?Prediabetes - R73.09???3.?Pure hypercholesterolemia - E78.00???4.?Thrombocytopenia - D69.6??? Plan: * Treatment: 2.?Prediabetes?LAB: Microalbumin, Random ?LAB: UA ClnCatch+Micro w/rflx Cult ?LAB: Complete Blood Count Auto Diff (Collection Date & Time - 10/19/2024 07:15 AM) ?LAB: Comprehensive [place]. Panel Fast (Collection Date & Time - 10/19/2024 07:15 AM) ?LAB: Lipid Panel (Collection Date & Time - 10/19/2024 07:15 AM) ?LAB: TSH reflex Free T4 (Collection Date & Time - 10/19/2024 07:15 AM) ?LAB: Hemoglobin A1c (Collection Date & Time - 10/19/2024 07:15 AM) 3.?Pure hypercholesterolemia ?LAB: Microalbumin, Random ?LAB: UA ClnCatch+Micro w/rflx Cult ?LAB: Complete Blood Count Auto Diff (Collection Date & Time - 10/19/2024 07:15 AM) ?LAB: Comprehensive [place]. Panel Fast (Collection Date & Time - 10/19/2024 07:15 AM) ?LAB: Lipid Panel (Collection Date & Time - 10/19/2024 07:15 AM) ?LAB: TSH reflex Free T4 (Collection Date & Time - 10/19/2024 07:15 AM) ?LAB: Hemoglobin A1c (Collection Date & Time - 10/19/2024 07:15 AM) 4.?Thrombocytopenia?LAB: Microalbumin, Random ?LAB: UA ClnCatch+Micro w/rflx Cult ?LAB: Complete Blood Count Auto Diff (Collection Date & Time - 10/19/2024 07:15 AM) ?LAB: Comprehensive [place]. Panel Fast (Collection Date & Time - 10/19/2024 07:15 AM) ?LAB: Lipid Panel (Collection Date & Time - 10/19/2024 07:15 AM) ?LAB: TSH reflex Free T4 (Collection Date & Time - 10/19/2024 07:15 AM) ?LAB: Hemoglobin A1c (Collection Date & Time - 10/19/2024 07:15 AM) * Procedure Codes:?05264 VENIP UNCT, ROUTINE* * * The named appointment provid er may or may not be the originator of this progress note, and it is not deemed complete until electronically signed by the appointment provider. Sign off status: Pending * Provider:?Owen Mcdonald MD Date:?0 10/19/2024 Generated for Martina hughes/Jesse/Donnyitting on:?10/26/2024 02:51 PM EDT
--- OUTSIDE RECORDS SUMMARY | 2024-10-26 14:51 | XMS_ITS ---
Author Organization [facility] Address [address] [place] [address] Care Team Providers Care Salesperson Corsets Name Role Phone Owen Mcdonald MD Primary Care Provider Kiara Long Unavailable [phone] Danny Rhodes [phone] Encounters Encounter Location Date Provider Diagnosis [address] [address] 01/01/2024 Danny Rhodes Plan Of Treatment No Information Progress Notes * Melanie SOLIS RDOB:[birth year] (84 yo F)Acc No.[id number]:01/01/2024 Progress Note Patient:Melanie HO Provider:?Danny Rhodes DPM :1940???Age:83 Y???Sex:Female D ate:01/01/2024 Address:[address] [place], [place] [id number] Pcp:Owen Mcdonald MD Subjective: * Chief Complaints: [...] Date:? 024 Generated for Printi ng/Faxing/eTransmitting on:?10/26/2024 02:50 PM EDT
--- OUTSIDE RECORDS SUMMARY | 2024-10-26 14:51 | XMS_ITS ---
Author Organization [facility] Address [address] [place] [address] Care Team Providers Care Appliance Painter And Refinisher Name Role Phone Owen Mcdonald MD Primary [...] Active Vitamin D (Cholecalciferol) 50 MCG (1999 GA) 1 capsule Orally Once a day for [...] 07/29/2023 Encounters Encounter Location Date Provider Diagnosis [facility] [address] [place] [address] 07/29/2023 Ranjit Quinn Jr Screening for colon [...] 10:40:00 AM, [address], [address], [place], [address], Progress Notes * MELANIE ENCISO RDOB:[birth year] (82 yo F)Acc No.[id number]:07/29/2023 Progress Notes Patient:?MELANIE ENCISO Provider:?Ranjit Quinn MD :1940???Age:82 Y???Sex:Female D ate:07/29/2023 Address:[address] [place], [place] [phone] Pcp:Owen Mcdonald MD Subjective: * Chief Complaints: [...] Provider:?Ranjit Quinn MD Date:?0 07/29/2023 Generated for Printi saul/Jesse/eTransmitting on:?10/26/2024 02:50 PM EDT History and Physical [...]
--- OUTSIDE RECORDS SUMMARY | 2024-10-26 14:51 | XMS_ITS ---
Author Organization [facility] Address [address] [facility] [place] [address] Care Team Providers Care Planner Scheduler Name Role Phone Owen Mcdonald MD Primary Care Provider Efrem westmejia RositaKiara Unavailable [phone] Black, Clary Unavailable [phone] Allergies Allergen (clinical drug ingredient) Drug/Non Drug [...] Status Risk Notes Problem Acquired hallux valgus (56644554) Hallux valgus (acquired), left foot (M20.12) Active confirmed Problem Acquired hammer toe of right foot (8521391912706041) Other hammer toe(s) (acquired), right foot (M20.41) Active confirmed Problem Localized, primary osteoarthritis of the ankle and/or foot (097954945) Arthritis of joint of lesser toe, right (M19.071) Active confirmed Problem Acquired hammer toe of left foot (2073390659740656) Other hammer toe(s) (acquired), left foot (M20.42) Active confirmed Problem Arthritis of joint of lesser toe, left (M19.072) Active confirmed Vital Signs Height 5 ft in 03/05/2024 Weight 140 lbs 03/05/2024 BMI 27.34 kg/m2 03/05/2024 Blood pressure systolic 138 mm Hg 03/05/20 24 Blood pressure diastolic 58 mm Hg 024 Procedures Procedure Date Ordered Date Performed Result Body Sit e 89457-NMTW SKIN LESIONS, 2 TO 4 03/05/2024 N/A B0876-JUYEBTEJ DYSTROPHIC NAILS ANY # 03/05/2024 N/A Encounters Encounter Location Date Provider Diagnosis [facility] [place] [address] [place] [address] 03/05/2024 Calry Black Pain in left foot M79.672 ; [...] Treatment Pending Test Test Name Order Date 79701-NSGV SKIN LESIONS, 2 TO 4 03/05/20 24 S7860-OVKWHNIA DYSTROPHIC NAILS ANY # Next Appt Details Follow Up: prn, Reason: Procedure Notes * Category Sub-Category Detail Notes Keratoma Treatment Parring or Cutting o f Benign Hyperkeratotic Lesion(s) 74054-SL Self Pay Non-Covered Callus care- Nail Reduction Nail Reduction Y7362-HZ Trimmin g of noncovered dystrophic nails, any number - Progress Notes * Melanie SOLIS RDOB:[birth year] (83 yo F)Acc No.[id number]:03/05/2024 Progress Note Patient:?Irma Melanie R Provider:?Clary Amos DPM :1940???Age:83 Y???Sex:Female D ate:03/05/2024 Address:[address] [place], [place] [address] Pcp:Owen Mcdonald MD Subjective: * Chief Complaints: [...] loop recorder 04/23/2019 * Hospitalization/Major Diagno stic Procedure:?[facility] - slight stroke 02/2019 * Family History:?Mother: [...] * Vitals:?Ht: 5 ft, Wt: 140, B MA: 27.34, Shoe size: 5W, BP: 138/58 mm [...] L60.3?17.?Keratoma - L57.0? Plan: * Treatment: 2.?Keratoma?Procedure: 60551-LIXW SKIN LESIONS, 2 TO 4 * Procedures:?Keratoma Treatment:?Parring or Cutting of Benign Hyperkeratotic Lesion(s)?41451-XR Self Pay Non-Covered Callus care-.?Nail Reduction:?Nail Reduction?F9370-FE Trimming of noncovered dystrophic nails, any number -.? * Procedure Codes:?27847 TRIM SKIN LESIONS, 2 TO 4 $60, [...] Amos DPM Date:?2023 Generated for Martina hughes/Jesse/Fatou on:?10/26/2024 02:50 PM EDT History and Physical [...]
--- OUTSIDE RECORDS SUMMARY | 2024-10-26 14:51 | XMS_ITS ---
Author Organization Owen Mcdonald MD Address [address] [place], [place] [phone] Care Team Providers Care Taffy Candy Maker Name Role Phone Owen Mcdonald Primary Care Provider [phone] REASON FOR VISIT left wrist pain x [...] Status Risk Notes Problem Carpal tunnel syndrome (G56.00) Active confirmed Vital Signs Blood pressure systolic 154 mm Hg 09/29/19 25 Blood pressure diastolic 56 mm Hg 025 Height 60.5 in 09/28/2024 Weight 140 lbs 09/28/2024 BMI 26.89 kg/m2 09/28/2024 Encounters Encounter Location Date Provider Diagnosis Owen Mcdonald MD [address] [place] [address] [place] [phone] 09/28/2024 Owen Mcdonald Carpal tunnel syndrome G56.00 Assessments Encounter Date Diagnosis (ICD Code) Assessment Notes Treatment Notes Treatment Clinical Notes Section Notes 09/28/2024 Carpal tunnel syndrome (ICD-10 - G56.00) try a wrist splint/ order faxed to [facility] dept, pending diagnostic testing Plan Of Treatment Treatment Notes Assessment Notes Carpal tunnel syndrome try a wrist splin t/ order faxed to [facility] dept, pending diagnostic testing Pending Test Test Name Order Date EMG 09/28/2024 Nerve Conduction Study 09/28/2024 Next Appt Details Follow Up: 4 Weeks, Reason: Provider Name:Owen burnette, 12/29/2024 11:00:00 AM, [address] [place] [address], [address], [phone], Provider Name:Owen burnette, 04/23/2025 08:00:00 AM, [address] [place] [address], [address], [phone], Provider Name:Owen burnette, 04/29/2025 10:15:00 AM, [address] [place] [address], [address], [phone], Provider Name:Owen burnette, 07/29/2025 01:30:00 PM, [address] [place] [address], [address], [phone], Provider Name:Owen burnette, 09/21/2025 08:00:00 AM, [address] [place] [address], [address], [phone], Provider Name:Owen Mcknight ier, 09/28/2025 09:30:00 AM, [address] [facility], [address], [place], [phone], Progress Notes * Melanie SOLIS RDOB:[birth year] (84 yo F)Acc No.[id number]:09/28/2024 Progress Notes Patient:?Melanie SOLIS R Provider:?Owen Mcdonald MD :1940???Age:84 Y???Sex:Female D ate:09/28/2024 Address:[address] [place], [place] [phone] Subjective: * Chief Complaints: * ???Left wrist [...] Objective: * Vitals:?Ht: 60.5, Wt: 140, B NH:26.89, BP:154/56, Repeat BP:120/55, Wt-k.5. * Examination: ???General [...] Provider:?Owen Mcdonald MD Date:?0 09/28/2024 [facility]/Faxing/eTransmitting on:?10/26/2024 02:50 PM EDT History and Physical [...]
--- OUTSIDE RECORDS SUMMARY | 2024-10-26 14:52 | XMS_ITS | Patient Health Record ---
Author Organization [facility] Address [address] [place] [address] Care Team Providers Care Interface Developer Name Role Phone Owen Mcdonald MD Primary [...] Problem Status W/U Status Risk Notes Problem 238132136 Gastro-esophagea l reflux disease without esophagitis (K21.9) Active confirmed Problem 447503829 Change in bowel habits (R19.4) Active confirmed Problem 186639832 Screening for colon cancer (Z12.11) Active confirmed Vital Signs Temperature 97.5 degrees Fahrenheit 07/29/2024 Blood pressure diastolic 00 mm Hg 07/29/2024 Height 59.50 in 07/29/2024 Blood pressure systolic 000 mm Hg 07/29/2024 Weight 143 lbs 07/29/2024 BMI 28.40 kg/m2 07/29/2024 Encounters Encounter Location Date Provider Diagnosis [facility] [address] [place] [address] 07/29/2024 Ranjit Quinn Jr Gastro-esophageal reflux disease [...] 10:40:00 AM, [address], [address], [place], [address], Insurance Providers Payer Name Payer Address Payer Phone Subscriber Number Group Number Insured Name Patient Relationship to Insured Coverage Start Date Coverage End Date MEDICARE [place] [address] [place] [id number] SOPHIE ENCISO Self - patient is the insured MEDEX ATTN CLAIMS [address] [place] [address] [id number] NATE ENCISOTE Self - patient is [...]
--- OUTSIDE RECORDS SUMMARY | 2024-10-26 14:52 | XMS_ITS | Patient Health Record ---
Author Organization [facility] [place] Address [address] [place] [address] Care Team Providers Care Microcomputer Technician Name Role Phone Harry MACKEY, Owen Primary Care Provider Kiara Long Unavailable [phone] Black, Clary Unavailable [phone] Danny Rhodes Unavailable [phone] Allergies Allergen (clinical drug ingredient) Drug/Non Drug [...] Problem Acquired hammer toe of right foot (9678978457114568) Other hammer toe(s) (acquired), right foot (M20.41) Active confirmed Problem Acquired hammer toe of left foot (8180822709330108) Other hammer toe(s) (acquired), left foot (M20.42) Active confirmed Problem 998930103158291 Hallux valgus (acquired), right foot (M20.11) Active confirmed Problem Acquired hallux valgus (52409410) Hallux valgus (acquired), left foot (M20.12) Active confirmed Problem 708030114146840 Hallux valgus (acquired), right foot (M20.11) Active confirmed Problem 907246715 Hammer toe of right foot (M20.41) Active confirmed Problem 628061032992702 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 Problem 85412826422585902 Atherosclerosi s of artery of both lower extremities (I70.203) Active confirmed Problem Localized, primary osteoarthritis of the ankle and/or foot (717398427) Arthritis of joint of lesser toe, left (M19.072) Active confirmed Problem Localized, primary osteoarthritis of the ankle and/or foot (542387792) Arthritis of joint of lesser toe, right (M19.071) Active confirmed Vital Signs Blood pressure diastolic 58 mm Hg 03/05/2024 Height 5 ft in 03/05/2024 Blood pressure systolic 138 mm Hg 03/05/2024 Weight 140 lbs 03/05/2024 BMI 27.34 kg/m2 03/05/2024 Procedures Procedure Date Ordered Date Performed Result Body Sit e 65834-IFNQ SKIN LESIONS, 2 TO 4 03/05/2024 N/A I4093-AUOULUJS DYSTROPHIC NAILS ANY # 03/05/2024 N/A Encounters Encounter [facility] Date [facility] [address] 03/05/2024 Clary Black Pain in left foot [...] ; Dystrophic nail L60.3 and Keratoma L57.0 [facility] [address] [address] 11/14/2023 Kiara Becker Assessments Encounter Date Diagnosis [...] X ray : Foot, right 3V 04/11/2022 19426-JJJZ SKIN LESIONS, 2 TO 4 03/05/20 24 V5362-PYNEFTPV DYSTROPHIC NAILS ANY # Insurance Providers Payer Name Payer Address Payer Phone Subscriber Number Group Number Insured Name Patient Relationship to Insured Coverage Start Date Coverage End Date Medicare National [employer] [address] [facility] [place] [address] [phone] [id number] Melanie Solis Self - patient is the insured [facility] [address] [place] [address] [phone] [id number] Melanie Solis Self - patient is [...] 04/23/2019 Hospitalization History Reason Date(Month/Year[place] [facility] [place]
== END 2024-10-26 13:23 | disposition home or self-care (01) ==
LOC: HO.LNP 13:22
PROVIDERS: Visit Provider Internal Medicine
DX: R73.03 Prediabetes (principal); E78.00 Pure hypercholesterolemia, unspecified
CPT/HCPCS: 81001; 82043; 82570; 87086

== ENCOUNTER 2024-10-27 14:08 | Outpatient (AMB) | payer MEDICARE, SELFPAY ==
[2024-10-27 14:31] VITALS: BMI 26.0
--- NOTE | 2024-10-27 14:31 | A.OFFVIS_ITS ---
Vital Signs 10/27/24 14:31 Height 5 ft Weight 133 lb BMI 26.0 Intake Visit Reasons: [facility]-Bilateral CTS Intake Note: Jennifer 84 yr old right hand dominant female presents today for a new patient visit for CTS in both hands. States her left is worse. States symptoms started beginning of August and has not improved. States she has concerns due to numbness and tingling being constant on some days. Reports pain in her wrist with over use of hand and has sensitivity on her volar aspect of wrist. States she tries not to do any pinching or gripping motion of fear from increase of pain. No injury she can recall. MPRESSION: 1. Yjte-mm-hsnenrme bilateral median neuropathy across carpal tunnel. 2. Right Hector Chip anastomosis, normal variant. Allergies sulfur Allergy (Severe, Verified 10/27/24 14:38) internal hives Sulfa (Sulfonamide Antibiotics) Allergy (Mild, Verified 10/27/24 14:38) UNKNOWN ciprofloxacin [Cipro] Allergy (Unknown, Verified 10/27/24 14:38) hives pneumococcal vaccine Allergy (Unknown, Verified 10/27/24 14:38) palm sized welt, inflamed HPI HPI [facility]-Bilateral CTS: Details: Melanie is an 84 year old right hand dominant woman who presents for a NCS review. She complains of bilateral hand numbness, L>R. Symptoms intermittent, but daily, worse at night. She feels this is becoming more constant recently in her left hand. She says she has pain & is not able to make with her left hand, limited by pain. She denies any locking or catching She is on Plavix due to a Hx of a CVA in 2019. She says this is well managed and her doctor has no concerns at this time. [facility]LY [facility] Medical History Cervical disc disease Esophagitis GERD (gastroesophageal reflux disease) Hypercholesterolemia Hypothyroidism Occipital stroke Pre-diabetes Thrombocytopenia Tubular adenoma of colon Surgical History H/O breast biopsy H/O colonoscopy History of esophagogastroduodenoscopy (EGD) History of hysterectomy Family History Maternal Grandmother Colon cancer Daughter Father Heart attack Mother Stroke Social History Household Members: None Housing: House Are you a primary farm or ranch animal caretaker to a significant other at home: No Do you presently have visiting nurse or other home services: No Alcohol intake: current Alcohol intake frequency: a few times a month Alcohol type: wine Patient Tobacco Use Status: Never used Tobacco Advance Directives Date on File: 12/28/20 service: No Current occupational status: retired Review of Systems Const All systems reviewed & are unremarkable except as noted in HPI and below Physical Exam Vital Signs: BMI result Body Mass Index 26.0 Const General: cooperative, healthy appearing and no acute distress Orientation/consciousness: patient oriented x3 HEENT Head: Yes normocephalic and Yes atraumatic Eyes EOM: EOMs intact bilaterally Resp Effort & Inspection: normal respiratory effort and able to speak in complete sentences Cardio Jugular venous distension: no JVD Skin General skin exam: turgor normal Rashes: no rashes Neuro General: patient oriented x3 Extrem Other: Evaluation of Left Upper Extremity: The patient is alert, oriented, and in no acute distress Neuro: Dense numbness in the median nerve distribution. Normal sensation in the ulnar nerve distribution No thenar or intrinsic wasting Good APB muscle belly firing and good finger cross Vascular: Cap refill brisk ROM: With encouragement she is able to make a weak fist and extend all her digits Some arthritic changes to her hand Skin: No lacerations or abrasions. General: No Ecchymosis. No Erythema or evidence of infection. Nerve Condution Study: IMPRESSION: 1. Gorf-jq-jzywfcyk bilateral median neuropathy across carpal tunnel. 2. Right Hector Chip anastomosis, normal variant. Dusty Presley MD 10/13/2024 Psych Appearance: grossly normal Affect: normal affect Attitude: cooperative Assessment & Plan Assessment & Plan (1) Carpal tunnel syndrome of left wrist: Code(s): G56.02 - Carpal tunnel syndrome, left upper limb Category: Medical (2) Carpal tunnel syndrome of right wrist: Code(s): G56.01 - Carpal tunnel syndrome, right upper limb Category: Medical (3) CVA (cerebral vascular accident): Code(s): I63.9 - Cerebral infarction, unspecified Category: Medical Plan Assessment & Plan: 1. Left carpal tunnel syndrome, mild-moderate With dense numbness This is her chief complaint today I educated her about this condition I discussed operative and non-operative treatment options The patient would like to proceed with surgery The risks and benefits of operative treatment were discussed with the patient and the patient wishes to proceed with surgery. These risks include, but are not limited to risk of damage to blood vessels, nerves, tendons, infection, recurrence, incomplete relief of preoperative symptoms, persistent pain, possible need for further surgery and the risks associated with regional blocks and anesthesia. The plan is to take the patient to the operating room sometime in the next few weeks for the following procedures: 1. Left carpal tunnel release, under local All of the preoperative paperwork including the consent was reviewed today. All the patient's questions were answered. The patient understands that they will be contacted by our wound/ostomy nurse soon to schedule this procedure She denies Diabetes, asthma, heart, lung, kidney issues She has a Hx of a CVA and is taking Plavix 2. Right carpal tunnel syndrome, mild-moderate Relatively asymptomatic at this time We can discuss treatment options when her left hand has recovered Scribed for Brinda Esquivel MD by J Carlos Fisher, medical assistant internal medicine, on 10/27/24 at 2:55 PM, EST. Coding Level of Care Code New Pt Level 4 (47219) Diagnoses Carpal tunnel syndrome of left wrist G56.02 Carpal tunnel syndrome of right wrist G56.01 CVA (cerebral vascular accident) I63.9
--- OUTSIDE RECORDS SUMMARY | 2024-10-27 15:29 | XMS_ITS ---
Author Organization [facility] Address [address] [place] [address] Care Team Providers Care Land Department Head Name Role Phone Owen Mcdonald MD Primary [...] 07/29/2024 Encounters Encounter Location Date Provider Diagnosis [facility] [address] [place] [address] 07/29/2024 Ranjit Quinn Jr Gastro-esophageal reflux disease [...] Name:Ranjit gilmore Jr, 08/02/2025 10:40:00 AM, [address], [address], [place], [address], Progress Notes * MELANIE ENCISO RDOB:[birth year] (83 yo F)Acc No.[id number]:07/29/2024 Progress Notes Patient:?MELANIE ENCISO Provider:?Ranjit Quinn MD :1940???Age:83 Y???Sex:Female D ate:07/29/2024 Address:[address] [place], [place] [id number] Pcp:Owen Mcdonald MD Subjective: * Chief Complaints: [...] MD Date:?0 07/29/2024 Generated for Martina hughes/Jesse/eTransmitting on:?10/27/2024 03:29 PM EDT History and Physical Notes * [...]
--- OUTSIDE RECORDS SUMMARY | 2024-10-27 15:29 | XMS_ITS ---
Author Organization [facility] Address [address] [place] [address] Care Team Providers Care Hand Meat Salter Name Role Phone Owen Mcdonald MD Primary Care Provider Kiara Long Unavailable [phone] Danny Rhodes [phone] Encounters Encounter Location Date Provider Diagnosis [address] [address] 01/01/2024 Danny Rhodes Plan Of Treatment No Information Progress Notes * Melanie SOLIS RDOB:[birth year] (84 yo F)Acc No.[id number]:01/01/2024 Progress Note Patient:Melanie HO Provider:?Danny Rhodes DPM :1940???Age:83 Y???Sex:Female D ate:01/01/2024 Address:[address] [place], [place] [address] Pcp:Owen Mcdonald MD Subjective: * Chief Complaints: [...] DPM Date:? 024 Generated for Printi ng/Faxing/eTransmitting on:?10/27/2024 03:29 PM EDT
--- OUTSIDE RECORDS SUMMARY | 2024-10-27 15:29 | XMS_ITS | Data Portability ---
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 [email or web address] Not available 12/25/2023 12:49:53 Plan of Treatment [...] audio gram No observ ation record ed. [email or web address] Not Available 01/2024 13:29:11 02/12/20 24 11/10/2021 [...] Organization Details Recorded Time Deviated nasal septum 730233319 Active 2021 Deviated nasal septum; Note: Date Diagnosed : 12/29/2021 3:45 PM (J34.2) Not Available [facility] 4 02:27:48 Posterior rhinorrhe a 60710112 Active 2021 Postnasal drip; Note: Date Diagnosed : 12/29/2021 3:45 PM (R09.82) Not Available [facility] 4 02:28:04 Sensorine ural hearing loss of bilateral ears 948062249 Active 2021 Sensorine ural hearing loss, bilateral ; Note: Date Diagnosed : 12/29/2021 3:45 PM (H90.3) Not Available [facility] 4 02:27:55 Chronic rhinitis 39787009 Active 2021 Chronic rhinitis; Note: Date Diagnosed : 12/29/2021 3:45 PM (J31.0) Not Available [facility] 4 02:27:40 Bilateral tinnitus 74504322274 02 Active 2021 Tinnitus, bilateral ; Note: Date Diagnosed : 12/29/2021 3:45 PM (H93.13) Not Available [facility] 4 02:27:58 Impacted cerumen of bilateral ears 95256406788 11756 Active 2023 MARISOL COATS PA-C [address] [facility] [place] [address], [place], [address] , [facility] - [facility] 4 12:47:20 Sensorine ural hearing loss of bilateral ears 425066446 Active 2023 MARISOL COATS PA-C 100 [facility],[place] [address], [place], [address] , [facility] - [facility] 4 12:47:35 Dysphonia 85962510 Active 2023 Hoarsenes s; Note: Date Diagnosed : 09/25/2023 11:42 AM (R49.0) Not Available [facility] 4 02:27:30 Problem Notes None recorded. Procedures Surgical History Date Name Laterality Status Provider Name and Address Organization Details Recorded Time 4 Comp Audio with Tymps - 97453 & 82211 completed DEBBI MITTAL MA, CCC-A 100 [facility],[place] [address], [place], [address], [facility] - [facility] 12/25/2023 12:12:18 Cerumen removal without microscope bilat completed MARISOL COATS PA-C 100 [facility],[place] [address], [place], [address], [facility] - [facility] 12/25/2023 12:47:16 Imaging Results Imaging Date Name Status LastModified by Organiz ation Details LastModified Time 12/30/2023 audiogram completed [email or web address] Information n ot available 12/30/2023 13:29:11 11/10/2021 [...] Name and Address Organization Details Recorded Time 805714 fluticaso ne Not available lighthead edness Not available Not available 01/24/2024 50495 RxNorm React ion: Light heade dness ; Not Available [facility] 4 00:24:24 40330 floxacill in Not available other Not available Not available 11/05/2023 4448 RxNorm React ion: Unkno wn; Not Available [facility] 4 00:52:01 84978 Bactrim medicatio n other Not available Not available 11/05/2023 68265 9 RxNorm React ion: Unkno wn; Not Available [facility] 4 00:52:08 Medications Name Sig [...] Note 6328 MARISOL COATS PA-C [facility] [address] [address] 12/25/2023 10:51:24 12/25/2023 12:50:30 Impacted cerumen of bilateral ears 1572369961 674932 H61.23 Sensorineu ral hearing loss of bilateral ears 947120533 H90.3 6491 DEBBI MITTAL MA, CCC-A [facility] [address] [address] 12/25/2023 12:11:34 12/31/2023 11:38:32 Sensorineural hearing loss of bilateral ears 233466990 H90.3 RIGHT EAR: Borderline normal/ mild SNHL [...] Name 12/25/2023 2 [place] [id number] Melanie R Irma [id number] Melanie R Irma 12/25/2023 1 [place] Melanie R Irma [id number] Melanie R Irma 12/25/2023 2 [place] [id number] Melanie R Irma [id number] Melanie R Irma 12/25/2023 1 [place] Melanie R Irma [id number] Melanie R Irma Notes Date Note [...] blurry vision with use. SOFIA EDGAR MD [address] [place] [address], [address], [facility] - [facility] 12/25/2023 14:36:40 OBGyn Episode No OBEpisode recorded.
--- OUTSIDE RECORDS SUMMARY | 2024-10-27 15:29 | XMS_ITS | Data Portability ---
Author Organization [facility] Address [address] [place] [address] Assessment No assessment recorded. Plan of Treatment Reminders Order Date Submit Date Provider Last Modified By Organization Details Last Modified Time Details Appointments None recorded. Lab None recorded. Referral None recorded. Procedures None recorded. Surgeries None recorded. Imaging None recorded. Medication Orders prednisone 20 mg tablet 2022 023 [facility][id number], [address] [place], [address], 18:35:40 Claritin 10 mg tablet 2022 023 [facility][id number], [address] [place], [address], 18:35:41 Patient TargetsNo targets recorded. Patient Instructions Encounter Date Encounter Id Patient Instructions Last Modified By Organization Details Last Modified Time 12/30/2022 [id number] hives: care instructions [email or web address] Not available 12/30/2022 [...] Details Recorded Time Disorder of thyroid gland 27929081 Active 2022 NNACY JERSONJOSE velasquez [place] - [facility] 3 18:13:44 Hypercholes terolemia 70797162 Active 2022 NANCY JERSONJOSE velasquez, [place] - [facility] 3 18:14:25 Transient cerebral ischemia 608281324 Completed 201812/30/2022 NANCY JERSONJOSE velasquez PA - [...] Name and Address Organization Details Recorded Time 411496 Substance with sulfonami de structure and antibacte rial mechanism of action (substanc e) medicatio n hives Not available Not available 12/30/2022 14922 8003 SNOMED NANCY JERSON [facility], [place] - [facility] 3 [...] Last Updated DateTime 152.4 cm 26.4 kg/m2 09245.9 7 g 96 % 96 % 75 [...] SNOMED-CT Code Diagnosis ICD10 Code Diagnosis Note [id number] [facility] [address] [address] 09/26/2018 13:11:03 09/26/2018 14:06:13 [id number] Markus Harvey [place] [address] [address] 12/30/2022 17:17:26 12/30/2022 18:37:12 Pruritic rash 04068833 L28.2 Health Concerns Section Related Observation LastModified by Organization Detai ls LastModified Time None Recorded Concern Status LastModified by Organization Details LastModified Time None Recorded Advance Directives Directive None Recorded Payers Encounter Date Sequence Insurance Name Policy Number Policy Garza Covered Member ID Garza Member ID Guarantor Name 09/26/2018 1 [place] Melanie R Irma [id number] Melanie Irma 09/26/2018 2 [place] [id number] Melanie R Irma [id number] Melanie Irma 12/30/2022 1 [place] Melanie R Irma [id number] Melanie Irma 12/30/2022 2 [place] [id number] Melanie R Irma [id number] Melanie Irma Notes Date Note Type [...] Harvey NP [address] [place], [address], [place] - [facility] 12/30/2022 18:35:54 OBGyn Episode No OBEpisode recorded.
--- OUTSIDE RECORDS SUMMARY | 2024-10-27 15:29 | XMS_ITS ---
Author Organization [facility] Address [address] [place] [address] Care Team Providers Care Program Support Assistant Name Role Phone Owen Mcdonald MD Primary [...] Active Vitamin D (Cholecalciferol) 50 MCG (1999 OR) 1 capsule Orally Once a day for [...] 07/29/2023 Encounters Encounter Location Date Provider Diagnosis [facility] [address] [place] [address] 07/29/2023 Ranjit Quinn Jr Screening for colon [...] 10:40:00 AM, [address], [address], [place], [address], Progress Notes * MELANIE ENCISO RDOB:[birth year] (82 yo F)Acc No.[id number]:07/29/2023 Progress Notes Patient:?MELAINE ENCISO Provider:?Ranjit Quinn MD :1940???Age:82 Y???Sex:Female D ate:07/29/2023 Address:[address] [place], [place] [address] Pcp:Owen Mcdonald MD Subjective: * Chief Complaints: [...] MD Date:?0 07/29/2023 Generated for Printi saul/Jesse/eTransmitting on:?10/27/2024 03:29 PM EDT History and Physical [...]
--- OUTSIDE RECORDS SUMMARY | 2024-10-27 15:29 | XMS_ITS ---
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 Name Role Phone Owen Mcdonald Primary Care [...] Status Risk Notes Problem Carpal tunnel syndrome (21246934) Carpal tunnel syndrome (G56.00) Active confirmed Vital Signs Blood pressure systolic 154 mm Hg 09/29/19 25 Blood pressure diastolic 56 mm Hg 025 Height 60.5 in 09/28/2024 Weight 140 lbs 09/28/2024 BMI 26.89 kg/m2 09/28/2024 Encounters Encounter Location Date Provider Diagnosis Owen Mcdonald MD [address] [place] [phone] 09/28/2024 Owen Mcdonald Carpal tunnel syndrome G56.00 Assessments Encounter Date Diagnosis (ICD Code) Assessment Notes Treatment Notes Treatment Clinical Notes Section Notes 09/28/2024 Carpal tunnel syndrome (ICD-10 - G56.00) try a wrist splint/ order faxed to [facility] dept, pending diagnostic testing Plan Of Treatment Treatment Notes Assessment Notes Carpal tunnel syndrome try a wrist splin t/ order faxed to [facility] dept, pending diagnostic testing Pending Test Test Name Order Date EMG 09/28/2024 Nerve Conduction Study 09/28/2024 Next Appt Details Follow Up: 4 Weeks, Reason: Provider Name:Owen burnette, 12/29/2024 11:00:00 AM, [address] [place] [address], [address], [phone], Provider Name:Owen burnette, 04/23/2025 08:00:00 AM, [address] [place] [address], [phone], Provider Name:Owen burnette, 04/29/2025 10:15:00 AM, [address] [place] [address], [phone], Provider Name:Owen burnette, 07/29/2025 01:30:00 PM, [address] [place] [address], [phone], Provider Name:Owen burnette, 09/21/2025 08:00:00 AM, [address], [address], [place], [place], [phone], Provider Name:Owen Mcknight ier, 09/28/2025 09:30:00 AM, [address], [address], [place], [place], [phone], Progress Notes * Melanie SOLIS RDOB:[birth year] (84 yo F)Acc No.[id number]:09/28/2024 Progress Notes Patient:?Melanie SOLIS R Provider:?Owen Mcdnoald MD :1940???Age:84 Y???Sex:Female D ate:09/28/2024 Address:[address] [place], [place] [address] Subjective: * Chief Complaints: * ???Left wrist [...] Objective: * Vitals:?Ht: 60.5, Wt: 140, B IA:26.89, BP:154/56, Repeat BP:120/55, Wt-k.5. * Examination: ???General [...] Provider:?Owen Mcdonald MD Date:?0 09/28/2024 Generated for [facility] saul/Jesse/eTransmitting on:?10/27/2024 03:29 PM EDT History and [...]
--- OUTSIDE RECORDS SUMMARY | 2024-10-27 15:29 | XMS_ITS ---
Author Organization [facility] Address [address] [place] [address] Care Team Providers Care Shoe Puller Name Role Phone Owen Mcdonald MD Primary Care Provider Kiara Long Unavailable [phone] Danny Rhodes [phone] Encounters Encounter Location Date Provider Diagnosis [address] [address] 11/14/2023 Danny Rhodes Plan Of Treatment No Information Progress Notes * Melanie SOLIS RDOB:[birth year] (84 yo F)Acc No.[id number]:11/14/2023 Progress Note Patient:Melanie HO Provider:?Danny Rhodes DPM :1940???Age:83 Y???Sex:Female D ate:11/14/2023 Address:[address] [place], [place] [address] Pcp:Owen Mcdonald MD Subjective: * Chief Complaints: [...] Date:? 024 Generated for Printi ng/Faxing/eTransmitting on:?10/27/2024 03:28 PM EDT
--- OUTSIDE RECORDS SUMMARY | 2024-10-27 15:30 | XMS_ITS | Patient Health Record ---
Author Organization Owen Sotomayor MD Address [address] [place], [place] [id number] Care Team Providers Care Erp Technical Lead Name Role Phone Owen Sotomayor Primary Care Provider [phone] Results Component Value Reference Range Notes Complete Blood Count Auto Di ff Reviewed date:10/19/2024 12:45:02 PM Interpretation: Performing Lab:[facility], [address] [place] [phone] Notes/Report: White Blood Count 6.9 4.8-10.8 X10*3/uL [...] NRBC Abs Auto 0.000 0.0-0.012 X10*3/uL Comprehensive [place]. Panel Fa st Reviewed date:10/19/2024 05:13:39 PM Interpretation: Performing Lab:[facility], [address] [place] [phone] Notes/Report: Sodium 140 135-145 mmol/L Potassium 4.2 [...] Panel Reviewed date:10/19/2024 12:45:11 PM Interpretation: Performing Lab:[facility], [address] [place] [phone] Notes/Report: Triglycerides 138 <150 mg/dL Desirable Triglyceride: [...] T4 Reviewed date:10/19/2024 12:44:44 PM Interpretation: Performing Lab:[facility], [address] [place] [phone] Notes/Report: TSH reflex Free T4 1.94 0.32-4.0 uIU/mL Hemoglobin A1c Reviewed date:10/19/2024 12:44:36 PM Interpretation: Performing Lab:[facility], [address] [place] [phone] Notes/Report: Hemoglobin A1c % 5.6 <6.0 % [...] average glucose, using the formula of the G5X-Ciqbinw Average Glucose study (ADAG), Diabetes Care, Vol.31,#8, Jan. 2007 Microalbumin, Random Reviewed date:10/26/2024 04:11:31 PM Interpretation: Performing Lab:[facility], [address] [place] [phone] Notes/Report: Creatinine Urine 47.28 Microalbumin Urine 8.0 Microalbum/Creatinine Ratio Ur 16.9 <30 ug/mg cr Albumin/Creatinine Ratio Reference Ranges: Normal: < 30 ug/mg creatinine Microalbuminuria: 30 - 300 ug/mg creatinine Clinical Albuminuria: > 300 ug/mg creatinine UA ClnCatch+Micro w/rflx Cul t Reviewed date:10/26/2024 02:01:04 PM Interpretation: Performing Lab:[facility], [address] [place] [phone] Notes/Report: Urine, Clean Catch Color Urine Dark Yellow Appearance Urine Turbid PH 7.5 5.0-9.0 Glucose Urine UA Negative Negative mg/dL Urine Blood Negative Negative Specific Boswell - Urine 1.015 1.005-1.025 Urine Protein Negative Neg-Trace mg/dL Urine Ketones Negative Negative mg/dL Nitrite Urine Negative Negative Leukocyte Esterase Urine Small (1+) Negative RBC Urine 0-2 0-2 /HPF WBC Urine 11-20 0-5 /HPF Squamous Epithelial Cell Urine 0-2 0-2 /HPF Bacteria Urine None Seen None Seen Hyaline Casts Urine 0-2 0-2 /LPF Liver Panel Reviewed date:04/13/2024 04:43:37 PM Interpretation: Performing Lab:[facility], [address] [place] [phone] Notes/Report: Bilirubin Total 0.5 0.0-1.0 mg/dL Bilirubin Direct 0.2 0.0-0.5 mg/dL Aspartate Amino Transferase 28 5-31 U/L Alanine Aminotransferase 24 0-31 U/L Total Protein 6.5 6.5-8.0 g/dL Albumin Level 4.0 3.5-5.0 g/dL Alkaline Phosphatase 71 39-117 U/L Glucose Fasting Reviewed date:04/13/2024 04:42:43 PM Interpretation: Performing Lab:[facility], [address] [place] [phone] Notes/Report: Glucose Fasting 101 60-99 mg/dL A fasting glucose from 100-125 mg/dl is considered impaired (pre-diabetes). Lipid Panel with Reflex Reviewed date:04/13/2024 04:46:00 PM Interpretation: Performing Lab:[facility], [address] [place] [phone] Notes/Report: Triglycerides 186 <150 mg/dL Desirable Triglyceride: [...] A1c Reviewed date:04/13/2024 12:56:41 PM Interpretation: Performing Lab:[facility], [address] [place] [phone] Notes/Report: Hemoglobin A1c % 5.7 <6.0 % [...] average glucose, using the formula of the X6M-Otynxez Average Glucose study (ADAG), Diabetes Care, Vol.31,#8, Jan. 2007 Erythrocyte Sedimentation Ra te Reviewed date:07/28/2024 07:23:33 PM Interpretation: Performing Lab:[facility], [address] [place] [phone] Notes/Report: Erythrocyte Sedimentation Rate 18 0-20 MM/HR Patients with polycythemia and many hemoglobin abnormalities may have depressed sed rates whereas patients with anemia may have elevated sed rates. XR hip BI w PEL1V Reviewed date:08/13/2024 10:12:56 AM Interpretation: Performing Lab: Notes/Report: [address] [address] XRay Report Signed Patient: Melanie Solis MR#: [id number] : 1940 Acct:[id number] Age/Sex: 83 / F ADM Date: 08/11/24 Loc: HO.XRAY Attending Dr: Owen Sotomayor MD Ordering Physician: Owen Sotomayor MD Date of Service: 08/11/24 Procedure(s): XR hip BI w PEL1V Accession Number(s): [id number] cc: Owen Sotomayor MD EXAMINATION: XR BILATERAL [...] by: Greg Stanton MD 08/11/2024 02:21 PM [facility] Dictated By: Greg Stanton MD Signed By: <Electronically signed by Greg Stanton MD in OV> 08/11/24 1421 DD/ 1151 TD/TT: 08/11/24 1234 [place] [address]: [address] [address] XRay Report Signed Patient: Melanie Solis MR#: [id number] : 1940 Acct:[id number] Age/Sex: 83 / F ADM Date: 08/11/24 Loc: HO.XRAY Attending Dr: Owen Sotomayor MD Ordering Physician: Owen Sotomayor MD Date of Service: 08/11/24 Procedure(s): XR hip BI w PEL1V Accession Number(s): [id number] cc: Owen Sotomayor MD EXAMINATION: XR BILATERAL [...] by: Greg Stanton MD 08/11/2024 02:21 PM [facility] Dictated By: Greg Stanton MD Signed By: <Electronically signed by Greg Stanton MD in OV> 08/11/24 1421 DD/ 1151 TD/TT: 08/11/24 1234 [place] [address]: XR knee RT 4V Reviewed date:11/25/2023 12:18:51 PM Interpretation: Performing Lab: Notes/Report: [facility] [address] XRay Report Signed Patient: Melanie Solis MR#: [id number] : 1940 Acct:[id number] Age/Sex: 83 / F ADM Date: 11/12/23 Loc: .HMGX Attending Dr: Owen Sotomayor MD Ordering Physician: Owen Sotomayor MD Date of Service: 11/12/23 Procedure(s): XR knee RT 4V Accession Number(s): [id number] cc: Owen Sotomayor MD EXAMINATION: XR KNEE, [...] MD in OV> 11/25/23440 DD/ 1135 TD/TT: [place] Floor: [facility] [address] [place] [address] [place] [address] XRay Report Signed Patient: Melanie Solis MR#: [id number] : 1940 Acct:[id number] Age/Sex: 83 / F ADM Date: 11/12/23 Loc: HO.HMGCX Attending Dr: Owen Sotomayor MD Ordering Physician: Owen Sotomayor MD Date of Service: 11/12/23 Procedure(s): XR kne e RT 4V Accession Number(s): [id number] cc: Owen Sotomayor MD EXAMINATION: XR KNEE, RIGHT CLINICAL INFORMATION: Acute pain. COMPARISON: None available. TECHNIQUE: Four views of the ri t knee. FINDINGS: The bones are diffus alberta [...] MD in OV> 11/25/23440 DD/ 1135 TD/TT: [place] Floor: Erythrocyte Sedimentation Ra te Reviewed date:12/12/2023 05:13:41 PM Interpretation: Performing Lab:[facility], [address] [place] [phone] Notes/Report: Erythrocyte Sedimentation Rate 6 0-20 MM/HR Patients with polycythemia and many hemoglobin abnormalities may have depressed sed rates whereas patients with anemia may have elevated sed rates. C Reactive Protein Reviewed date:12/12/2023 05:13:11 PM Interpretation: Performing Lab:[facility], [address] [place] [phone] Notes/Report: C Reactive Protein < 0.10 < or = 0.50 mg/dL MR head/brain wo con Reviewed date:01/02/2024 04:18:55 PM Interpretation: Performing Lab: Notes/Report: [address] [address] Magnetic Resonance Report Signed Patient: Melanie Solis MR#: [id number] : 1940 Acct:[id number] Age/Sex: 83 / F ADM Date: 01/02/24 Loc: HO.MRI Attending Dr: Owen Sotomayor MD Ordering Physician: Owen Sotomayor MD Date of Service: 01/02/24 Procedure(s): MR head/brain wo con Accession Number(s): [id number] cc: Owen Sotomayor MD EXAMINATION: MR BRAIN [...] in OV> 01/02/24 1409 DD/ 1335 TD/TT: [place] Floor: [address] [address] Magnetic Resonance Report Signed Patient: Melanie Solis MR#: [id number] : 1940 Acct:[id number] Age/Sex: 83 / F ADM Date: 01/02/24 Loc: HO.MRI Attending Dr: Owen Sotomayor MD Ordering Physician: Owen Sotomayor MD Date of Service: 01/02/24 Procedure(s): MR head/brain wo con Accession Number(s): [id number] cc: Owen Sotomayor MD EXAMINATION: MR BRAIN [...] in OV> 01/02/24 1409 DD/ 1335 TD/TT: Camp Counselor ist: Jared Mora Reviewed date:04/13/2024 12:58:02 PM Interpretation: Performing Lab:[facility], [address] [place] [phone] Notes/Report: Jared Mora See Note Specimen held untested for 24 hours; Call to request Chemistry testing. MM tomosynthesis screening B I Reviewed date:06/11/2024 04:54:47 PM Interpretation: Performing Lab: Notes/Report: [facility]'[address] [place] [address] Mammography Report Signed Patient: Melanie Solis MR#: [id number] : 1940 Acct:[id number] Age/Sex: 83 / F ADM Date: 06/04/24 Loc: HO.MAMMO Attending Dr: Owen Sotomayor MD Ordering Physician: Owen Sotomayor MD Results: 2Be nigalberto Findings Date of Service: 06/04/24 Follow Up: 1 Year From Orig ina Mammogram Procedure(s): MM tomosynthesis screening BI Accession Number(s): [id number] cc: Owen Sotomayor MD EXAMINATION: MM SCREENING [...] by: Marquita Andre DO 06/11/2024 10:09 AM [facility] Dictated By: Marquita Andre DO Signed By: <Electronically signed by Marquita Andre DO in OV> 06/11/24 1009 DD/ 1015 TD/TT: 06/04/24 1040 [place] [address]: [place] [facility] [address] [place], [place] [address] Mammography Report Signed Patient: Melanie Solis MR#: [id number] : 1940 Acct:[id number] Age/Sex: 83 / F ADM Date: 06/04/24 Loc: HO.MAMMO Attending Dr: Owen Sotomayor MD Ordering Physician: Owen Sotomayor MD Results: 2Be nign Findings Date of Service: 06/04/24 Follow Up: 1 Year From Orig ina Mammogram Procedure(s): MM tomosynthesis screening BI Accession Number(s): [id number] cc: Owen Sotomayor MD EXAMINATION: MM SCREENING [...] by: Marquita Andre DO 06/11/2024 10:09 AM [facility] Dictated By: Marquita Andre DO Signed By: <Electronically signed by Marquita Andre DO in OV> 06/11/24 1009 DD/ 1015 TD/TT: 06/04/24 1040 [place] [address]: C Reactive Protein Reviewed date:07/28/2024 07:21:12 PM Interpretation: Performing Lab:[facility], [address] [place] [phone] Notes/Report: C Reactive Protein 0.36 < or = 0.50 mg/dL MR lumbar spine wo con Reviewed date:08/17/2024 12:31:14 PM Interpretation: Performing Lab: Notes/Report: [address] [address] Magnetic Resonance Report Signed Patient: Melanie Solis MR#: [id number] : 1940 Acct:[id number] Age/Sex: 83 / F ADM Date: 08/16/24 Loc: HO.MRI Attending Dr: Owen Sotomayor MD Ordering Physician: Owen Sotomayor MD Date of Service: 08/16/24 Procedure(s): MR lumbar spine wo con Accession Number(s): [id number] cc: Owen Sotomayor MD CLINICAL HISTORY: LBP MR lumbar spine with and without gadolinium Comparison: CR - LUMBAR SPINE 2TO 3 [id number] - 08/18/15 15:09 EST Findings: 5 lumbar [...] 2. Mild multilevel canal stenoses. 3. Multilevel nchd-sn-ctwaqgdy foraminal stenoses as described above. This document has been electronically signed by: Ayde Roberts MD on 08/16/2024 18:33:10 Dictated By: Ayde Roberts MD Signed By: <Electronically signed by Ayde Roberts MD in OV> 08/16/241832 DD/ 32 TD/TT: 08/16/241832 [place] Floor: [place] [address] Magnetic Resonance Report Signed Patient: Melanie Solis MR#: [id number] : 1940 Acct:[id number] Age/Sex: 83 / F ADM Date: 08/16/24 Loc: HO.MRI Attending Dr: Owen Sotomayor MD Ordering Physician: Owen Sotomayor MD Date of Service: 08/16/24 Procedure(s): MR lum bar spine wo con Accession Number(s): [id number] cc: Owen Sotomayor MD CLINICAL HISTORY: LBP MR lumbar spine with and without gadolinium Comparison: CR - LUM BAR SPINE 2TO 3 [id number] - 08/18/15 15:09 EST Findings: 5 lumbar [...] Mild multilevel c anal stenoses. 3. Multilevel lgkn-ch-wdhzulqs foraminal stenoses as described above. This document has be en electronically signed by: Ayde Roberts MD on 08/16/2024 18:33:10 Dictated By: Ayde Roberts MD Signed By: <Electronically signed by Ayde Roberts MD in OV> 08/16/241832 DD/ 32 TD/TT: 08/16/241832 [place] Floor: Complete Blood Count Auto Di ff Reviewed date:10/13/2024 06:22:54 PM Interpretation: Performing Lab:[facility], [address] [place] [phone] Notes/Report: White Blood Count 6.7 4.8-10.8 X10*3/uL [...] Dehydrogenase Reviewed date:10/13/2024 06:21:06 PM Interpretation: Performing Lab:[address] [address] Notes/Report: Lactate Dehydrogenase 159 122-220 U/L Vitamin B12 and Folate Reviewed date:10/13/2024 06:21:00 PM Interpretation: Performing Lab:[address] [phone] Notes/Report: Vitamin B12 599 200-900 pg/mL NORMAL 200-900 PG/ML INDETERMINATE 160-199 PG/ML DEFICIENT < 160 PG/ML Folate 14.4 > or = 4.0 ng/mL Reference Values: > or = 4.0 ng/mL < 4.0 ng/mL suggests folate deficiency Methotrexate, aminopterin and folinic acid (leucovorin) are chemotherapeutic agents whose molecular structures are similar to folate; therefore, the Thermostat Mechanic folate assay cannot be used for patients using these drugs. Jared Mora Reviewed date:10/19/2024 12:44:18 PM Interpretation: Performing Lab:[address] [phone] Notes/Report: Jared Mora See Note Specimen held untested for 24 hours; Call to request Chemistry testing. Urine Culture Reviewed date:10/27/2024 12:14:11 PM Interpretation: Performing Lab:[address] [phone] Notes/Report: Urine Culture Report Result Urine Culture 10,000 to 50,000 cfu/ml Urine Culture Mixed bacterial thee a characteristic of Urine Culture urogenital contamination. Reason For Referral Reason acute pain of left s houlder please eval and treat for PT Diagnosis 1 Acute pain of left s houlder (M25.512) Referral Organization Owen Sotomayor MD Referring Provider First Name Owen Referring Provider Last Name Harry Referring Provider Speciality Internal M edicine Referred Provider [facility] Referred Provider Specialty Physical [...] Referring Provider Speciality Internal edicine Referred Provider Attain, Physical The eleniy Referred Provider Specialty Physical The rapist General [...] Referring Provider Speciality Internal edicine Referred Provider [facility] Referred Provider Specialty Physical Med icine General Notes Tatiana Condon 0 08/24/2024 09:47:46 AM >info [facility] Annette 08/27/2024 02:55:33 PM >referral info mailed [...] Tatiana Condon 0 10/16/2024 01:53:12 PM info [facility] Annette 10/26/2024 03:27:24 PM >was told by office patient is aware of appt Referral Priority Routine Referral Appointment Date 12/07/2024 Reason poor balance pleas e eval and [...] ed pt was given the vaccine at [facility]. Influenza High Dose IM Intramuscular 04/14/2019 Administer [...] Problem Status W/U Status Risk Notes Problem 862005493 Thyroid nodule (E04.1) Active confirm ed Problem 907275549 Thrombocytopenia (D69.6) Active confirmed Problem Carpal tunnel syndrome (09773371) Carpal tunnel syndrome (G56.00) Active confirmed Problem Anxiety (55053806) Anxiety (F41.9) Active confi rmed Problem 63065104 Polymyalgia rheu matica (M35.3) Active confirmed Problem 39493745 Visual hallucina tions (R44.1) Active confirmed Problem 5794009 Arthritis (M19.90) Active confirmed Problem 217100231 Osteopenia (M85.80) Active confirmed Problem 082281825 Tubular adenoma of colon (D12.6) Active confirmed Problem 782171870 Gastroesophageal reflux disease without esophagitis (K21.9) Active confirmed Problem 046342004 Acquired hypothyroidism (E03.9) Active confirmed Problem 0708255 Prediabetes (R73.09) Active confirmed Problem Osteoporosis (88905070) Osteoporosis (M81.0) Active confirmed Problem 9824701 Migraine with au ra and without status migrainosus, not intractable (G43.109) Active confirmed Problem 446659315 Cervical disc di sease (M50.90) Active confirmed Problem 81000449 Intrinsic eczema (L20.84) Active confirmed Problem Hearing loss (38428427) Hearing loss (H91.90) Active confirmed Problem 73459577 Sciatica of righ t side (M54.31) Active confirmed Problem 156864918 History of palpitations (Z87.898) Active confirmed Problem 122968846 Pure hypercholesterolemia (E78.00) Active confirmed Problem 551161585 Arthritis of kne e (M17.10) Active confirmed Problem Problem with balance (861768121) Balance problems (R26.89) Active confirmed Problem 676719502 Poor balance (R26.89) Active confirme d Problem 5624094963810573 Arthritis of le ft knee (M17.12) Active confirmed Problem 492787035868291 Acute migraine (G43.909) Active confirmed Vital Signs [...] Date Provider Diagnosis Owen Sotomayor MD [address] [place], [place] [id number] 10/19/2024 Owen Sotomayor Acquired hypothyroid ism E03.9 ; Prediabetes R73.09 ; Pure hypercholesterolemia E78.00 and Thrombocytopenia D69.6 Owen Sotomayor MD [address] [place] [id number] 10/26/2024 Owen Sotomayor Prediabetes R73.09 ; Pure hypercholesterolemia E78.00 ; Acquired hypothyroidism E03.9 ; Poor balance R26.89 and Carpal tunnel syndrome G56.00 Owen Sotomayor MD [address] [place] [id number] 11/07/2023 Owen Sotomayor Rotator cuff impinge ment syndrome, left M75.42 Owen Sotomayor MD [address] [place] [id number] 12/10/2023 Owen Sotomayor Acute migraine G43.9 09 and Acute pain of left shoulder M25.512 Owen Sotomayor MD [address] [place] [id number] 12/24/2023 Owen Sotomayor Arthritis of left kn ee M17.12 ; Visual hallucinations R44.1 and Chronic daily headache R51.9 Owen Sotomayor MD [address] [place] [id number] 02/06/2024 Owen Sotomayor Acute migraine G43.9 09 ; Dysfunction of left rotator cuff M67.912 and Pain in right knee M25.561 Owen Sotomayor MD [address] [place] [id number] 04/13/2024 Owen Sotomayor Pure hypercholestero lemia E78.00 and Prediabetes R73.09 Owen Sotomayor MD [address] [place] [id number] 04/20/2024 Owen Sotomayor Prediabetes R73.09 ; Anxiety F41.9 and Pure hypercholesterolemia E78.00 Owen Sotomayor MD [address] [place] [id number] 07/28/2024 Owen Sotomayor Polymyalgia rheumati ca M35.3 and Encounter for Medicare annual examination with abnormal findings Z00.01 Owen Sotomayor MD [address] [place] [id number] 08/11/2024 Owen Sotomayor Pain in right hip M2 5.551 and Pain in left hip M25.552 Owen Sotomayor MD [address] [place] [id number] 08/24/2024 Owen Sotomayor Spinal stenosis M48. 00 Owen Sotomayor MD [address] [place] [id number] 09/28/2024 Owen Sotomayro Carpal tunnel syndro me G56.00 Owen Sotomayor MD [address] [place] [id number] 12/12/2023 Owen Sotomayro MD [address] [place] [id number] 08/13/2024 Owen Sotomayor MD [address] [place] [id number] 08/13/2024 Owen Sotomayor Lumbar back pain M54 .50 Owen Sotomyaor MD [address] [place] [address] [id number] 08/21/2024 Owen Sotomayor MD [address] [place] [id number] 08/25/2024 Owen Sotomayor Assessments Encounter Date Diagnosis [...] copy of last physical/ order faxed to [facility] dept 02/06/2024 Acute migraine (ICD- 10 - G43.909) going to see neuro at [facility]. NO APPT YET BUT BUT [...] try a wrist splint/ order faxed to [facility] de[facility], pending diagnostic testing [...] PAIN REFERRAL to physical therapy [facility] FAX [phone] 04/20/2024 Pure hypercholesterolemia (ICD-10 - E78.00) stable, will continue current regiment 07/28/2024 Encounter for Medica re annual examination with abnormal findings (ICD-10 - Z00.01) 10/19/2024 Pure hypercholesterolemia (ICD-10 - E78.00) 10/26/2024 Acquired hypothyroid ism (ICD-10 - E03.9) 10/19/2024 Thrombocytopenia (ICD-10 - D69.6) 10/26/2024 Poor balance (ICD-10 - R26.89) send to [facility] neurology/ dr oakes 10/26/2024 Carpal tunnel syndro me (ICD-10 - G56.00) awaiting surgery Plan Of Treatment Pending Test Test Name Order Date Electrocardiogram (EKG) 10/04/2017 Electrocardiogram (EKG) 08/18/2015 MRI BRAIN NO CONTRAST 12/24/2023 MRI LUMBAR SPINE NO CONTRAST 08/13/2024 MAMMOGRAM DIGITAL BILATERAL SCREEN 04/13 US SOFT TISSUE 01/10/2023 STEREO BX INITIAL SITE 06/05/2021 STEREO BX INITIAL SITE 06/02/2021 EMG 09/28/2024 Nerve Conduction Study 09/28/2024 Microalbumin, Random 10/19/2024 US extremity nonvascular 01/11/2023 US thyroid 04/23/2023 XR knee RT 3V 10/22/2023 UA ClnCatch+Micro w/rflx Cult 10/19/2024 Future Test Test Name Order Date US THYROID 11/14/2019 BONE DENSITY DEXA 04/14/2021 Next Appt Details Provider Name:Owen burnette, 12/29/2024 11:00:00 AM, [address] [place] [address], Suite [facility], [place], [place], [phone], Provider Name:Owen burnette, 04/23/2025 08:00:00 AM, [address] [place] [address], Suite [facility], [place], [place], [id number], Provider Name:Owen burnette, 04/29/2025 10:15:00 AM, [address] [place] [address], Suite [facility], [place], [place], [id number], Provider Name:Owen Mcknight ier, 07/29/2025 01:30:00 PM, [address], [address], [place], [phone], Provider Name:Owen Mcknight ier, 09/21/2025 08:00:00 AM, [address], [address], [place], [phone], Provider Name:Owen Mcknight ier, 09/28/2025 09:30:00 AM, [address], [address], [place], [id number], Insurance Providers Payer Name Payer Address Payer Phone Subscriber Number Group Number Insured Name Patient Relationship to Insured Coverage Start Date Coverage End Date MEDICARE NHIC RADHA [address] [place] [address] [id number] IrmaNikolas sparrowte Self - patient is the insured MEDEX BC OF [facility] P [facility] [id number] [place] [address] [id number] Melanie Solis Self - patient is [...]
--- OUTSIDE RECORDS SUMMARY | 2024-10-27 15:30 | XMS_ITS ---
[facility] Organization [facility] Address [address] [facility] [address] Care Team Providers Care Asphalt Roller Person Name Role Phone Owen Mcdonald MD Primary Care Provider Efrem BeckerKiara Unavailable [phone] Black, Clary Unavailable [phone] Allergies Allergen (clinical drug ingredient) Drug/Non Drug [...] Status Risk Notes Problem Acquired hallux valgus (86335162) Hallux valgus (acquired), left foot (M20.12) Active confirmed Problem Acquired hammer toe of right foot (4128826088238512) Other hammer toe(s) (acquired), right foot (M20.41) Active confirmed Problem Localized, primary osteoarthritis of the ankle and/or foot (899619355) Arthritis of joint of lesser toe, right (M19.071) Active confirmed Problem Acquired hammer toe of left foot (0747123040707878) Other hammer toe(s) (acquired), left foot (M20.42) Active confirmed Problem Localized, primary osteoarthritis of the ankle and/or foot (380935299) Arthritis of joint of lesser toe, left (M19.072) Active confirmed Vital Signs Height 5 ft in 03/05/2024 Weight 140 lbs 03/05/2024 BMI 27.34 kg/m2 03/05/2024 Blood pressure systolic 138 mm Hg 03/05/20 24 Blood pressure diastolic 58 mm Hg 024 Procedures Procedure Date Ordered Date Performed Result Body Sit e 31668-YWVV SKIN LESIONS, 2 TO 4 03/05/2024 N/A Q7199-HQSWZFDC DYSTROPHIC NAILS ANY # 03/05/2024 N/A Encounters Encounter Location Date Provider Diagnosis [facility] [place] [address] 03/05/2024 Clary Black Pain in left foot [...] Treatment Pending Test Test Name Order Date 77125-FHLC SKIN LESIONS, 2 TO 4 03/05/20 24 F9926-KACEENJX DYSTROPHIC NAILS ANY # Next Appt Details Follow Up: prn, Reason: Procedure Notes * Category Sub-Category Detail Notes Keratoma Treatment Parring or Cutting o f Benign Hyperkeratotic Lesion(s) 42993-TJ Self Pay Non-Covered Callus care- Nail Reduction Nail Reduction I0814-CH Trimmin g of noncovered dystrophic nails, any number - Progress Notes * Melanie SOLIS RDOB:[birth year] (83 yo F)Acc No.[id number]:03/05/2024 Progress Note Patient:?Melanie Solis R Provider:?Clary Amos DPM :1940???Age:83 Y???Sex:Female D ate:03/05/2024 Address:[address] [place], [place] [id number] Pcp:Owen Mcdonald MD Subjective: * Chief Complaints: [...] loop recorder 04/23/2019 * Hospitalization/Major Diagno stic Procedure:?[facility] [place] - slight stroke [...] * Vitals:?Ht: 5 ft, Wt: 140, B SC: 27.34, Shoe size: 5W, BP: 138/58 mm [...] L60.3?17.?Keratoma - L57.0? Plan: * Treatment: 2.?Keratoma?Procedure: 60199-EIJM SKIN LESIONS, 2 TO 4 * Procedures:?Keratoma Treatment:?Parring or Cutting of Benign Hyperkeratotic Lesion(s)?70157-ZA Self Pay Non-Covered Callus care-.?Nail Reduction:?Nail Reduction?N2617-QC Trimming of noncovered dystrophic nails, any number -.? * Procedure Codes:?16482 TRIM SKIN LESIONS, 2 TO 4 $60, [...] Amos DPM Date:?2023 Generated for Martina hughes/Jesse/Fatou on:?10/27/2024 03:29 PM EDT History and Physical [...]
--- OUTSIDE RECORDS SUMMARY | 2024-10-27 15:30 | XMS_ITS ---
Author Organization Owen Mcdonald MD Address [address] [place], [place] [address] Care Team Providers Care Stake Driver Name Role Phone Owen Mcdonald Primary Care Provider Results Component Value Reference Range Notes Microalbumin, Random Reviewed date:10/26/2024 04:11:31 PM Interpretation: Performing Lab:[facility], [address] [place] [phone] Notes/Report: Creatinine Urine 47.28 Microalbumin Urine 8.0 Microalbum/Creatinine Ratio Ur 16.9 <30 ug/mg cr Albumin/Creatinine Ratio Reference Ranges: Normal: < 30 ug/mg creatinine Microalbuminuria: 30 - 300 ug/mg creatinine Clinical Albuminuria: > 300 ug/mg creatinine UA ClnCatch+Micro w/rflx Cul t Reviewed date:10/26/2024 02:01:04 PM Interpretation: Performing Lab:[facility], [address] [place] [phone] Notes/Report: Urine, Clean Catch Color Urine Dark Yellow Appearance Urine Turbid PH 7.5 5.0-9.0 Glucose Urine UA Negative Negative mg/dL Urine Blood Negative Negative Specific Huggins - Urine 1.015 1.005-1.025 Urine Protein Negative [...] Location Date Provider Diagnosis Owen Mcdonald MD [address] [place] [phone] 10/26/2024 Owen Mcdonald Prediabetes R73.09 ; Pure [...] balance (ICD-10 - R26.89) send to [facility] neurology/ dr oakes 10/26/2024 Carpal tunnel syndro me (ICD-10 - G56.00) awaiting surgery Plan Of Treatment Treatment Notes Assessment Notes Poor balance send to [facility] neurolo gy/ dr oakes Carpal tunnel syndrome awaiting surgery Referrals Referral Date Details 10/26/2024 10/26/2024, poor bal ance please eval and treat Has been there before, [facility] Next Appt Details Follow Up: 2 Months, Reason: Provider Name:Owen burnette, 12/29/2024 11:00:00 AM, [address] [place] [address], [address], [phone], Provider Name:Owen burnette, 04/23/2025 08:00:00 AM, [address] [place] [address], [address], [phone], Provider Name:Owen burnette, 04/29/2025 10:15:00 AM, [address] [place] [address], [address], [phone], Provider Name:Owen Mcknight ier, 07/29/2025 01:30:00 PM, [address], [address], [place], [phone], Provider Name:Owen Mcknight ier, 09/21/2025 08:00:00 AM, [address], [address], [place], [phone], Provider Name:Owen Mcknight ier, 09/28/2025 09:30:00 AM, [address], [address], [place], [phone], Progress Notes * Stacie SOLISlotte RDOB:[birth year] (84 yo F)Acc No.[id number]:10/26/2024 Patient:?Melanie SOLIS Provider:?Owen Mcdonald MD :1940???Age:84 Y???Sex:Female D ate:10/26/2024 Address:[address] [place], [place] [phone] Subjective: * Chief Complaints: * ???1. Comp [...] 83 yrs, colon cancer.?1 son(s) . .? Father-[place] Mother-[place], Denies mental health/substance abuse family history, [...] unemployed. Pets: none. Travel outside of the [place]: no. * Medications:?Taking Citracal Calcium+D , Taking [...] Objective: * Vitals:?Ht: 60.5, Wt: 136, B TN:26.12, BP:134/50, Wt-k.69. weight is dwn 4 pounds [...] X10*3/uL) 0.000 (Ref Range: 0.0-0.012 X10*3/uL) ???Lab:[facility]prehensive [place]. Panel Fast (Order Date - 10/19/2024) (Collection Date & Time - 10/19/2024 07:15 AM)?ValueReference Range?Lfoosw281598- 145 - mmol/L?Bilirubin Total0.50.0-1.0 - mg/dL?Aspartate Amino Ehqsdgrscgq227-99 - U/L?Alanine Lbebvhawylbykzni957-48 - U/L?Total Protein7.06.5-8.0 - g/dL?Albumin Level4.33.5-5.0 - g/dL?Alkaline Hdrxymxeoqv0345-909 - U/L?Potassium4.23.3-5.1 - mmol/L?Jplygvof06794-841 - mmol/L?Carbon Lmasmqw9387-11 - mmol/L?Anion Hit8371-79 -?Blood Urea Cnlzzqpz21C8-85 - mg/dL?Creatinine0.690.5-1.4 - mg/dL?Estimated Glomerular Filt Rate> 60-?Glucose Kksddxo302P94-40 - mg/dL?Calcium9.88.4-10.2 - mg/dL ???Lab:Vitamin B12 and Folate (Order Date - 10/13/2024) (Collection Date & Time - 10/13/2024 03:21PM)?ValueReference Range?Vitamin M51966200-687 - pg/mL?Mnorlg17.4> or = 4.0 - ng/mL ???Lab:Lactate Dehydrogenase (Order Date - 10/13/2024) (Collection Date & Time - 10/13/2024 03:21 PM)?ValueReference Range?Lactate Zjxuxkxnnvbiq686888-893 - U/L * Examination: ???General Examination: ?GENERAL [...] 10:30 AM) 3.?Poor balance? Notes: send to [facility] neurology/ dr oakes? Referral To:[facility]??Neurology ?Reason:poor [...] Mcdonald MD Date:?0 10/26/2024 Generated for Martina hughes/Jesse/Donnyitting on:?10/27/2024 03:30 PM EDT History and Physical Notes * [...] had two or more falls in the year?: No Communication Needs Communication Needs Does [...]
--- OUTSIDE RECORDS SUMMARY | 2024-10-27 15:30 | XMS_ITS ---
Author Organization Owen Mcdonald MD Address [address] [place], [place] [phone] Care Team Providers Care Pharmacy Technician Assistant Name Role Phone Owen Mcdonald Primary Care Provider [phone] Results Component Value Reference Range Notes Complete Blood Count Auto Di ff Reviewed date:10/19/2024 12:45:02 PM Interpretation: Performing Lab:[facility], [address] [place] [phone] Notes/Report: White Blood Count 6.9 4.8-10.8 X10*3/uL [...] NRBC Abs Auto 0.000 0.0-0.012 X10*3/uL Comprehensive [place]. Panel Fa st Reviewed date:10/19/2024 05:13:39 PM Interpretation: Performing Lab:[facility], [address] [place] [phone] Notes/Report: Sodium 140 135-145 mmol/L Potassium 4.2 [...] Panel Reviewed date:10/19/2024 12:45:11 PM Interpretation: Performing Lab:[address] [phone] Notes/Report: Triglycerides 138 <150 mg/dL Desirable Triglyceride: [...] T4 Reviewed date:10/19/2024 12:44:44 PM Interpretation: Performing Lab:[address] [address] Notes/Report: TSH reflex Free T4 1.94 0.32-4.0 uIU/mL Hemoglobin A1c Reviewed date:10/19/2024 12:44:36 PM Interpretation: Performing Lab:[address] [address] Notes/Report: Hemoglobin A1c % 5.6 <6.0 % [...] average glucose, using the formula of the Q8W-Nmvwfgc Average Glucose study (ADAG), Diabetes Care, Vol.31,#8, Jan. 2007 REASON FOR VISIT yearly fasting labs Encounters Encounter Location Date Provider Diagnosis Owen Mcdonald MD [address] [place] [phone] 10/19/2024 Owen Mcdonald Acquired hypothyroid ism E03.9 [...] Details Provider Name:Owen burnette, 12/29/2024 11:00:00 AM, [address] [place] [address], [address], [phone], Provider Name:Owen burnette, 04/23/2025 08:00:00 AM, [address] [place] [address], [phone], Provider Name:Owen burnette, 04/29/2025 10:15:00 AM, [address] [place] [address], [phone], Provider Name:Owen burnette, 07/29/2025 01:30:00 PM, [address] [place] [address], [phone], Provider Name:Owen burnette, 09/21/2025 08:00:00 AM, [address] [place] [address], [phone], Provider Name:Owen burnette, 09/28/2025 09:30:00 AM, [address] [place] [address], [phone], Progress Notes * Melanie SOLIS RDOB:[birth year] (84 yo F)Acc No.[id number]:10/19/2024 Progress Note Patient:Melanie HO Provider:?Owen Mcdonald MD :1940???Age:84 Y???Sex:Female D ate:10/19/2024 Address:[address] [place], [place] [phone] Subjective: * Chief Complaints: * ???1. Yearly fasting labs. * Medical History:? Objective: * Vitals:? Assessment: * Assessment: 1.?Acquired hypothyroidism - E03.9 (Primary)???2.?Prediabetes - R73.09???3.?Pure hypercholesterolemia - E78.00???4.?Thrombocytopenia - D69.6??? Plan: * Treatment: 2.?Prediabetes?LAB: Microalbumin, Random ?LAB: UA ClnCatch+Micro w/rflx Cult ?LAB: Complete Blood Count Auto Diff (Collection Date & Time - 10/19/2024 07:15 AM) ?LAB: Comprehensive [place]. Panel Fast (Collection Date & Time - [...] Time - 10/19/2024 07:15 AM) ?LAB: Comprehensive [place]. Panel Fast (Collection Date & Time - [...] Time - 10/19/2024 07:15 AM) ?LAB: Comprehensive [place]. Panel Fast (Collection Date & Time - 10/19/2024 07:15 AM) ?LAB: Lipid Panel (Collection Date & Time - 10/19/2024 07:15 AM) ?LAB: TSH reflex Free T4 (Collection Date & Time - 10/19/2024 07:15 AM) ?LAB: Hemoglobin A1c (Collection Date & Time - 10/19/2024 07:15 AM) * Procedure Codes:?51095 VENIP UNCT, ROUTINE* * * The named appointment provid er may or may not be the originator of this progress note, and it is not deemed complete until electronically signed by the appointment provider. Sign off status: Pending * Provider:?Owen Mcdonald MD Date:?0 10/19/2024 Generated for Martina hughes/Jesse/Donnyitting on:?10/27/2024 03:30 PM EDT
--- OUTSIDE RECORDS SUMMARY | 2024-10-27 15:31 | XMS_ITS | Patient Health Record ---
Author Organization [facility] Address [address] [place] [address] Care Team Providers Care Java Software Architect Name Role Phone Owen Mcdonald MD Primary [...] Problem Status W/U Status Risk Notes Problem 626613567 Gastro-esophagea l reflux disease without esophagitis (K21.9) Active confirmed Problem 417200282 Change in bowel habits (R19.4) Active confirmed Problem 701691141 Screening for colon cancer (Z12.11) Active confirmed Vital Signs Temperature 97.5 degrees Fahrenheit 07/29/2024 Blood pressure diastolic 00 mm Hg 07/29/2024 Height 59.50 in 07/29/2024 Blood pressure systolic 000 mm Hg 07/29/2024 Weight 143 lbs 07/29/2024 BMI 28.40 kg/m2 07/29/2024 Encounters Encounter Location Date Provider Diagnosis [facility] [address] [place] [address] 07/29/2024 Ranjit Quinn Jr Gastro-esophageal reflux disease [...] 10:40:00 AM, [address], [address], [place], [address], Insurance Providers Payer Name Payer Address Payer Phone Subscriber Number Group Number Insured Name Patient Relationship to Insured Coverage Start Date Coverage End Date MEDICARE OF [place] [address] [place] [address] [id number] SOPHIE ENCISO Self - patient is the insured [employer] ATT[employer] CLAIMS [address] [place] [address] [id number] NATE ENCISOTE Self - patient is [...]
--- OUTSIDE RECORDS SUMMARY | 2024-10-27 15:31 | XMS_ITS | Patient Health Record ---
Author Organization [facility] [place] Address [address] [place] [address] Care Team Providers Care Candy Bar Attendant Name Role Phone Harry MACKEY, Owen Primary Care Provider Kiara Long Unavailable [phone] Black, Clary Unavailable [phone] Danyn Rhodes Unavailable [phone] Allergies Allergen (clinical drug ingredient) Drug/Non Drug [...] Problem Acquired hammer toe of right foot (7803943443883675) Other hammer toe(s) (acquired), right foot (M20.41) Active confirmed Problem Acquired hammer toe of left foot (4487142281077486) Other hammer toe(s) (acquired), left foot (M20.42) Active confirmed Problem 282564598970544 Hallux valgus (acquired), right foot (M20.11) Active confirmed Problem Acquired hallux valgus (74196472) Hallux valgus (acquired), left foot (M20.12) Active confirmed Problem 896316898331295 Hallux valgus (acquired), right foot (M20.11) Active confirmed Problem 750416547 Hammer toe of right foot (M20.41) Active confirmed Problem 666826527202025 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 Problem 04872631564166679 Atherosclerosi s of artery of both lower extremities (I70.203) Active confirmed Problem Localized, primary osteoarthritis of the ankle and/or foot (117804090) Arthritis of joint of lesser toe, left (M19.072) Active confirmed Problem Localized, primary osteoarthritis of the ankle and/or foot (183904229) Arthritis of joint of lesser toe, right (M19.071) Active confirmed Vital Signs Blood pressure diastolic 58 mm Hg 03/05/2024 Height 5 ft in 03/05/2024 Blood pressure systolic 138 mm Hg 03/05/2024 Weight 140 lbs 03/05/2024 BMI 27.34 kg/m2 03/05/2024 Procedures Procedure Date Ordered Date Performed Result Body Sit e 61538-DVAW SKIN LESIONS, 2 TO 4 03/05/2024 N/A G4881-PTFJZNZI DYSTROPHIC NAILS ANY # 03/05/2024 N/A Encounters Encounter Location Date [facility] [address] 03/05/2024 Clary Black Pain in left foot [...] ; Dystrophic nail L60.3 and Keratoma L57.0 [facility] [address] [address] 11/14/2023 Kiara Becker Assessments Encounter Date Diagnosis [...] X ray : Foot, right 3V 04/11/2022 99639-MSXO SKIN LESIONS, 2 TO 4 03/05/20 24 L0510-SBJXPWQG DYSTROPHIC NAILS ANY # Insurance Providers Payer Name Payer Address Payer Phone Subscriber Number Group Number Insured Name Patient Relationship to Insured Coverage Start Date Coverage End Date Medicare National [employer]t [employer] [address] [place] [address] [phone] [id number] Melanie Solis Self - patient is the insured [facility] [address] [place] [address] [phone] [id number] Melanie Solis Self - patient is [...]
== END 2024-10-27 15:07 | disposition home or self-care (01) ==
LOC: HO.HOS 14:08
PROVIDERS: PCP Internal Medicine; Visit Provider Orthopaedic Surgery
DX: G56.03 Carpal tunnel syndrome, bilateral upper limbs (principal); Z86.73 Personal history of transient ischemic attack (TIA), and cerebral infarction without residual deficits
CPT/HCPCS: 99204

== ENCOUNTER → 2024-10-27 14:08 | Outpatient (BNVA) | payer MEDICARE, SELFPAY | PROVIDERS: PCP Internal Medicine; Visit Provider Orthopaedic Surgery | DX: G56.03 Carpal tunnel syndrome, bilateral upper limbs (principal); Z86.73 Personal history of transient ischemic attack (TIA), and cerebral infarction without residual deficits | CPT/HCPCS: 99202 ==

== ENCOUNTER 2024-10-29 12:48 | Day surgery (SDC) | payer MEDICARE, SELFPAY ==
[2024-10-29 13:12] VITALS: BP 153/75; PULSE 95; RESP 16; TEMP 36.6; O2SAT 94; BMI 26.0
--- NOTE | 2024-10-29 14:40 | P.OP_ITS ---
Operative Note Operative Note Date of Service: 10/29/24 Narrative: Preop diagnosis: 1. Left Carpal tunnel syndrome Postop diagnosis: same Procedure: 1. Left Carpal tunnel release Surgeon: Brinda Esquivel MD Weigh Box Tender: Jeet CHAVARRIA Anesthesia: local block using 1% lidocaine with epinephrine Findings: Thickened transverse carpal ligament. EBL: Less than 5 mL Specimens: None Complications: None Disposition: Brought to recovery room in stable condition Plan: Follow-up for 10-14 days for wound check and suture removal Indications: The patient is 84 years old, with left carpal tunnel syndrome that has been unresponsive to nonoperative management. The risks and benefits of operative treatment including but not limited to risk of damage to blood vessels, nerves, tendons, infection, persistent pain, persistent symptoms, or possible need for additional surgery were discussed with the patient and the patient wishes to proceed with surgery. Procedure: Once consent was obtained a local block was performed using a combination of 1% lidocaine with epinephrine. The patient was then brought back to the operating suite and placed on the operative table in supine position. The left upper extremity was prepped and draped in a standard surgical fashion. Once assured that we had a good block, a 2.0 cm longitudinal incision was made centered over the carpal tunnel. The incision was made through the skin to the subcutaneous tissues using a #15 blade. Dissection was made down to the level of the transverse carpal ligament with care being taken to protect the palmar cutaneous nerve. Once the transverse carpal ligament was clearly visualized, a longitudinal incision was made in the transverse carpal ligament 1st using a #15 blade, then using tenotomy scissors under direct visualization. Care was taken to look for and protect the motor branch of the median nerve when seen in this area. Once satisfied with our carpal tunnel release the wound was copiously irrigated with normal saline and hemostasis was obtained with a brief period of local pressure. The skin edges were reapproximated with some 5.0 nylon suture material and a sterile dressing was applied. The patient appears to have tolerated the procedure well and with no complications. All digits were well vascularized at the conclusion of the case.
--- NOTE | 2024-10-29 14:40 | MHC.SHP ---
Pre-Procedural Eval Section A - 24 Hr Update-Section A only Date of Service: 10/29/24 The patient is an INPATIENT: No Changes since office visit: No Cold of Flu in the past 2 weeks, No New Medical Problems, No Changes in Medication and No Patient answered all questions The patient has been examined within 24 hours of the surgical procedure. The History & Physical has been completed within 30 days and I have reviewed it.: Yes Section B - Complete if H&P > 30 days Chief Complaint: Carpal tunnel syndrome, left upper limb Allergies: Allergies Allergy/AdvReac Type Severity Reaction Status Date / Time sulfur Allergy Severe internal Verified 10/27/24 14:38 hives Sulfa (Sulfonamide Allergy Mild UNKNOWN Verified 10/27/24 14:38 Antibiotics) ciprofloxacin [Cipro] Allergy Unknown hives Verified 10/27/24 14:38 pneumococcal vaccine Allergy Unknown palm sized Verified 10/27/24 14:38 welt, inflamed Plan Diagnosis/Plan: Unchanged I have reviewed the history and physical and performed a pertinent physical examination on my patient. No changes have occurred unless specified. Time Spent With Patient Time: Total time managing care of this patient today ____ minutes.
[2024-10-29 15:21] VITALS: BP 150/79; PULSE 89; RESP 20; O2SAT 96
[2024-10-29 15:35] VITALS: BP 172/70; PULSE 87; RESP 18; TEMP 36.9; O2SAT 94
== END 2024-10-29 16:02 | disposition home or self-care (01) ==
PROVIDERS: PCP Internal Medicine; Visit Provider Orthopaedic Surgery
PROC: (CPT 64721; principal; 2024-10-29 15:40)
DX: G56.02 Carpal tunnel syndrome, left upper limb (principal); M25.532 Pain in left wrist; R20.0 Anesthesia of skin; R20.2 Paresthesia of skin; D69.6 Thrombocytopenia, unspecified; R73.03 Prediabetes; E78.00 Pure hypercholesterolemia, unspecified; Z86.73 Personal history of transient ischemic attack (TIA), and cerebral infarction without residual deficits; Z79.01 Long term (current) use of anticoagulants; Z88.2 Allergy status to sulfonamides; Z88.1 Allergy status to other antibiotic agents; Z88.7 Allergy status to serum and vaccine; Z98.890 Other specified postprocedural states
CPT/HCPCS: 64721

== ENCOUNTER → 2024-10-29 12:48 | Outpatient (BNV) | payer MEDICARE, SELFPAY | PROVIDERS: PCP Internal Medicine; Visit Provider Orthopaedic Surgery | DX: G56.02 Carpal tunnel syndrome, left upper limb (principal) | CPT/HCPCS: 64721 ==

== ENCOUNTER 2024-11-06 09:43 | Outpatient (AMB) | payer MEDICARE, SELFPAY ==
--- NOTE | 2024-11-06 09:46 | MHC.OFFVIS ---
Vital Signs 11/06/24 09:49 Height 5 ft Weight 133 lb BMI 26.0 Intake Visit Reasons: P/O Left CTR on 10/29/24 wound check Intake Note: Melanie is a 84 year old right hand dominant female who presents to the office today for a P/O left CTR on 10/29/24 wound check. Pt states she is able to make a fist now and pt denies any pain at this time. Allergies sulfur Allergy (Severe, Verified 11/06/24 09:46) internal hives Sulfa (Sulfonamide Antibiotics) Allergy (Mild, Verified 11/06/24 09:46) UNKNOWN ciprofloxacin [Cipro] Allergy (Unknown, Verified 11/06/24 09:46) hives pneumococcal vaccine Allergy (Unknown, Verified 11/06/24 09:46) palm sized welt, inflamed HPI HPI P/O Left CTR on 10/29/24 wound check: Details: Melanie is a 84 year old right hand dominant female who presents to the office today for a P/O left CTR on 10/29/24 wound check. Pt states she is able to make a fist now and pt denies any pain at this time. Patient states that she wanted to come in for a wound check because she ?lives by herself and can not change the dressing by herself?. [facility] Medical History Occipital stroke Cervical disc disease Pre-diabetes Tubular adenoma of colon Hypercholesterolemia GERD (gastroesophageal reflux disease) Esophagitis Hypothyroidism Thrombocytopenia Surgical History H/O breast biopsy H/O colonoscopy History of esophagogastroduodenoscopy (EGD) History of hysterectomy Family History Maternal Grandmother Colon cancer Daughter Father Heart attack Mother Stroke Social History Household Members: None Housing: House Are you a primary critical care physician assistant to a significant other at home: No Do you presently have visiting nurse or other home services: No Alcohol intake: current Alcohol intake frequency: a few times a month Alcohol type: wine Patient Tobacco Use Status: Never used Tobacco Advance Directives Date on File: 12/28/20 service: No Current occupational status: retired Review of Systems Const All systems reviewed & are unremarkable except as noted in HPI and below Physical Exam Vital Signs: BMI result Body Mass Index 26.0 Extrem Other: Patient is alert, oriented, and in no acute distress. Neuro: Normal sensation of the tips of all digits of the left hand at this time Vascular: Cap refill brisk Pain: No tenderness to palpation about the incision site on the volar left wrist ROM: Patient is able to make a closed fist and extend all digits of the left hand fully Skin: Well approximated and well healing incision noted on the left volar wrist No lacerations or abrasions. General: No ecchymosis, erythema, or evidence of infection. Psych: Appears grossly normal Affect normal Attitude cooperative Assessment & Plan Assessment & Plan (1) Carpal tunnel syndrome of left wrist: Code(s): G56.02 - Carpal tunnel syndrome, left upper limb Category: Medical Plan 1. Status post left carpal tunnel release DOS 10/29/2024 Dressing changed in the office today Keep dressing clean, dry, intact until follow-up Follow-up for previously scheduled appointment on 11/10/2024 with wi Coding Level of Care Code Global (84004) Diagnoses Carpal tunnel syndrome of left wrist G56.02
[2024-11-06 09:49] VITALS: BMI 26.0
--- OUTSIDE RECORDS SUMMARY | 2024-11-06 10:01 | XMS_ITS ---
Author Organization [facility] Address [address] [place] [address] Care Team Providers Care Obiee Architect Name Role Phone Owen Mcdonald MD Primary Care Provider Ranjit Ventura Jr Unavailable [phone] Allergies Allergen (clinical drug ingredient) Drug/Non Drug [...] 07/29/2024 Encounters Encounter Location Date Provider Diagnosis [facility] [address] [place] [address] 07/29/2024 Ranjit Quinn Jr Gastro-esophageal reflux disease [...] Name:Ranjit gilmore Jr, 08/02/2025 10:40:00 AM, [address], [address], [place], [address], Progress Notes * MELANIE ENCISO RDOB:[birth year] (83 yo F)Acc No.[id number]:07/29/2024 Progress Notes Patient:?MELANIE ENCISO Provider:?Ranjit Quinn MD :1940???Age:83 Y???Sex:Female D ate:07/29/2024 Address:[address] [place], [place] [phone] Pcp:Owen Mcdonald MD Subjective: * Chief Complaints: [...] MD Date:?0 07/29/2024 Generated for Martina hughes/Jesse/eTransmitting on:?11/06/2024 10:01 AM EDT History and Physical Notes * [...]
--- OUTSIDE RECORDS SUMMARY | 2024-11-06 10:01 | XMS_ITS ---
Author Organization [facility] Address [address] [place] [address] Care Team Providers Care Counter Pocket Trimmer Name Role Phone Owen Mcdonald MD Primary Care Provider Kiara Long Unavailable [phone] Danny Rhodes [phone] Encounters Encounter Location Date Provider Diagnosis [address] [address] 11/14/2023 Danny Rhodes Plan Of Treatment No Information Progress Notes * Melanie SOLIS RDOB:[birth year] (84 yo F)Acc No.[id number]:11/14/2023 Progress Note Patient:Melanie HO Provider:?[place] Rhodes DPM :1940???Age:83 Y???Sex:Female D ate:11/14/2023 Address:[address] [place], [place] [address] Pcp:Owen Mcdonald MD Subjective: * Chief Complaints: [...] DPM Date:? 024 Generated for Printi ng/Faxing/eTransmitting on:?11/06/2024 10:01 AM EDT
--- OUTSIDE RECORDS SUMMARY | 2024-11-06 10:02 | XMS_ITS ---
Author Organization [facility] Address [address] [place] [address] Care Team Providers Care Game Room Attendant Name Role Phone Owen Mcdonald MD Primary Care Provider Efrem BeckerKiara Unavailable [phone] Black, Clary Unavailable [phone] Allergies Allergen (clinical drug ingredient) Drug/Non Drug [...] Status Risk Notes Problem Acquired hallux valgus (30036420) Hallux valgus (acquired), left foot (M20.12) Active confirmed Problem Acquired hammer toe of right foot (9532851681469408) Other hammer toe(s) (acquired), right foot (M20.41) Active confirmed Problem Localized, primary osteoarthritis of the ankle and/or foot (838125444) Arthritis of joint of lesser toe, right (M19.071) Active confirmed Problem Acquired hammer toe of left foot (6265195481842751) Other hammer toe(s) (acquired), left foot (M20.42) Active confirmed Problem Localized, primary osteoarthritis of the ankle and/or foot (040231876) Arthritis of joint of lesser toe, left (M19.072) Active confirmed Vital Signs Height 5 ft in 03/05/2024 Weight 140 lbs 03/05/2024 BMI 27.34 kg/m2 03/05/2024 Blood pressure systolic 138 mm Hg 03/05/20 24 Blood pressure diastolic 58 mm Hg 024 Procedures Procedure Date Ordered Date Performed Result Body Sit e 94710-LDZZ SKIN LESIONS, 2 TO 4 03/05/2024 N/A L8864-XMRJEDKZ DYSTROPHIC NAILS ANY # 03/05/2024 N/A Encounters Encounter Location Date Provider Diagnosis [facility] [place] [address] [place] [address] 03/05/2024 Clary Black Pain in left foot [...] Treatment Pending Test Test Name Order Date 05364-SAIT SKIN LESIONS, 2 TO 4 03/05/20 24 U7446-LLEKYTLN DYSTROPHIC NAILS ANY # Next Appt Details Follow Up: prn, Reason: Procedure Notes * Category Sub-Category Detail Notes Keratoma Treatment Parring or Cutting o f Benign Hyperkeratotic Lesion(s) 64792-UW Self Pay Non-Covered Callus care- Nail Reduction Nail Reduction T5030-BY Trimmin g of noncovered dystrophic nails, any number - Progress Notes * Melanie SOLIS RDOB:[birth year] (83 yo F)Acc No.[id number]:03/05/2024 Progress Note Patient:?Melanie Solis R Provider:?Clary Amos DPM :1940???Age:83 Y???Sex:Female D ate:03/05/2024 Address:[address] [place], [place] [address] Pcp:Owen Mcdonald MD Subjective: * Chief Complaints: [...] loop recorder 04/23/2019 * Hospitalization/Major Diagno stic Procedure:[place] [place] * Family History:?Mother: [...] * Vitals:?Ht: 5 ft, Wt: 140, B FL: 27.34, Shoe size: 5W, BP: 138/58 mm [...] L60.3?17.?Keratoma - L57.0? Plan: * Treatment: 2.?Keratoma?Procedure: 59932-PGJX SKIN LESIONS, 2 TO 4 * Procedures:?Keratoma Treatment:?Parring or Cutting of Benign Hyperkeratotic Lesion(s)?82798-HS Self Pay Non-Covered Callus care-.?Nail Reduction:?Nail Reduction?L0472-LB Trimming of noncovered dystrophic nails, any number -.? * Procedure Codes:?01153 TRIM SKIN LESIONS, 2 TO 4 $60, [...] Amos DPM Date:?2023 Generated for Martina hughes/Jesse/Fatou on:?11/06/2024 10:02 AM EDT History and Physical Notes * [...]
--- OUTSIDE RECORDS SUMMARY | 2024-11-06 10:02 | XMS_ITS | Data Portability ---
Author Organization [facility] Address [address] [place] [address] Assessment No assessment recorded. Plan of Treatment Reminders Order Date Submit Date Provider Last Modified By Organization Details Last Modified Time Details Appointments None recorded. Lab None recorded. Referral None recorded. Procedures None recorded. Surgeries None recorded. Imaging None recorded. Medication Orders prednisone 20 mg tablet 2022 023 [facility] #[id number], [address] [place], [address], 18:35:40 Claritin 10 mg tablet 2022 023 [facility]armacy #[id number], [address] [place], [address], 18:35:41 Patient TargetsNo targets recorded. Patient Instructions Encounter Date Encounter Id Patient Instructions Last Modified By Organization Details Last Modified Time 12/30/2022 [id number] hives: care instructions [email or web address] Not available 12/30/2022 [...] Details Recorded Time Disorder of thyroid gland 24956077 Active 2022 NANCY JERSONJOSE velasquez [place] - [facility] 3 18:13:44 Hypercholes terolemia 73992854 Active 2022 NANCY JERSONJOSE velasquez, [place] - [facility] 3 18:14:25 Transient cerebral ischemia 514161285 Completed 201812/30/2022 NANCY JERSONJOSE velasquez PA - [...] Name and Address Organization Details Recorded Time 674021 Substance with sulfonami de structure and antibacte rial mechanism of action (substanc e) medicatio n hives Not available Not available 12/30/2022 54303 8003 SNOMED NANCY JERSON [facility], [place] - [facility] 3 [...] Last Updated DateTime 152.4 cm 26.4 kg/m2 49447.9 7 g 96 % 96 % 75 /min 16 /min 0 98.5 [degF] 147 mm[Hg] 78 mm[Hg] NANCY ARTHUR [place] [email or web address] 18:20:00 Social History Question Answer Notes LastModified by [employer] Details LastModified Time Tobacco Smoking Status Never Smoker NANCY ARHTUR ron [place] - [facility] 12/30/2022 18:16:53 Have You Recently Traveled Abroad? No Information not available 12/30/2022 Are You Currently In School? No Information not available 12/30/2022 Sex: Unknown Functional Status Question Answer Note LastModified by [employer] Details LastModified Time Do you use any illicit or recreational drugs? No Information not available 12/30/2022 Do you or have you ever used any other forms of tobacco or nicotine? No Information not available 12/30/2022 What is your level of alcohol consumption? None Information not available 12/30/2022 Are you currently employed? No Information not available 12/30/2022 Mental Status None recorded. Family History Nothing [...] SNOMED-CT Code Diagnosis ICD10 Code Diagnosis Note [id number] 20[facility] 20995_[facility] [address] [place] [phone] 09/26/2018 13:11:03 09/26/2018 14:06:13 [id number] Markus Harvey DIRECTOR OF SCIENTIFIC RESEARCH [facility] [address] [place] [address] 12/30/2022 17:17:26 12/30/2022 18:37:12 Pruritic rash 22515271 L28.2 Health Concerns Section Related Observation LastModified by Organization Detai ls LastModified Time None Recorded Concern Status LastModified by Organization Details LastModified Time None Recorded Advance Directives Directive None Recorded Payers Insurance Date Sequence Insurance Name Policy Number Policy Garza Covered Member ID Garza Member ID Guarantor Name 12/30/2022 1 [place] [employer] Melanie Vinesucher [id number] Melanie Irma 12/30/2022 2 [place] [id number] Melanie Solis [id number] Melanie Solis Notes Date Note Type Note Provider Name [...] Harvey NP [address] [place], [address], [place] - [facility] 12/30/2022 18:35:54 OBGyn Episode No OBEpisode recorded.
--- OUTSIDE RECORDS SUMMARY | 2024-11-06 10:02 | XMS_ITS ---
Author Organization Owen Mcdonald MD Address [address] [place], [place] [phone] Care Team Providers Care Operating Room Technician Name Role Phone Owen Mcdonald Primary Care Provider [phone] REASON FOR VISIT left wrist pain x [...] Status Risk Notes Problem Carpal tunnel syndrome (23278293) Carpal tunnel syndrome (G56.00) Active confirmed Vital Signs Blood pressure systolic 154 mm Hg 09/29/19 25 Blood pressure diastolic 56 mm Hg 025 Height 60.5 in 09/28/2024 Weight 140 lbs 09/28/2024 BMI 26.89 kg/m2 09/28/2024 Encounters Encounter Location Date Provider Diagnosis Owen Mcdonald MD [address] [place] [phone] 09/28/2024 Owen Mcdonald Carpal tunnel syndrome G56.00 Assessments Encounter Date Diagnosis (ICD Code) Assessment Notes Treatment Notes Treatment Clinical Notes Section Notes 09/28/2024 Carpal tunnel syndrome (ICD-10 - G56.00) try a wrist splint/ order faxed to [facility] dept, pending diagnostic testing Plan Of Treatment Treatment Notes Assessment Notes Carpal tunnel syndrome try a wrist splin t/ order faxed to [facility] dept, pending diagnostic testing Pending Test Test Name Order Date EMG 09/28/2024 Nerve Conduction Study 09/28/2024 Next Appt Details Follow Up: 4 Weeks, Reason: Provider Name:Owen burnette, 12/29/2024 11:00:00 AM, [address] [place] [address], [address], [phone], Provider Name:Owen burnette, 04/23/2025 08:00:00 AM, [address] [place] [address], [phone], Provider Name:Owen burnette, 04/29/2025 10:15:00 AM, [address] [place] [address], [phone], Provider Name:Owen burnette, 07/29/2025 01:30:00 PM, [address] [place] [address], [phone], Provider Name:Owen burnette, 09/21/2025 08:00:00 AM, [address], [address], [place], [place], [phone], Provider Name:Owen Mcknight ier, 09/28/2025 09:30:00 AM, [address], [address], [place], [place], [phone], Progress Notes * Melanie SOLIS RDOB:[birth year] (84 yo F)Acc No.[id number]:09/28/2024 Progress Notes Patient:?Melanie SOLIS R Provider:?Owen Mcdonald MD :1940???Age:84 Y???Sex:Female D ate:09/28/2024 Address:[address] [place], [place] [phone] Subjective: * Chief Complaints: * ???Left wrist [...] Objective: * Vitals:?Ht: 60.5, Wt: 140, B OR:26.89, BP:154/56, Repeat BP:120/55, Wt-k.5. * Examination: ???General [...] Provider:?Owen Mcdonald MD Date:?0 09/28/2024 Generated for [facility]/Jesse/eTransmitting on:?11/06/2024 10:01 AM EDT History and Physical [...]
--- OUTSIDE RECORDS SUMMARY | 2024-11-06 10:02 | XMS_ITS ---
Author Organization Owen Mcdonald MD Address [address] [place], [place] [address] Care Team Providers Care Farmhand Name Role Phone Owen Mcdonald Primary Care Provider [phone] Results Component Value Reference Range Notes Microalbumin, Random Reviewed date:10/26/2024 04:11:31 PM Interpretation: Performing Lab:[facility], [address] [place] [address] Notes/Report: Creatinine Urine 47.28 Microalbumin Urine 8.0 Microalbum/Creatinine Ratio Ur 16.9 <30 ug/mg cr Albumin/Creatinine Ratio Reference Ranges: Normal: < 30 ug/mg creatinine Microalbuminuria: 30 - 300 ug/mg creatinine Clinical Albuminuria: > 300 ug/mg creatinine UA ClnCatch+Micro w/rflx Cul t Reviewed date:10/26/2024 02:01:04 PM Interpretation: Performing Lab:[facility], [address] [place] [phone] Notes/Report: Urine, Clean Catch Color Urine Dark Yellow Appearance Urine Turbid PH 7.5 5.0-9.0 Glucose Urine UA Negative Negative mg/dL Urine Blood Negative Negative Specific [place] - Urine 1.015 1.005-1.025 Urine Protein Negative [...] Location Date Provider Diagnosis Owen Mcdonald MD [address] [place] [address] [place] [phone] 10/26/2024 Owen Mcdonald Prediabetes R73.09 ; Pure [...] balance (ICD-10 - R26.89) send to [facility] neurology/ dr oakes 10/26/2024 Carpal tunnel syndro me (ICD-10 - G56.00) awaiting surgery Plan Of Treatment Treatment Notes Assessment Notes Poor balance send to [facility] neurolo gy/ dr oakes Carpal tunnel syndrome awaiting surgery Referrals Referral Date Details 10/26/2024 10/26/2024, poor bal ance please eval and treat Has been there before, [facility] Next Appt Details Follow Up: 2 Months, Reason: Provider Name:Owen burnette, 12/29/2024 11:00:00 AM, [address] [place] [address], [address], [phone], Provider Name:Owen burnette, 04/23/2025 08:00:00 AM, [address] [place] [address], [address], [phone], Provider Name:Owen burnette, 04/29/2025 10:15:00 AM, [address], [address], [place], [phone], Provider Name:Owen Mcknight josepr, 07/29/2025 01:30:00 PM, [address] [place] [facility], [address], [place], [phone], Provider Name:Owen Deshaun Roxanna carr, 09/21/2025 08:00:00 AM, [address], [address], [place], [phone], Provider Name:Owen carr, 09/28/2025 09:30:00 AM, [address] [facility], [address], [place], [phone], Progress Notes * Melanie SOLIS RDOB:[birth year] (84 yo F)Acc No.[id number]:10/26/2024 Patient:?Melanie SOLIS Provider:?Owen Mcdonald MD :1940???Age:84 Y???Sex:Female D ate:10/26/2024 Address:[address] [place], [place] [phone] Subjective: * Chief Complaints: * ???Comp visitsPatient states very unsteady * HPI: ???Depression Screening:?PHQ-9?Little interest or pleasure [...] lesions of concern.?Denies?Photosensitivity.?Rash?denies.?Neurologic:?Admits?Balance difficulty.?Admits?Dizziness,?denies.?Fainting?denies.?Admits?Gait abnormality.?Denies?Headache,?denies.? * Medical History:? * Surgical History:? * Hospitalization/Major Diagno stic Procedure:? * Family History:?Father: dece ased 43 yrs.?Mother: 83 yrs, colon cancer.?1 son(s) . .? Father-SD Mother-CVA, Denies mental health/substance abuse family history, [...] 03/26/2019yes[Allergies Verified] Objective: * Vitals:?Ht: 60.5, Wt: 136, B SD:26.12, BP:134/50, Wt-k.69. weight is dwn 4 pounds [...] X10*3/uL) 0.000 (Ref Range: 0.0-0.012 X10*3/uL) ???Lab:Comprehensive [place]. Panel Fast (Order Date - 10/19/2024) (Collection Date & Time - 10/19/2024 07:15 AM)?ValueReference Range?Fiiuxf223263- 145 - mmol/L?Bilirubin Total0.50.0-1.0 - mg/dL?Aspartate Amino Lfjkkkjrxmf383-02 - U/L?Alanine Nqhjrqxrrljkwjle033-55 - U/L?Total Protein7.06.5-8.0 - g/dL?Albumin Level4.33.5-5.0 - g/dL?Alkaline Ivssefdysro8394-331 - U/L?Potassium4.23.3-5.1 - mmol/L?Xbibptxv30129-850 - mmol/L?Carbon Qjklfjm4717-88 - mmol/L?Anion Rzc5966-55 -?Blood Urea Fijemnxb74Q5-30 - mg/dL?Creatinine0.690.5-1.4 - mg/dL?Estimated Glomerular Filt Rate> 60-?Glucose Nhkjhsi927N02-70 - mg/dL?Calcium9.88.4-10.2 - mg/dL ???Lab:Vitamin B12 and Folate (Order Date - 10/13/2024) (Collection Date & Time - 10/13/2024 03:21PM)?ValueReference Range?Vitamin C54473099-363 - pg/mL?Udozro72.4> or = 4.0 - ng/mL ???Lab:Lactate Dehydrogenase (Order Date - 10/13/2024) (Collection Date & Time - 10/13/2024 03:21 PM)?ValueReference Range?Lactate Antdhmpfarsaf181552-537 - U/L * Examination: ???General Examination: ?GENERAL [...] AM) 3.?Poor balance? Notes: send to [facility] neurology/ dr oakes? Referral To:[facility]Neurology ?Reason:poor balance please eval and treat Has been there before 4.?Carpal tunnel syndrome? Notes: awaiting surgery?? * Procedure Codes:? * Follow Up:?2 Months * * Sign off status: Completed true * Provider:?Owen Mcdonlad MD Date:?0 10/26/2024 Generated for Martina hughes/Jesse/Fatou on:?11/06/2024 10:02 AM [...]
--- OUTSIDE RECORDS SUMMARY | 2024-11-06 10:02 | XMS_ITS ---
Author Organization [facility] Address [address] [place] [address] Care Team Providers Care Field Installation Technician Name Role Phone Owen Mcdonald MD Primary Care Provider Kiara Long Unavailable [phone] Danny Rhodes [phone] Encounters Encounter Location Date Provider Diagnosis [address] [address] 01/01/2024 Danny Rhodes Plan Of Treatment No Information Progress Notes * Melanie SOLIS RDOB:[birth year] (84 yo F)Acc No.[id number]:01/01/2024 Progress Note Patient:Melanie HO Provider:?Danyn [place] DPM :1940???Age:83 Y???Sex:Female D ate:01/01/2024 Address:[address] [place], [place] [address] Pcp:Owen Mcdonald MD Subjective: * Chief Complaints: [...] Date:? 024 Generated for Printi ng/Faxing/eTransmitting on:?11/06/2024 10:02 AM EDT
--- OUTSIDE RECORDS SUMMARY | 2024-11-06 10:02 | XMS_ITS ---
Author Organization Owen Mcdonald MD Address [address] [place], [place] [phone] Care Team Providers Care Die Maker Apprentice Name Role Phone Owen Mcdonald Primary Care Provider Results Component Value Reference Range Notes Complete Blood Count Auto Di ff Reviewed date:10/19/2024 12:45:02 PM Interpretation: Performing Lab:[facility], [address] [place] [phone] Notes/Report: White Blood Count 6.9 4.8-10.8 X10*3/uL [...] NRBC Abs Auto 0.000 0.0-0.012 X10*3/uL Comprehensive [place]. Panel Fa st Reviewed date:10/19/2024 05:13:39 PM Interpretation: Performing Lab:[facility], [address] [place] [phone] Notes/Report: Sodium 140 135-145 mmol/L Potassium 4.2 [...] Reviewed date:10/19/2024 12:45:11 PM Interpretation: Performing Lab:[address] [address] Notes/Report: Triglycerides 138 <150 mg/dL Desirable Triglyceride: [...] Reviewed date:10/19/2024 12:44:44 PM Interpretation: Performing Lab:[address] [address] Notes/Report: TSH reflex Free T4 1.94 0.32-4.0 uIU/mL Hemoglobin A1c Reviewed date:10/19/2024 12:44:36 PM Interpretation: Performing Lab:[address] [address] Notes/Report: Hemoglobin A1c % 5.6 <6.0 % [...] average glucose, using the formula of the U4I-Euuupfb Average Glucose study (ADAG), Diabetes Care, Vol.31,#8, Jan. 2007 REASON FOR VISIT yearly fasting labs Encounters Encounter Location Date Provider Diagnosis Owen Mcdonald MD [address] [place] [phone] 10/19/2024 Owen Mcdonald Acquired hypothyroid ism E03.9 [...] Details Provider Name:Owen burnette, 12/29/2024 11:00:00 AM, [address] [place] [address], [address], [phone], Provider Name:Owen burnette, 04/23/2025 08:00:00 AM, [address] [place] [address], [phone], Provider Name:Owen burnette, 04/29/2025 10:15:00 AM, [address] [place] [address], [phone], Provider Name:Owen burnette, 07/29/2025 01:30:00 PM, [address] [place] [address], [phone], Provider Name:Owen burnette, 09/21/2025 08:00:00 AM, [address] [place] [address], [phone], Provider Name:Owen burnette, 09/28/2025 09:30:00 AM, [address] [place] [address], [phone], Progress Notes * Melanie SOLIS RDOB:[birth year] (84 yo F)Acc No.[id number]:10/19/2024 Progress Note Patient:Melanie HO Provider:?Owen Mcdonald MD :1940???Age:84 Y???Sex:Female D ate:10/19/2024 Address:[address] [place], [place] [phone] Subjective: * Chief Complaints: * ???1. Yearly fasting labs. * Medical History:? Objective: * Vitals:? Assessment: * Assessment: 1.?Acquired hypothyroidism - E03.9 (Primary)???2.?Prediabetes - R73.09???3.?Pure hypercholesterolemia - E78.00???4.?Thrombocytopenia - D69.6??? Plan: * Treatment: 2.?Prediabetes?LAB: Microalbumin, Random ?LAB: UA ClnCatch+Micro w/rflx Cult ?LAB: Complete Blood Count Auto Diff (Collection Date & Time - 10/19/2024 07:15 AM) ?LAB: Comprehensive [place]. Panel Fast (Collection Date & Time - [...] Time - 10/19/2024 07:15 AM) ?LAB: Comprehensive [place]. Panel Fast (Collection Date & Time - [...] Time - 10/19/2024 07:15 AM) ?LAB: Comprehensive [place]. Panel Fast (Collection Date & Time - 10/19/2024 07:15 AM) ?LAB: Lipid Panel (Collection Date & Time - 10/19/2024 07:15 AM) ?LAB: TSH reflex Free T4 (Collection Date & Time - 10/19/2024 07:15 AM) ?LAB: Hemoglobin A1c (Collection Date & Time - 10/19/2024 07:15 AM) * Procedure Codes:?10846 VENIP UNCT, ROUTINE* * * The named appointment provid er may or may not be the originator of this progress note, and it is not deemed complete until electronically signed by the appointment provider. Sign off status: Pending * Provider:?Owen Mcdonald MD Date:?0 10/19/2024 Generated for Martina hughes/Jesse/Donnyitting on:?11/06/2024 10:01 AM EDT
--- OUTSIDE RECORDS SUMMARY | 2024-11-06 10:02 | XMS_ITS ---
Author Organization [facility] Address [address] [place] [address] Care Team Providers Care Partner Marketing Intern Name Role Phone Owen Mcdonald MD Primary Care Provider Ranjit Ventrua Jr Unavailable Allergies Allergen (clinical drug ingredient) [...] Active Vitamin D (Cholecalciferol) 50 MCG (1999 [place]) 1 capsule Orally Once a day for [...] 07/29/2023 Encounters Encounter Location Date Provider Diagnosis [facility] [address] [place] [address] 07/29/2023 Ranjit [place] Jr Screening for colon [...] 10:40:00 AM, [address], [address], [place], [address], Progress Notes * MELANIE ENCISO RDOB:[birth year] (82 yo F)Acc No.[id number]:07/29/2023 Progress Notes Patient:?MELANIE ENCISO Provider:?Ranjit [place] MD :1940???Age:82 Y???Sex:Female D ate:07/29/2023 Address:[address] [place], [place] [phone] Pcp:Owen Mcdonald MD Subjective: * Chief Complaints: [...] MD Date:?0 07/29/2023 Generated for Printi saul/Jesse/eTransmitting on:?11/06/2024 10:02 AM EDT History and Physical [...]
--- OUTSIDE RECORDS SUMMARY | 2024-11-06 10:03 | XMS_ITS | Patient Health Record ---
Author Organization [facility] [place] Address [address] [place] [address] Care Team Providers Care Sub Prior Name Role Phone Harry MACKEY, Owen Primary Care Provider Kiara Long Unavailable [phone] Black, Clary Unavailable [phone] Danny Rhodes Unavailable [phone] Allergies Allergen (clinical drug ingredient) Drug/Non Drug [...] Problem Acquired hammer toe of right foot (6937728776059686) Other hammer toe(s) (acquired), right foot (M20.41) Active confirmed Problem Acquired hammer toe of left foot (5214694345673350) Other hammer toe(s) (acquired), left foot (M20.42) Active confirmed Problem 066849984776007 Hallux valgus (acquired), right foot (M20.11) Active confirmed Problem Acquired hallux valgus (50579101) Hallux valgus (acquired), left foot (M20.12) Active confirmed Problem 553178295038091 Hallux valgus (acquired), right foot (M20.11) Active confirmed Problem 099128484 Hammer toe of right foot (M20.41) Active confirmed Problem 836259065556652 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 Problem 58355373284105888 Atherosclerosi s of artery of both lower extremities (I70.203) Active confirmed Problem Localized, primary osteoarthritis of the ankle and/or foot (742736780) Arthritis of joint of lesser toe, left (M19.072) Active confirmed Problem Localized, primary osteoarthritis of the ankle and/or foot (185257083) Arthritis of joint of lesser toe, right (M19.071) Active confirmed Vital Signs Blood pressure diastolic 58 mm Hg 03/05/2024 Height 5 ft in 03/05/2024 Blood pressure systolic 138 mm Hg 03/05/2024 Weight 140 lbs 03/05/2024 BMI 27.34 kg/m2 03/05/2024 Procedures Procedure Date Ordered Date Performed Result Body Sit e 42323-KXGO SKIN LESIONS, 2 TO 4 03/05/2024 N/A [id number] DYSTROPHIC NAILS ANY # 03/05/2024 N/A Encounters Encounter [facility] Date [facility] [address] [facility]/05/2024 Clary Black Pain in left foot [...] ; Dystrophic nail L60.3 and Keratoma L57.0 [facility] [address] [address] 11/14/2023 Kiara Becker Assessments Encounter Date Diagnosis [...] X ray : Foot, right 3V 04/11/2022 65977-MSWG SKIN LESIONS, 2 TO 4 03/05/20 24 [id number] DYSTROPHIC NAILS ANY # Insurance Providers Payer Name Payer Address Payer Phone Subscriber Number Group Number Insured Name Patient Relationship to Insured Coverage Start Date Coverage End Date [employer] [address] [place] [address] [phone] [id number] Melanie Solis Self - [facility] the [facility] [address] [place] [address] [phone] [id number] Melanie Solis Self - patient is [...] loop recorder 04/23/2019 Hospitalization History Reason Date(Month/Year) [facility] [place] - slight stroke 02/2019
--- OUTSIDE RECORDS SUMMARY | 2024-11-06 10:03 | XMS_ITS | Patient Health Record ---
Author Organization [facility] Address [address] [place] [address] Care Team Providers Care Seasoner Hand Name Role Phone Owen Mcdonald MD Primary Care Provider Ranjit Ventura Jr Unavailable [phone] Allergies Allergen (clinical drug ingredient) Drug/Non Drug [...] Problem Status W/U Status Risk Notes Problem [id number] Gastro-esophagea l reflux disease without esophagitis (K21.9) Active confirmed Problem 653447920 Change in bowel habits (R19.4) Active confirmed Problem 936291287 Screening for colon cancer (Z12.11) Active confirmed Vital Signs Temperature 97.5 degrees Fahrenheit 07/29/2024 Blood pressure diastolic 00 mm Hg 07/29/2024 Height 59.50 in 07/29/2024 Blood pressure systolic 000 mm Hg 07/29/2024 Weight 143 lbs 07/29/2024 BMI 28.40 kg/m2 07/29/2024 Encounters Encounter Location Date Provider Diagnosis [facility] [address] [place] [address] 07/29/2024 Ranjit Quinn Jr Gastro-esophageal reflux disease [...] 10:40:00 AM, [address], [address], [place], [address], Insurance Providers Payer Name Payer Address Payer Phone Subscriber Number Group Number Insured Name Patient Relationship to Insured Coverage Start Date Coverage End Date MEDICARE OF [place] [address] [place] [address] [id number] SOPHIE ENCISO Self - patient is the insured [employer] [address] [place] [address] [id number] [id number] [id number] Self - patient is [...]
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
== END 2024-11-06 10:01 | disposition home or self-care (01) ==
LOC: HO.HOS 09:44
PROVIDERS: PCP Internal Medicine
DX: G56.02 Carpal tunnel syndrome, left upper limb (principal)
CPT/HCPCS: 99024

== ENCOUNTER → 2024-11-06 09:43 | Outpatient (BNVA) | payer MEDICARE, SELFPAY | PROVIDERS: PCP Internal Medicine | DX: Z48.811 Encounter for surgical aftercare following surgery on the nervous system (principal); Z98.890 Other specified postprocedural states | CPT/HCPCS: 99212 ==

== ENCOUNTER 2024-11-10 14:03 | Outpatient (AMB) | payer MEDICARE, SELFPAY ==
[2024-11-10 14:10] VITALS: BMI 26.0
--- NOTE | 2024-11-10 14:10 | A.OFFVIS_ITS ---
Vital Signs 11/10/24 14:10 Height 5 ft Weight 133 lb BMI 26.0 Intake Visit Reasons: PO LT CTR 10/29/24 AR Intake Note: Melanie is an 84 year old right hand dominant female who presents to the office today post-operatively status post left carpal tunnel release, DOS: 10/29/24, by Dr. Esquivel. Sutures removed in office today and steri strips applied. Patient reports that she is having improving numbness and tingling and mild pain. Seen 1 week PO, 11/06/24, for a wound check. Allergies sulfur Allergy (Severe, Verified 11/10/24 14:21) internal hives Sulfa (Sulfonamide Antibiotics) Allergy (Mild, Verified 11/10/24 14:21) UNKNOWN ciprofloxacin [Cipro] Allergy (Unknown, Verified 11/10/24 14:21) hives pneumococcal vaccine Allergy (Unknown, Verified 11/10/24 14:21) palm sized welt, inflamed HPI HPI PO LT CTR 10/29/24 AR: Details: Melanie is an 84 year old right hand dominant female who presents to the office today post-operatively status post left carpal tunnel release, DOS: 10/29/24, by Dr. Esquivel. Sutures removed in office today and steri strips applied. Patient reports that she is having improving numbness and tingling and mild pain. Seen 1 week PO, 11/06/24, for a wound check. [facility] Medical History Occipital stroke Cervical disc disease Pre-diabetes Tubular adenoma of colon Hypercholesterolemia GERD (gastroesophageal reflux disease) Esophagitis Hypothyroidism Thrombocytopenia Surgical History H/O breast biopsy H/O colonoscopy History of esophagogastroduodenoscopy (EGD) History of hysterectomy Family History Maternal Grandmother Colon cancer Daughter Father Heart attack Mother Stroke Social History Household Members: None Housing: House Are you a primary long term care phlebotomist to a significant other at home: No Do you presently have visiting nurse or other home services: No Alcohol intake: current Alcohol intake frequency: a few times a month Alcohol type: wine Patient Tobacco Use Status: Never used Tobacco Advance Directives Date on File: 12/28/20 service: No Current occupational status: retired Review of Systems Const All systems reviewed & are unremarkable except as noted in HPI and below Physical Exam Vital Signs: BMI result Body Mass Index 26.0 Extrem Other: Patient is alert, oriented, and in no acute distress. Neuro: Normal sensation of the tips of all digits of the left hand at this time Vascular: Cap refill brisk Pain: No tenderness to palpation about the incision site on the volar left wrist ROM: Patient is able to make a closed fist and extend all digits of the left hand fully Skin: Well approximated and well healing incision noted on the left volar wrist No lacerations or abrasions. General: No ecchymosis, erythema, or evidence of infection. Psych: Appears grossly normal Affect normal Attitude cooperative Assessment & Plan Assessment & Plan (1) Carpal tunnel syndrome of right wrist: Code(s): G56.01 - Carpal tunnel syndrome, right upper limb Category: Medical (2) Carpal tunnel syndrome of left wrist: Code(s): G56.02 - Carpal tunnel syndrome, left upper limb Category: Medical Plan 1. Status post left carpal tunnel release DOS 10/29/2024 Patient appears to be recovering well postoperatively Patient is educated about the typical recovery course Sutures removed, Steri-Strips applied At this time, patient is informed she will require no further acute follow-up with us, as she appears to be recovering very well Patient is amenable to this plan Patient would like to hold off on any operative intervention for her right carpal tunnel syndrome, as she is largely asymptomatic and is very concerned about potential recovery Follow-up as needed Coding Level of Care Code Global (03951) Diagnoses Carpal tunnel syndrome of right wrist G56.01 Carpal tunnel syndrome of left wrist G56.02
--- OUTSIDE RECORDS SUMMARY | 2024-11-10 15:25 | XMS_ITS ---
Author Organization [facility] Address [address] [place] [address] Care Team Providers Care Machine Builder Name Role Phone Owen Mcdonald MD Primary [...] 07/29/2024 Encounters Encounter Location Date Provider Diagnosis [facility] [address] [place] [address] 07/29/2024 Ranjit Quinn Jr Gastro-esophageal reflux disease [...] Name:Ranjit gilmore Jr, 08/02/2025 10:40:00 AM, [address], [address], [place], [address], Progress Notes * MELANIE ENCISO RDOB:[birth year] (83 yo F)Acc No.[id number]:07/29/2024 Progress Notes Patient:?MELANIE ENCISO Provider:?Ranjit Quinn MD :1940???Age:83 Y???Sex:Female D ate:07/29/2024 Address:[address] [place], [place] [phone] Pcp:Owen Mcdonald MD Subjective: * Chief Complaints: [...] MD Date:?0 07/29/2024 Generated for Martina hughes/Jesse/eTransmitting on:?11/10/2024 03:25 PM EDT History and Physical Notes * [...]
--- OUTSIDE RECORDS SUMMARY | 2024-11-10 15:25 | XMS_ITS | Data Portability ---
Author Organization [place] [facility], [facility] Address [address] [address] Care Team Providers Care Corn Miller Name Role Phone MILA SOTOMAYOR Primary Care [...] amplification and medical clearance was provided today. [email or web address] Not available 12/25/2023 12:49:53 Plan of Treatment [...] audio gram No observ ation record ed. [email or web address] Not Available 01/2024 13:29:11 02/12/20 24 11/10/2021 [...] Organization Details Recorded Time Deviated nasal septum 204457255 Active 2021 Deviated nasal septum; Note: Date Diagnosed : 12/29/2021 3:45 PM (J34.2) Not Available [facility] 4 02:27:48 Posterior rhinorrhe a 70066190 Active 2021 Postnasal drip; Note: Date Diagnosed : 12/29/2021 3:45 PM (R09.82) Not Available [facility] 4 02:28:04 Sensorine ural hearing loss of bilateral ears 209008975 Active 2021 Sensorine ural hearing loss, bilateral ; Note: Date Diagnosed : 12/29/2021 3:45 PM (H90.3) Not Available [facility] 4 02:27:55 Chronic rhinitis 07868383 Active 2021 Chronic rhinitis; Note: Date Diagnosed : 12/29/2021 3:45 PM (J31.0) Not Available [facility] 4 02:27:40 Bilateral tinnitus 14347376835 02 Active 2021 Tinnitus, bilateral ; Note: Date Diagnosed : 12/29/2021 3:45 PM (H93.13) Not Available [facility] 4 02:27:58 Impacted cerumen of bilateral ears 01045899426 05806 Active 2023 MARISOL COATS PA-C [address] [facility] [place] [address], [place], [address] , [facility] [place] 4 12:47:20 Sensorine ural hearing loss of bilateral ears 127517989 Active 2023 MARISOL COATS PA-C 100 [facility],[place] [address], [facility] [place], [address] , [facility] - [facility] [place] 4 12:47:35 Dysphonia 46073712 Active 2023 Hoarsenes s; Note: Date Diagnosed : 09/25/2023 11:42 AM (R49.0) Not Available [facility] 4 02:27:30 Problem Notes None recorded. Procedures Surgical History Date Name Laterality Status Provider Name and Address Organization Details Recorded Time 4 Comp Audio with Tymps - 95744 & 19485 completed DEBBI MITTAL MA, CCC-A [address] [facility],[place] [address], [place], [address], [facility] - [facility] [place] 12/25/2023 12:12:18 Cerumen removal without microscope bilat completed MARISOL COATS PA-C [address] [facility],[place] [address], [place], [address], [facility] - [facility] [place] 12/25/2023 12:47:16 Imaging Results Imaging Date Name Status LastModified by Organiz ation Details LastModified Time 12/30/2023 audiogram completed [email or web address] Information n ot available 12/30/2023 13:29:11 11/10/2021 [...] Name and Address Organization Details Recorded Time 211305 fluticaso ne Not available lighthead edness Not available Not available 01/24/2024 66331 RxNorm React ion: Light heade dness ; Not Available [facility] 4 00:24:24 83558 floxacill in Not available other Not available Not available 11/05/2023 4448 RxNorm React ion: Unkno wn; Not Available [facility] 4 00:52:01 88950 Bactrim medicatio n other Not available Not available 11/05/2023 84722 9 RxNorm React ion: Unkno wn; Not Available [facility] 4 00:52:08 Medications Name [...] Note 6328 MARISOL COATS PA-C [facility] [address] [address] 12/25/2023 10:51:24 12/25/2023 12:50:30 Impacted cerumen of bilateral ears 3942091889 771311 H61.23 Sensorineu ral hearing loss of bilateral ears 648009247 H90.3 6491 DEBBI MITTAL MA, CCC-A [facility] [address] [address] 12/25/2023 12:11:34 12/31/2023 11:38:32 Sensorineural hearing loss of bilateral ears 236066213 H90.3 RIGHT EAR: Borderline normal/ mild SNHL [...] Member ID Garza Member ID Guarantor Name 12/31/2023 2 [place] [id number] Melanie R Irma [id number] Melanie R Irma 12/25/2023 1 [place] [employer] Melanie R Irma [id number] Melanie R Irma Notes Date Note [...] blurry vision with use. SOFIA EDGAR MD [address] [place] [address], [address], [facility] - [facility] 12/25/2023 14:36:40 OBGyn Episode No OBEpisode recorded.
--- OUTSIDE RECORDS SUMMARY | 2024-11-10 15:25 | XMS_ITS ---
Author Organization [facility] Address [address] [place] [address] Care Team Providers Care Vocational Training Teacher Name Role Phone Owen Mcdonald MD Primary Care Provider Kiara Long Unavailable [phone] Danny Rhodes [phone] Encounters Encounter Location Date Provider Diagnosis [address] [address] 11/14/2023 Danny Rhodes Plan Of Treatment No Information Progress Notes * Melanie SOLIS RDOB:[birth year] (84 yo F)Acc No.[id number]:11/14/2023 Progress Note Patient:Melanie HO Provider:?Danny Rhodes DPM :1940???Age:83 Y???Sex:Female D ate:11/14/2023 Address:[address] [place], [place] [address] Pcp:Owen Mcdonald MD Subjective: * Chief Complaints: [...] DPM Date:? 024 Generated for Printi ng/Faxing/eTransmitting on:?11/10/2024 03:25 PM EDT
--- OUTSIDE RECORDS SUMMARY | 2024-11-10 15:25 | XMS_ITS ---
Author Organization Owen Mcdonald MD Address [address] [place], [place] [address] Care Team Providers Care Special Events Driver Name Role Phone Owen Mcdonald Primary [...] Date Provider Diagnosis Owen Mcdonald MD [address] [place] [address] [place] [phone] 09/28/2024 Owen Mcdonald Carpal tunnel syndrome G56.00 Assessments Encounter Date Diagnosis (ICD Code) Assessment Notes Treatment Notes Treatment Clinical Notes Section Notes 09/28/2024 Carpal tunnel syndrome (ICD-10 - G56.00) try a wrist splint/ order faxed to [facility] dept, pending diagnostic testing Plan Of Treatment Treatment Notes Assessment Notes Carpal tunnel syndrome try a wrist splin t/ order faxed to [facility] dept, pending diagnostic testing Pending Test Test Name Order Date EMG 09/28/2024 Nerve Conduction Study 09/28/2024 Next Appt Details Follow Up: 4 Weeks, Reason: Provider Name:Owen burnette, 12/29/2024 11:00:00 AM, [address] [place] [address], [address], [phone], Provider Name:Owen burnette, 04/23/2025 08:00:00 AM, [address] [place] [address], [address], [phone], Provider Name:Owen burnette, 04/29/2025 10:15:00 AM, [address] [place] [address], [address], [phone], Provider Name:Owen burnette, 07/29/2025 01:30:00 PM, [address] [place] [address], [address], [phone], Provider Name:Owen burnette, 09/21/2025 08:00:00 AM, [address] [place] [address], [address], [phone], Provider Name:Owen Mcknight ier, 09/28/2025 09:30:00 AM, [address] [facility], [address], [place], [phone], Progress Notes * Melanie SOLIS RDOB:[birth year] (84 yo F)Acc No.[id number]:09/28/2024 Progress Notes Patient:?Melanie SOLIS R Provider:?Owen Mcdonald MD :1940???Age:84 Y???Sex:Female D ate:09/28/2024 Address:[address] [place], [place] [address] Subjective: * Chief Complaints: * ???Left wrist [...] Objective: * Vitals:?Ht: 60.5, Wt: 140, B AR:26.89, BP:154/56, Repeat BP:120/55, Wt-k.5. * Examination: ???General [...] Provider:?Owen Mcdonald MD Date:?0 09/28/2024 [facility]/Faxing/eTransmitting on:?11/10/2024 03:25 PM EDT History and Physical [...]
--- OUTSIDE RECORDS SUMMARY | 2024-11-10 15:25 | XMS_ITS ---
Author Organization Owen Mcdonald MD Address [address] [place], [place] [phone] Care Team Providers Care Sewing Machine Repairer Name Role Phone Owen Mcdonald Primary Care Provider Results Component Value Reference Range Notes Complete Blood Count Auto Di ff Reviewed date:10/19/2024 12:45:02 PM Interpretation: Performing Lab:[facility], [address] [place] [address] Notes/Report: White Blood Count 6.9 4.8-10.8 X10*3/uL [...] NRBC Abs Auto 0.000 0.0-0.012 X10*3/uL Comprehensive [place]. Panel Fa st Reviewed date:10/19/2024 05:13:39 PM Interpretation: Performing Lab:[facility], [address] [place] [address] Notes/Report: Sodium 140 135-145 mmol/L Potassium 4.2 [...] Panel Reviewed date:10/19/2024 12:45:11 PM Interpretation: Performing Lab:[address] [address] Notes/Report: Triglycerides 138 <150 mg/dL Desirable Triglyceride: [...] T4 Reviewed date:10/19/2024 12:44:44 PM Interpretation: Performing Lab:[address] [address] Notes/Report: TSH reflex Free T4 1.94 0.32-4.0 uIU/mL Hemoglobin A1c Reviewed date:10/19/2024 12:44:36 PM Interpretation: Performing Lab:[address] [address] Notes/Report: Hemoglobin A1c % 5.6 <6.0 % [...] average glucose, using the formula of the L2E-Hymnoak Average Glucose study (ADAG), Diabetes Care, Vol.31,#8, Jan. 2007 REASON FOR VISIT yearly fasting labs Encounters Encounter Location Date Provider Diagnosis Owen Mcdonald MD [address] [place] [phone] 10/19/2024 Owen Mcdonald Acquired hypothyroid ism E03.9 [...] Provider Name:Owen burnette, 12/29/2024 11:00:00 AM, [address] [place] [address], [address], [phone], Provider Name:Owen burnette, 04/23/2025 08:00:00 AM, [address] [place] [address], [phone], Provider Name:Owen burnette, 04/29/2025 10:15:00 AM, [address] [place] [address], [phone], Provider Name:Owen burnette, 07/29/2025 01:30:00 PM, [address] [place] [address], [phone], Provider Name:Owen burnette, 09/21/2025 08:00:00 AM, [address] [place] [address], [phone], Provider Name:Owen burnette, 09/28/2025 09:30:00 AM, [address] [place] [address], [phone], Progress Notes * Melanie SOLIS RDOB:[birth year] (84 yo F)Acc No.[id number]:10/19/2024 Progress Note Patient:Melanie HO Provider:?Owen Mcdonald MD :1940???Age:84 Y???Sex:Female D ate:10/19/2024 Address:[address] [place], [place] [phone] Subjective: * Chief Complaints: * ???1. Yearly fasting labs. * Medical History:? Objective: * Vitals:? Assessment: * Assessment: 1.?Acquired hypothyroidism - E03.9 (Primary)???2.?Prediabetes - R73.09???3.?Pure hypercholesterolemia - E78.00???4.?Thrombocytopenia - D69.6??? Plan: * Treatment: 2.?Prediabetes?LAB: Microalbumin, Random ?LAB: UA ClnCatch+Micro w/rflx Cult ?LAB: Complete Blood Count Auto Diff (Collection Date & Time - 10/19/2024 07:15 AM) ?LAB: Comprehensive [place]. Panel Fast (Collection Date & Time - [...] Time - 10/19/2024 07:15 AM) ?LAB: Comprehensive [place]. Panel Fast (Collection Date & Time - [...] Time - 10/19/2024 07:15 AM) ?LAB: Comprehensive [place]. Panel Fast (Collection Date & Time - 10/19/2024 07:15 AM) ?LAB: Lipid Panel (Collection Date & Time - 10/19/2024 07:15 AM) ?LAB: TSH reflex Free T4 (Collection Date & Time - 10/19/2024 07:15 AM) ?LAB: Hemoglobin A1c (Collection Date & Time - 10/19/2024 07:15 AM) * Procedure Codes:?19680 VENIP UNCT, ROUTINE* * * The named appointment provid er may or may not be the originator of this progress note, and it is not deemed complete until electronically signed by the appointment provider. Sign off status: Pending * Provider:?Owen Mcdonald MD Date:?0 10/19/2024 Generated for Martina hughes/Jesse/eTmauraitting on:?11/10/2024 03:25 PM EDT
--- OUTSIDE RECORDS SUMMARY | 2024-11-10 15:25 | XMS_ITS | Data Portability ---
Author Organization [facility] Address [address] [place] [address] Assessment No assessment recorded. Plan of Treatment Reminders Order Date Submit Date Provider Last Modified By Organization Details Last Modified Time Details Appointments None recorded. Lab None recorded. Referral None recorded. Procedures None recorded. Surgeries None recorded. Imaging None recorded. Medication Orders prednisone 20 mg tablet 2022 023 [id number], [address] [place], [address], 18:35:40 Claritin 10 mg tablet 2022 023 [id number], [address] [place], [address], 18:35:41 Patient TargetsNo targets recorded. Patient Instructions Encounter Date Encounter Id Patient Instructions Last Modified By Organization Details Last Modified Time 12/30/2022 [id number] hives: care instructions [email or web address] Not available 12/30/2022 [...] Details Recorded Time Disorder of thyroid gland 21827398 Active 2022 NANCY JERSONJOSE velasquez [place] - [facility] 3 18:13:44 Hypercholes terolemia 07842997 Active 2022 NANCY JERSONJOSE velasquez, [place] - [facility] 3 18:14:25 Transient cerebral ischemia 331496767 Completed 201812/30/2022 NANCY JERSONJOSE velasquez PA - [...] Name and Address Organization Details Recorded Time 506161 Substance with sulfonami de structure and antibacte rial mechanism of action (substanc e) medicatio n hives Not available Not available 12/30/2022 16082 8003 SNOMED NANCY JERSON [facility], [place] - [facility] 3 18:12:37 [...] Last Updated DateTime 152.4 cm 26.4 kg/m2 67089.9 7 g 96 % 96 % 75 /min 16 /min 98.5 [degF] 147 mm[Hg] 78 mm[Hg] NANCY Rodriguez [facility] 18:20:00 Social History Question Answer Notes LastModified by [email or web address] Details LastModified Time Tobacco Smoking Status Never Smoker NANCY velasquez [place] - [facility] 12/30/2022 18:16:53 Have You Recently Traveled Abroad? No Information not available 12/30/2022 Are You Currently In School? No Information not available 12/30/2022 Sex: Unknown Functional Status Question Answer Note LastModified by [email or web address] Details LastModified Time Do you use any [...] Influenza, high-dose, quadrivalent, PF 0 completed NANCY JERSNO null, [place] - [facility] 12/30/2022 18:12:17 [...] SNOMED-CT Code Diagnosis ICD10 Code Diagnosis Note [id number] [facility] [address] [phone] 09/26/2018 13:11:03 09/26/2018 14:06:13 [id number] [place]us [place] [address] [address] 12/30/2022 17:17:26 12/30/2022 18:37:12 Pruritic rash 77185250 L28.2 Health Concerns Section Related Observation LastModified by Organization Detai ls LastModified Time None Recorded Concern Status LastModified by Organization Details LastModified Time None Recorded Advance Directives Directive None Recorded Payers Insurance Date Sequence Insurance Name Policy Number Policy Garza Covered Member ID Garza Member ID Guarantor Name 12/30/2022 1 [place] [employer] Melanie Solis [id number] Melanie Solis 12/30/2022 2 [place] [id number] Melanie Solis [id number] Melanie Solis Notes Date Note Type [...] Harvey NP [address] [place], [address], [place] - [facility] 12/30/2022 18:35:54 OBGyn Episode No OBEpisode recorded.
--- OUTSIDE RECORDS SUMMARY | 2024-11-10 15:26 | XMS_ITS ---
Author Organization [facility] Address [address] [place] [address] Care Team Providers Care Management Psychologist Name Role Phone Owen Mcdonald MD Primary Care Provider Efrem BeckerKiara Unavailable [phone] Black, Clary Unavailable [phone] Allergies Allergen (clinical drug ingredient) Drug/Non Drug [...] Status Risk Notes Problem Acquired hallux valgus (79366085) Hallux valgus (acquired), left foot (M20.12) Active confirmed Problem Acquired hammer toe of right foot (0371562394335472) Other hammer toe(s) (acquired), right foot (M20.41) Active confirmed Problem Localized, primary osteoarthritis of the ankle and/or foot (677455793) Arthritis of joint of lesser toe, right (M19.071) Active confirmed Problem Acquired hammer toe of left foot (0161043949148681) Other hammer toe(s) (acquired), left foot (M20.42) Active confirmed Problem Localized, primary osteoarthritis of the ankle and/or foot (903666601) Arthritis of joint of lesser toe, left (M19.072) Active confirmed Vital Signs Height 5 ft in 03/05/2024 Weight 140 lbs 03/05/2024 BMI 27.34 kg/m2 03/05/2024 Blood pressure systolic 138 mm Hg 03/05/20 24 Blood pressure diastolic 58 mm Hg 024 Procedures Procedure Date Ordered Date Performed Result Body Sit e 31216-BMVJ SKIN LESIONS, 2 TO 4 03/05/2024 N/A A4179-FAJCALWG DYSTROPHIC NAILS ANY # 03/05/2024 N/A Encounters Encounter Location Date Provider Diagnosis [facility] [address] [place] [address] 03/05/2024 Clary Black Pain in left foot [...] Treatment Pending Test Test Name Order Date 41582-XVSG SKIN LESIONS, 2 TO 4 03/05/20 24 X0189-YHUNGXAV DYSTROPHIC NAILS ANY # Next Appt Details Follow Up: prn, Reason: Procedure Notes * Category Sub-Category Detail Notes Keratoma Treatment Parring or Cutting o f Benign Hyperkeratotic Lesion(s) 90126-PM Self Pay Non-Covered Callus care- Nail Reduction Nail Reduction H4813-KW Trimmin g of noncovered dystrophic nails, any number - Progress Notes * Melanie SOLIS RDOB:[birth year] (83 yo F)Acc No.[id number]:03/05/2024 Progress Note Patient:?Melanie Solis R Provider:?Clary Amos DPM :1940???Age:83 Y???Sex:Female D ate:03/05/2024 Address:[address] [place], [place] [id number] Pcp:Owen Mcdonald MD Subjective: * Chief Complaints: [...] loop recorder 04/23/2019 * Hospitalization/Major Diagno stic Procedure:?[facility] [place] - slight stroke [...] * Vitals:?Ht: 5 ft, Wt: 140, B NJ: 27.34, Shoe size: 5W, BP: 138/58 mm [...] L60.3?17.?Keratoma - L57.0? Plan: * Treatment: 2.?Keratoma?Procedure: 21716-ZJAQ SKIN LESIONS, 2 TO 4 * Procedures:?Keratoma Treatment:?Parring or Cutting of Benign Hyperkeratotic Lesion(s)?33275-WA Self Pay Non-Covered Callus care-.?Nail Reduction:?Nail Reduction?W6102-OT Trimming of noncovered dystrophic nails, any number -.? * Procedure Codes:?72601 TRIM SKIN LESIONS, 2 TO 4 $60, [...] Amos DPM Date:?2023 Generated for Martina hughes/Jesse/Fatou on:?11/10/2024 03:26 PM EDT History and Physical Notes * [...]
--- OUTSIDE RECORDS SUMMARY | 2024-11-10 15:26 | XMS_ITS ---
Author Organization [facility] Address [address] [place] [address] Care Team Providers Care Scaffolder Name Role Phone Owen Mcdonald MD Primary [...] Active Vitamin D (Cholecalciferol) 50 MCG (1999 MS) 1 capsule Orally Once a day for [...] 07/29/2023 Encounters Encounter Location Date Provider Diagnosis [facility] [address] [place] [address] 07/29/2023 Ranjit Quinn Jr Screening for colon [...] 10:40:00 AM, [address], [address], [place], [address], Progress Notes * MELANIE ENCISO RDOB:[birth year] (82 yo F)Acc No.[id number]:07/29/2023 Progress Notes Patient:?MELANIE ENCISO Provider:?Ranjit Quinn MD :1940???Age:82 Y???Sex:Female D ate:07/29/2023 Address:[address] [place], [place] [id number] Pcp:Owen Mcdonald MD Subjective: * Chief Complaints: [...] MD Date:?0 07/29/2023 Generated for Printi saul/Jesse/eTransmitting on:?11/10/2024 03:25 PM EDT History and Physical [...]
--- OUTSIDE RECORDS SUMMARY | 2024-11-10 15:26 | XMS_ITS ---
Author Organization [facility] Address [address] [place] [address] Care Team Providers Care Cashier Name Role Phone Owen Mcdonald MD Primary Care Provider Kiara Long Unavailable [phone] Danny Rhodes [phone] Encounters Encounter Location Date Provider Diagnosis [address] [address] 01/01/2024 Danny Rhodes Plan Of Treatment No Information Progress Notes * Melanie SOLIS RDOB:[birth year] (84 yo F)Acc No.[id number]:01/01/2024 Progress Note Patient:Melanie HO Provider:?Danny Rhodes DPM :1940???Age:83 Y???Sex:Female D ate:01/01/2024 Address:[address] [place], [place] [id number] Pcp:Owen Mcdonald MD Subjective: * Chief Complaints: [...] Date:? 024 Generated for Printi ng/Faxing/eTransmitting on:?11/10/2024 03:26 PM EDT
--- OUTSIDE RECORDS SUMMARY | 2024-11-10 15:26 | XMS_ITS | Patient Health Record ---
Author Organization [facility] Address [address] [place] [address] Care Team Providers Care Network Desktop Support Specialist Name Role Phone Owen Mcdonald MD [...] Problem Status W/U Status Risk Notes Problem 647086276 Gastro-esophagea l reflux disease without esophagitis (K21.9) Active confirmed Problem 459686857 Change in bowel habits (R19.4) Active confirmed Problem 492892477 Screening for colon cancer (Z12.11) Active confirmed Vital Signs Temperature 97.5 degrees Fahrenheit 07/29/2024 Blood pressure diastolic 00 mm Hg 07/29/2024 Height 59.50 in 07/29/2024 Blood pressure systolic 000 mm Hg 07/29/2024 Weight 143 lbs 07/29/2024 BMI 28.40 kg/m2 07/29/2024 Encounters Encounter Location Date Provider Diagnosis [facility] [address] [place] [address] 07/29/2024 Ranjit Quinn Jr Gastro-esophageal reflux disease [...] [address], [address], [place], [address], Insurance Providers Payer Name Payer Address Payer Phone Subscriber Number Group Number Insured Name Patient Relationship to Insured Coverage Start Date Coverage End Date MEDICARE OF [place] [address] [place] [address] [phone] [id number] SOPHIE ENCISO Self - patient is the insured [employer] ATT[employer] CLAIMS [address] [place] [address] [id number] NATE ENCISOTE Self - patient is [...]
--- OUTSIDE RECORDS SUMMARY | 2024-11-10 15:26 | XMS_ITS ---
Author Organization Owen Mcdonald MD Address [address] [place], [place] [id number] Care Team Providers Care Home Service Consultant Name Role Phone Owen Mcdonald Primary Care Provider Results Component Value Reference Range Notes Microalbumin, Random Reviewed date:10/26/2024 04:11:31 PM Interpretation: Performing Lab:[facility], [address] [place] [phone] Notes/Report: Creatinine Urine 47.28 Microalbumin Urine 8.0 Microalbum/Creatinine Ratio Ur 16.9 <30 ug/mg cr Albumin/Creatinine Ratio Reference Ranges: Normal: < 30 ug/mg creatinine Microalbuminuria: 30 - 300 ug/mg creatinine Clinical Albuminuria: > 300 ug/mg creatinine UA ClnCatch+Micro w/rflx Cul t Reviewed date:10/26/2024 02:01:04 PM Interpretation: Performing Lab:[facility], [address] [place] [phone] Notes/Report: Urine, Clean Catch Color Urine Dark Yellow Appearance Urine Turbid PH 7.5 5.0-9.0 Glucose Urine UA Negative Negative mg/dL Urine Blood Negative Negative Specific [place] - Urine 1.015 1.005-1.025 Urine Protein Negative [...] Location Date Provider Diagnosis Owen Mcdonald MD [address] [place] [address] [place] [phone] 10/26/2024 Owen Mcdonald Prediabetes R73.09 ; Pure hypercholesterolemia E78.00 ; Acquired hypothyroidism E03.9 ; Poor balance R26.89 and Carpal tunnel syndrome G56.00 Assessments Encounter Date Diagnosis (ICD Code) Assessment Notes Treatment Notes Treatment Clinical Notes Section Notes 10/26/2024 Prediabetes (ICD-10 - R73.09) 10/26/2024 Pure hypercholesterolemia (ICD-10 - E78.00) 10/26/2024 Acquired hypothyroid ism (ICD-10 - E03.9) 10/26/2024 Poor balance (ICD-10 - R26.89) send to [facility] neurology/ dr oakes 10/26/2024 Carpal tunnel syndro me (ICD-10 - G56.00) awaiting surgery Plan Of Treatment Treatment Notes Assessment Notes Poor balance send to [facility] neurolo gy/ dr oakes Carpal tunnel syndrome awaiting surgery Referrals Referral Date Details 10/26/2024 10/26/2024, poor bal ance please eval and treat Has been there before, [facility] Next Appt Details Follow Up: 2 Months, Reason: Provider Name:Owen burnette, 12/29/2024 11:00:00 AM, [address] [place] [address], [address], [phone], Provider Name:Owen burnette, 04/23/2025 08:00:00 AM, [address] [place] [address], [address], [phone], Provider Name:Owen burnette, 04/29/2025 10:15:00 AM, [address], [address], [place], [phone], Provider Name:Owen Mcknight josepr, 07/29/2025 01:30:00 PM, [address] [facility] [address], [address], [place], [phone], Provider Name:Owen Deshaun Roxanna carr, 09/21/2025 08:00:00 AM, [address], [address], [place], [phone], Provider Name:Owen carr, 09/28/2025 09:30:00 AM, [address] [facility], [address], [place], [phone], Progress Notes * Melanie SOLIS RDOB:[birth year] (84 yo F)Acc No.[id number]:10/26/2024 Patient:?Melanie SOLIS Provider:?Owen Mcdonald MD :1940???Age:84 Y???Sex:Female D ate:10/26/2024 Address:[address] [place], [place] [phone] Subjective: * Chief Complaints: * ???Comp visitsPatient [...] 83 yrs, colon cancer.?1 son(s) . .? Father-[place] Mother-[place], Denies mental health/substance abuse family history, [...] Objective: * Vitals:?Ht: 60.5, Wt: 136, B NJ:26.12, BP:134/50, Wt-k.69. weight is dwn 4 pounds [...] X10*3/uL) 0.000 (Ref Range: 0.0-0.012 X10*3/uL) ???Lab:[facility] [place]. Panel Fast (Order Date - 10/19/2024) (Collection Date & Time - 10/19/2024 07:15 AM)?ValueReference Range?[id number] 145 - mmol/L?Bilirubin Total0.50.0-1.0 - mg/dL?Aspartate Amino Macvylghbmh248-60 - U/L?Alanine Rileomseehtugrpl037-62 - U/L?Total Protein7.06.5-8.0 - g/dL?Albumin Level4.33.5-5.0 - g/dL?Alkaline Qgbciqjaqqn7082-072 - U/L?Potassium4.23.3-5.1 - mmol/L?Mwgpacba14108-621 - mmol/L?Carbon Mwzvhvg8678-78 - mmol/L?Anion Pvz4385-13 -?Blood Urea Nbphmgxi18X4-92 - mg/dL?Creatinine0.690.5-1.4 - mg/dL?Estimated Glomerular Filt Rate> 60-?Glucose Nkgluhr711D64-55 - mg/dL?Calcium9.88.4-10.2 - mg/dL ???Lab:Vitamin B12 and Folate (Order Date - 10/13/2024) (Collection Date & Time - 10/13/2024 03:21PM)?ValueReference Range?Vitamin [id number] - pg/mL?Ysdaps66.4> or = 4.0 - ng/mL ???Lab:Lactate Dehydrogenase (Order Date - 10/13/2024) (Collection Date & Time - 10/13/2024 03:21 PM)?ValueReference Range?Lactate Dygzwpourjwev835347-420 - U/L * Examination: ???General Examination: ?GENERAL [...] 10:30 AM) 3.?Poor balance? Notes: send to [facility] neurology/ dr oakes? Referral To:[facility]Neurology ?Reason:poor balance please eval and treat Has been there before 4.?Carpal tunnel syndrome? Notes: awaiting surgery?? * Procedure Codes:? * Follow Up:?2 Months * * Sign off status: Completed true * Provider:?Owen Mcdonald MD Date:?0 10/26/2024 Generated for Martina hughes/Jesse/Fatou on:?11/10/2024 03:26 PM [...] Total Score: 0 Interpretation and Intervention Depression Loir alvarez Findings: Negative Follow-Up for Depression: : [...]
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
--- OUTSIDE RECORDS SUMMARY | 2024-11-10 15:27 | XMS_ITS | Patient Health Record ---
Author Organization [facility] more [place] Address [address] [place] [address] Care Team Providers Care High Value Associate Name Role Phone Harry MACKEY, Owen Primary Care Provider Kiara Long Unavailable [phone] Black, Clary Unavailable [phone] Danny Rhodes Unavailable [phone] Allergies Allergen (clinical drug ingredient) Drug/Non Drug [...] Problem Acquired hammer toe of right foot (8473149698864858) Other hammer toe(s) (acquired), right foot (M20.41) Active confirmed Problem Acquired hammer toe of left foot (4270912595370000) Other hammer toe(s) (acquired), left foot (M20.42) Active confirmed Problem 947539024881969 Hallux valgus (acquired), right foot (M20.11) Active confirmed Problem Acquired hallux valgus (65954153) Hallux valgus (acquired), left foot (M20.12) Active confirmed Problem 517286497758487 Hallux valgus (acquired), right foot (M20.11) Active confirmed Problem 879968667 Hammer toe of right foot (M20.41) Active confirmed Problem 927059714417537 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 Problem 17529780732420517 Atherosclerosi s of artery of both lower extremities (I70.203) Active confirmed Problem Arthritis of joint of lesser toe, left (M19.072) Active confirmed Problem Localized, primary osteoarthritis of the ankle and/or foot (114088796) Arthritis of joint of lesser toe, right (M19.071) Active confirmed Vital Signs Blood pressure diastolic 58 mm Hg 03/05/2024 Height 5 ft in 03/05/2024 Blood pressure systolic 138 mm Hg 03/05/2024 Weight 140 lbs 03/05/2024 BMI 27.34 kg/m2 03/05/2024 Procedures Procedure Date Ordered Date Performed Result Body Sit e 17990-CHWU SKIN LESIONS, 2 TO 4 03/05/2024 N/A F4088-LREHIKJX DYSTROPHIC NAILS ANY # 03/05/2024 N/A Encounters Encounter Location Date Provider Diagnosis [address] [address] 03/05/2024 Clary Black Pain in left foot [...] ; Dystrophic nail L60.3 and [facility] L57.[facility] [address] 11/14/2023 Kiara Becker Assessments Encounter Date Diagnosis [...] X ray : Foot, right 3V 04/11/2022 52456-AEDA SKIN LESIONS, 2 TO 4 03/05/20 24 O6816-MNSKKZWT DYSTROPHIC NAILS ANY # Insurance Providers Payer Name Payer Address Payer Phone Subscriber Number Group Number Insured Name Patient Relationship to Insured Coverage Start Date Coverage End Date Medicare National [employer]t [employer] [address] [place] [address] [phone] [id number] Irma Melanie Self - [facility] [address] [place] [address] [phone] [id number] Irma Melanie Self - patient is the insured Medical (General) History Medical History History ICD Code Back,Hip,and Knee pain hypercholesterolemia chicken pox measles headaches/migraines macular degeneration reflux sciatica chronic sinusitis CAD (Cholesterol) Diverticulosis Hiatal hernia Thyroid disorder Surgical History Surgery Date(Month/Year) right breast aspiration 1981 right breast lumpectomy 1981 right breast lumpectomy 1992 colonoscopy 06/2013 hysterectomy 03/1995 internal loop recorder 04/23/2019 Hospitalization History Reason Date(Month/Year) [facility] - slight stroke 02/2019
== END 2024-11-10 15:43 | disposition home or self-care (01) ==
LOC: HO.HOS 14:03
PROVIDERS: PCP Internal Medicine
DX: G56.03 Carpal tunnel syndrome, bilateral upper limbs (principal)
CPT/HCPCS: 99024

== ENCOUNTER → 2024-11-10 14:03 | Outpatient (BNVA) | payer MEDICARE, SELFPAY | PROVIDERS: PCP Internal Medicine | DX: Z48.811 Encounter for surgical aftercare following surgery on the nervous system (principal); G56.01 Carpal tunnel syndrome, right upper limb; Z98.890 Other specified postprocedural states | CPT/HCPCS: 99212 ==

== ENCOUNTER 2025-01-01 11:30 | Outpatient (RCR) | payer MEDICARE, SELFPAY ==
--- NOTE | 2024-12-04 12:26 | MHC.OT.EP ---
[address] [phone] Occupational Therapy Plan of Care Patient Name: Melanie Solis Date of Evaluation: 12/04/24 Diagnosis: R CTR Pain Location: Volar side of L hand Pain Score: Pain Scale Used: Numeric (0 - 10) Aggravating Factors: wrist flexion Alleviating Factors: NONE REPORTED Assessment: Pt is an 84 yr old R hand dominant female who had CT release surgery on 10/29. She presents today w/ full AROM (pain free of her wrist and digits),mild edema and sensitivity of her scar. Pt would benefit from skilled OT Therapy to address these deficits and increase the functional use of her non dominant hand. Frequency and Duration: The patient will be seen 1X A WEEK FOR 4 WEEKS Short Term Goals: SEE BELOW Jail Goals: Pt will report 0/10 pain w/ activity Pt will have a figure 8 measurement of 38 cm Pt will report using her L hand to carry/ hold her coffee cup Treatment Plan: Therapeutic Exercise Therapeutic Activity Home Exercise Program Neuro Re-ed Patient Education Desensitization/Sensory Re-ed Edema Control ADL Training Ultrasound Fluidotherapy MHP Cold Packs Joint Mobilization Soft Tissue Mobilization Kinesiotaping Electronically Signed By: Arlyn Chen OTR/L Please Sign and return to therapist. Thank you once again for your referral.
== END 2025-01-01 11:57 | disposition home or self-care (01) ==
LOC: HO.OT 11:30
PROVIDERS: PCP Internal Medicine
DX: G56.02 Carpal tunnel syndrome, left upper limb (principal); Z79.899 Other long term (current) drug therapy
CPT/HCPCS: 97035; 97140; 97165; 97535

== ENCOUNTER 2025-01-20 09:31 | Outpatient (REF) | payer MEDICARE, SELFPAY | END 2025-01-20 09:32 | disposition home or self-care (01) | LOC: HO.LNP 09:31 | PROVIDERS: PCP Internal Medicine; Visit Provider Physician Assistant | DX: N30.00 Acute cystitis without hematuria (principal); R30.9 Painful micturition, unspecified; R10.30 Lower abdominal pain, unspecified; Z13.89 Encounter for screening for other disorder | CPT/HCPCS: 81003; 87086; 99212 ==

== ENCOUNTER 2025-01-20 09:31 | Outpatient (AMB) | payer MEDICARE, SELFPAY ==
--- OUTSIDE RECORDS SUMMARY | 2023-11-14 09:30 | XMS_ITS ---
Author Organization [facility] Address [address] [place] [id number] Care Team Providers Care Agronomy Teacher Name Role Phone Owen Mcdonald MD Primary Care Provider Kiara Long Unavailable [phone] Danny Rhodes [phone] Encounters Encounter Location Date Provider Diagnosis [address] [address] 11/14/2023 Danny Rhodes Plan Of Treatment No Information Progress Notes * Melanie SOLIS RDOB:[birth year] (84 yo F)Acc No.[id number]:11/14/2023 Progress Note Patient: Melanie CRESPO Provider: Lea Rhodes DPM :1940 A ge:83 Y S ex:Female Date:11/14/2023 Address:[address] [place], [place] [id number] Pcp:Owen Mcdonald MD Subjective: * Chief Complaints: * * Medical History: Objective: * Vitals: Assessment: Plan: * Treatment: * Images: * The named appointment provid er may or may not be the originator of this progress note, and it is not deemed complete until electronically signed by the appointment provider. Sign off status: Pending * Provider: Lea Rhodes DPM Date: 11/14/2023 Generated for Martina hughes/Jesse/eTransmitting on: 01/20/2025 10:02 AM EDT
--- OUTSIDE RECORDS SUMMARY | 2024-12-29 07:00 | XMS_ITS ---
Author Organization Owen Mcdonald MD Address [address] [place], [place] [phone] Care Team Providers Care Seo Coordinator Name Role Phone Owen Mcdonald Primary [...] > referral info faxed on 12-29-2024 p [phone] Referral Priority Routine REASON FOR VISIT 2 month Medications Medication [...] kg/m2 12/29/2024 weight is down 2 pounds [facility] 10-26-24 Encounters Encounter Location Date Provider Diagnosis Owen Mcdonald MD [address] [place] [phone] 12/29/2024 Owen Mcdonald Poor balance R26.89 Assessments Encounter Date Diagnosis (ICD Code) Assessment Notes Treatment Notes Treatment Clinical Notes Section Notes 12/29/2024 Poor balance (ICD-10 - R26.89) need notes from [facility] neurology and send another referral for balance evaluation/ is going to physical therapy at [facility] Plan Of Treatment Treatment Notes Assessment Notes Poor balance need notes from [facility] neurology and send another referral for balance evaluation/ is going to physical therapy at [facility] Referrals Referral Date Details 12/29/2024 12/29/2024, poor bal ance please eval and treat, LAWRENCE OAKES Next Appt Details Follow Up: 3 Months, Reason: Provider Name:Owen burnette, 04/23/2025 08:00:00 AM, [address] [place] [address], [address], [phone], Provider Name:Owen burnette, 04/29/2025 10:15:00 AM, [address] [place] [address], [address], [phone], Provider Name:Owen burnette, 07/29/2025 01:30:00 PM, [address] [place] [address], [address], [phone], Provider Name:Owen Mcknight ier, 09/21/2025 08:00:00 AM, [address], [address], [place], [place], [phone], Provider Name:Owen Mcknight ier, 09/28/2025 09:30:00 AM, [address], [address], [place], [place], [phone], Progress Notes * Melanie SOLIS RDOB:[birth year] (84 yo F)Acc No.[id number]:12/29/2024 Progress Notes Patient: Melanie CRESPO Provider: Joseph Mcdonald MD :1940 A ge:84 Y S ex:Female Date:12/29/2024 Address:[address] [place], [place] [phone] Subjective: * Chief Complaints: * 2 month [...] true * Provider: Joseph Mcdonald MD Date: 12/29/2024 Generated for Martina hughes/Jesse/eTransmitting on: 0 01/20/2025 10:02 AM EDT History and Physical Notes [...] Not es 12/29/2024 Owen Mcdonald ALINA poor balrebeca allen please eval and treat
--- OUTSIDE RECORDS SUMMARY | 2025-01-20 10:02 | XMS_ITS | Patient Health Record ---
Author Organization [facility] Address [address] [place] [phone] Care Team Providers Care Electric Meter Setter Name Role Phone Owen Mcdonald MD Primary [...] Problem Status W/U Status Risk Notes Problem [id number] Gastro-esophagea l reflux disease without esophagitis (K21.9) Active confirmed Problem [id number] Change in bowel habits (R19.4) Active confirmed Problem [id number] Screening for colon cancer (Z12.11) Active confirmed Vital Signs Temperature 97.5 degrees Fahrenheit 07/29/2024 Blood pressure diastolic 00 mm Hg 07/29/2024 Height 59.50 in 07/29/2024 Blood pressure systolic 000 mm Hg 07/29/2024 Weight 143 lbs 07/29/2024 BMI 28.40 kg/m2 07/29/2024 Encounters Encounter Location Date Provider Diagnosis [facility] [address] [place] [address] 07/29/2024 Ranjit Quinn Jr Gastro-esophageal reflux disease [...] 10:40:00 AM, [address], [address], [place], [address], Insurance Providers Payer Name Payer Address Payer Phone Subscriber Number Group Number Insured Name Patient Relationship to Insured Coverage Start Date Coverage End Date MEDICARE OF [place] [address] [place] [address] [id number] SOPHIE ENCISO Self - patient is the insured MED[employer] ATTN CLAIMS [address] [place] [address] [id number] NATE ENCISOTE Self - patient is [...]
--- NOTE | 2025-01-20 10:50 | MHC.OFFWIV ---
Intake Vital Signs 01/20/25 10:53 Height 5 ft Weight 133 lb BMI 26.0 BP 134/70 Blood Pressure Location Lt brachial Position Sitting Pulse 72 Pulse Source Pulse Oximeter Temp 97.9 F Temp Source Oral Pulse Oximetry (%) 97 Oxygen Delivery Method Room Air Intake Visit Reasons: EP UTI? Intake Note: presents with twinges of pain to urethra, burning with peeing, low abdominal pain Patient Tobacco Use Status: Never used Tobacco Allergies sulfur Allergy (Severe, Verified 01/20/25 10:58) internal hives Sulfa (Sulfonamide Antibiotics) Allergy (Mild, Verified 01/20/25 10:58) UNKNOWN ciprofloxacin (Cipro) Allergy (Unknown, Verified 01/20/25 10:58) hives pneumococcal vaccine Allergy (Unknown, Verified 01/20/25 10:58) palm sized welt, inflamed Medication List - Last Reconciled 01/20/25 by Beth Murray PA-C acetaminophen ER (Tylenol Arthritis Pain) 1,300 mg PO Q8H [edgardo dre-oxv-U7-Tn-szv-cnh-bor 1 ea PO DAILY] clopidogrel 75 mg PO DAILY levothyroxine 50 mcg PO DAILY multivitamin 1 tab PO DAILY rosuvastatin 40 mg PO DAILY vitamin E 2,000 tabs PO BID Do you need a note to return to daycare/school/sports/work: No HPI HPI Comments History of Present Illness Details History - The patient is an 84-year-old female presenting with a urinary tract infection. - Symptoms started yesterday with a twinge in the lower abdomen, thinks an infection is starting - No fever, hematuria, or abnormal vaginal discharge, back pain - History of sciatica, no new symptoms. - Allergic to sulfonamides and ciprofloxacin. Physical Exam General: Cooperative, healthy appearing, comfortable, no acute distress and well developed Orientation: Patient oriented x3 Limitations: No limitations Head: Normal to inspection Ears: Hearing grossly normal bilaterally Face and sinus: Normal facial exam Neck: Normal visual inspection and Yes full ROM Respiratory: Normal respiratory effort and able to speak in complete sentences. Skin: No rashes or lesions noted Neuro: Patient oriented x3 [facility] Medical History Occipital stroke Cervical disc disease Pre-diabetes Tubular adenoma of colon Hypercholesterolemia GERD (gastroesophageal reflux disease) Esophagitis Hypothyroidism Thrombocytopenia Surgical History H/O breast biopsy H/O colonoscopy History of esophagogastroduodenoscopy (EGD) History of hysterectomy Family History Maternal Grandmother Colon cancer Daughter Father Heart attack Mother Stroke Social History Household Members: None Housing: House Are you a primary care companion to a significant other at home: No Do you presently have visiting nurse or other home services: No Alcohol intake: current Alcohol intake frequency: a few times a month Alcohol type: wine Patient Tobacco Use Status: Never used Tobacco Advance Directives Date on File: 12/28/20 service: No Current occupational status: retired Review of Systems Const All systems reviewed & are unremarkable except as noted in HPI and below Physical Exam Vital Signs: Last Vital Signs Temp 97.9 F 01/20/25 10:53 Pulse 72 01/20/25 10:53 BP 134/70 01/20/25 10:53 Pulse Ox 97 01/20/25 10:53 Oxygen Delivery Method Room Air 01/20/25 10:53 BMI result Body Mass Index 26.0 Results AMB Urinalysis, Automated UA Leukoctes 15 Shayan/uL Last Edit by Trisha Daniels MA on 01/20/25 11:28 UA Nitrite Negative Last Edit by Trisha Daniels MA on 01/20/25 11:28 UA Urobilinogen 0.2 mg/dL Last Edit by Trisha Daniels MA on 01/20/25 11:28 UA Protein 0 mg/dL Last Edit by Trisha Daniels MA on 01/20/25 11:28 UA pH 6.5 Last Edit by Trisha Daniels MA on 01/20/25 11:28 UA Blood 0 Nagi/uL Last Edit by Trisha Daniels MA on 01/20/25 11:28 UA Specific Vowinckel 1.010 Last Edit by Trisha Daniels MA on 01/20/25 11:28 UA Ketone Negative Last Edit by Trisha Daniels MA on 01/20/25 11:28 UA Bilirubin 0 mg/dL Last Edit by Trisha Daniels MA on 01/20/25 11:28 UA Glucose 100 mg/dL Last Edit by Trihsa Daniels MA on 01/20/25 11:28 Results Reviewed Results Reviewed: Laboratory Last Values Urine pH (Auto) 6.5 01/20/25 11:27 Specific Vowinckel (Auto) 1.010 01/20/25 11:27 Urine Protein (Auto) 0 mg/dL 01/20/25 11:27 Glucose (UA)(Auto) 100 mg/dL H 01/20/25 11:27 Urine Ketones (Auto) Negative 01/20/25 11:27 Urine Blood (Auto) 0 Nagi/uL 01/20/25 11:27 Urine Nitrite (Auto) Negative 01/20/25 11:27 Urine Bilirubin (Auto) 0 mg/dL 01/20/25 11:27 Urine Urobilinogen (Auto) 0.2 mg/dL 01/20/25 11:27 Leukocyte Esterase (Auto) 15 Shayan/uL H 01/20/25 11:27 Assessment & Plan Assessment & Plan (1) UTI (urinary tract infection): Code(s): N39.0 - Urinary tract infection, site not specified Qualifiers: Urinary tract infection type: acute cystitis Hematuria presence: without hematuria Qualified Code(s): N30.00 - Acute cystitis without hematuria Plan: Plan Patient was informed and verbally consented to the use of an ambient scribe for clinic note documentation during this visit. Urinary Tract Infection - Treat with cefuroxime due to allergies. - Dosage: 250 mg twice daily for five days. - Urine culture for confirmation. Orders: Orders AMB Urinalysis Automated Today Z13.9 - Encounter for screening, unspecified Medications: New cefuroxime axetil 500 mg PO Q12H 10 tabs 0RF Coding Level of Care Code Est Pt Level 3 (41702) Diagnoses Acute cystitis without hematuria N30.00 Urinary tract infection type: acute cystitis Hematuria presence: without hematuria
[2025-01-20 10:53] VITALS: BP 134/70; PULSE 72; TEMP 36.6; O2SAT 97; BMI 26.0
== END 2025-01-20 11:37 | disposition home or self-care (01) ==
PROVIDERS: PCP Internal Medicine; Visit Provider Physician Assistant
DX: Z13.9 Encounter for screening, unspecified (principal); N30.00 Acute cystitis without hematuria

== ENCOUNTER 2025-01-20 14:19 | Outpatient (REF) | payer MEDICARE, SELFPAY | END 2025-01-20 14:20 | disposition home or self-care (01) | LOC: HO.LAB 14:19 | PROVIDERS: Visit Provider Physician Assistant Medical | DX: Z13.89 Encounter for screening for other disorder (principal) ==

== ENCOUNTER 2025-02-09 14:20 | Outpatient (REF) | payer MEDICARE, SELFPAY ==
--- OUTSIDE RECORDS SUMMARY | 2023-11-14 09:30 | XMS_ITS ---
Author Organization [facility] Address [address] [place] [id number] Care Team Providers Care Independent Living Instructor Name Role Phone Owen Mcdonald MD Primary Care Provider Kiara Long Unavailable [phone] Danny Rhodes [phone] Encounters Encounter Location Date Provider Diagnosis [address] [address] 11/14/2023 Danny Rhodes Plan Of Treatment No Information Progress Notes * Melanie SOLIS RDOB:[birth year] (84 yo F)Acc No.[id number]:11/14/2023 Progress Note Patient: Melanie CRESPO Provider: Lea Rhodes DPM :1940 A ge:83 Y S ex:Female Date:11/14/2023 Address:[address] [place], [place] [id number] Pcp:Owen Mcdonald MD Subjective: * Chief Complaints: [...] Date: 11/14/2023 Generated for Martina hughes/Jesse/eTransmitting on: 02/09/2025 03:39 PM EDT
--- NOTE | ~2025-02-09 | XR_ITS ---
EXAMINATION: XR KNEE, RIGHT CLINICAL INFORMATION: PAIN RT KNEE COMPARISON: None available. TECHNIQUE: AP and lateral views of the right knee. FINDINGS: There is moderate severe narrowing of the lateral joint space and mild narrowing of the medial joint space. There is stippled and linear calcification visible in the medial and lateral joint lines. There is a small amount joint fluid. There are marginal osteophytes involving the 3 joint compartment, most pronounced along the lateral joint line. 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 Electronically signed by: Taj Salomon MD 02/09/2025 03:05 PM EDT
--- NOTE | ~2025-02-09 | XR_ITS ---
EXAMINATION: XR KNEE, LEFT CLINICAL INFORMATION: PAIN COMPARISON: None available. TECHNIQUE: AP and lateral views of the left knee. FINDINGS: There is no joint effusion. There is mild narrowing and medial lateral joint spaces. There is minimal linear calcification visible within the medial lateral joint spaces. There is moderate atherosclerotic calcifications in the vasculature. There is multiple small round punctate metallic foreign bodies in the soft tissues around the knee, lateral greater than medial. XR/XR knee LT 2V IMPRESSION: Mild joint space narrowing and chondrocalcinosis. Electronically signed by: Taj Salomon MD 02/09/2025 02:49 PM EDT
--- OUTSIDE RECORDS SUMMARY | 2025-02-09 10:44 | XMS_ITS ---
Author Organization Owen Mcdonald MD Address [address] [place] [phone] Care Team Providers Care Mortgage Advisor Name Role Phone Owen Mcdonald Primary Care Provider Results Component Value Reference Range Notes XR knee RT 2V (Not yet revie wed by provider) Interpretation: Performing Lab: Notes/Report: [facility] [address] [place] [address] XRay Report Signed Patient: Melanie Solis MR#: [id number] : 1940 Acct:[id number] Age/Sex: 84 / F ADM Date: 02/09/25 Loc: HO.XRAY Attending Dr: wOen Mcdonald MD Ordering Physician: Owen Mcdonald MD Date of Service: 02/09/25 Procedure(s): XR knee RT 2V Accession Number(s): [id number] cc: Owen Mcdonald MD EXAMINATION: XR KNEE, [...] Taj Salomon MD 02/09/2025 03:05 PM EDT Dictated By: Taj Salomon MD Signed By: <Electronically signed by Taj Salomon MD in OV> 02/09/25 1505 DD/ 1452 TD/TT: 02/09/25 1457 Technical Sales Representatives: [place] [address] XRay Report Signed Patient: Kay Solis MR#: [id number] : 1940 Acct:[id number] Age/Sex: 84 / F ADM Date: 02/09/25 Loc: YAMILKA Attending Dr: Owen Mcdonald MD Ordering Physician: Owen Mcdonald MD Date of Service: 02/09/25 Procedure(s): XR knee RT 2V Accession Number(s): [id number] cc: Owen Mcdonald MD EXAMINATION: XR KNEE, [...] By: Taj Salomon MD Signed By: <Electron ically signed by Taj Salomon MD in OV> 02/09/25 1505 DD/ 1452 TD/TT: 02/09/25 1457 Technical Sales Representatives: XR knee LT 2V (Not yet revie wed by provider) Interpretation: Performing Lab: Notes/Report: [address] [address] XRay Report Signed Patient: Melanie Solis MR#: [id number] : 1940 Acct:[id number] Age/Sex: 84 / F ADM Date: 02/09/25 Loc: HO.ADRIANO Attending Dr: Owen Mcdonald MD Ordering Physician: Owen Mcdonald MD Date of Service: 02/09/25 Procedure(s): XR knee LT 2V Accession Number(s): [id number] cc: Owen Mcdonald MD EXAMINATION: XR KNEE, [...] 02/09/25 1449 DD/ 1425 TD/TT: 02/09/25 1443 Technical Sales Representatives: [address] [address] XRay Report Signed Patient: Kay Solis MR#: [id number] : 1940 Acct:[id number] Age/Sex: 84 / F ADM Date: 02/09/25 Loc: HO.XRAY Attending Dr: Owen Mcdonald MD Ordering Physician: Owen Mcdonald MD Date of Service: 02/09/25 Procedure(s): XR knee LT 2V Accession Number(s): [id number] cc: Owen Mcdonald MD EXAMINATION: XR KNEE, [...] By: Taj Salomon MD Signed By: <Electron ically signed by Taj Salomon MD in OV> 02/09/25 1449 DD/ 1425 TD/TT: 02/09/25 1443 Technical Sales Representatives: REASON FOR VISIT bilateral x-rays Encounters Encounter Location Date Provider Diagnosis Owen Mcdonald MD [address] [place] [address] [place] [phone] 02/09/2025 Owen Mcdonald Pain in right knee M25.561 and Knee pain, left M25.562 Assessments Encounter Date Diagnosis (ICD Code) Assessment Notes Treatment Notes Treatment Clinical Notes Section Notes 02/09/2025 Pain in right knee (ICD-10 - M25.561) 02/09/2025 Knee pain, left (ICD-10 - M25.562) Plan Of Treatment Pending Test Test Name Order Date XR knee RT 2V 02/09/2025 XR knee LT 2V 02/09/2025 Next Appt Details Provider Name:Owen Mcknight ier, 04/23/2025 08:00:00 AM, [address], [address], [place], [phone], Provider Name:Owen Mcknight ier, 04/29/2025 10:15:00 AM, [address], [address], [place], [phone], Provider Name:Owen Mcknight ier, 07/29/2025 01:30:00 PM, [address] [facility] [address], [address], [place], [phone], Provider Name:Owen Mcknight ier, 09/21/2025 08:00:00 AM, [address], [address], [place], [phone], Provider Name:Owen Mcknight ier, 09/28/2025 09:30:00 AM, [address] [facility] [address], [address], [place], [phone], Progress Notes * Melanie SOLIS RDOB:[birth year] (84 yo F)Acc No.[id number]:02/09/2025 Patient: Melanie CRESPO :1940 A ge:84 Y S ex:Female Address:[address] [place] [address] Subjective: * Chief Complaints: * B ilateral [...] Codes: * true * Date: Generated for Printi ng/Fayanng/eTransmitting on: 0 02/09/2025 03:39 PM EDT
--- OUTSIDE RECORDS SUMMARY | 2025-02-09 15:40 | XMS_ITS | Patient Health Record ---
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 Name Role Phone Owen Mcdonald MD Primary Care Provider Ranjit Ventura Jr Unavailable [phone] Allergies Allergen (clinical drug ingredient) Drug/Non Drug Allergy documented on EMR Reaction Allergy Type Onset Date Status Floxin Otic Unknown Drug Allergy Activ e Bactrim Unknown Drug Allergy Active Substance with [...] Problem Status W/U Status Risk Notes Problem [id number] Gastro-esophagea l reflux disease without esophagitis (K21.9) Active confirmed Problem 630390624 Change in bowel habits (R19.4) Active confirmed Problem 322717841 Screening for colon cancer (Z12.11) Active confirmed Vital Signs Temperature 97.5 degrees Fahrenheit 07/29/2024 Blood pressure diastolic 00 mm Hg 07/29/2024 Height 59.50 in 07/29/2024 Blood pressure systolic 000 mm Hg 07/29/2024 Weight 143 lbs 07/29/2024 BMI 28.40 kg/m2 07/29/2024 Encounters Encounter Location Date Provider Diagnosis [facility] [address] [place] [id number] 07/29/2024 Ranjit Quinn Jr Gastro-esophageal reflux disease [...] Name:Ranjit gilmore Jr, 08/02/2025 10:40:00 AM, [address], [address], [place], [address], Insurance Providers Payer Name Payer Address Payer Phone Subscriber Number Group Number Insured Name Patient Relationship to Insured Coverage Start Date Coverage End Date MEDICARE OF [place] [address] [place] [id number] SOPHIE ENCISO Self - patient is the insured [employer] ATTN CLAIMS [address] [place] [address] [id number] ENCISOLOTTE Self - patient is the insured Medical (General) History Medical History History ICD Code colonoscopy 09/18/17, negativ e. Personal history and family history of colon polyps and cancer, followup optional. GERD, EGD 06/26/16 no Oconnor's esophagus. Hyperlipidemia Hypothyroidism CVA Surgical History Surgery Date(Month/Year) hysterectomy lumpectomy, right breast Hospitalization History Reason Date(Month/Year) small strokes occipital nerve 2019
== END 2025-02-09 14:21 | disposition home or self-care (01) ==
LOC: HO.XRAY 14:20
PROVIDERS: PCP Internal Medicine; Visit Provider Internal Medicine
DX: M25.561 Pain in right knee (principal); M25.562 Pain in left knee
CPT/HCPCS: 73560

== ENCOUNTER → 2025-02-09 14:25 | Outpatient (BNV) | payer MEDICARE, SELFPAY | PROVIDERS: PCP Internal Medicine; Visit Provider Radiology Diagnostic Radiology | DX: M17.12 Unilateral primary osteoarthritis, left knee (principal); M11.261 Other chondrocalcinosis, right knee | CPT/HCPCS: 73560 ==

== ENCOUNTER 2025-04-19 08:10 | Outpatient (REF) | payer MEDICARE, SELFPAY ==
--- OUTSIDE RECORDS SUMMARY | 2023-11-14 09:30 | XMS_ITS ---
Author Organization [facility] Address [address] [place] [id number] Care Team Providers Care Electrocardiogram Technician Name Role Phone Owen Mcdonald MD Primary Care Provider Kiara Long Unavailable [phone] Danny Cm Unavailable [phone] Encounters Encounter Location Date Provider Diagnosis [address] [address] 11/14/2023 Danny Cm Plan Of Treatment No Information Progress Notes * Melanie SOLIS RDOB:[birth year] (84 yo F)Acc No.[id number]:11/14/2023 Progress Note Patient: Melanie CRESPO Provider: Lea Rhodes DPM :1940 A ge:83 Y S ex:Female Date:11/14/2023 Address:[address] [place], [place] [id number] Pcp:Owen Mcdonald MD Subjective: * Chief Complaints: [...] 11/14/2023 Generated for Anai ng/Fayanng/eTransmitting on: 1 08:23 AM EDT
--- OUTSIDE RECORDS SUMMARY | 2024-01-01 08:15 | XMS_ITS ---
Author Organization [facility] Address [address] [place] [address] Care Team Providers Care Body And Frame Man Name Role Phone Owen Mcdonald MD Primary Care Provider Kiara Long Unavailable [phone] Danny Cm Unavailable [phone] Encounters Encounter Location Date Provider Diagnosis [address] [address] 01/01/2024 Danny Cm Plan Of Treatment No Information Progress Notes * Melanie SOLIS RDOB:[birth year] (84 yo F)Acc No.[id number]:01/01/2024 Progress Note Patient: Melanie CRESOP Provider: Lea Rhodes DPM :1940 A ge:83 Y S ex:Female Date:01/01/2024 Address:[address] [place] [address] Pcp:Owen Mcdonald MD Subjective: * Chief Complaints: * * Medical History: Objective: * Vitals: Assessment: Plan: * Treatment: * Images: * The named appointment provid er may or may not be the originator of this progress note, and it is not deemed complete until electronically signed by the appointment provider. Sign off status: Pending * Provider: Lea Rhodes DPM Date: 01/01/2024 Generated for Anai ng/Fayanng/eTransmitting on: 1 08:25 AM EDT
--- OUTSIDE RECORDS SUMMARY | 2024-08-21 07:13 | XMS_ITS ---
Author Organization Oewn Mcdonald MD Address [address] [facility] [address] [place] [phone] Care Team Providers Care Clerk Checker Name Role Phone Owen Mcdonald Primary Care Provider [phone] REASON FOR VISIT MRI results Encounters Encounter Location Date Provider Diagnosis Owen Mcdonald MD [address] [facility] [address] [place] [phone] 08/21/2024 Owen Mcdonald Plan Of Treatment Next Appt Details Provider Name:Owen burnette, 04/23/2025 08:00:00 AM, [address] [place] [address], [address], [phone], Provider Name:Owen burnette, 04/29/2025 10:15:00 AM, [address] [place] [address], [address], [phone], Provider Name:Owen burnette, 07/29/2025 01:30:00 PM, [address] [place] [address], [address], [phone], Provider Name:Owen Mcknight ier, 09/21/2025 08:00:00 AM, [address], [address], [place], [place], [phone], Provider Name:Owen Mcknight ier, 09/28/2025 09:30:00 AM, [address], [address], [place], [place], [phone], Progress Notes * Melanie SOLIS RDOB:[birth year] (83 yo F)Acc No.[id number]:08/21/2024 Patient: Mynor JOSUÉESTHERMelanie :1940 A ge:83 Y S ex:Female Address:[address] [place] [address] * true * Date: Generated for Martina hughes/Jesse/Nasirsmitting on: 08:24 AM EDT
--- OUTSIDE RECORDS SUMMARY | 2024-08-24 05:15 | XMS_ITS ---
Author Organization Owen Mcdonald MD Address [address] [place], [place] [phone] Care Team Providers Care Restaurant Shift Supervisor Name Role Phone Owen Mcdonald Primary Care Provider Reason For Referral Reason spinal stenosis pl ease eval and treat Diagnosis 1 Spinal stenosis (M48 .00) Referral Organization Owen Mcdonald MD Referring Provider First Name Owen Referring Provider Last Name Harry Referring Provider Speciality Internal M edicine Referred Provider [facility] Referred Provider Specialty Physical Med icine General Notes Tatiana Condon 0 08/24/2024 09:47:46 AM >info faxedTaurus Annette 08/27/2024 02:55:33 PM >referral info mailed Referral Priority Routine Referral Appointment Date 09/09/2024 REASON FOR VISIT MRI results Medications Medication SIG (Take, Route, Frequency, Duration) Notes Start Date End Date Status LORazepam 0.5 MG 1 tablet as needed Orally Once a day for 14 days 04/03/2019 Not-Taking Ibuprofen 800 MG 1 tablet with food [...] ON AN EMPTY STOMACH for 90 Active Vitamin D 2000 UNIT as directed Orally twice a day Active Citracal Calcium+D A ctive Triamcinolone Acetonide 0.5 % 1 application Externally daily for 30 days 04/23/2023 Active Rosuvastatin Calcium 40 MG TAKE 1 TABLET BY MOUTH EVERY DAY for 90 Active Vital Signs Blood pressure systolic 138 mm Hg 08/25/19 25 Blood pressure diastolic 60 mm Hg 025 Height 60.5 in 08/24/2024 Weight 141 lbs 08/24/2024 BMI 27.08 kg/m2 08/24/2024 weight is down 2 pounds [facility] e 08-11-24 Encounters Encounter Location Date Provider Diagnosis Owen Mcdonald MD [address] [place] [phone] 08/24/2024 Owen Mcdonald Spinal stenosis M48.00 Assessments Encounter Date Diagnosis (ICD Code) Assessment Notes Treatment Notes Treatment Clinical Notes Section Notes 08/24/2024 Spinal stenosis (ICD-10 - M48.00) discussed finding of MRI with patient, referral to [facility] Plan Of Treatment Treatment Notes Assessment Notes Spinal stenosis discussed finding of MRI with patient, referral to [facility] Referrals Referral Date Details 08/24/2024 08/24/2024, spinal s tenosis please eval and treat, [facility] Next Appt Details Provider Name:Owen burnette, 04/23/2025 08:00:00 AM, [address] [place] [address], [place] [address], [place], [place], [phone], Provider Name:Owen burnette, 04/29/2025 10:15:00 AM, [address] [place] [address], [place] [address], [place], [place], [phone], Provider Name:Owen burnette, 07/29/2025 01:30:00 PM, [address] [place] [address], [place] [address], [place], [place], [phone], Provider Name:Owen Mcknight ier, 09/21/2025 08:00:00 AM, [address], [address], [place], [place], [phone], Provider Name:Owen Mcknight ier, 09/28/2025 09:30:00 AM, [address], [address], [place], [phone], Progress Notes * Melanie SOLIS RDOB:[birth year] (84 yo F)Acc No.[id number]:08/24/2024 Progress Notes Patient: Melanie CRESPO Provider: Joseph Mcdonald MD :1940 A ge:83 Y S ex:Female Date:08/24/2024 Address:[address] [place], [place] [phone] Subjective: * Chief Complaints: * M RI results * HPI: S ymptom(s): patient is a 83 yo female here to discuss recnt MRI test results, sometimes all in the thighs sometimes in the hip/ positive grocery cart sign. * ROS: G eneral/Constitutional: Denies C hills. D enies F atigue. D enies F ever. D enies H eadache. E NT: Patient denies d ecreased sense of smell, any loss of taste, sore throat. D enies S ore throat. R espiratory: Denies C ough. D enies S hortness of breath at rest. D enies S hortness of breath with exertion. G astrointestinal: Denies D iarrhea. D enies N ausea. M usculoskeletal: Patient denies m uscle aches. P eripheral Vascular: Patient denies r ed and blue toes. * Medical History: * Surgical History: * Hospitalization/Major Diagno stic Procedure: * Medications: T akingCitracal Calcium+D Vitamin D 2000 UNIT Capsule as directed Orally twice a day Triamcinolone Acetonide 0.5 % Cream 1 application Externally daily Rosuvastatin Calcium 40 MG Tablet TAKE 1 TABLET BY MOUTH EVERY DAY Clopidogrel Bisulfate 75 MG Tablet TAKE 1 TABLET BY MOUTH EVERY DAY Levothyroxine Sodium 50 MCG Tablet TAKE 1 TABLET BY MOUTH EVERY DAY IN THE MORNING ON AN EMPTY STOMACH Taking Citracal Calcium+D Taking Vitamin D 2000 UNIT Capsule as directed Orally twice a day Taking Triamcinolone Acetonide 0.5 % Cream 1 application Externally daily Taking Rosuvastatin Calcium 40 MG Tablet TAKE 1 TABLET BY MOUTH EVERY DAY Taking Clopidogrel Bisulfate 75 MG Tablet TAKE 1 TABLET BY MOUTH EVERY DAY Taking Levothyroxine Sodium 50 MCG Tablet TAKE 1 TABLET BY MOUTH EVERY DAY IN THE MORNING ON AN EMPTY STOMACH Not-Taking/PRNIbuprofen 800 MG Tablet 1 tablet with [...] reviewed and reconciled with the patient * Allergies: s ulfa: hivesPneumovax 23: pain and rednessCipro: hives - Onset Date 03/26/2019yes[Allergies Verified] Objective: * Vitals: H t: 60.5, Wt: 141, BMI:27.08, BP:138/60, Wt-k.96. weight is down 2 pounds since 08-11-24. * Examination: G eneral Examination: GENERAL APPEARANCE: a lert, well hydrated, in no distress.? SKIN: g ood turgor. HEART: r egular rate and rhythm, no murmurs, rubs, gallops.? LUNGS: c lear to auscultation bilaterally, good air movement, no wheezes, rales, rhonchi. Assessment: * Assessment: 1. S ann stenosis - M48.00 (Primary) Plan: * Treatment: * Procedure Codes: * * Sign off status: Completed true * Provider: Joseph Mcdonald MD Date: 0 08/24/2024 Generated for Martina hughes/Jesse/eTransmitting on: 1 08:23 AM EDT History and Physical Notes * HPI (History of Present Illness) Category Sub-Category Detail Notes Category Not es Symptom(s) patient is a 83 yo female here to discuss recnt MRI test results, sometimes all in the thighs sometimes in the hip/ positive grocery cart sign Examination Category Sub-Category Detail Notes Category Not es General Examination GENERAL APPEARANCE: alert, w ell hydrated, in no distress HEART: regular rate and rhy thm, no murmurs, rubs, gallops LUNGS: clear to auscultatio n bilaterally, good air movement, no wheezes, rales, rhonchi SKIN: good turgor Consultation Request Notes Referral Date Referring Provider Referred Provider Not es 08/24/2024 Owen Mcdonald, [facility] spinal stenosis please eval and treat
--- OUTSIDE RECORDS SUMMARY | 2024-08-25 06:29 | XMS_ITS ---
Author Organization Owen Mcdonald MD Address 10 [facility] [address] [place] [phone] Care Team Providers Care Demo Coordinator Name Role Phone Owen Mcdonald Primary Care Provider REASON FOR VISIT FYI patient fell Encounters Encounter Location Date Provider Diagnosis Owen Mcdonald MD 10 [facility] [address] [place] [address] [phone] 08/25/2024 Owen Mcdonald Plan Of Treatment Next Appt Details Provider Name:Owen burnette, 04/23/2025 08:00:00 AM, [address] [place] [address], [address] [place] [address], [phone], Provider Name:Owen burnette, 04/29/2025 10:15:00 AM, [address] [place] [address], [address], [phone], Provider Name:Owen burnette, 07/29/2025 01:30:00 PM, [address] [place] [address], [address], [phone], Provider Name:Owen Mcknight ier, 09/21/2025 08:00:00 AM, [address], [address], [place], [place], [phone], Provider Name:Owen Mcknight ier, 09/28/2025 09:30:00 AM, [address], [address], [place], [place], [phone], Progress Notes * Melanie SOLIS RDOB:[birth year] (83 yo F)Acc No.[id number]:08/25/2024 Patient: Mynor JOSUÉESTHERMelanie :1940 A ge:83 Y S ex:Female Address:[address] [place] [address] * true * Date: Generated for Martina hughes/Jesse/eTtalitasmitting on: 08:25 AM EDT
--- OUTSIDE RECORDS SUMMARY | 2024-09-01 12:00 | XMS_ITS ---
Author Organization Owen Mcdonald MD Address [address] [place] [phone] Care Team Providers Care Supervisor Composing Room Name Role Phone Owen Mcdonald Primary Care Provider REASON FOR VISIT 3 WEEK F/U Encounters Encounter Location Date Provider Diagnosis Owen Mcdonald MD 10 [facility] [address] [place] [phone] 09/01/2024 Owen Mcdonald Plan Of Treatment Next Appt Details Provider Name:Owen burnette, 04/23/2025 08:00:00 AM, [address] [place] [address], [address] [place] [address], [phone], Provider Name:Owen burnette, 04/29/2025 10:15:00 AM, [address] [place] [address], [address], [phone], Provider Name:Owen burnette, 07/29/2025 01:30:00 PM, [address] [place] [address], [address], [phone], Provider Name:Owen Mcknight ier, 09/21/2025 08:00:00 AM, [address], [address], [place], [phone], Provider Name:Owen Mcknight ier, 09/28/2025 09:30:00 AM, [address], [address], [place], [phone], Progress Notes * Melanie SOLIS RDOB:[birth year] (84 yo F)Acc No.[id number]:09/01/2024 Progress Notes Patient: Melanie CRESPO Provider: Joseph Mcdonald MD :1940 A ge:83 Y S ex:Female Date:09/01/2024 Address:[address] [place], [place] [phone] Subjective: * Chief Complaints: * 1 . 3 WEEK F/U. * Medical History: Objective: * Vitals: Assessment: Plan: * Treatment: * * The named appointment provid er may or may not be the originator of this progress note, and it is not deemed complete until electronically signed by the appointment provider. Sign off status: Pending * Provider: Joseph Mcdonald MD Date: 09/01/2024 Generated for Martina hughes/Jesse/Nasirsmitting on: 08:23 AM EDT
--- OUTSIDE RECORDS SUMMARY | 2024-09-28 09:30 | XMS_ITS ---
Author Organization Owen Mcdonald MD Address [address] [place], [place] [phone] Care Team Providers Care Senior Medical Billing Specialist Name Role Phone Owen Mcdonald Primary Care [...] Status Risk Notes Problem Carpal tunnel syndrome (79720662) Carpal tunnel syndrome (G56.00) Active confirmed Vital Signs Blood pressure systolic 154 mm Hg 09/29/19 25 Blood pressure diastolic 56 mm Hg 025 Height 60.5 in 09/28/2024 Weight 140 lbs 09/28/2024 BMI 26.89 kg/m2 09/28/2024 Encounters Encounter Location Date Provider Diagnosis Owen Mcdonald MD [address] [place] [phone] 09/28/2024 Owen Mcdonald Carpal tunnel syndrome G56.00 Assessments Encounter Date Diagnosis (ICD Code) Assessment Notes Treatment Notes Treatment Clinical Notes Section Notes 09/28/2024 Carpal tunnel syndrome (ICD-10 - G56.00) try a wrist splint/ order faxed to [facility] dept, pending diagnostic testing Plan Of Treatment Treatment Notes Assessment Notes Carpal tunnel syndrome try a wrist splin t/ order faxed to [facility] dept, pending diagnostic testing Pending Test Test Name Order Date EMG 09/28/2024 Nerve Conduction Study 09/28/2024 Next Appt Details Follow Up: 4 Weeks, Reason: Provider Name:Owen burnette, 04/23/2025 08:00:00 AM, [address] [place] [address], [address], [phone], Provider Name:Owen burnette, 04/29/2025 10:15:00 AM, [address] [place] [address], [phone], Provider Name:Owen burnette, 07/29/2025 01:30:00 PM, [address] [place] [address], [phone], Provider Name:Owen burnette, 09/21/2025 08:00:00 AM, [address] [place] [address], [phone], Provider Name:Owen burnette, 09/28/2025 09:30:00 AM, [address] [place] [address], [address], [place], [place], [phone], Progress Notes * Melanie SOLIS RDOB:[birth year] (84 yo F)Acc No.[id number]:09/28/2024 Progress Notes Patient: Melanie CRESPO Provider: Joseph Mcdonald MD :1940 A ge:84 Y S ex:Female Date:09/28/2024 Address:[address] [place], [place] [phone] Subjective: * Chief Complaints: * L eft [...] Sign off status: Completed true * Provider: Jsoeph Mcdonald MD Date: 0 09/28/2024 Generated for Martina hughes/Jesse/Fatou on: 1 08:24 AM EDT History and Physical Notes * [...]
--- OUTSIDE RECORDS SUMMARY | 2024-10-19 03:15 | XMS_ITS ---
Author Organization Owen Mcdonald MD Address [address] [place], [place] [address] Care Team Providers Care Heading Up Machine Operator Name Role Phone Owen Mcdonald Primary Care Provider Results Component Value Reference Range Notes Complete Blood Count Auto Di ff Reviewed date:10/19/2024 12:45:02 PM Interpretation: Performing Lab:[facility], [address] [place] [phone] Notes/Report: White Blood Count 6.9 4.8-10.8 X10*3/uL [...] NRBC Abs Auto 0.000 0.0-0.012 X10*3/uL Comprehensive [place]. Panel Fa st Reviewed date:10/19/2024 05:13:39 PM Interpretation: Performing Lab:[facility], [address] [place] [phone] Notes/Report: Sodium 140 135-145 mmol/L Potassium 4.2 [...] Panel Reviewed date:10/19/2024 12:45:11 PM Interpretation: Performing Lab:[address] [address] Notes/Report: Triglycerides 138 <150 mg/dL Desirable Triglyceride: [...] T4 Reviewed date:10/19/2024 12:44:44 PM Interpretation: Performing Lab:[address] [address] Notes/Report: TSH reflex Free T4 1.94 0.32-4.0 uIU/mL Hemoglobin A1c Reviewed date:10/19/2024 12:44:36 PM Interpretation: Performing Lab:[address] [address] Notes/Report: Hemoglobin A1c % 5.6 <6.0 % [...] average glucose, using the formula of the Z9Z-Zczkrzt Average Glucose study (ADAG), Diabetes Care, Vol.31,#8, Jan. 2007 REASON FOR VISIT yearly fasting labs Encounters Encounter Location Date Provider Diagnosis Owen Mcdonald MD [address] [place] [phone] 10/19/2024 Owen Mcdonald Acquired hypothyroid ism E03.9 [...] Next Appt Details Provider Name:Owen Mcknight ier, 04/23/2025 08:00:00 AM, [address] [place] [address], [address], [phone], Provider Name:Owen Mcknight ier, 04/29/2025 10:15:00 AM, [address] [place] [address], [address], [phone], Provider Name:Owen Mcknight ier, 07/29/2025 01:30:00 PM, [address] [place] [address], [phone], Provider Name:Owen Mcknight ier, 09/21/2025 08:00:00 AM, [address] [place] [address], [phone], Provider Name:Owen Mcknight ier, 09/28/2025 09:30:00 AM, [address] [place] [address], [phone], Progress Notes * Melanie SOLIS RDOB:[birth year] (84 yo F)Acc No.[id number]:10/19/2024 Progress Note Patient: Mynor Melanie GRIGSBY Provider: Joseph Mcdonald MD :1940 A ge:84 Y S ex:Female Date:10/19/2024 Address:[address] [place] [address] [facility] Subjective: * Chief Complaints: * 1 . [...] - 10/19/2024 07:15 AM) L AB: Comprehensive [place]. Panel Fast (Collection Date & Time - [...] - 10/19/2024 07:15 AM) L AB: Comprehensive [place]. Panel Fast (Collection Date & Time - [...] - 10/19/2024 07:15 AM) L AB: Comprehensive [place]. Panel Fast (Collection Date & Time - [...] MD Date: 0 10/19/2024 Generated for Martina hughes/Jesse/Donnyitting on: 1 08:23 AM EDT
--- OUTSIDE RECORDS SUMMARY | 2024-10-26 06:30 | XMS_ITS ---
Author Organization Owen Mcdonald MD Address [address] [place], [place] [address] Care Team Providers Care Grinding Room Supervisor Name Role Phone Owen Mcdonald Primary Care Provider Results Component Value Reference Range Notes Microalbumin, Random Reviewed date:10/26/2024 04:11:31 PM Interpretation: Performing Lab:[facility], [address] [place] [phone] Notes/Report: Creatinine Urine 47.28 Microalbumin Urine 8.0 Microalbum/Creatinine Ratio Ur 16.9 <30 ug/mg cr Albumin/Creatinine Ratio Reference Ranges: Normal: < 30 ug/mg creatinine Microalbuminuria: 30 - 300 ug/mg creatinine Clinical Albuminuria: > 300 ug/mg creatinine UA ClnCatch+Micro w/rflx Cul t Reviewed date:10/26/2024 02:01:04 PM Interpretation: Performing Lab:[facility], [address] [place] [phone] Notes/Report: Urine, Clean Catch Color Urine Dark Yellow Appearance Urine Turbid PH 7.5 5.0-9.0 Glucose Urine UA Negative Negative mg/dL Urine Blood Negative Negative Specific [place] - Urine 1.015 1.005-1.025 Urine Protein Negative [...] Location Date Provider Diagnosis Owen Mcdonald MD [address] [place] [phone] 10/26/2024 Owen Mcdonald Prediabetes R73.09 ; Pure hypercholesterolemia E78.00 ; Acquired hypothyroidism E03.9 ; Poor balance R26.89 and Carpal tunnel syndrome G56.00 Assessments Encounter Date Diagnosis (ICD Code) Assessment Notes Treatment Notes Treatment Clinical Notes Section Notes 10/26/2024 Prediabetes (ICD-10 - R73.09) 10/26/2024 Pure hypercholesterolemia (ICD-10 - E78.00) 10/26/2024 Acquired hypothyroid ism (ICD-10 - E03.9) 10/26/2024 Poor balance (ICD-10 - R26.89) send to [facility]/ dr oakes 10/26/2024 Carpal tunnel syndro me (ICD-10 - G56.00) awaiting surgery Plan Of Treatment Treatment Notes Assessment Notes Poor balance send to [facility] neurolo gy/ dr oakes Carpal tunnel syndrome awaiting surgery Referrals Referral Date Details 10/26/2024 10/26/2024, poor bal ance please eval and treat Has been there before, [facility] Next Appt Details Follow Up: 2 Months, Reason: Provider Name:Owen burnette, 04/23/2025 08:00:00 AM, [address] [place] [address], [address], [phone], Provider Name:Owen burnette, 04/29/2025 10:15:00 AM, [address] [place] [address], [address], [phone], Provider Name:Owen burnette, 07/29/2025 01:30:00 PM, [address] [facility], [address], [place], [place], [phone], Provider Name:Owen Mcknight josepr, 09/21/2025 08:00:00 AM, [address] [facility], [address], [place], [place], [phone], Provider Name:Owen Mcknight josepr, 09/28/2025 09:30:00 AM, [address] [facility], [address], [place], [place], [phone], Progress Notes * Melanie SOLIS RDOB:[birth year] (84 yo F)Acc No.[id number]:10/26/2024 Patient: Melanie CRESPO Provider: Joseph Mcdonald MD :1940 A ge:84 Y S ex:Female Date:10/26/2024 Address:[address] [place], [place] [phone] Subjective: * Chief Complaints: * C omp [...] yrs, colon cancer. 1 son(s) . . Father-[place] Mother-[place], Denies mental health/substance abuse family history, [...] outside of the [place]: no. * Medications: T akingCitracal Calcium+D [...] X10*3/uL) 0.000 (Ref Range: 0.0-0.012 X10*3/uL) ???Lab:[facility] [place]. Panel Nathan (Order Date - 10/19/2024) (Collection Date & Time - 10/19/2024 07:15 AM)?ValueReference Range?Jztuyu446026- 145 - mmol/L?Bilirubin Total0.50.0-1.0 - mg/dL?Aspartate Amino Qndperadegg168-94 - U/L?Alanine Ohrkunuplwkxkiks782-19 - U/L?Total Protein7.06.5-8.0 - g/dL?Albumin Level4.33.5-5.0 - g/dL?Alkaline Hpiibctesjh8806-304 - U/L?Potassium4.23.3-5.1 - mmol/L?Qncxefuc936 96-108 - mmol/L?Carbon Hfobtsy7955-28 - mmol/L?Anion Emh8713-16 - ?Blood Urea Yuvtpehr05U0-38 - mg/dL?Creatinine0.690.5-1.4 - mg/dL ?Estimated Glomerular Filt Rate> 60-?Glucose Ujeazyb322V91-21 - mg/dL?Calcium9.88.4-10.2 - mg/dL ???Lab:Vitamin B12 and Folate (Order Date - 10/13/2024) (Collection Date & Time - 10/13/2024 03:21PM)?ValueReference Range?Vitamin T91904708-464 - pg/mL?Iougjf91.4> or = 4.0 - ng/mL ???Lab:Lactate Dehydrogenase (Order Date - 10/13/2024) (Collection Date & Time - 10/13/2024 03:21 PM)?ValueReference Range?Lactate Juqibvkexwprw473 122-220 - U/L * Examination: G eneral [...] 3. P oor balance Notes: send to [facility]/ dr oakes Referral To:[facility] Reason:poor balance please eval and treat Has been there before 4. C arpal tunnel syndrome Notes: awaiting surgery * Procedure Codes: * Follow Up: 2 Months * * Sign off status: Completed true * Provider: Joseph Mcdonald MD Date: 0 10/26/2024 Generated for Anai saul/Jesse/eTransmitting on: 1 08:25 AM EDT History and Physical Notes * [...] Provider Referred Provider Not es 10/26/2024 Owen Mcdonald, [facility] please eval and treat Has been there before
--- OUTSIDE RECORDS SUMMARY | 2024-12-29 07:00 | XMS_ITS ---
Author Organization Owen Mcdonald MD Address [address] [place], [place] [phone] Care Team Providers Care Emergency Telecommunications Dispatcher Name Role Phone Owen Mcdonald Primary Care [...] > referral info faxed on 12-29-2024 p [phone] Annette 01/25/2025 09:46:18 AM > was told [...] kg/m2 12/29/2024 weight is down 2 pounds [facility] 5-5-25 Encounters Encounter Location Date Provider Diagnosis Owen Mcdonald MD [address] [place] [address] Drive [address] [place], [place] [phone] 12/29/2024 Owen Mcdonald Poor balance R26.89 Assessments Encounter Date Diagnosis (ICD Code) Assessment Notes Treatment Notes Treatment Clinical Notes Section Notes 12/29/2024 Poor balance (ICD-10 - R26.89) need notes from [facility] neurology and send another referral for balance evaluation/ is going to physical therapy at [facility] Plan Of Treatment Treatment Notes Assessment Notes Poor balance need notes from [facility] neurology and send another referral for balance evaluation/ is going to physical therapy at [facility] Referrals Referral Date Details 12/29/2024 12/29/2024, baylee bal ance please eval and treatLAWRENCE Next Appt Details Follow Up: 3 Months, Reason: Provider Name:Owen burnette, 04/23/2025 08:00:00 AM, [address], [address], [place], [place], [phone], Provider Name:Owen burnette, 04/29/2025 10:15:00 AM, [address], [address], [place], [place], [phone], Provider Name:Owen Mcknight ier, 07/29/2025 01:30:00 PM, [address] [facility] [address] [facility], [address], [place], [place], [phone], Provider Name:Owen Mcknight ier, 09/21/2025 08:00:00 AM, [address], [address], [place], [place], [phone], Provider Name:Owen Mcknight ier, 09/28/2025 09:30:00 AM, [address] [place] [address], [address] [facility], [place], [phone], Progress Notes * Melanie SOLIS RDOB:[birth year] (84 yo F)Acc No.[id number]:12/29/2024 Progress Notes Patient: Melanie CRESPO Provider: Joseph Mcdonald MD :1940 A ge:84 Y S ex:Female Date:12/29/2024 Address:[address] [place], [place] [phone] Subjective: * Chief Complaints: * 2 month [...] Mcdonald MD Date: 0 12/29/2024 Generated for Anai saul/Jesse/eTransmitting on: 1 08:24 AM EDT History and [...]
--- OUTSIDE RECORDS SUMMARY | 2025-02-09 04:14 | XMS_ITS ---
Author Organization Owen Mcdonald MD Address [address] [place] [phone] Care Team Providers Care Director Diversity Name Role Phone Owen Mcdonald Primary Care Provider REASON FOR VISIT Xray r knee Encounters Encounter Location Date Provider Diagnosis Owen Mcdonald MD 10 [facility] [address] [place] [phone] 02/09/2025 Owen Mcdonald Right knee pain M25.561 Assessments Encounter Date Diagnosis (ICD Code) Assessment Notes Treatment Notes Treatment Clinical Notes Section Notes 02/09/2025 Right knee pain (ICD-10 - M25.561) Plan Of Treatment Pending Test Test Name Order Date XR knee LT 2V 02/09/2025 Next Appt Details Provider Name:Owen burnette, 04/23/2025 08:00:00 AM, [address] [place] [address], [address], [phone], Provider Name:Owen burnette, 04/29/2025 10:15:00 AM, [address] [place] [address], [address], [phone], Provider Name:Owen Mcknight ier, 07/29/2025 01:30:00 PM, [address], [address], [place], [phone], Provider Name:Owen Mcknight ier, 09/21/2025 08:00:00 AM, [address], [address], [place], [phone], Provider Name:Owen Mcknight ier, 09/28/2025 09:30:00 AM, [address], [address], [place], [phone], Progress Notes * Melanie SOLIS RDOB:[birth year] (84 yo F)Acc No.[id number]:02/09/2025 Patient: Melanie CRESPO :1940 A ge:84 Y S ex:Female Address:[address] [place] [address] Subjective: * Chief Complaints: * X ray r knee * Medical History: * Surgical History: * Hospitalization/Major Diagno stic Procedure: * Medications: Objective: * Vitals: * Physical Examination: Assessment: * Assessment: 1. R ight knee pain - M25.561 Plan: * Treatment: * Procedure Codes: * true * Date: Generated for Martina hughes/Jesse/eTransmitting on: 08:25 AM EDT
--- OUTSIDE RECORDS SUMMARY | 2025-02-09 10:44 | XMS_ITS ---
Author Organization Owen Mcdonald MD Address [address] [place] [phone] Care Team Providers Care Machine Scallop Cutter Name Role Phone Owen Mcdonald Primary Care Provider [phone] Results Component Value Reference Range Notes XR knee RT 2V Reviewed date:02/12/2025 01:00:31 PM Interpretation: Performing Lab: Notes/Report: [address] [address] XRay Report Signed Patient: Melanie Solis MR#: [id number] : 1940 Acct:[id number] Age/Sex: 84 / F ADM Date: 02/09/25 Loc: HO.XRAY Attending Dr: Owen Mcdonald MD Ordering Physician: Owen Mcdonald MD Date of Service: 02/09/25 Procedure(s): XR knee RT 2V Accession Number(s): [id number] cc: Owen Mcdonald MD EXAMINATION: XR KNEE, [...] 02/09/25 1505 DD/ 1452 TD/TT: 02/09/25 1457 Camp Coordinator: [place] [address] XRay Report Signed Patient: Kay Solis MR#: [id number] : 1940 Acct:[id number] Age/Sex: 84 / F ADM Date: 02/09/25 Loc: YAMILKA Attending Dr: Owen Mcdonald MD Ordering Physician: Owen Mcdonald MD Date of Service: 02/09/25 Procedure(s): XR knee RT 2V Accession Number(s): [id number] cc: Owen Mcdonald MD EXAMINATION: XR KNEE, [...] 02/09/25 1505 DD/ 1452 TD/TT: 02/09/25 1457 Camp Coordinator: XR knee LT 2V Reviewed date:02/09/2025 04:33:35 PM Interpretation: Performing Lab: Notes/Report: [address] [address] XRay Report Signed Patient: Melanie Solis MR#: [id number] : 1940 Acct:[id number] Age/Sex: 84 / F ADM Date: 02/09/25 Loc: HO.XRAY Attending Dr: Owen Mcdonald MD Ordering Physician: Owen Mcdonald MD Date of Service: 02/09/25 Procedure(s): XR knee LT 2V Accession Number(s): [id number] cc: Owen Mcdonald MD EXAMINATION: XR KNEE, [...] 02/09/25 1449 DD/ 1425 TD/TT: 02/09/25 1443 Camp Coordinator: [address] [address] XRay Report Signed Patient: Kay Solis MR#: [id number] : 1940 Acct:[id number] Age/Sex: 84 / F ADM Date: 02/09/25 Loc: HO.ADRIANO Attending Dr: Owen Mcdonald MD Ordering Physician: Owen Mcdonald MD Date of Service: 02/09/25 Procedure(s): XR knee LT 2V Accession Number(s): [id number] cc: Owen Mcdonald MD EXAMINATION: XR KNEE, LEFT CLINICAL INFORMATION: PAIN COMPARISON: None available. TECHNIQUE: AP and lateral views of the left knee. FINDINGS: There is no joint effusion. There is mild narrow ing and medial lateral joint spaces. There is minimal magid ear calcification visible within the medial lateral [...] By: Taj Salomon MD Signed By: <Electron [facility] signed by Taj Salomon MD in OV> 02/09/25 1449 DD/ 1425 TD/TT: 02/09/25 1443 Camp Coordinator: REASON FOR VISIT bilateral x-rays Encounters Encounter Location Date Provider Diagnosis Owen Mcdonald MD [address] [facility] [address] [place] [phone] 02/09/2025 Owen Mcdonald Pain in right knee M25.561 and Knee pain, left M25.562 Assessments Encounter Date Diagnosis (ICD Code) Assessment Notes Treatment Notes Treatment Clinical Notes Section Notes 02/09/2025 Pain in right knee (ICD-10 - M25.561) 02/09/2025 Knee pain, left (ICD-10 - M25.562) Plan Of Treatment Next Appt Details Provider Name:Owen burnette, 04/23/2025 08:00:00 AM, [facility], [address], [place], [place], [phone], Provider Name:Owen Mcknight ier, 04/29/2025 10:15:00 AM, [address], [address], [place], [phone], Provider Name:Owen Mcknight ier, 07/29/2025 01:30:00 PM, [address], [address], [place], [phone], Provider Name:Owen Mcknight ier, 09/21/2025 08:00:00 AM, [address], [address], [place], [phone], Provider Name:Owen Mcknight ier, 09/28/2025 09:30:00 AM, [address], [address], [place], [place], [phone], Progress Notes * Melanie SOLIS RDOB:[birth year] (84 yo F)Acc No.[id number]:02/09/2025 Patient: Melanie CRESPO :1940 A ge:84 Y S ex:Female Address:[address] [place] [phone] Subjective: * Chief Complaints: * B ilateral [...] * Date: Generated for Martina hughes/Jesse/eTransmitting on: 08:24 AM EDT
--- NOTE | ~2025-04-19 | XR_ITS ---
Exam: X-ray, bilateral knees.XR KNEE 3 VIEWS BILATERAL TECHNIQUE: Three views lower extremity joint, bilateral knees INDICATION: Knee pain COMPARISON: February 09, 2025 FINDINGS: RIGHT KNEE: Again seen is chondrocalcinosis within the medial and lateral menisci. There is moderate narrowing of the lateral greater than medial joint spaces. There are tricompartmental marginal osteophytes. Small joint effusion has decreased since the prior. 3 punctate metallic foreign bodies project in the soft tissues anterior to the tibia. LEFT KNEE: Again noted is chondrocalcinosis in the medial and lateral compartments. There is mild narrowing of the medial greater than lateral joint spaces. There are small tricompartmental marginal osteophytes. There is no joint effusion. Punctate metal projects in the soft tissues far posterior to the proximal tibia. XR/XR Knee Aleks 3V IMPRESSION: Right knee: Again noted is moderate osteoarthritis likely secondary to CPPD arthropathy with decreasing small effusion. 3 punctate metallic foreign bodies anterior to the proximal lower leg Left knee: Mild osteoarthritis likely secondary to CPPD arthropathy. There is a single punctate metallic foreign body projecting over the soft tissues far posteriorly Electronically signed by: Taj Salomon MD 04/19/2025 11:18 AM EDT
--- OUTSIDE RECORDS SUMMARY | 2025-04-19 08:26 | XMS_ITS | Patient Health Record ---
Author Organization Owen Mcdonald MD Address [address] [place], [place] [id number] Care Team Providers Care Compensation Intern Name Role Phone Owen Mcdonald Primary Care Provider [phone] Results Component Value Reference Range Notes Complete Blood Count Auto Di ff Reviewed date:10/19/2024 12:45:02 PM Interpretation: Performing Lab:[facility], [address] [place] [phone] Notes/Report: White Blood Count 6.9 4.8-10.8 X10*3/uL [...] NRBC Abs Auto 0.000 0.0-0.012 X10*3/uL Comprehensive [place]. Panel Fa st Reviewed date:10/19/2024 05:13:39 PM Interpretation: Performing Lab:[facility], [address] [place] [address] Notes/Report: Sodium 140 135-145 mmol/L Potassium 4.2 [...] Panel Reviewed date:10/19/2024 12:45:11 PM Interpretation: Performing Lab:[facility], [address] [place] [phone] Notes/Report: Triglycerides 138 <150 mg/dL Desirable Triglyceride: [...] T4 Reviewed date:10/19/2024 12:44:44 PM Interpretation: Performing Lab:[facility], [address] [place] [phone] Notes/Report: TSH reflex Free T4 1.94 0.32-4.0 uIU/mL Hemoglobin A1c Reviewed date:10/19/2024 12:44:36 PM Interpretation: Performing Lab:[facility], [address] [place] [address] Notes/Report: Hemoglobin A1c % 5.6 <6.0 % [...] average glucose, using the formula of the I6D-Ekglbqt Average Glucose study (ADAG), Diabetes Care, Vol.31,#8, Jan. 2007 Erythrocyte Sedimentation Ra te Reviewed date:07/28/2024 07:23:33 PM Interpretation: Performing Lab:[facility], [address] [place] [phone] Notes/Report: Erythrocyte Sedimentation Rate 18 0-20 MM/HR Patients with polycythemia and many hemoglobin abnormalities may have depressed sed rates whereas patients with anemia may have elevated sed rates. XR hip BI w PEL1V Reviewed date:08/13/2024 10:12:56 AM Interpretation: Performing Lab: Notes/Report: [address] [address] XRay Report Signed Patient: Melanie Solis MR#: [id number] : 1940 Acct:[id number] Age/Sex: 83 / F ADM Date: 08/11/24 Loc: HO.XRAY Attending Dr: Owen Mcdonald MD Ordering Physician: Owen Mcdonald MD Date of Service: 08/11/24 Procedure(s): XR hip BI w PEL1V Accession Number(s): [id number] cc: Owen Mcdonald MD EXAMINATION: XR BILATERAL [...] by: Greg Stanton MD 08/11/2024 02:21 PM [facility] Dictated By: Greg Stanton MD Signed By: <Electronically signed by Greg Stanton MD in OV> 08/11/24 1421 DD/ 1151 TD/TT: 08/11/24 1234 Senior Ui Web Developer: [address] [address] XRay Report Signed Patient: Melanie Solis MR#: [id number] : 1940 Acct:[id number] Age/Sex: 83 / F ADM Date: 08/11/24 Loc: HO.XRAY Attending Dr: Owen Mcdonald MD Ordering Physician: Owen Mcdonald MD Date of Service: 08/11/24 Procedure(s): XR hip BI w PEL1V Accession Number(s): [id number] cc: Owen Mcdonald MD EXAMINATION: XR BILATERAL [...] by: Greg Stanton MD 08/11/2024 02:21 PM [facility] Dictated By: Greg Stanton MD Signed By: <Electronically signed by Greg Stanton MD in OV> 08/11/24 1421 DD/ 1151 TD/TT: 08/11/24 1234 Senior Ui Web Developer: Nelida Hartley Reviewed date:10/26/2024 04:11:31 PM Interpretation: Performing Lab:[address] [address] Notes/Report: Creatinine Urine 47.28 Microalbumin Urine 8.0 Microalbum/Creatinine Ratio Ur 16.9 <30 ug/mg cr Albumin/Creatinine Ratio Reference Ranges: Normal: < 30 ug/mg creatinine Microalbuminuria: 30 - 300 ug/mg creatinine Clinical Albuminuria: > 300 ug/mg creatinine UA ClnCatch+Micro w/rflx Cul t Reviewed date:10/26/2024 02:01:04 PM Interpretation: Performing Lab:[address] [address] Notes/Report: Urine, Clean Catch Color Urine Dark Yellow Appearance Urine Turbid PH 7.5 5.0-9.0 Glucose Urine UA Negative Negative mg/dL Urine Blood Negative Negative Specific [place] - Urine 1.015 1.005-1.025 Urine Protein Negative Neg-Trace mg/dL Urine Ketones Negative Negative mg/dL Nitrite Urine Negative Negative Leukocyte Esterase Urine Small (1+) Negative RBC Urine 0-2 0-2 /HPF WBC Urine 11-20 0-5 /HPF Squamous Epithelial Cell Urine 0-2 0-2 /HPF Bacteria Urine None Seen None Seen Hyaline Casts Urine 0-2 0-2 /LPF XR knee RT 2V Reviewed date:02/12/2025 01:00:31 PM Interpretation: Performing Lab: Notes/Report: [address] [address] XRay Report Signed Patient: Melanie Solis MR#: [id number] : 1940 Acct:[id number] Age/Sex: 84 / F ADM Date: 02/09/25 Loc: YAMILKA Attending Dr: Owen Mcdonald MD Ordering Physician: Owen Mcdonald MD Date of Service: 02/09/25 Procedure(s): XR knee RT 2V Accession Number(s): [id number] cc: Owen Mcdonald MD EXAMINATION: XR KNEE, [...] 02/09/25 1505 DD/ 1452 TD/TT: 02/09/25 1457 Senior Ui Web Developer: [address] [address] XRay Report Signed Patient: Melanie Solis MR#: [id number] : 1940 Acct:[id number] Age/Sex: 84 / F ADM Date: 02/09/25 Loc: HOJESSE Attending Dr: Owen Mcdonald MD Ordering Physician: Owen Mcdonald MD Date of Service: 02/09/25 Procedure(s): XR kne e RT 2V Accession Number(s): [id number] cc: Owen Mcdonald MD EXAMINATION: XR KNEE, RIGHT CLINICAL INFORMATION: PAIN RT KNEE COMPARISON: None available. TECHNIQUE: AP and lateral views of the right knee. FINDINGS: There is moderate severe narrowing of the lateral joint space and mild narrowing of the medial joint space. There is stippled an d [...] 02/09/25 1505 DD/ 1452 TD/TT: 02/09/25 1457 Senior Ui Web Developer: XR knee LT 2V Reviewed date:02/09/2025 04:33:35 PM Interpretation: Performing Lab: Notes/Report: [address] [address] XRay Report Signed Patient: Melanie Solis MR#: [id number] : 1940 Acct:[id number] Age/Sex: 84 / F ADM Date: 02/09/25 Loc: HOJESSE Attending Dr: Owen Mcdonald MD Ordering Physician: Owen Mcdonald MD Date of Service: 02/09/25 Procedure(s): XR knee LT 2V Accession Number(s): [id number] cc: Owen Mcdonald MD EXAMINATION: XR KNEE, [...] 02/09/25 1449 DD/ 1425 TD/TT: 02/09/25 1443 Senior Ui Web Developer: [place] [address] XRay Report Signed Patient: Melanie Solis MR#: [id number] : 1940 Acct:[id number] Age/Sex: 84 / F ADM Date: 02/09/25 Loc: HO.ADRIANO Attending Dr: Owen Mcdonald MD Ordering Physician: Owen Mcdonald MD Date of Service: 02/09/25 Procedure(s): XR kne e LT 2V Accession Number(s): [id number] cc: Owen Mcdonald MD EXAMINATION: XR KNEE, [...] Mild joint space narrowing and chondrocalcinosis. Electronically renate d by: Taj Salomon MD 02/09/2025 02:49 PM EDT Dictated By: Taj Salomon MD Signed By: <Electronically signed by Taj Salomon MD in OV> 02/09/25 1449 DD/ 1425 TD/TT: 02/09/25 1443 Senior Ui Web Developer: MM tomosynthesis screening B I Reviewed date:06/11/2024 04:54:47 PM Interpretation: Performing Lab: Notes/Report: [address] [place] [address] Mammography Report Signed Patient: Melanie Solis MR#: [id number] : 1940 Acct:[id number] Age/Sex: 83 / F ADM Date: 06/04/24 Loc: HO.MAMMO Attending Dr: Owen Mcdonald MD Ordering Physician: Owen Mcdonald MD Results: 2Be nign Findings Date of Service: 06/04/24 Follow Up: 1 Year From [facility] Mammogram Procedure(s): MM tomosynthesis screening BI Accession Number(s): [id number] cc: Owen Mcdonald MD EXAMINATION: MM SCREENING DIGITAL BREAST TOMOSYNTHESIS, [...] by: Marquita Andre DO 06/11/2024 10:09 AM EST RP Dictated By: Marquita Andre DO Signed By: <Electronically signed by Marquita Andre DO in OV> 06/11/24 1009 DD/ 1015 TD/TT: 06/04/24 1040 Senior Ui Web Developer: [facility] [address] [place] [address] Mammography Report Signed Patient: Melanie Solis MR#: [id number] : 1940 Acct:[id number] Age/Sex: 83 / F ADM Date: 06/04/24 Loc: HO.MAMMO Attending Dr: Owen Mcdonald MD Ordering Physician: Owen Mcdonald MD Results: 2Be nign Findings Date of Service: 06/04/24 Follow Up: 1 Year From Orig ina Mammogram Procedure(s): MM tomosynthesis screening BI Accession Number(s): [id number] cc: Owen Mcdonald MD EXAMINATION: MM SCREENING DIGITAL BREAST TOMOSYNTHESIS, [...] by: Marquita Andre DO 06/11/2024 10:09 AM EST RP Dictated By: Marquita Andre DO Signed By: <Electronically signed by Marquita Andre DO in OV> 06/11/24 1009 DD/ 1015 TD/TT: 06/04/24 1040 Senior Ui Web Developer: C Reactive Protein Reviewed date:07/28/2024 07:21:12 PM Interpretation: Performing Lab:[facility], [address] [place] [phone] Notes/Report: C Reactive Protein 0.36 < or = 0.50 mg/dL MR lumbar spine wo con Reviewed date:08/17/2024 12:31:14 PM Interpretation: Performing Lab: Notes/Report: [address] [address] Magnetic Resonance Report Signed Patient: Melanie Solis MR#: [id number] : 1940 Acct:[id number] Age/Sex: 83 / F ADM Date: 08/16/24 Loc: HO.MRI Attending Dr: Owen Mcdonald MD Ordering Physician: Owen Mcdonald MD Date of Service: 08/16/24 Procedure(s): MR lumbar spine wo con Accession Number(s): [id number] cc: Owen Mcdonald MD CLINICAL HISTORY: LBP MR lumbar spine with and without gadolinium Comparison: CR - LUMBAR SPINE 2TO 3 [id number] - 08/18/15 15:09 EST Findings: 5 lumbar [...] 2. Mild multilevel canal stenoses. 3. Multilevel ykxc-lz-xyaiahgd foraminal stenoses as described above. This document has been electronically signed by: Ayde Roberts MD on 08/16/2024 18:33:10 Dictated By: Ayde Roberts MD Signed By: <Electronically signed by Ayde Roberts MD in OV> 08/16/241832 DD/ 32 TD/TT: 08/16/241832 Senior Ui Web Developer: [place] [address] Magnetic Resonance Report Signed Patient: Melanie Solis MR#: [id number] : 1940 Acct:[id number] Age/Sex: 83 / F ADM Date: 08/16/24 Loc: .MRI Attending Dr: Owen Mcdonald MD Ordering Physician: Owen Mcdonald MD Date of Service: 08/16/24 Procedure(s): MR lumbar spine wo con Accession Number(s): [id number] cc: Owen Mcdonald MD CLINICAL HISTORY: LBP MR lumbar spine with and without gadolinium Comparison: CR - LUMBAR SPINE 2TO 3 [id number] - 08/18/15 15:09 EST Findings: 5 lumbar [...] con us medullaris within normal limits. Paraspinous musculature intact. [...] 2. Mild multilevel canal stenoses. 3. Multilevel aptg-bz-ikjccygi foraminal stenoses as described above. This document has be en electronically signed by: Ayde Roberts MD on 08/16/2024 18:33:10 Dictated By: Ayde Roberts MD Signed By: <Electronically signed by Ayde Roberts MD in OV> 08/16/241832 DD/ 32 TD/TT: 08/16/241832 Senior Ui Web Developer: Complete Blood Count Auto Di ff Reviewed date:10/13/2024 06:22:54 PM Interpretation: Performing Lab:[facility], [address] [place] [phone] Notes/Report: White Blood Count 6.7 4.8-10.8 X10*3/uL [...] Dehydrogenase Reviewed date:10/13/2024 06:21:06 PM Interpretation: Performing Lab:[address] [address] Notes/Report: Lactate Dehydrogenase 159 122-220 U/L Vitamin B12 and Folate Reviewed date:10/13/2024 06:21:00 PM Interpretation: Performing Lab:[address] [address] Notes/Report: Vitamin B12 599 200-900 pg/mL NORMAL 200-900 PG/ML INDETERMINATE 160-199 PG/ML DEFICIENT < 160 PG/ML Folate 14.4 > or = 4.0 ng/mL Reference Values: > or = 4.0 ng/mL < 4.0 ng/mL suggests folate deficiency Methotrexate, aminopterin and folinic acid (leucovorin) are chemotherapeutic agents whose molecular structures are similar to folate; therefore, the [employer] folate assay cannot be used for patients using these drugs. Jared Mora Reviewed date:10/19/2024 12:44:18 PM Interpretation: Performing Lab:[address] [place] [address] Notes/Report: Hold Gold See Note Specimen held untested for 24 hours; Call to request Chemistry testing. Urine Culture Reviewed date:10/27/2024 12:14:11 PM Interpretation: Performing Lab:[facility], [address] [place] [address] Notes/Report: Urine Culture Report Result Urine Culture 10,000 to 50,000 cfu/ml Urine Culture Mixed bacterial thee a characteristic of Urine Culture urogenital contamination. Reason For Referral Reason spinal stenosis pl ease eval and treat Diagnosis 1 Spinal stenosis (M48 .00) Referral Organization Owen Mcdonald MD Referring Provider First Name Owen Referring Provider Last Name Harry Referring Provider Speciality Internal M edicine Referred Provider [facility] Referred Provider Specialty Physical Med icine General Notes Tatiana Condon 0 08/24/2024 09:47:46 AM >info faxedTaurus Annette 08/27/2024 02:55:33 PM >referral info mailed Referral Priority Routine Referral Appointment Date 09/09/2024 Reason Carpal tunnel syndro me Diagnosis 1 Carpal tunnel syndro me (G56.00) Referral Organization Owen Mcdonald MD Referring Provider First Name Owen Referring Provider Last Name Harry Referring Provider Speciality Internal edicine Referred Provider Brinda Esquivel Referred Provider Specialty Hand Surgery General Notes Tatiana Condon 0 10/16/2024 01:53:12 PM info faxedTaurus Annette 10/26/2024 03:27:24 PM >was told by [...] Condon 0 10/26/2024 11:08:52 AM >referral info faxedTaurus Annette 10/30/2024 11:26:31 AM > patient is aware of appt Referral Priority Routine Referral Appointment Date 12/01/2024 Reason poor balance pleas e eval and treat Diagnosis 1 Poor balance (R26.89 ) Referral Organization Owen Mcdonald MD Referring Provider First Name Owen Referring Provider Last Name Harry [facility] Referred Provider LAWRENCE OAKES Referred Provider Specialty Neurology General Notes Tatiana Condon 0 01/01/2025 01:25:01 PM > referral info faxed on 12-29-2024 p [phone] Annette 01/25/2025 09:46:18 AM > was told by office to refaxTaurus Annette 01/26/2025 10:15:51 AM > patient is aware of apptTaurus Annette 02/23/2025 01:43:03 PM >per patient she cancelled this appt Referral Priority Routine Referral Appointment Date 06/10/2025 Reason bilateral knee pain Diagnosis 1 Knee pain, left (M25 .562) Diagnosis 2 Right knee pain (M25 .561) Referral Organization Owen Mcdonald MD Referring Provider First Name Owen Referring Provider Last Name Harry Referring Provider [facility] Internal edicine Referred Provider ALINE ARBOLEDA Referred Provider Specialty Orthopedic S urgery General Notes Tatiana Condon 0 02/12/2025 01:15:02 PM >patient is aware of appt. (she made her own appt )Taurus Annette 02/23/2025 01:43:28 PM >per patient she cancelled this appt Referral Priority Routine Referral Appointment Date 06/10/2025 Reason bilateral knee pain Diagnosis 1 Knee pain, left (M25 .562) Diagnosis 2 Right knee pain (M25 .561) Referral Organization Owen Mcdonald MD Referring Provider First Name Owen Referring Provider Last Name Harry [facility] Referred Provider Andi [place] Referred Provider Specialty Orthopedic S urgery General Notes Tatiana Condon 0 02/16/2025 03:36:35 PM >info faxedTaurus Annette 02/23/2025 01:44:38 PM > patient is aware of appt Referral Priority Routine Referral Appointment Date 04/19/2025 Medications Medication SIG (Take, Route, Frequency, Duration) Notes Start Date End Date Status LORazepam 0.5 MG 1 tablet as needed Orally Once a day for 14 days 04/03/2019 Not-Taking Triamcinolone Acetonide 0.5 % 1 application Externally daily for 30 days 04/23/2023 Active Rosuvastatin Calcium 40 MG TAKE 1 TABLET BY MOUTH EVERY DAY for 90 Active Citracal Calcium+D A ctive Vitamin D 2000 UNIT as directed Orally twice a day Active Ibuprofen 800 MG 1 tablet with [...] ON AN EMPTY STOMACH for 90 Active Immunizations Vaccine Route Administration Date Status Comme nts Flu Vaccine IM Intramuscular 06/03/2012 Administered PPSV23 (Pnemovax) Unknown 08/21/2009 Administered Flu Vaccine IM Intramuscular 02/24/2013 Administered Prevnar 13 IM Intramuscular 01/15/2014 Administered Influenza High Dose IM Intramuscular 04/03/2018 Administer ed pt was given the vaccine at [facility]. Influenza High Dose IM Intramuscular 04/14/2019 Administer [...] Problem Status W/U Status Risk Notes Problem 804596429 Thyroid nodule (E04.1) Active confirm ed Problem 316305928 Thrombocytopenia (D69.6) Active confirmed Problem Carpal tunnel syndrome (63670945) Carpal tunnel syndrome (G56.00) Active confirmed Problem Anxiety (70908282) Anxiety (F41.9) Active confi rmed Problem 96718816 Polymyalgia rheu matica (M35.3) Active confirmed Problem 23007002 Visual hallucina tions (R44.1) Active confirmed Problem 3849888 Arthritis (M19.90) Active confirmed Problem 370194673 Osteopenia (M85.80) Active confirmed Problem 960456630 Tubular adenoma of colon (D12.6) Active confirmed Problem 795832306 Gastroesophageal reflux disease without esophagitis (K21.9) Active confirmed Problem 531053151 Acquired hypothyroidism (E03.9) Active confirmed Problem 8255673 Prediabetes (R73.09) Active confirmed Problem Osteoporosis (82333593) Osteoporosis (M81.0) Active confirmed Problem 0667144 Migraine with au ra and without status migrainosus, not intractable (G43.109) Active confirmed Problem 871980586 Cervical disc di sease (M50.90) Active confirmed Problem 93489640 Intrinsic eczema (L20.84) Active confirmed Problem Hearing loss (93162974) Hearing loss (H91.90) Active confirmed Problem 23284269 Sciatica of righ t side (M54.31) Active confirmed Problem 450959483 History of palpitations (Z87.898) Active confirmed Problem 791472370 Pure hypercholesterolemia (E78.00) Active confirmed Problem 699698391 Arthritis of kne e (M17.10) Active confirmed Problem Problem with balance (763238184) Balance problems (R26.89) Active confirmed Problem 207216380 Poor balance (R26.89) Active confirme d Problem 4710046861888035 Arthritis of le ft knee (M17.12) Active confirmed Problem 140060338487116 Acute migraine (G43.909) Active confirmed Vital Signs Blood pressure diastolic 60 mm Hg 12/29/2024 tuan ght is down 2 pounds since 5-5-25 Height 60.5 in 12/29/2024 weight is down 2 pounds since 10-26-24 Blood pressure systolic 122 mm Hg 12/29/2024 weig ht is down 2 pounds since 10-26-24 Weight 134 lbs 12/29/2024 weight is down 2 pounds since 10-26-24 BMI 25.74 kg/m2 12/29/2024 weight is down 2 pounds since 10-26-24 Encounters Encounter Location Date Provider Diagnosis Owen Mcdonald MD [address] [place] [id number] 10/19/2024 Owen Mcdonald Acquired hypothyroid ism E03.9 ; Prediabetes R73.09 ; Pure hypercholesterolemia E78.00 and Thrombocytopenia D69.6 Owen Mcdonald MD [address] [place] [id number] 04/20/2024 Owen Mcdonald Prediabetes R73.09 ; Anxiety F41.9 and Pure hypercholesterolemia E78.00 Owen Mcdonald MD [address] [place] [id number] 07/28/2024 Owen Mcdonald Polymyalgia rheumati ca M35.3 and Encounter for Medicare annual examination with abnormal findings Z00.01 Owen Mcdonald MD [address] [place] [id number] 08/11/2024 Owen Goodwiner Pain in right hip M2 5.551 and Pain in left hip M25.552 Owen Mcdonald MD [address] [place] [id number] 08/24/2024 Owen Mcdonald Spinal stenosis M48. 00 Owen Mcdonald MD [address] [place] [id number] 09/28/2024 Owen Mcdonald Carpal tunnel syndro me G56.00 Owen Mcdonald MD [address] [place] [id number] 10/26/2024 Owen Mcdonald Prediabetes R73.09 ; Pure hypercholesterolemia E78.00 ; Acquired hypothyroidism E03.9 ; Poor balance R26.89 and Carpal tunnel syndrome G56.00 Owen Mcdonald MD [address] [place] [id number] 12/29/2024 Owen Mcdonald Poor balance R26.89 Owen Mcdonald MD [address] [place] [address] [id number] 08/13/2024 Owen Mcdonald MD [address] [place] [id number] 08/13/2024 Owen Mcdonald Lumbar back pain M54 .50 Owen Mcdonald MD [address] [place] [id number] 08/21/2024 Owen Mcdonald MD [address] [place] [address] [id number] 08/25/2024 Owen Mcdonald MD [address] [place] [id number] 02/09/2025 Owen Mcdonald Right knee pain M25. 561 Oewn Mcdonald MD [address] [place] [id number] 02/09/2025 Owen Mcdonald Pain in right knee M 25.561 and Knee pain, left M25.562 Assessments Encounter Date Diagnosis (ICD Code) Assessment Notes Treatment Notes Treatment Clinical Notes Section Notes 10/19/2024 Acquired hypothyroid ism (ICD-10 - E03.9) 04/20/2024 Prediabetes (ICD-10 - R73.09) will continue [...] - M25.551) 08/11/2024 Pain in left hip (IC D-10 - M25.552) since she got better a little with stopping the rosuvastin will try going longer without, will continue to monitor 08/24/2024 Spinal stenosis (ICD -10 - M48.00) discussed finding of MRI with patient, referral to [facility] 09/28/2024 Carpal tunnel syndro me (ICD-10 - G56.00) try a wrist splint/ order faxed to [facility] dept, pending diagnostic testing 10/26/2024 Prediabetes (ICD-10 - R73.09) 12/29/2024 Poor balance (ICD-10 - R26.89) need notes from [facility] neurology and send another referral for balance evaluation/ is going to physical therapy at at 08/13/2024 Lumbar back pain (IC D-10 - M54.50) 02/09/2025 Right knee pain (ICD -10 - M25.561) 02/09/2025 Pain in right knee (ICD-10 - M25.561) 10/19/2024 Prediabetes (ICD-10 - R73.09) 04/20/2024 Pure hypercholesterolemia (ICD-10 - E78.00) stable, will continue current regiment 07/28/2024 Encounter for Medica re annual examination with abnormal findings (ICD-10 - Z00.01) 10/26/2024 Pure hypercholesterolemia (ICD-10 - E78.00) 02/09/2025 Knee pain, left (ICD -10 - M25.562) 10/19/2024 Pure hypercholesterolemia (ICD-10 - E78.00) 10/26/2024 Acquired hypothyroid ism (ICD-10 - E03.9) 10/19/2024 Thrombocytopenia (IC D-10 - D69.6) 10/26/2024 Poor balance (ICD-10 - R26.89) send to [facility] neurology/ dr oakes 10/26/2024 Carpal tunnel syndro [...] thyroid 04/23/2023 XR knee RT 3V 10/22/2023 XR knee LT 2V 02/09/2025 UA ClnCatch+Micro w/rflx Cult 10/19/2024 Future Test Test Name Order Date US THYROID 11/14/2019 BONE DENSITY DEXA 04/14/2021 Next Appt Details Provider Name:Owen Mcknight ier, 04/23/2025 08:00:00 AM, [address] [place] [address], Suite [facility], [place], [place], [phone], Provider Name:Owen Mcknight ier, 04/29/2025 10:15:00 AM, [address] [place] [address], Suite [facility], [place], [place], [phone], Provider Name:Owen Mcknight ier, 07/29/2025 01:30:00 PM, [address] [place] [address], [place] [address], [place], [place], [phone], Provider Name:Owen Mcknight ier, 09/21/2025 08:00:00 AM, [address] [place] [address], [place] [address], [place], [place], [phone], Provider Name:Owen Mcknight ier, 09/28/2025 09:30:00 AM, [address] [place] [address], [place] [address], [place], [place], [phone], Insurance Providers Payer Name Payer Address Payer Phone Subscriber Number Group Number Insured Name Patient Relationship to Insured Coverage Start Date Coverage End Date [employer] [address] [place] [address] [id number] Melanie Solis Self - patient is the insured [employer] BCBS OF [facility] [address] [place] [address] [id number] Melanie Solis Self - patient is [...]
--- OUTSIDE RECORDS SUMMARY | 2025-04-19 08:26 | XMS_ITS | Patient Health Record ---
Author Organization [facility] Address [address] [place] [address] Care Team Providers Care Value Analysis Coordinator Name Role Phone Owen Mcdonald MD Primary Care Provider Kiara Long Unavailable [phone] Allergies Allergen (clinical drug ingredient) Drug/Non Drug [...] UNIT 1 tablet Orally Onc e a day; Duration: 30 day(s) Active Multivitamins as directed Orally Active Flax Seed Oil 1000 MG Orally Active Zinc 25 MG 1 tablet with a meal Orally Once a day; Duration: 30 day(s) Active Magnesium 500 MG 1 tablet with a meal Orally Once a day; Duration: 30 day(s) Active Rosuvastatin Calcium 40 MG 1 tablet Oral ly Once a day Not-Taking calcium as directed Active PriLOSEC OTC 20 MG 1 tablet Orally twic e a day Not-Taking Clopidogrel Bisulfate 75 MG 1 tablet Orally Once a day; Duration: 30 day(s) Active Levothyroxine Sodium Active Simvastatin Not-Taki ng Aspirin 81 MG 1 tablet Orally Once a day; Duration: 30 day(s) Not-Taking Crestor 40 MG 1 tablet Orally Once a day; Duration: 30 day(s) Not-Taking Synthroid 50 MCG 1 tablet on an empty stomach in the morning Orally Once a day; Duration: 30 day(s) Not-Taking Advil 200 MG 1 [...] Problem Acquired hammer toe of right foot (7336621423005136) Other hammer toe(s) (acquired), right foot (M20.41) Active confirmed Problem Acquired hammer toe of left foot (5533375255342134) Other hammer toe(s) (acquired), left foot (M20.42) Active confirmed Problem Acquired hallux valgus (98761426) Hallux valgus (acquired), right foot (M20.11) Active confirmed Problem Acquired hallux valgus (83300914) Hallux valgus (acquired), left foot (M20.12) Active confirmed Problem Acquired hallux valgus (03572949) Hallux valgus (acquired), right foot (M20.11) Active confirmed Problem Acquired hammer toe of right foot (8359948116590696) Hammer toe of right foot (M20.41) Active confirmed Problem Localized, primary osteoarthritis of the ankle and/or foot (977172500) Osteoarthritis of right ankle and foot (M19.071) Active confirmed Problem Bilateral atherosclerosis of arteries of lower limbs (disorder) (68430881037235727 ) Atherosclerosis of artery of both lower extremities (I70.203) Active confirmed Problem Localized, primary osteoarthritis of the ankle and/or foot (338649580) Arthritis of joint of lesser toe, left (M19.072) Active confirmed Problem Localized, primary osteoarthritis of the ankle and/or foot (457117904) Arthritis of joint of lesser toe, right (M19.071) Active confirmed Plan Of Treatment Pending Test Test Name Order Date X ray : Foot, right 2V 09/08/2012 X ray : Foot, right 2V 09/07/2013 X ray : Foot, right 3V 10/29/2017 X ray : Foot, right 3V 04/11/2022 [id number] SKIN LESIONS, 2 TO 4 03/05/20 24 [id number] DYSTROPHIC NAILS ANY # Insurance Providers Payer Name Payer Address Payer Phone Subscriber Number Group Number Insured Name Patient Relationship to Insured Coverage Start Date Coverage End Date Medicare National [facility] [employer] [address] [place] [address] [id number] IrmaStacieMelanie Self - patient is the insured [employer] [address] [place] [address] [phone] [id number] Nikolas Soliste Self - patient is [...] loop recorder 04/23/2019 Hospitalization History Reason Date(Month/Year) [facility] - slight stroke 02/2019
--- OUTSIDE RECORDS SUMMARY | 2025-04-19 08:26 | XMS_ITS | Patient Health Record ---
Author Organization [facility] Address [address] [place] [address] Care Team Providers Care Development Specialist Name Role Phone Owen Mcdonald MD Primary Care Provider Ranjit Ventura Jr Unavailable [phone] Allergies Allergen (clinical drug ingredient) Drug/Non [...] on an empty stomach Orally Once a day; Duration: 30 day(s) Active Clopidogrel Bisulfate 75 MG 1 tablet Orally Once a day; Duration: 30 day(s) Active Magnesium 300 MG 1 capsule with a david l Orally Once a day; Duration: 30 day(s) Active PriLOSEC OTC 20 MG 1 tablet Orally twic e a day Not-Taking Vitamin D (Cholecalciferol) 50 MCG (2000 UT) 1 capsule Orally Once a day; Duration: 30 day(s) Active Probiotic 250 MG 1 [...] Problem Status W/U Status Risk Notes Problem Gastro-esophagea l reflux disease without esophagitis (787479916) Gastro-esophage al reflux disease without esophagitis (K21.9) Active confirmed Problem Change in bowel habit (23390472) Change in bowel habits (R19.4) Active confirmed Problem Screening for colon cancer (180666161) Screening for colon cancer (Z12.11) Active confirmed Vital Signs Temperature 97.5 degrees Fahrenheit 07/29/2024 Blood pressure diastolic 00 mm Hg 07/29/2024 Height 59.50 in 07/29/2024 Blood pressure systolic 000 mm Hg 07/29/2024 Weight 143 lbs 07/29/2024 BMI 28.40 kg/m2 07/29/2024 Encounters Encounter Location Date Provider Diagnosis [facility] [address] [place] [address] 07/29/2024 Ranjit Quinn Jr Gastro-esophageal reflux disease [...] COLONOSCOPY 06/26/2017 Next Appt Details Provider Name:Ranjit elenakiera Thao, 08/02/2025 10:40:00 AM, [address], [address], [place], [address], Insurance Providers Payer Name Payer Address Payer Phone Subscriber Number Group Number Insured Name Patient Relationship to Insured Coverage Start Date Coverage End Date MEDICARE OF [place] [address] [place] [address] [id number] SOPHIE ENCISO Self - patient is the insured [employer] ATT[employer] CLAIMS [address] [place] [address] [id number] FERNIE SOPHIE Self - patient is the insured Medical (General) History Medical History History ICD Code colonoscopy 09/18/17, negativ e. Personal history and family history of colon polyps and cancer, followup optional. GERD, EGD 06/26/16 no Oconnor's esophagus. Hyperlipidemia Hypothyroidism CVA Surgical History Surgery Date(Month/Year) hysterectomy lumpectomy, right breast Hospitalization History Reason Date(Month/Year) small strokes occipital nerve 2019
== END 2025-04-19 08:11 | disposition home or self-care (01) ==
LOC: HO.HOSX 08:10
DX: M17.0 Bilateral primary osteoarthritis of knee (principal)
CPT/HCPCS: 73562; 99212

== ENCOUNTER 2025-04-19 10:54 | Outpatient (AMB) | payer MEDICARE, SELFPAY ==
[2025-04-19 10:57] VITALS: BMI 26.0
--- NOTE | 2025-04-19 10:57 | MHC.OFFVIS ---
Vital Signs 04/19/25 10:57 Height 5 ft Weight 133 lb BMI 26.0 Intake Visit Reasons: Newprob-pain in both knees Intake Note: Melanie is an 84 year old right hand dominant female who presents for a New Problem Visit for evaluation of Bilateral Knee Pain, Right greater then Left. Patient sates pain her pain began early this year. She complains of pain on the lateral aspect of the right knee, worsened by twisting and bending. She has been going to physical therapy for maybe a year . She has not tried any knee braces or injections. She does take Tylenol with some relief. She is on Plavix and cannot take NSAID's. She denies any known injuries or surgeries to the knees. History of Pre-Diabetes. Allergies sulfur Allergy (Severe, Verified 04/19/25 10:57) internal hives Sulfa (Sulfonamide Antibiotics) Allergy (Mild, Verified 04/19/25 10:57) UNKNOWN ciprofloxacin (Cipro) Allergy (Unknown, Verified 04/19/25 10:57) hives pneumococcal vaccine Allergy (Unknown, Verified 04/19/25 10:57) palm sized welt, inflamed HPI HPI Newprob-pain in both knees: Details: Melanie is an 84 year old right hand dominant female who presents for a New Problem Visit for evaluation of Bilateral Knee Pain, Right greater then Left. Patient sates pain her pain began early this year. She complains of pain on the lateral aspect of the right knee, worsened by twisting and bending. Patient states that this is particularly bothered by going up or down stairs, but denies any pain at baseline. She has been going to physical therapy for maybe a year . She has not tried any knee braces or injections. She does take Tylenol with some relief. She is on Plavix and cannot take NSAID's. She denies any known injuries or surgeries to the knees. History of Pre-Diabetes. [facility] Medical History Occipital stroke Cervical disc disease Pre-diabetes Tubular adenoma of colon Hypercholesterolemia GERD (gastroesophageal reflux disease) Esophagitis Hypothyroidism Thrombocytopenia Surgical History H/O breast biopsy H/O colonoscopy History of esophagogastroduodenoscopy (EGD) History of hysterectomy Family History Maternal Grandmother Colon cancer Daughter Father Heart attack Mother Stroke Social History (Updated 04/19/25 @ 11:09 by RUTH Crow) Household Members: None Housing: House Are you a primary career technical education instructor to a significant other at home: No Do you presently have visiting nurse or other home services: No Alcohol intake: former Patient Tobacco Use Status: Never used Tobacco Advance Directives Date on File: 12/28/20 service: No Current occupational status: retired Physical Exam Vital Signs: BMI result Body Mass Index 26.0 Extrem Other: Patient's bilateral knees normal to inspection No erythema, ecchymosis, edema noted No lacerations, abrasions, open areas No evidence of infection Patient reports no tenderness to palpation of the bilateral knees Patient is able to extend to approximately 15 degrees and flex to approximately 100 degrees with bilateral knees Distal sensation intact Capillary refill brisk Results Reviewed Results Reviewed: X-rays obtained in the office today and independently reviewed by me, Jeet Vazquez PA-C, demonstrate [id number]-ax-iipjeefo osteoarthritis of bilateral knees, worst in the medial compartment, with evidence of CPPD arthropathy. Assessment & Plan Assessment & Plan (1) Bilateral primary osteoarthritis of knee: Code(s): M17.0 - Bilateral primary osteoarthritis of knee Category: Medical Plan 1. Bilateral knee osteoarthritis Patient is educated about this condition Patient is educated about the treatment options available At this time, patient states she is interested in steroid injections, however she would like to hold off for today, given that she drove herself here and would like to have somebody to bring her to and from her injection appointment Therefore, patient is booked for an appointment in 2-3 weeks for right knee injection Patient understands this in his amenable to this plan Follow-up for injection appointment, sooner with any acute concerns Orders: Orders XR Knee Aleks 3V 04/19/25 M25.569 - Pain in unspecified knee Coding Level of Care Code Est Pt Level 3 (62437) Diagnoses Bilateral primary osteoarthritis of knee M17.0
--- OUTSIDE RECORDS SUMMARY | 2025-04-19 13:33 | XMS_ITS | Data Portability ---
Author Organization [place] - [facility] Address [address] [address] Care Team Providers Care Manager Testing Name Role Phone MILA SOTOMAYOR Primary Care Provider [phone] Assessment Encounter Date Assessment Date Assessment LastModified [...] amplification and medical clearance was provided today. [email or web address] Not available 12/25/2023 12:49:53 Plan of Treatment [...] audio gram No observ ation record ed. [email or web address] Not Available 01/2024 13:29:11 02/12/20 24 11/10/2021 [...] Organization Details Recorded Time Deviated nasal septum 991318951 Active 2021 Deviated nasal septum; Note: Date Diagnosed : 12/29/2021 3:45 PM (J34.2) Not Available [facility] 4 02:27:48 Posterior rhinorrhe a 85605736 Active 2021 Postnasal drip; Note: Date Diagnosed : 12/29/2021 3:45 PM (R09.82) Not Available [facility] 4 02:28:04 Sensorine ural hearing loss of bilateral ears 016682432 Active 2021 Sensorine ural hearing loss, bilateral ; Note: Date Diagnosed : 12/29/2021 3:45 PM (H90.3) Not Available [facility] 4 02:27:55 Chronic rhinitis 32782358 Active 2021 Chronic rhinitis; Note: Date Diagnosed : 12/29/2021 3:45 PM (J31.0) Not Available [facility] 4 02:27:40 Bilateral tinnitus 72135444687 02 Active 2021 Tinnitus, bilateral ; Note: Date Diagnosed : 12/29/2021 3:45 PM (H93.13) Not Available [facility] 4 02:27:58 Dysphonia 05607879 Active 2023 Hoarsenes s; Note: Date Diagnosed : 09/25/2023 11:42 AM (R49.0) Not Available [facility] 4 02:27:30 Impacted cerumen of bilateral ears 50791249656 08730 Active 2023 MARISOL COATS PA-C [address] [place] [address],[place] [address], [place], [address] , [facility] - [facility] 4 12:47:20 Sensorine ural hearing loss of bilateral ears 478300377 Active 2023 MARISOL COATS PA-C [address] [place] [address],[place] [address], [facility] [place] [place], [address] , [facility] 4 12:47:35 Problem Notes None recorded. Procedures Surgical History Date Name Laterality Status Provider Name and Address Organization Details Recorded Time 4 Comp Audio with Tymps - 96544 & 90257 completed DEBBI MITTAL MA, CCC-A [address] [facility],[place] [address], [place], [address], [facility] 12/25/2023 12:12:18 Cerumen removal without microscope bilat completed MARISOL COATS PA-C [address] [place] [address],[place] [address], [place], [address], [facility] 12/25/2023 12:47:16 Imaging Results None recorded. Procedure Notes None recorded. Medical Equipment None Reported. Allergies Allergen ID Allergen Name Allergen Category Reaction Reaction Severity Criticality Documentation Date Start Date Code Code System Note Provider Name and Address Organization Details Recorded Time 781192 fluticaso ne Not available lighthead edness Not available Not available 01/24/2024 67262 RxNorm React ion: Light heade dness ; Not Available [facility] 4 00:24:24 34884 floxacill in Not available other Not available Not available 11/05/2023 4448 RxNorm React ion: Unkno wn; Not Available [facility] 4 00:52:01 34858 Bactrim medicatio n other Not available Not available 11/05/2023 14024 9 RxNorm React ion: Unkno wn; Not Available [facility] 4 00:52:08 Medications Name Sig Start [...] Diagnosis SNOMED-CT Code Diagnosis ICD10 Code Diagnosis IMO Codes Diagnosis Note [id number] DEON REYNOLDS-Lina [facility] [address] [address] 12/25/2023 10:51:24 12/25/2023 12:50:30 Impacted cerumen of bilateral ears 6548283669 324269 H61.23 Sensorineu ral hearing loss of bilateral ears 959158583 H90.3 6491 DEBBI MITTAL MA, CCC-A [facility] [address] [address] 12/25/2023 12:11:34 12/31/2023 11:38:32 Sensorineural hearing loss of bilateral ears 071503773 H90.3 RIGHT EAR: Borderline normal/ mild SNHL [...] Name 12/31/2023 2 [place] [id number] Melanie R Irma [id number] Melanie R Irma 12/25/2023 1 [place] [employer] [employer] Melanie R Irma [id number] Melanie R Irma Notes Date Note Type Note Provider Name and Address Organization Details Recorded Time 12/25/2023 text/html ROS as noted in the HPI 83-year-old female presents for updated audiometric testing. History of [...] blurry vision with use. SOFIA EDGAR MD [address] [place] [address], [address], [place] - [facility] 12/25/2023 14:36:40 OBGyn Episode No OBEpisode recorded.
--- OUTSIDE RECORDS SUMMARY | 2025-04-19 13:33 | XMS_ITS | Data Portability ---
Author Organization [facility] Address [address] [place] [address] Assessment No assessment recorded. Plan of Treatment Reminders Order Date Submit Date Provider Last Modified By Organization Details Last Modified Time Details Appointments None recorded. Lab None recorded. Referral None recorded. Procedures None recorded. Surgeries None recorded. Imaging None recorded. Medication Orders prednisone 20 mg tablet 2022 023 [facility] #[id number], [address] [place], [address], 18:35:40 Claritin 10 mg tablet 2022 023 [facility][id number], [address] [place], [address], 18:35:41 Patient TargetsNo targets recorded. Patient Instructions Encounter Date Encounter Id Patient Instructions Last Modified By Organization Details Last Modified Time 12/30/2022 [id number] hives: care instructions [email or web address] Not available 12/30/2022 [...] Name and Address Organization Details Recorded Time Transient cerebral ischemia 321387642 Completed 201812/30/2022 NANCY BERGERONAU [facility] [place] - [facility] 3 18:15:42 Disorder of thyroid gland 61698060 Active 2022 NANCY JERSON [facility], [place] - [facility] 3 18:13:44 Hypercholes terolemia 53526404 Active 2022 NANCY JERSON [facility] [place] - [facility] 3 18:14:25 Problem Notes None recorded. Procedures Surgical History Date Name Laterality Status Provider Name and Address Organization Details Recorded Time breast procedure completed NANCY JRESON [place] - [facility] 12/30/2022 18:16:31 hysterectomy completed NANCY JERSON [place] - [facility] 12/30/2022 18:16:41 Imaging Results None recorded. Procedure Notes None recorded. Medical Equipment None Reported. Allergies Allergen ID Allergen Name Allergen Category Reaction Reaction Severity Criticality Documentation Date Start Date Code Code System Note Provider Name and Address Organization Details Recorded Time 258283 Substance with sulfonami de structure and antibacte rial mechanism of action (substanc e) medicatio n hives Not available Not available 12/30/2022 01731 8003 SNOMED NANCY JERSON [facility] [...] rating [Score] - Reported Body temperature Systolic And Diastolic Provider Name and Address Organization Details Last Updated DateTime 152.4 cm 26.4 kg/m2 87370.9 7 g 96 % 96 % 75 /min 16 /min 0 98.5 [degF] 147/78 mm[Hg] NANCY JERSON [id number] 18:20:00 Social History Question Answer Notes LastModified by [employer] Details LastModified Time Tobacco Smoking Status Never Smoker NANCY ARTHUR ron [place] - [facility] 12/30/2022 18:16:53 Have You Recently Traveled Abroad? No Information not available 12/30/2022 Are You Currently In School? No Information not available 12/30/2022 Sex: Unknown Functional Status Question Answer Note LastModified by [employer] Details LastModified Time Do you use any [...] ICD10 Code Diagnosis IMO Codes Diagnosis Note [id number] [facility] [address] [address] [place] [address] 09/26/2018 13:11:03 09/26/2018 14:06:13 [id number] Markus Harvey REFERENCE INVESTIGATOR [address] [facility] [address] [place] [address] 12/30/2022 17:17:26 12/30/2022 18:37:12 Pruritic rash 98571157 L28.2 Health Concerns Section Related Observation LastModified by Organization Detai ls LastModified Time None Recorded Concern Status LastModified by Organization Details LastModified Time None Recorded Advance Directives Directive None Recorded Payers Insurance Date Sequence Insurance Name Policy Number Policy Garza Covered Member ID Garza Member ID Guarantor Name 12/30/2022 1 [place] [employer] Melanie Solis [id number] Melanie Solis 12/30/2022 2 [place] [id number] Melanie Solis [id number] Melanie Solis Notes Date Note Type Note Provider Name and Address Organization Details Recorded Time 12/30/2022 text/html UC Rash/Skin LesionReported by PatientHPIFor quality, patient reportsitchy,red, andspreading. For context, patient reportsnew detergent or skin productandnew medications being taken: herbalbut reportsno exposure to hair dye,no expsoure to new clothes/jewelry,no recent travel,no recent illness,no pets/animals in home, andnot affiliated with chemicals/pesticides. For source of patient information, patient reportsinformation obtained from patientandpatient arrived at urgent care ambulatory. For location, patient reportsneck,arms, andback. For severity, patient reportsmild. For duration, patient reports2 days. For alleviating factors, patient reportsnothing gives relief. For associated symptoms, patient reportsno feverandno fatigue. Markus Harvey NP [address] [place], [address], [place] - [facility] 12/30/2022 18:35:54 OBGyn Episode No OBEpisode recorded.
== END 2025-04-19 11:27 | disposition home or self-care (01) ==
LOC: HO.HOS 10:54
PROVIDERS: PCP Internal Medicine
DX: M17.0 Bilateral primary osteoarthritis of knee (principal)
CPT/HCPCS: 99213

== ENCOUNTER → 2025-04-19 10:56 | Outpatient (BNV) | payer MEDICARE, SELFPAY | PROVIDERS: Visit Provider Radiology Diagnostic Radiology | DX: M17.0 Bilateral primary osteoarthritis of knee (principal); Z18.10 Retained metal fragments, unspecified | CPT/HCPCS: 73562 ==

== ENCOUNTER 2025-04-23 11:21 | Outpatient (REF) | payer MEDICARE, SELFPAY ==
--- OUTSIDE RECORDS SUMMARY | 2023-11-14 09:30 | XMS_ITS ---
Author Organization [facility] Address [address] [place] [id number] Care Team Providers Care Slipper Maker Name Role Phone Owen Mcdonald MD Primary Care Provider Kiara Long Unavailable [phone] Danny Cm Unavailable [phone] Encounters Encounter Location Date Provider Diagnosis [address] [address] 11/14/2023 Danny Cm Plan Of Treatment No Information Progress Notes * Melanie SOLIS RDOB:[birth year] (84 yo F)Acc No.[id number]:11/14/2023 Progress Note Patient: Melanie CRESPO Provider: Lea Rhodes DPM :1940 A ge:83 Y S ex:Female Date:11/14/2023 Address:[address] [place], [place] [id number] Pcp:Owen Mcdonald MD Subjective: * Chief Complaints: * * Medical History: Objective: * Vitals: Assessment: Plan: * Treatment: * Images: * The named appointment provid er may or may not be the originator of this progress note, and it is not deemed complete until electronically signed by the appointment provider. Sign off status: Pending * Provider: Lea Rhodes DPM Date: 11/14/2023 Generated for Anai ng/Fayanng/eTransmitting on: 1 12:57 PM EDT
--- OUTSIDE RECORDS SUMMARY | 2024-01-01 08:15 | XMS_ITS ---
Author Organization [facility] Address [address] [place] [address] Care Team Providers Care Appliance Service Representative Name Role Phone Owen Mcdonald MD Primary Care Provider Kiara Long Unavailable [phone] Danny Cm Unavailable [phone] Encounters Encounter Location Date Provider Diagnosis [address] [address] 01/01/2024 Danny Cm Plan Of Treatment No Information Progress Notes * Melanie SOLIS RDOB:[birth year] (84 yo F)Acc No.[id number]:01/01/2024 Progress Note Patient: Melanie CRESPO Provider: Lea Rhodes DPM :1940 A ge:83 Y S ex:Female Date:01/01/2024 Address:[address] [place], [place] [id number] Pcp:Owen Mcdonald MD Subjective: * Chief Complaints: [...] 01/01/2024 Generated for Anai ng/Fayanng/eTransmitting on: 1 12:58 PM EDT
--- OUTSIDE RECORDS SUMMARY | 2024-08-24 05:15 | XMS_ITS ---
Author Organization Owen Mcdonald MD Address [address] [place], [place] [phone] Care Team Providers Care Shale Planer Operator Helper Name Role Phone Owen Mcdonald Primary Care Provider [phone] Reason For Referral Reason spinal stenosis pl [...] kg/m2 08/24/2024 weight is down 2 pounds [facility] 08-11-24 Encounters Encounter Location Date Provider Diagnosis Owen Mcdonald MD [address] [place] [phone] 08/24/2024 Owen Mcdonald Spinal stenosis M48.00 Assessments [...] [facility] Next Appt Details Provider Name:Owen burnette, 04/29/2025 10:15:00 AM, [address] [place] [address], [place] [address], [place], [place], [phone], Provider Name:Owen burnette, 07/29/2025 01:30:00 PM, [address] [place] [address], [place] [address], [place], [place], [phone], Provider Name:Owen burnette, 09/21/2025 08:00:00 AM, [address] [place] [address], [place] [address], [place], [place], [phone], Provider Name:Owen Mcknight ier, 09/28/2025 09:30:00 AM, [address], [address], [place], [place], [phone], Progress Notes * Melanie SOLIS RDOB:[birth year] (84 yo F)Acc No.[id number]:08/24/2024 Progress Notes Patient: Melanie CRESPO Provider: Joseph Mcdonald MD :1940 A ge:83 Y S ex:Female Date:08/24/2024 Address:[address] [place] [address] [id number] Subjective: * Chief Complaints: * M RI [...] MD Date: 0 08/24/2024 Generated for Martina hughes/Jesse/Fatou on: 1 12:57 PM EDT History and Physical Notes * HPI [...]
--- OUTSIDE RECORDS SUMMARY | 2024-08-25 06:29 | XMS_ITS ---
Author Organization Owen Mcdonald MD Address [address] [facility] [address] [place] [phone] Care Team Providers Care Hvac R Instructor Name Role Phone Owen Mcdonald Primary Care Provider REASON FOR VISIT FYI patient fell Encounters Encounter Location Date Provider Diagnosis Owen Mcdonald MD 10 [facility] [address] [place] [address] [phone] 08/25/2024 Owen Mcdonald Plan Of Treatment Next Appt Details Provider Name:Owen burnette, 04/29/2025 10:15:00 AM, [address] [place] [address], [address] [place] [address], [phone], Provider Name:Owen burnette, 07/29/2025 01:30:00 PM, [address] [place] [address], [address], [phone], Provider Name:Owen burnette, 09/21/2025 08:00:00 AM, [address] [place] [address], [address], [phone], Provider Name:Owen Deshaun Mcknight vasile, 09/28/2025 09:30:00 AM, [address], [address], [place], [place], [phone], Progress Notes * Melanie SOLIS RDOB:[birth year] (83 yo F)Acc No.[id number]:08/25/2024 Patient: Melanie CRESPO :1940 A ge:83 Y S ex:Female Address:[address] [place] [id number] * true * Date: Generated for Martina hughes/Jesse/Donnyitting on: 12:58 PM EDT
--- OUTSIDE RECORDS SUMMARY | 2024-09-01 12:00 | XMS_ITS ---
Author Organization Owen Mcdonald MD Address [address] [place] [phone] Care Team Providers Care Radar Systems Engineer Name Role Phone Owen Mcdonald Primary Care Provider [phone] REASON FOR VISIT 3 WEEK F/U Encounters Encounter Location Date Provider Diagnosis Owen Mcdonald MD 10 [facility] [address] [place] [phone] 09/01/2024 Owen Mcdonald Plan Of Treatment Next Appt Details Provider Name:Owen burnette, 04/29/2025 10:15:00 AM, [address] [place] [address], [address] [place] [address], [phone], Provider Name:Owen burnette, 07/29/2025 01:30:00 PM, [address] [place] [address], [address], [phone], Provider Name:Owen burnette, 09/21/2025 08:00:00 AM, [address] [place] [address], [address], [phone], Provider Name:Owen Mcknight ier, 09/28/2025 09:30:00 AM, [address], [address], [place], [place], [phone], Progress Notes * Melanie SOLIS RDOB:[birth year] (84 yo F)Acc No.[id number]:09/01/2024 Progress Notes Patient: Melanie CRESPO Provider: Joseph Mcdonald MD :1940 A ge:83 Y S ex:Female Date:09/01/2024 Address:[address] [place], [place] [phone] Subjective: * Chief Complaints: * 1 . [...] 0 09/01/2024 Generated for Martina hughes/Jesse/Donnyitting on: 12:57 PM EDT
--- OUTSIDE RECORDS SUMMARY | 2024-09-28 09:30 | XMS_ITS ---
Author Organization Owen Mcdonald MD Address [address] [place], [place] [phone] Care Team Providers Care Wraparound Facilitator Name Role Phone Owen Mcdonald Primary Care Provider REASON FOR VISIT left wrist pain x [...] Status Risk Notes Problem Carpal tunnel syndrome (81067136) Carpal tunnel syndrome (G56.00) Active confirmed Vital Signs Blood pressure systolic 154 mm Hg 09/29/19 25 Blood pressure diastolic 56 mm Hg 025 Height 60.5 in 09/28/2024 Weight 140 lbs 09/28/2024 BMI 26.89 kg/m2 09/28/2024 Encounters Encounter Location Date Provider Diagnosis Owen Mcdonald MD [address] [place] [phone] 09/28/2024 Owen Mcdonald Carpal tunnel syndrome G56.00 Assessments Encounter Date Diagnosis (ICD Code) Assessment Notes Treatment Notes Treatment Clinical Notes Section Notes 09/28/2024 Carpal tunnel syndrome (ICD-10 - G56.00) try a wrist splint/ order faxed to [facility] dept, pending diagnostic testing Plan Of Treatment Treatment Notes Assessment Notes Carpal tunnel syndrome try a wrist splin t/ order faxed to [facility] dept, pending diagnostic testing Pending Test Test Name Order Date EMG 09/28/2024 Nerve Conduction Study 09/28/2024 Next Appt Details Follow Up: 4 Weeks, Reason: Provider Name:Owen burnette, 04/29/2025 10:15:00 AM, [address] [place] [address], [address], [phone], Provider Name:Owen burnette, 07/29/2025 01:30:00 PM, [address] [place] [address], [address], [phone], Provider Name:Owen burnette, 09/21/2025 08:00:00 AM, [address] [place] [address], [address], [phone], Provider Name:Owen burnette, 09/28/2025 09:30:00 AM, [address] [place] [address], [address], [phone], Progress Notes * Melanie SOLIS RDOB:[birth year] (84 yo F)Acc No.[id number]:09/28/2024 Progress Notes Patient: Melanie CRESPO Provider: Joseph Mcdonald MD :1940 A ge:84 Y S ex:Female Date:09/28/2024 Address:[address] [place] [address] Subjective: * Chief Complaints: * L eft [...] Mcdonald MD Date: 0 09/28/2024 Generated for Anai saul/Jesse/eTtalitasmitting on: 1 12:58 PM EDT History and Physical Notes * [...]
--- OUTSIDE RECORDS SUMMARY | 2024-10-19 03:15 | XMS_ITS ---
Author Organization Owen Mcdonald MD Address [address] [place], [place] [phone] Care Team Providers Care Pony Worker Name Role Phone Owen Mcdonald Primary Care Provider [phone] Results Component Value Reference Range Notes Complete Blood Count Auto Di ff Reviewed date:10/19/2024 12:45:02 PM Interpretation: Performing Lab:[facility], [address] [place] [phone] Notes/Report: White Blood Count 6.9 4.8-10.8 X10*3/uL [...] NRBC Abs Auto 0.000 0.0-0.012 X10*3/uL Comprehensive [place]. Panel Fa st Reviewed date:10/19/2024 05:13:39 PM Interpretation: Performing Lab:[facility], [address] [place] [phone] Notes/Report: Sodium 140 135-145 mmol/L Potassium 4.2 [...] Panel Reviewed date:10/19/2024 12:45:11 PM Interpretation: Performing Lab:[address] [address] Notes/Report: Triglycerides 138 <150 mg/dL Desirable Triglyceride: [...] T4 Reviewed date:10/19/2024 12:44:44 PM Interpretation: Performing Lab:[address] [address] Notes/Report: TSH reflex Free T4 1.94 0.32-4.0 uIU/mL Hemoglobin A1c Reviewed date:10/19/2024 12:44:36 PM Interpretation: Performing Lab:[address] [address] Notes/Report: Hemoglobin A1c % 5.6 <6.0 % [...] average glucose, using the formula of the H5N-Mlfdwbu Average Glucose study (ADAG), Diabetes Care, Vol.31,#8, Jan. 2007 REASON FOR VISIT yearly fasting labs Encounters Encounter Location Date Provider Diagnosis Owen Mcdonald MD [address] [place] [address] [place] [phone] 10/19/2024 Owen Mcdonald Acquired hypothyroid ism E03.9 [...] Next Appt Details Provider Name:Owen Mcknight ier, 04/29/2025 10:15:00 AM, [address] [place] [address], [address], [phone], Provider Name:Owen Mcknight ier, 07/29/2025 01:30:00 PM, [address] [place] [address], [address], [phone], Provider Name:Owen burnette, 09/21/2025 08:00:00 AM, [address] [place] [address], [address], [phone], Provider Name:Owen Mcknight ier, 09/28/2025 09:30:00 AM, [address] [place] [address], [address], [phone], Progress Notes * Melanie SOLIS RDOB:[birth year] (84 yo F)Acc No.[id number]:10/19/2024 Progress Note Patient: Melanie CRESPO Provider: Joseph Mcdonald MD :1940 A ge:84 Y S ex:Female Date:10/19/2024 Address:[address] [place], [place] [phone] Subjective: * Chief Complaints: * 1 . [...] - 10/19/2024 07:15 AM) L AB: Comprehensive [place]. Panel Fast (Collection Date & Time - [...] - 10/19/2024 07:15 AM) L AB: Comprehensive [place]. Panel Fast (Collection Date & Time - [...] - 10/19/2024 07:15 AM) L AB: Comprehensive [place]. Panel Fast (Collection Date & Time - [...] 10/19/2024 Generated for Martina hughes/Jesse/Donnyitting on: 1 12:57 PM EDT
--- OUTSIDE RECORDS SUMMARY | 2024-10-26 06:30 | XMS_ITS ---
Author Organization Owen Mcdonald MD Address [address] [place], [place] [phone] Care Team Providers Care Editor News Name Role Phone Owen Mcdonald Primary Care Provider Results Component Value Reference Range Notes Microalbumin, Random Reviewed date:10/26/2024 04:11:31 PM Interpretation: Performing Lab:[facility], [address] [place] [phone] Notes/Report: Creatinine Urine 47.28 Microalbumin Urine 8.0 Microalbum/Creatinine Ratio Ur 16.9 <30 ug/mg cr Albumin/Creatinine Ratio Reference Ranges: Normal: < 30 ug/mg creatinine Microalbuminuria: 30 - 300 ug/mg creatinine Clinical Albuminuria: > 300 ug/mg creatinine UA ClnCatch+Micro w/rflx Cul t Reviewed date:10/26/2024 02:01:04 PM Interpretation: Performing Lab:[facility], [address] [place] [phone] Notes/Report: Urine, Clean Catch Color Urine Dark Yellow Appearance Urine Turbid PH 7.5 5.0-9.0 Glucose Urine UA Negative Negative mg/dL Urine Blood Negative Negative Specific [place] - Urine 1.015 1.005-1.025 Urine Protein Negative [...] Location Date Provider Diagnosis Owen Mcdonald MD [address] [place] [address] [place] [phone] 10/26/2024 Owen Mcdonald Prediabetes R73.09 ; Pure hypercholesterolemia E78.00 ; Acquired hypothyroidism E03.9 ; Poor balance R26.89 and Carpal tunnel syndrome G56.00 Assessments Encounter Date Diagnosis (ICD Code) Assessment Notes Treatment Notes Treatment Clinical Notes Section Notes 10/26/2024 Prediabetes (ICD-10 - R73.09) 10/26/2024 Pure hypercholesterolemia (ICD-10 - E78.00) 10/26/2024 Acquired hypothyroid ism (ICD-10 - E03.9) 10/26/2024 Poor balance (ICD-10 - R26.89) send to [facility] neurology/ dr oakes 10/26/2024 Carpal tunnel syndro me (ICD-10 - G56.00) awaiting surgery Plan Of Treatment Treatment Notes Assessment Notes Poor balance send to [facility] neurolo gy/ dr oakes Carpal tunnel syndrome awaiting surgery Referrals Referral Date Details 10/26/2024 10/26/2024, poor bal ance please eval and treat Has been there before, [facility] Next Appt Details Follow Up: 2 Months, Reason: Provider Name:Owen burnette, 04/29/2025 10:15:00 AM, [address] [place] [address], [place] [address], [place], [place], [phone], Provider Name:Owen burnette, 07/29/2025 01:30:00 PM, [address] [place] [address], [address], [phone], Provider Name:Owen burnette, 09/21/2025 08:00:00 AM, [address] [facility] [address], [address], [place], [place], [phone], Provider Name:Owen Mcknight ier, 09/28/2025 09:30:00 AM, [address], [address], [place], [place], [phone], Progress Notes * Melanie SOLIS RDOB:[birth year] (84 yo F)Acc No.[id number]:10/26/2024 Patient: Melanie CRESPO Provider: Joseph Mcdonald MD :1940 A ge:84 Y S ex:Female Date:10/26/2024 Address:[address] [place], [place] [phone] Subjective: * Chief Complaints: * C omp [...] yrs, colon cancer. 1 son(s) . . Father-[place] Mother-CVA, Denies mental health/substance abuse family history, [...] unemployed. Pets: none. Travel outside of the [place]: no. * Medications: T akingCitracal Calcium+D [...] X10*3/uL) 0.000 (Ref Range: 0.0-0.012 X10*3/uL) ???Lab:[facility] [place]. Panel Fast (Order Date - 10/19/2024) (Collection Date & Time - 10/19/2024 07:15 AM)?ValueReference Range?Tesnjk858863- 145 - mmol/L?Bilirubin Total0.50.0-1.0 - mg/dL?Aspartate Amino Hgejtxftzxw843-45 - U/L?Alanine Jmkxawicjaxorxch673-14 - U/L?Total Protein7.06.5-8.0 - g/dL?Albumin Level4.33.5-5.0 - g/dL?Alkaline Jyeyrmvikyr0289-580 - U/L?Potassium4.23.3-5.1 - mmol/L?Gnzljzlg231 96-108 - mmol/L?Carbon Ctsvcaj2631-59 - mmol/L?Anion Thh7101-58 - ?Blood Urea Tpkejboe37N9-02 - mg/dL?Creatinine0.690.5-1.4 - mg/dL ?Estimated Glomerular Filt Rate> 60-?Glucose Hncilel248S12-46 - mg/dL?Calcium9.88.4-10.2 - mg/dL ???Lab:Vitamin B12 and Folate (Order Date - 10/13/2024) (Collection Date & Time - 10/13/2024 03:21PM)?ValueReference Range?Vitamin Z83378444-325 - pg/mL?Itfmxq97.4> or = 4.0 - ng/mL ???Lab:Lactate Dehydrogenase (Order Date - 10/13/2024) (Collection Date & Time - 10/13/2024 03:21 PM)?ValueReference Range?Lactate Vjinjdjquhueg468 122-220 - U/L * Examination: G eneral [...] 3. P oor balance Notes: send to [facility] neurology/ dr oakes Referral To:[facility] Reason:poor balance please eval and treat Has been there before 4. C arpal tunnel syndrome Notes: awaiting surgery * Procedure Codes: * Follow Up: 2 Months * * Sign off status: Completed true * Provider: Joseph Mcdonald MD Date: 0 10/26/2024 Generated for Martina hughes/Jesse/Donnyitting on: 1 12:58 PM EDT History and [...] Referral Date Referring Provider Referred Provider Not 10/26/2024 Owen Mcdonald ALINA poor balanc e please eval and treat Has been there before
--- OUTSIDE RECORDS SUMMARY | 2024-12-29 07:00 | XMS_ITS ---
Author Organization Owen Mcdonald MD Address [address] [place], [place] [phone] Care Team Providers Care Pharmacy Associate Name Role Phone Owen Mcdonald Primary Care [...] > referral info faxed on 12-29-2024 p [phone] Annette 01/25/2025 09:46:18 AM > was told [...] kg/m2 12/29/2024 weight is down 2 pounds [facility] 5-5-25 Encounters Encounter Location Date Provider Diagnosis Owen Mcdonald MD [address] [place], [place] [phone] 12/29/2024 Owen Mcdonald Poor balance R26.89 Assessments Encounter Date Diagnosis (ICD Code) Assessment Notes Treatment Notes Treatment Clinical Notes Section Notes 12/29/2024 Poor balance (ICD-10 - R26.89) need notes from [facility] neurology and send another referral for balance evaluation/ is going to physical therapy at [facility] Plan Of Treatment Treatment Notes Assessment Notes Poor balance need notes from [facility] neurology and send another referral for balance evaluation/ is going to physical therapy at [facility] Referrals Referral Date Details 12/29/2024 12/29/2024, baylee bal ance please eval and treatLAWRENCE Next Appt Details Follow Up: 3 Months, Reason: Provider Name:Owen burnette, 04/29/2025 10:15:00 AM, [address], [address], [place], [place], [phone], Provider Name:Owen burnette, 07/29/2025 01:30:00 PM, [address], [address], [place], [place], [phone], Provider Name:Owen Mcknight ier, 09/21/2025 08:00:00 AM, [address], [address], [place], [place], [phone], Provider Name:Owen Mcknight ier, 09/28/2025 09:30:00 AM, [address], [address], [place], [place], [phone], Progress Notes * Melanie SOLIS RDOB:[birth year] (84 yo F)Acc No.[id number]:12/29/2024 Progress Notes Patient: Melanie CRESPO Provider: Joseph Mcdonald MD :1940 A ge:84 Y S ex:Female Date:12/29/2024 Address:[address] [place], [place] [phone] Subjective: * Chief Complaints: * 2 month [...] 0 12/29/2024 Generated for Martina hughes/Jesse/Fatou on: 1 12:58 PM EDT History and [...]
--- OUTSIDE RECORDS SUMMARY | 2025-02-09 04:14 | XMS_ITS ---
Author Organization Owen Mcdonald MD Address [address] [place] [phone] Care Team Providers Care Picture Framer Name Role Phone Owen Mcdonald Primary Care Provider REASON FOR VISIT Xray r knee Encounters Encounter Location Date Provider Diagnosis Owen Mcdonald MD 10 [facility] [address] [place] [phone] 02/09/2025 Owen Mcdonald Right knee pain M25.561 Assessments Encounter Date Diagnosis (ICD Code) Assessment Notes Treatment Notes Treatment Clinical Notes Section Notes 02/09/2025 Right knee pain (ICD-10 - M25.561) Plan Of Treatment Pending Test Test Name Order Date XR knee LT 2V 02/09/2025 Next Appt Details Provider Name:Owen burnette, 04/29/2025 10:15:00 AM, [address] [place] [address], [address], [phone], Provider Name:Owen burnette, 07/29/2025 01:30:00 PM, [address] [place] [address], [address], [phone], Provider Name:Owen Mcknight ier, 09/21/2025 08:00:00 AM, [address], [address], [place], [phone], Provider Name:Owen Mcknight ier, 09/28/2025 09:30:00 AM, [address], [address], [place], [phone], Progress Notes * Melanie SOLIS RDOB:[birth year] (84 yo F)Acc No.[id number]:02/09/2025 Patient: Melanie CRESPO :1940 A ge:84 Y S ex:Female Address:[address] [place] [address] Subjective: * Chief Complaints: * X ray r knee * Medical History: * Surgical History: * Hospitalization/Major Diagno stic Procedure: * Medications: Objective: * Vitals: * Physical Examination: Assessment: * Assessment: 1. R ight knee pain - M25.561 Plan: * Treatment: * Procedure Codes: * true * Date: Generated for Martina hughes/Jesse/Nasirsmitting on: 12:58 PM EDT
--- OUTSIDE RECORDS SUMMARY | 2025-02-09 10:44 | XMS_ITS ---
Author Organization Owen Mcdonald MD Address [address] [place] [phone] Care Team Providers Care Golf Cart Repairer Name Role Phone Owen Mcdonald Primary Care Provider Results Component Value Reference Range Notes XR knee RT 2V Reviewed date:02/12/2025 01:00:31 PM Interpretation: Performing Lab: Notes/Report: [address] [address] XRay Report Signed Patient: Melanie Solis MR#: [id number] : 1940 Acct:[id number] Age/Sex: 84 / F ADM Date: 02/09/25 Loc: HO.XRAY Attending Dr: Owen Mcdonald MD Ordering Physician: Owen Mcdonald MD Date of Service: 02/09/25 Procedure(s): XR knee RT 2V Accession Number(s): [id number] cc: Owen Mcdonald MD EXAMINATION: XR KNEE, [...] 02/09/25 1505 DD/ 1452 TD/TT: 02/09/25 1457 Assistant Chief Of Police: [place] [address] XRay Report Signed Patient: Kay Solis MR#: [id number] : 1940 Acct:[id number] Age/Sex: 84 / F ADM Date: 02/09/25 Loc: YAMILKA Attending Dr: Owen Mcdonald MD Ordering Physician: Owen Mcdonald MD Date of Service: 02/09/25 Procedure(s): XR knee RT 2V Accession Number(s): [id number] cc: Owen Mcdonald MD EXAMINATION: XR KNEE, [...] 02/09/25 1505 DD/ 1452 TD/TT: 02/09/25 1457 Assistant Chief Of Police: XR knee LT 2V Reviewed date:02/09/2025 04:33:35 PM Interpretation: Performing Lab: Notes/Report: [address] [address] XRay Report Signed Patient: Melanie Solis MR#: [id number] : 1940 Acct:[id number] Age/Sex: 84 / F ADM Date: 02/09/25 Loc: HO.XRAY Attending Dr: Owen Mcdonald MD Ordering Physician: Owen Mcdonald MD Date of Service: 02/09/25 Procedure(s): XR knee LT 2V Accession Number(s): [id number] cc: Owen Mcdonald MD EXAMINATION: XR KNEE, [...] 02/09/25 1449 DD/ 1425 TD/TT: 02/09/25 1443 Assistant Chief Of Police: [address] [address] XRay Report Signed Patient: Kay Solis MR#: [id number] : 1940 Acct:[id number] Age/Sex: 84 / F ADM Date: 02/09/25 Loc: HO.ADRIANO Attending Dr: Owen Mcdonald MD Ordering Physician: Owen Mcdonald MD Date of Service: 02/09/25 Procedure(s): XR knee LT 2V Accession Number(s): [id number] cc: Owen Mcdonald MD EXAMINATION: XR KNEE, [...] By: Taj Salomon MD Signed By: <Electron [facility] signed by Taj Salomon MD in OV> 02/09/25 1449 DD/ 1425 TD/TT: 02/09/25 1443 Assistant Chief Of Police: REASON FOR VISIT bilateral x-rays Encounters Encounter Location Date Provider Diagnosis Owen Mcdonald MD [address] [facility] [address] [place] [phone] 02/09/2025 Owen Mcdonald Pain in right knee M25.561 and Knee pain, left M25.562 Assessments Encounter Date Diagnosis (ICD Code) Assessment Notes Treatment Notes Treatment Clinical Notes Section Notes 02/09/2025 Pain in right knee (ICD-10 - M25.561) 02/09/2025 Knee pain, left (ICD-10 - M25.562) Plan Of Treatment Next Appt Details Provider Name:Owen burnette, 04/29/2025 10:15:00 AM, 10 [facility], [address], [place], [place], [phone], Provider Name:Owen Mcknight ier, 07/29/2025 01:30:00 PM, [address], [address], [place], [place], [phone], Provider Name:Owen Mcknight ier, 09/21/2025 08:00:00 AM, [address], [address], [place], [place], [phone], Provider Name:Owen Mcknight ier, 09/28/2025 09:30:00 AM, [address], [address], [place], [place], [phone], Progress Notes * Melanie SOLIS RDOB:[birth year] (84 yo F)Acc No.[id number]:02/09/2025 Patient: Nikolas CRESPOte Marilyn :1940 A ge:84 Y S ex:Female Address:[address] [place] [address] Subjective: * Chief Complaints: * B ilateral [...] * Date: Generated for Martina hughes/Jesse/eTransmitting on: 1 12:57 PM EDT
--- OUTSIDE RECORDS SUMMARY | 2025-04-23 04:00 | XMS_ITS ---
Author Organization Owen Mcdonald MD Address [address] [place], [place] [phone] Care Team Providers Care Weekend Anchor Name Role Phone Owen Mcdonald Primary Care Provider [phone] Results Component Value Reference Range Notes Hemoglobin A1c Reviewed date:04/23/2025 12:07:46 PM Interpretation: Performing Lab:[facility], [address] [place] [phone] Notes/Report: Hemoglobin A1c % 5.3 <6.0 % [...] average glucose, using the formula of the G1O-Bvbbqqe Average Glucose study (ADAG), Diabetes Care, Vol.31,#8, Jan. 2007 REASON FOR VISIT fasting lipids Encounters Encounter Location Date Provider Diagnosis Owen Mcdonald MD [address] [place], [place] [phone] 04/23/2025 Owen Mcdonald Prediabetes R73.09 a nd Pure hypercholesterolemia E78.00 Assessments Encounter Date Diagnosis (ICD Code) Assessment Notes Treatment Notes Treatment Clinical Notes Section Notes 04/23/2025 Prediabetes (ICD-10 - R73.09) 04/23/2025 Pure hypercholesterolemia (ICD-10 - E78.00) Plan Of Treatment Pending Test Test Name Order Date Liver Panel 04/23/2025 Glucose Fasting 04/23/2025 Lipid Panel with Reflex 04/23/2025 Next Appt Details Provider Name:Owen Mcknight ier, 04/29/2025 10:15:00 AM, [address] [place] [address], [address], [phone], Provider Name:Owen burnette, 07/29/2025 01:30:00 PM, [address] [place] [address], [address], [phone], Provider Name:Owen burnette, 09/21/2025 08:00:00 AM, [address] [place] [address], [address] [place] [address], [id number], Provider Name:Owen carr, 09/28/2025 09:30:00 AM, [address] [place] [address], [address], [phone], Progress Notes * Melanie SOLIS RDOB:[birth year] (84 yo F)Acc No.[id number]:04/23/2025 Progress Note Patient: Melanie CRESPO Provider: Joseph Mcdonald MD :1940 A ge:84 Y S ex:Female Date:04/23/2025 Address:[address] [place], [place] [phone] Subjective: * Chief Complaints: * 1 . Fasting lipids. * Medical History: Objective: * Vitals: Assessment: * Assessment: 1. P rediabetes - R73.09 (Primary) 2 . P ure hypercholesterolemia - E78.00? Plan: * Treatment: 2. P ure hypercholesterolemia L AB: Liver Panel L AB: Glucose Fasting L AB: Lipid Panel with Reflex L AB: Hemoglobin A1c (Collection Date & Time - 04/23/2025 08:00 AM) * Procedure Codes: 3 6415 VENIPUNCT, ROUTINE* * * The named appointment provid er may or may not be the originator of this progress note, and it is not deemed complete until electronically signed by the appointment provider. Sign off status: Pending * Provider: Joseph Mcdonald MD Date: Generated for Martina hughes/Jesse/Donnyitting on: 12:59 PM EDT
[2025-04-23 11:38] LABS: Alanine Aminotransferase 20 U/L (0-31); Albumin Level 4.4 g/dL (3.5-5.0); Alkaline Phosphatase 70 U/L (39-117); Aspartate Amino Transferase 26 U/L (5-31); Cholesterol 152 mg/dL (<200); HDL Cholesterol 43 mg/dL (>40); Total Protein 6.7 g/dL (6.5-8.0); Triglycerides 168 mg/dL (<150)
--- OUTSIDE RECORDS SUMMARY | 2025-04-23 12:57 | XMS_ITS | Data Portability ---
Author Organization [place] - [facility], Allergy Address [address] [address] Care Team Providers Care Business Machine Operator Name Role Phone MILA SOTOMAYOR Primary Care Provider [phone] Assessment Encounter Date Assessment Date Assessment LastModified [...] amplification and medical clearance was provided today. [email or web address] Not available 12/25/2023 12:49:53 Plan of Treatment [...] Organization Details Recorded Time Deviated nasal septum 017054317 Active 2021 Deviated nasal septum; Note: Date Diagnosed : 12/29/2021 3:45 PM (J34.2) Not Available [facility] 4 02:27:48 Posterior rhinorrhe a 06963482 Active 2021 Postnasal drip; Note: Date Diagnosed : 12/29/2021 3:45 PM (R09.82) Not Available [facility] 4 02:28:04 Sensorine ural hearing loss of bilateral ears 001051529 Active 2021 Sensorine ural hearing loss, bilateral ; Note: Date Diagnosed : 12/29/2021 3:45 PM (H90.3) Not Available [facility] 4 02:27:55 Chronic rhinitis 64952219 Active 2021 Chronic rhinitis; Note: Date Diagnosed : 12/29/2021 3:45 PM (J31.0) Not Available [facility] 4 02:27:40 Bilateral tinnitus 71057635591 02 Active 2021 Tinnitus, bilateral ; Note: Date Diagnosed : 12/29/2021 3:45 PM (H93.13) Not Available [facility] 4 02:27:58 Dysphonia 37471950 Active 2023 Hoarsenes s; Note: Date Diagnosed : 09/25/2023 11:42 AM (R49.0) Not Available [facility] 4 02:27:30 Impacted cerumen of bilateral ears 94089644800 07897 Active 2023 MARISOL COATS PA-C [address] [place] [address],[place] [address], [place], [phone] , [facility] - [facility] 4 12:47:20 Sensorine ural hearing loss of bilateral ears 607173228 Active 2023 MARISOL COATS PA-C [address] [place] [address],[place] [address], [place], [address] , [facility] 4 12:47:35 Problem Notes None recorded. Procedures Surgical History Date Name Laterality Status Provider Name and Address Organization Details Recorded Time 4 Comp Audio with Tymps - 72421 & 35649 completed DEBBI MITTAL MA, CCC-A [address] [facility],[place] [address], [place], [address], [facility] 12/25/2023 12:12:18 Cerumen removal without microscope bilat completed MARISOL COATS PA-C [address] [place] [address],[place] [address], [place], [phone], [facility] 12/25/2023 12:47:16 Imaging Results None recorded. Procedure Notes None recorded. Medical Equipment None Reported. Allergies Allergen ID Allergen Name Allergen Category Reaction Reaction Severity Criticality Documentation Date Start Date Code Code System Note Provider Name and Address Organization Details Recorded Time 999439 fluticaso ne Not available lighthead edness Not available Not available 01/24/2024 85786 RxNorm React ion: Light heade dness ; Not Available [facility] 4 00:24:24 18462 floxacill in Not available other Not available Not available 11/05/2023 4448 RxNorm React ion: Unkno wn; Not Available [facility] 4 00:52:01 06463 Bactrim medicatio n other Not available Not available 11/05/2023 30165 9 RxNorm React ion: Unkno wn; Not Available [facility] 4 00:52:08 Medications Name Sig Start Date [...] Diagnosis Note 6328 DEON REYNOLDS-Lina [facility] [address] [address] 12/25/2023 10:51:24 12/25/2023 12:50:30 Impacted cerumen of bilateral ears 0701270138 532711 H61.23 Sensorineu ral hearing loss of bilateral ears 910101603 H90.3 6491 DEBBI MITTAL MA, CCC-A [facility] [address] [address] 12/25/2023 12:11:34 12/31/2023 11:38:32 Sensorineural hearing loss of bilateral ears 752258367 H90.3 RIGHT EAR: Borderline normal/ mild SNHL [...] Name 12/31/2023 2 [place] [id number] Melanie R Irma [id number] Melanie R Irma 12/25/2023 1 [place] [employer] SERVICES Melanie R Irma [id number] Melanie R Irma Notes Date Note [...] blurry vision with use. SOFIA EDGAR MD [address] [place] [address], [phone], [place] - [facility] 12/25/2023 14:36:40 OBGyn Episode No OBEpisode recorded.
--- OUTSIDE RECORDS SUMMARY | 2025-04-23 12:59 | XMS_ITS | Patient Health Record ---
Author Organization [facility] Address [address] [place] [address] Care Team Providers Care Ceramic Maker Demonstrator Name Role Phone Owen Mcdonald MD Primary Care Provider Ranjit Ventura Jr Unavailable [phone] Allergies Allergen (clinical drug ingredient) Drug/Non Drug [...] Problem Gastro-esophagea l reflux disease without esophagitis (746814889) Gastro-esophage al reflux disease without esophagitis (K21.9) Active confirmed Problem Change in bowel habit (15681139) Change in bowel habits (R19.4) Active confirmed Problem Screening for colon cancer (309820223) Screening for colon cancer (Z12.11) Active confirmed Vital Signs Temperature 97.5 degrees Fahrenheit 07/29/2024 Blood pressure diastolic 00 mm Hg 07/29/2024 Height 59.50 in 07/29/2024 Blood pressure systolic 000 mm Hg 07/29/2024 Weight 143 lbs 07/29/2024 BMI 28.40 kg/m2 07/29/2024 Encounters Encounter Location Date Provider Diagnosis [facility] [address] [place] [address] 07/29/2024 Ranjit Quinn Jr Gastro-esophageal reflux disease [...] Name:Ranjit elenakiera Thao, 08/02/2025 10:40:00 AM, [address], [address], [place], [address], Insurance Providers Payer Name Payer Address Payer Phone Subscriber Number Group Number Insured Name Patient Relationship to Insured Coverage Start Date Coverage End Date MEDICARE OF [place] [address] [place] [address] [id number] SOPHIE ENCISO Self - patient is the insured MEDEX ATTN CLAIMS [address] [place] [address] [phone] [id number] FERNIE SOHPIE Self - patient is the insured Medical (General) History Medical History History ICD Code colonoscopy 09/18/17, negativ e. Personal history and family history of colon polyps and cancer, followup optional. GERD, EGD 06/26/16 no Oconnor's esophagus. Hyperlipidemia Hypothyroidism CVA Surgical History Surgery Date(Month/Year) hysterectomy lumpectomy, right breast Hospitalization History Reason Date(Month/Year) small strokes occipital nerve 2019
--- OUTSIDE RECORDS SUMMARY | 2025-04-23 12:59 | XMS_ITS | Patient Health Record ---
Author Organization [facility] Address [address] [place] [address] Care Team Providers Care Lamp Decorator Name Role Phone Owen Mcdonald MD Primary Care Provider Kiara Long Unavailable [phone] Allergies Allergen (clinical drug ingredient) Drug/Non Drug [...] Problem Acquired hammer toe of right foot (9948016219222953) Other hammer toe(s) (acquired), right foot (M20.41) Active confirmed Problem Acquired hammer toe of left foot (3838610117559069) Other hammer toe(s) (acquired), left foot (M20.42) Active confirmed Problem Acquired hallux valgus (16687144) Hallux valgus (acquired), right foot (M20.11) Active confirmed Problem Acquired hallux valgus (61969651) Hallux valgus (acquired), left foot (M20.12) Active confirmed Problem Acquired hallux valgus (26286207) Hallux valgus (acquired), right foot (M20.11) Active confirmed Problem Acquired hammer toe of right foot (9103014020788006) Hammer toe of right foot (M20.41) Active confirmed Problem Localized, primary osteoarthritis of the ankle and/or foot (972503665) Osteoarthritis of right ankle and foot (M19.071) Active confirmed Problem Bilateral atherosclerosis of arteries of lower limbs (disorder) (39063877483570271 ) Atherosclerosis of artery of both lower extremities (I70.203) Active confirmed Problem Localized, primary osteoarthritis of the ankle and/or foot (974883619) Arthritis of joint of lesser toe, left (M19.072) Active confirmed Problem Localized, primary osteoarthritis of the ankle and/or foot (587473306) Arthritis of joint of lesser toe, right (M19.071) Active confirmed Plan Of Treatment Pending Test Test Name Order Date X ray : Foot, right 2V 09/08/2012 X ray : Foot, right 2V 09/07/2013 X ray : Foot, right 3V 10/29/2017 X ray : Foot, right 3V 04/11/2022 09029-MGKB SKIN LESIONS, 2 TO 4 03/05/20 24 [id number] DYSTROPHIC NAILS ANY # Insurance Providers Payer Name Payer Address Payer Phone Subscriber Number Group Number Insured Name Patient Relationship to Insured Coverage Start Date Coverage End Date Medicare [facility] [employer] [address] [place] [address] [id number] IrmaStacieMelanie Self - patient is the insured [employer] [address] [place] [address] [phone] [id number] Nikolas Soliste Self - patient is [...] loop recorder 04/23/2019 Hospitalization History Reason Date(Month/Year) [facility] [place], [place] - slight stroke 02/2019
--- OUTSIDE RECORDS SUMMARY | 2025-04-23 13:00 | XMS_ITS | Data Portability ---
Author Organization [facility] Address [address] [place] [address] Assessment No assessment recorded. Plan of Treatment Reminders Order Date Submit Date Provider Last Modified By Organization Details Last Modified Time Details Appointments None recorded. Lab None recorded. Referral None recorded. Procedures None recorded. Surgeries None recorded. Imaging None recorded. Medication Orders prednisone 20 mg tablet 2022 023 [facility]acy #[id number], [address] [place], [address], 18:35:40 Claritin 10 mg tablet 2022 023 [facility] #[id number], [address] [place], [address], 18:35:41 Patient TargetsNo targets recorded. Patient Instructions Encounter Date Encounter Id Patient Instructions Last Modified By Organization Details Last Modified Time 12/30/2022 [id number] hives: care instructions [email or web address] Not available 12/30/2022 [...] Organization Details Recorded Time Transient cerebral ischemia 056892243 Completed 201812/30/2022 NANCY BERGERONAU [facility] [place] - [facility] 3 18:15:42 Disorder of thyroid gland 88471198 Active 2022 NANCY JERSON [facility], [place] - [facility] 3 18:13:44 Hypercholes terolemia 40571580 Active 2022 NANCY JERSON [facility] [place] [facility] 3 18:14:25 Problem [...] Name and Address Organization Details Recorded Time 941681 Substance with sulfonami de structure and antibacte rial mechanism of action (substanc e) medicatio n hives Not available Not available 12/30/2022 07938 8003 SNOMED NANCY JERSON [facility], [place] - [facility] 3 18:12:37 [...] Last Updated DateTime 152.4 cm 26.4 kg/m2 91978.9 7 g 96 % 96 % 75 /min 16 /min 0 98.5 [degF] 147/78 mm[Hg] NANCY JERSON [facility] 18:20:00 Social History Question Answer Notes LastModified by [employer] Details LastModified Time Tobacco Smoking Status Never Smoker NANCY ARTHUR ron [place] [facility] 12/30/2022 18:16:53 Have You Recently Traveled Abroad? No Information not available 12/30/2022 Are You Currently In School? No Information not available 12/30/2022 Sex: Unknown Functional Status Question Answer Note LastModified by [employer] Details LastModified Time Do you use any [...] ICD10 Code Diagnosis IMO Codes Diagnosis Note [id number] [facility] [facility] [address] [place] [phone] 09/26/2018 13:11:03 09/26/2018 14:06:13 [id number] Markus Harvey MUSIC COORDINATOR [address] [address] [place] [address] 12/30/2022 17:17:26 12/30/2022 18:37:12 Pruritic rash 26853400 L28.2 Health Concerns Section Related Observation LastModified by Organization Detai ls LastModified Time None Recorded Concern Status LastModified by Organization Details LastModified Time None Recorded Advance Directives Directive None Recorded Payers Insurance Date Sequence Insurance Name Policy Number Policy Garza Covered Member ID Garza Member ID Guarantor Name 12/30/2022 1 [place] [employer] Melanie Solis [id number] Melanie Solis 12/30/2022 2 [place] [id number] Melanie Solis [id number] Melanie Solis Notes Date Note Type [...] Harvey NP [address] [place], [address], [place] [facility] 12/30/2022 18:35:54 OBGyn Episode No OBEpisode recorded.
--- OUTSIDE RECORDS SUMMARY | 2025-04-23 13:00 | XMS_ITS | Patient Health Record ---
Author Organization Owen Mcdonald MD Address [address] [place], [place] [id number] Care Team Providers Care Personal Financial Counselor Name Role Phone Owen Mcdonald Primary Care Provider Results Component Value Reference Range Notes Complete Blood Count Auto Di ff Reviewed date:10/19/2024 12:45:02 PM Interpretation: Performing Lab:[facility], [address] [place] [phone] Notes/Report: White Blood Count 6.9 4.8-10.8 X10*3/uL [...] NRBC Abs Auto 0.000 0.0-0.012 X10*3/uL Comprehensive Randolph. Panel Fa st Reviewed date:10/19/2024 05:13:39 PM Interpretation: Performing Lab:[facility], [address] [place] [phone] Notes/Report: Sodium 140 135-145 mmol/L Potassium 4.2 [...] Panel Reviewed date:10/19/2024 12:45:11 PM Interpretation: Performing Lab:[facility], [address] [place] [phone] Notes/Report: Triglycerides 138 <150 mg/dL Desirable Triglyceride: [...] T4 Reviewed date:10/19/2024 12:44:44 PM Interpretation: Performing Lab:[facility], [address] [place] [phone] Notes/Report: TSH reflex Free T4 1.94 0.32-4.0 uIU/mL Hemoglobin A1c Reviewed date:10/19/2024 12:44:36 PM Interpretation: Performing Lab:[address] [phone] Notes/Report: Hemoglobin A1c % 5.6 <6.0 % [...] average glucose, using the formula of the W3M-Ghmsksn Average Glucose study (ADAG), Diabetes Care, Vol.31,#8, 2007 Hemoglobin A1c Reviewed date:04/23/2025 12:07:46 PM Interpretation: Performing Lab:[address] [address] Notes/Report: Hemoglobin A1c % 5.3 <6.0 % [...] average glucose, using the formula of the Y0U-Thtjhxi Average Glucose study (ADAG), Diabetes Care, Vol.31,#8, 2007 Erythrocyte Sedimentation Ra te Reviewed date:07/28/2024 07:23:33 PM Interpretation: Performing Lab:[address] [address] Notes/Report: Erythrocyte Sedimentation Rate 18 0-20 MM/HR Patients with polycythemia and many hemoglobin abnormalities may have depressed sed rates whereas patients with anemia may have elevated sed rates. XR hip BI w PEL1V Reviewed date:08/13/2024 10:12:56 AM Interpretation: Performing Lab: Notes/Report: [address] [address] XRay Report Signed Patient: Melanie Solis MR#: [id number] : 1940 Acct:[id number] Age/Sex: 83 / F ADM Date: 08/11/24 Loc: HO.ADRIANO Attending Dr: Owen Mcdonald MD Ordering Physician: Owen Mcdonald MD Date of Service: 08/11/24 Procedure(s): XR hip BI w PEL1V Accession Number(s): [id number] cc: Owen Mcdonald MD EXAMINATION: XR BILATERAL [...] by Greg Stanton MD in OV> 08/11/24 142 DD/ 1151 TD/TT: 08/11/24 1234 Interchange Agent: [address] [address] XRay Report Signed Patient: Melanie Solis MR#: [id number] : 1940 Acct:[id number] Age/Sex: 83 / F ADM Date: 08/11/24 Loc: HO.XRAY Attending Dr: Owen Mcdonald MD Ordering Physician: Owen Mcdonald MD Date of Service: 08/11/24 Procedure(s): XR hip BI w PEL1V Accession Number(s): [id number] cc: Owen Mcdonald MD EXAMINATION: XR BILATERAL [...] 08/11/24 1421 DD/ 1151 TD/TT: 08/11/24 1234 Interchange Agent: Microalbumin, Random Reviewed date:10/26/2024 04:11:31 PM Interpretation: Performing Lab:[facility], [address] [place] [phone] Notes/Report: Creatinine Urine 47.28 Microalbumin Urine 8.0 Microalbum/Creatinine Ratio Ur 16.9 <30 ug/mg cr Albumin/Creatinine Ratio Reference Ranges: Normal: < 30 ug/mg creatinine Microalbuminuria: 30 - 300 ug/mg creatinine Clinical Albuminuria: > 300 ug/mg creatinine UA ClnCatch+Micro w/rflx Cul t Reviewed date:10/26/2024 02:01:04 PM Interpretation: Performing Lab:[address] [address] Notes/Report: Urine, Clean Catch Color Urine Dark Yellow Appearance Urine Turbid PH 7.5 5.0-9.0 Glucose Urine UA Negative Negative mg/dL Urine Blood Negative Negative Specific Broad Top - Urine 1.015 1.005-1.025 Urine Protein Negative [...] date:02/12/2025 01:00:31 PM Interpretation: Performing Lab: Notes/Report: [address] [address] XRay Report Signed Patient: Melanie Solis MR#: [id number] : 1940 Acct:[id number] Age/Sex: 84 / F ADM Date: 02/09/25 Loc: HO.[place] Attending Dr: Owen Mcdonald MD Ordering Physician: Owen Mcdonald MD Date of Service: 02/09/25 Procedure(s): XR knee RT 2V Accession Number(s): [id number] cc: Owen Mcdonald MD EXAMINATION: XR KNEE, [...] 02/09/25 1505 DD/ 1452 TD/TT: 02/09/25 1457 Interchange Agent: [place] [address] XRay Report Signed Patient: Melanie Solis MR#: [id number] : 1940 Acct:[id number] Age/Sex: 84 / F ADM Date: 02/09/25 Loc: HO.[place] Attending Dr: Owen Mcdonald MD Ordering Physician: Owen Mcdonald MD Date of Service: 02/09/25 Procedure(s): XR kne e RT 2V Accession Number(s): [id number] cc: Owen Mcdonald MD EXAMINATION: XR KNEE, [...] e joint effusion. Electronically renate d by: aTj Salomon MD 02/09/2025 03:05 PM EDT RP Dictated By: Taj Salomon MD Signed By: <Electronically signed by Taj Salomon MD in OV> 02/09/25 1505 DD/ 1452 TD/TT: 02/09/25 1457 Interchange Agent: XR knee LT 2V Reviewed date:02/09/2025 04:33:35 PM Interpretation: Performing Lab: Notes/Report: [address] [address] XRay Report Signed Patient: Melanie Solis MR#: [id number] : 1940 Acct:[id number] Age/Sex: 84 / F ADM Date: 02/09/25 Loc: HO.XRAY Attending Dr: Owen Mcdonald MD Ordering Physician: Owen Mcdonald MD Date of Service: 02/09/25 Procedure(s): XR knee LT 2V Accession Number(s): [id number] cc: Owen Mcdonald MD EXAMINATION: XR KNEE, [...] 02/09/25 1449 DD/ 1425 TD/TT: 02/09/25 1443 Interchange Agent: [address] [address] XRay Report Signed Patient: Melanie Solis MR#: [id number] : 1940 Acct:[id number] Age/Sex: 84 / F ADM Date: 02/09/25 Loc: HO.XRAY Attending Dr: Owen Mcdonald MD Ordering Physician: Owen Mcdonald MD Date of Service: 02/09/25 Procedure(s): XR kne e LT 2V Accession Number(s): [id number] cc: Owen Mcdonald MD EXAMINATION: XR KNEE, [...] 02/09/25 1449 DD/ 1425 TD/TT: 02/09/25 1443 Interchange Agent: MM tomosynthesis screening B I Reviewed date:06/11/2024 04:54:47 PM Interpretation: Performing Lab: Notes/Report: [facility] [address] [place] [address] Mammography Report Signed Patient: Melanie Solis MR#: [id number] : 1940 Acct:[id number] Age/Sex: 83 / F ADM Date: 06/04/24 Loc: HO.MAMMO Attending Dr: Owen Mcdonald MD Ordering Physician: Owen Mcdonald MD Results: 2Be nign Findings Date of Service: 06/04/24 Follow Up: 1 Year From Orig inal Mammogram Procedure(s): MM tomosynthesis screening BI Accession Number(s): [id number] cc: Owen Mcdonald MD EXAMINATION: MM SCREENING [...] 06/11/24 1009 DD/ 1015 TD/TT: 06/04/24 1040 Interchange Agent: [place] [facility] [address] [place] [address] Mammography Report Signed Patient: Melanie Solis MR#: [id number] : 1940 Acct:[id number] Age/Sex: 83 / F ADM Date: 06/04/24 Loc: HO.MAMMO Attending Dr: Owen Mcdonald MD Ordering Physician: Owen Mcdonald MD Results: 2Be nign Findings Date of Service: 06/04/24 Follow Up: 1 Year From Orig inal Mammogram Procedure(s): MM tomosynthesis screening BI Accession Number(s): [id number] cc: Owen Mcdonald MD EXAMINATION: MM SCREENING [...] Marquita Andre DO 06/11/2024 10:09 AM EST Dictated By: Marquita Andre DO Signed By: <Electronically signed by Marquita Anrde DO in OV> 06/11/24 1009 DD/ 1015 TD/TT: 06/04/24 1040 Interchange Agent: C Reactive Protein Reviewed date:07/28/2024 07:21:12 PM Interpretation: Performing Lab:[facility], [address] [place] [phone] Notes/Report: C Reactive Protein 0.36 < or = 0.50 mg/dL MR lumbar spine wo con Reviewed date:08/17/2024 12:31:14 PM Interpretation: Performing Lab: Notes/Report: [address] [address] Magnetic Resonance Report Signed Patient: Melanie Solis MR#: [id number] : 1940 Acct:[id number] Age/Sex: 83 / F ADM Date: 08/16/24 Loc: HO.MRI Attending Dr: Owen Mcdonald MD Ordering Physician: Owen Mcdonald MD Date of Service: 08/16/24 Procedure(s): MR lumbar spine wo con Accession Number(s): [id number] cc: Owen Mcdonald MD CLINICAL HISTORY: LBP MR lumbar spine with and without gadolinium Comparison: CR - LUMBAR SPINE 2TO 3 [id number] - 08/18/15 15:09 EST Findings: 5 lumbar [...] 2. Mild multilevel canal stenoses. 3. Multilevel tqie-ym-naxhcruj foraminal stenoses as described above. This document has been electronically signed by: Ayde Roberts MD on 08/16/2024 18:33:10 Dictated By: Ayde Roberts MD Signed By: <Electronically signed by Ayde Roberts MD in OV> 08/16/241832 DD/ 32 TD/TT: 08/16/241832 Interchange Agent: [place] [address] Magnetic Resonance Report Signed Patient: Melanie Solis MR#: [id number] : 1940 Acct:[id number] Age/Sex: 83 / F ADM Date: 08/16/24 Loc: HO.MRI Attending Dr: Owen Mcdonald MD Ordering Physician: Owen Mcdonald MD Date of Service: 08/16/24 Procedure(s): MR lumbar spine wo con Accession Number(s): [id number] cc: Owen Mcdonald MD CLINICAL HISTORY: LBP MR lumbar spine with and without gadolinium Comparison: CR - LUMBAR SPINE 2TO 3 [id number] - 08/18/15 15:09 EST Findings: 5 lumbar [...] 2. Mild multilevel canal stenoses. 3. Multilevel dzft-uy-elwdvumv foraminal stenoses as described above. This document has be en electronically signed by: Ayde Roberts MD on 08/16/2024 18:33:10 Dictated By: Ayde Roberts MD Signed By: <Electronically signed by Ayde Roberts MD in OV> 08/16/241832 DD/ 32 TD/TT: 08/16/241832 Interchange Agent: Complete Blood Count Auto Di ff Reviewed date:10/13/2024 06:22:54 PM Interpretation: Performing Lab:[facility], [address] [place] [phone] Notes/Report: White Blood Count 6.7 4.8-10.8 X10*3/uL [...] Dehydrogenase Reviewed date:10/13/2024 06:21:06 PM Interpretation: Performing Lab:[facility], [address] [place] [phone] Notes/Report: Lactate Dehydrogenase 159 122-220 U/L Vitamin B12 and Folate Reviewed date:10/13/2024 06:21:00 PM Interpretation: Performing Lab:[facility], [address] [place] [address] Notes/Report: Vitamin B12 599 200-900 pg/mL NORMAL 200-900 PG/ML INDETERMINATE 160-199 PG/ML DEFICIENT < 160 PG/ML Folate 14.4 > or = 4.0 ng/mL Reference Values: > or = 4.0 ng/mL < 4.0 ng/mL suggests folate deficiency Methotrexate, aminopterin and folinic acid (leucovorin) are chemotherapeutic agents whose molecular structures are similar to folate; therefore, the Director Of Recruitment folate assay cannot be used for patients using these drugs. Jared Mora Reviewed date:10/19/2024 12:44:18 PM Interpretation: Performing Lab:[facility], [address] [place] [phone] Notes/Report: Jared Mora See Note Specimen held untested for 24 hours; Call to request Chemistry testing. Urine Culture Reviewed date:10/27/2024 12:14:11 PM Interpretation: Performing Lab:[facility], [address] [place] [phone] Notes/Report: Urine Culture Report Result Urine Culture 10,000 to 50,000 cfu/ml Urine Culture Mixed bacterial thee a characteristic of Urine Culture urogenital contamination. Jared Mora Reviewed date:04/23/2025 11:28:38 AM Interpretation: Performing Lab:[facility], [address] [place] [phone] Notes/Report: Jared Mora See Note Specimen held untested for 24 hours; Call to request Chemistry testing. Reason For Referral Reason spinal stenosis pl ease eval and treat Diagnosis 1 Spinal stenosis (M48 .00) Referral Organization Owen Mcdonald MD Referring Provider First Name Owen Referring Provider Last Name Harry Referring Provider Speciality Internal M edicine Referred Provider [facility] Referred Provider Specialty Physical Med icine General Notes Tatiana Condon 0 08/24/2024 09:47:46 AM >info faxed, Tatiana Condon 08/27/2024 02:55:33 PM >referral info mailed Referral [...] > referral info faxed on 12-29-2024 p [phone] Annette 01/25/2025 09:46:18 AM > was told [...] Referring Provider Speciality Internal edicine Referred Provider ALINE ARBOLEDA Referred Provider Specialty Orthopedic S urgery General Notes Tatiana Condon 0 02/12/2025 01:15:02 PM >patient is aware of appt. (she made her own appt ), Tatiana Condon 02/23/2025 01:43:28 PM >per patient she cancelled this appt Referral Priority Routine Referral Appointment Date 06/10/2025 Reason bilateral knee pain Diagnosis 1 Knee pain, left (M25 .562) Diagnosis 2 Right knee pain (M25 .561) Referral Organization Owen Mcdonald MD Referring Provider First Name Owen Referring Provider Last Name Harry Referring Provider Speciality Internal M edicine Referred Provider Andi [place] Referred Provider [facility]ty [facility] General Notes Tatiana Condon 0 02/16/2025 03:36:35 PM >info faxed, Tatiana Condon 02/23/2025 01:44:38 PM > patient is aware [...] ed [facility]. Influenza High Dose IM Intramuscular 04/14/2019 Administer ed Fluarix Quadrivalent Unknown 02/15/2020 Administered Barry almeida Covid Vaccine Unknown 08/01/2020 Administered Covid Vaccine [...] Problem Status W/U Status Risk Notes Problem 003122869 Thyroid nodule (E04.1) Active confirm ed Problem 148923061 Thrombocytopenia (D69.6) Active confirmed Problem Carpal tunnel syndrome (08093157) Carpal tunnel syndrome (G56.00) Active confirmed Problem Anxiety (73374385) Anxiety (F41.9) Active confi rmed Problem 82545541 Polymyalgia rheu matica (M35.3) Active confirmed Problem 36087763 Visual hallucina tions (R44.1) Active confirmed Problem 6727434 Arthritis (M19.90) Active confirmed Problem 352191932 Osteopenia (M85.80) Active confirmed Problem 792640337 Tubular adenoma of colon (D12.6) Active confirmed Problem 057301552 Gastroesophageal reflux disease without esophagitis (K21.9) Active confirmed Problem 588057601 Acquired hypothyroidism (E03.9) Active confirmed Problem 3080761 Prediabetes (R73.09) Active confirmed Problem Osteoporosis (92742178) Osteoporosis (M81.0) Active confirmed Problem 0857140 Migraine with au ra and without status migrainosus, not intractable (G43.109) Active confirmed Problem 586495281 Cervical disc di sease (M50.90) Active confirmed Problem 54240986 Intrinsic eczema (L20.84) Active confirmed Problem Hearing loss (76380234) Hearing loss (H91.90) Active confirmed Problem 01779222 Sciatica of righ t side (M54.31) Active confirmed Problem 205816529 History of palpitations (Z87.898) Active confirmed Problem 840437279 Pure hypercholesterolemia (E78.00) Active confirmed Problem 062091508 Arthritis of kne e (M17.10) Active confirmed Problem Problem with balance (627943649) Balance problems (R26.89) Active confirmed Problem 283768987 Poor balance (R26.89) Active confirme d Problem 2042944328602455 Arthritis of le ft knee (M17.12) Active confirmed Problem 976410901928259 Acute migraine (G43.909) Active confirmed Vital Signs Blood pressure diastolic 60 mm Hg 12/29/2024 tuan ght is down 2 pounds since 5 Height 60.5 in 12/29/2024 weight is down 2 pounds since 525 Blood pressure systolic 122 mm Hg 12/29/2024 weig ht is down 2 pounds since 525 Weight 134 lbs 12/29/2024 weight is down 2 pounds since 5-525 BMI 25.74 kg/m2 12/29/2024 weight is down 2 pounds since 5-525 Encounters Encounter Location Date Provider Diagnosis Owen Mcdonald MD [address] [place] [id number] 10/19/2024 Owen Mcdonald Acquired hypothyroid ism E03.9 ; Prediabetes R73.09 ; Pure hypercholesterolemia E78.00 and Thrombocytopenia D69.6 Owen Mcdonald MD [address] [place] [id number] 04/23/2025 Owen Mcdonald Prediabetes R73.09 a nd Pure hypercholesterolemia E78.00 Owen Mcdonald MD [address] [place] [id number] 07/28/2024 Owen Mcdonald Polymyalgia rheumati ca M35.3 and Encounter for Medicare annual examination with abnormal findings Z00.01 Owen Mcdonald MD [address] [place] [id number] 08/11/2024 Owen Maysardimaribell Pain in right hip M2 5.551 and Pain in left hip M25.552 Owen Mcdonald MD [address] [place] [id number] 08/24/2024 Owen Mcdonald Spinal stenosis M48. 00 Owen Mcdonald MD [address] [place] [id number] 09/28/2024 Owen Mcdonald Carpal tunnel syndro me G56.00 Owen Mcdonald MD [address] [place] [id number] 10/26/2024 Owen Mcdonald Prediabetes R73.09 ; Pure hypercholesterolemia E78.00 ; Acquired hypothyroidism E03.9 ; Poor balance R26.89 and Carpal tunnel syndrome G56.00 Owen Mcdonald MD [address] [place] [id number] 12/29/2024 Owen Mcdonald Poor balance R26.89 Owen Mcdonald MD [address] [place] [address] [id number] 08/13/2024 Owen Mcdonald MD [address] [place] [id number] 08/13/2024 Owen Mcdonald Lumbar back pain M54 .50 Owen Mcdonald MD [address] [place] [id number] 08/21/2024 Owen Mcdonald MD [address] [place] [id number] 08/25/2024 Owen Mcdonald MD [address] [place] [id number] 02/09/2025 Owen Mcdonald Right knee pain M25. 561 Owen Mcdonald MD [address] [place] [id number] 02/09/2025 Owen Maysardier Pain in right knee M 25.561 and Knee pain, left M25.562 Assessments Encounter Date Diagnosis (ICD Code) Assessment Notes Treatment Notes Treatment Clinical Notes Section Notes 10/19/2024 Acquired hypothyroid ism (ICD-10 - E03.9) 04/23/2025 Prediabetes (ICD-10 - R73.09) 07/28/2024 Polymyalgia rheumati ca (ICD-10 - M35.3) [...] finding of MRI with patient, [facility] 09/28/2024 Carpal tunnel syndro me (ICD-10 - G56.00) try a wrist splint/ order faxed to [facility] dept, pending diagnostic testing 10/26/2024 Prediabetes (ICD-10 - R73.09) 12/29/2024 Poor balance (ICD-10 - R26.89) need notes from [facility] neurology and send another referral for balance evaluation/ is going to physical therapy at [facility] 08/13/2024 Lumbar back pain (IC D-10 - M54.50) 02/09/2025 Right knee pain (ICD -10 - M25.561) 02/09/2025 Pain in right knee (ICD-10 - M25.561) 10/19/2024 Prediabetes (ICD-10 - R73.09) 04/23/2025 Pure hypercholesterolemia (ICD-10 - E78.00) 07/28/2024 Encounter for Medica re annual examination with abnormal findings (ICD-10 - Z00.01) 10/26/2024 Pure hypercholesterolemia (ICD-10 - E78.00) 02/09/2025 Knee pain, left (ICD -10 - M25.562) 10/19/2024 Pure hypercholesterolemia (ICD-10 - E78.00) 10/26/2024 Acquired hypothyroid ism (ICD-10 - E03.9) 10/19/2024 Thrombocytopenia (IC D-10 - D69.6) 10/26/2024 Poor balance (ICD-10 - R26.89) send to [facility] neurology/ dr oakes 10/26/2024 Carpal tunnel [...] 06/05/2021 EMG 09/28/2024 Nerve Conduction Study 09/28/2024 Liver Panel 04/23/2025 Glucose Fasting 04/23/2025 Lipid Panel with Reflex 04/23/2025 Microalbumin, Random 10/19/2024 US extremity nonvascular 01/11/2023 US thyroid 04/23/2023 XR knee RT 3V 10/22/2023 XR knee LT 2V 02/09/2025 UA ClnCatch+Micro w/rflx Cult 10/19/2024 Future Test Test Name Order Date US THYROID 11/14/2019 BONE DENSITY DEXA 04/14/2021 Next Appt Details Provider Name:Owen burnette, 04/29/2025 10:15:00 AM, [address] [place] [address], [address], [phone], Provider Name:Owen carr, 07/29/2025 01:30:00 PM, [address] [place] [address], [address], [phone], Provider Name:Owen Mcknight ier, 09/21/2025 08:00:00 AM, [address] [place] [address], [address], [phone], Provider Name:Owen burnette, 09/28/2025 09:30:00 AM, [address] [place] [address], [address], [phone], Insurance Providers Payer Name Payer Address Payer Phone Subscriber Number Group Number Insured Name Patient Relationship to Insured Coverage Start Date Coverage End Date [employer] [address] [place] [address] [id number] Melanie Solis Self - patient is the insured [employer] [place] [place] [address] [place] [address] [phone] [id number] Melanie Solis Self - patient is [...]
[2025-04-23 14:32] LABS: Reflex LDLD? No
== END 2025-04-23 11:22 | disposition home or self-care (01) ==
LOC: HO.LNP 11:21
PROVIDERS: Visit Provider Internal Medicine
DX: R73.03 Prediabetes (principal); E78.00 Pure hypercholesterolemia, unspecified
CPT/HCPCS: 80061; 80076; 82947; 83036

== ENCOUNTER 2025-06-10 10:26 | Outpatient (REF) | payer MEDICARE, SELFPAY ==
--- OUTSIDE RECORDS SUMMARY | 2024-01-01 07:15 | XMS_ITS ---
Author Organization [facility] Address [address] [place] [phone] Care Team Providers Care Brewmaster Name Role Phone Owen Mcdonald MD Primary Care Provider Kiara Long Unavailable [phone] Danny Cm Unavailable [phone] Encounters Encounter Location Date Provider Diagnosis [address] [address] 01/01/2024 Danny Cm Plan Of Treatment No Information Progress Notes * Melanie SOLIS RDOB:[birth year] (84 yo F)Acc No.[id number]:01/01/2024 Progress Note Patient: Melanie CRESPO Provider: Lea Rhodes DPM :1940 A ge:83 Y S ex:Female Date:01/01/2024 Address:[address] [place], [place] [id number] Pcp:Owen Mcdonald MD Subjective: * Chief Complaints: * * Medical History: Objective: * Vitals: Assessment: Plan: * Treatment: * Images: * The named appointment provid er may or may not be the originator of this progress note, and it is not deemed complete until electronically signed by the appointment provider. Sign off status: Pending * Provider: Lea Rhodes DPM Date: 0 01/01/2024 Generated for Anai ng/Fayanng/eTransmitting on: 1 08/11/2024 12:58 PM EST
--- OUTSIDE RECORDS SUMMARY | 2024-08-25 05:29 | XMS_ITS ---
Author Organization Owen Mcdonald MD Address [address] [place] [phone] Care Team Providers Care 8Th Grade Teacher Name Role Phone Owen Mcdonald Primary Care Provider [phone] REASON FOR VISIT FYI patient fell Encounters Encounter Location Date Provider Diagnosis Owen Mcdonald MD [facility] [address] [place] [phone] 08/25/2024 Owen Mcdonald Plan Of Treatment Next Appt Details Provider Name:Owen burnette, 07/29/2025 01:30:00 PM, [address] [place] [address], [address] [place] [address], [phone], Provider Name:Owen burnette, 09/21/2025 08:00:00 AM, [address] [place] [address], [address], [phone], Provider Name:Owen burnette, 09/28/2025 09:30:00 AM, [address] [place] [address], [address], [phone], Progress Notes * Melanie SOLIS RDOB:[birth year] (83 yo F)Acc No.[id number]:08/25/2024 Patient: Melanie CRESPO :1940 A ge:83 Y S ex:Female Address:[address] [place] [address] * true * Date: Generated for Martina hughes/Jesse/Nasirsmitting on: 08/11/2024 12:59 PM EST
--- OUTSIDE RECORDS SUMMARY | 2024-09-01 11:00 | XMS_ITS ---
Author Organization Owen Mcdonald MD Address [address] [place] [phone] Care Team Providers Care Biztalk Administrator Name Role Phone Owen Mcdonald Primary Care Provider [phone] REASON FOR VISIT 3 WEEK F/U Encounters Encounter Location Date Provider Diagnosis Owen Mcdonald MD 10 [facility] [address] [place] [phone] 09/01/2024 Owen Mcdonald Plan Of Treatment Next Appt Details Provider Name:Owen burnette, 07/29/2025 01:30:00 PM, [address] [place] [address], [address] [place] [address], [phone], Provider Name:Owen burnette, 09/21/2025 08:00:00 AM, [address] [place] [address], [address], [phone], Provider Name:Owen burnette, 09/28/2025 09:30:00 AM, [address] [place] [address], [address], [phone], Progress Notes * Melanie SOLIS RDOB:[birth year] (84 yo F)Acc No.[id number]:09/01/2024 Progress Notes Patient: Melanie CRESPO Provider: Joseph Mcdonald MD :1940 A ge:83 Y S ex:Female Date:09/01/2024 Address:[address] [place], [place] [phone] Subjective: * Chief Complaints: * 1 . 3 WEEK F/U. * Medical History: Objective: * Vitals: Assessment: Plan: * Treatment: * * The named appointment provid er may or may not be the originator of this progress note, and it is not deemed complete until electronically signed by the appointment provider. Sign off status: Pending * Provider: Joseph Mcdonald MD Date: 0 09/01/2024 Generated for Martina hughes/Jesse/Donnyitting on: 08/11/2024 12:57 PM EST
--- OUTSIDE RECORDS SUMMARY | 2024-09-28 08:30 | XMS_ITS ---
Author Organization Owen Mcdonald MD Address [address] [place], [place] [phone] Care Team Providers Care Soybean Grower Name Role Phone Owen Mcdonald Primary Care Provider [phone] REASON FOR VISIT left wrist pain x 1 week no injury Medications Medication SIG (Take, Route, Frequency, Duration) Notes Start Date End Date Status Imitrex 50 MG 1 tablet as needed Orally Twice a day for 30 days 02/02/2019 Not-Taking Ibuprofen 800 MG 1 tablet with food o r milk Orally Three times a day for 30 day(s) 03/12/2017 Not-Taking Levothyroxine Sodium 50 MCG TAKE 1 TABLET BY MOUTH EVERY DAY IN THE MORNING ON AN EMPTY STOMACH for 90 Active Clopidogrel Bisulfate 75 MG TAKE 1 TABLET BY MOUTH EVERY DAY for 90 Active LORazepam 0.5 MG 1 tablet as needed Orally Once a day for 14 days 04/03/2019 Not-Taking Rosuvastatin Calcium 40 MG TAKE 1 TABLET BY MOUTH EVERY DAY for 90 Active Triamcinolone Acetonide 0.5 % 1 application Externally daily for 30 days 04/23/2023 Active Vitamin D 2000 UNIT as directed Orally twice a day Active Citracal Calcium+D A ctive Problems Problem Type SNOMED Code ICD Code Onset Dates Problem Status W/U Status Risk Notes Problem Carpal tunnel syndrome (45006970) Carpal tunnel syndrome (G56.00) Active confirmed Vital Signs Blood pressure systolic 154 mm Hg 09/29/19 25 Blood pressure diastolic 56 mm Hg 025 Height 60.5 in 09/28/2024 Weight 140 lbs 09/28/2024 BMI 26.89 kg/m2 09/28/2024 Encounters Encounter Location Date Provider Diagnosis Owen Mcdonald MD [address] [place] [phone] 09/28/2024 Owen Mcdonald Carpal tunnel syndrome G56.00 Assessments Encounter Date Diagnosis (ICD Code) Assessment Notes Treatment Notes Treatment Clinical Notes Section Notes 09/28/2024 Carpal tunnel syndrome (ICD-10 - G56.00) try a wrist splint/ order faxed to [facility] dept, pending diagnostic testing Plan Of Treatment Treatment Notes Assessment Notes Carpal tunnel syndrome try a wrist splin t/ order faxed to [facility] dept, pending diagnostic testing Pending Test Test Name Order Date EMG 09/28/2024 Nerve Conduction Study 09/28/2024 Next Appt Details Follow Up: 4 Weeks, Reason: Provider Name:Owen burnette, 07/29/2025 01:30:00 PM, [address] [place] [address], [address], [phone], Provider Name:Owen burnette, 09/21/2025 08:00:00 AM, [address] [place] [address], [address], [phone], Provider Name:Owen burnette, 09/28/2025 09:30:00 AM, [address] [place] [address], [address], [phone], Progress Notes * Melanie SOLIS RDOB:[birth year] (84 yo F)Acc No.[id number]:09/28/2024 Progress Notes Patient: Melanie CRESPO Provider: Joseph Mcdonald MD :1940 A ge:84 Y S ex:Female Date:09/28/2024 Address:[address] [place], [place] [address] Subjective: * Chief Complaints: * L eft wrist pain x 1 week no injury * HPI: S ymptom(s): patient is a 84 yo female here with complaint of left wrist pain/ starting therapy for hips and thighs/ going [facility]/ wrists are very sore and fingers tingle. taking tyleonol for pain. legs got rubbery from the gabapentin. pain goes from biceps to fingers. * ROS: G eneral/Constitutional: Denies C hills. D enies F atigue. D enies F ever. D enies H eadache. E NT: Denies S ore throat. R espiratory: Denies C ough. D enies S hortness of breath at rest. D enies S hortness of breath with exertion. G astrointestinal: Denies D iarrhea. D enies N ausea. * Medical History: * Surgical History: * [...] Objective: * Vitals: H t: 60.5, Wt: 140, BMI:26.89, BP:154/56, Repeat BP:120/55, Wt-k.5. * Examination: G eneral Examination: GENERAL APPEARANCE: a lert, well hydrated, in no distress.? HEAD: n ormocephalic. SKIN: g ood turgor. HEART: n o murmurs, rubs, gallops, regular rate and rhythm.? LUNGS: n o wheezes, rales, rhonchi, good air movement, clear to auscultation bilaterally. NEUROLOGIC: t enderness over the carpal tunnel on the left and normal dtr's on both upper extremities.. Assessment: * Assessment: 1. C arpal tunnel syndrome - G56.00 (Primary) Plan: * Treatment: * Procedure Codes: * Follow Up: 4 Weeks * * Sign off status: Completed true * Provider: Joseph Mcdonald MD Date: 0 09/28/2024 Generated for [facility] saul/Jesse/Donnyitting on: 1 08/11/2024 12:58 PM EST History and Physical Notes * HPI (History of Present Illness) Category Sub-Category Detail Notes Category Not es Symptom(s) patient is a 84 yo female here with complaint of left wrist pain/ starting therapy for hips and thighs/ going [facility]/ wrists are very sore and fingers tingle. taking tyleonol for pain. legs got rubbery from the gabapentin. pain goes from biceps to fingers. Examination Category Sub-Category Detail Notes Category Not es General Examination GENERAL APPEARANCE: alert, w ell hydrated, in no distress HEAD: normocephalic HEART: no murmurs, rubs, ga llops, regular rate and rhythm LUNGS: no wheezes, rales, r honchi, good air movement, clear to auscultation bilaterally NEUROLOGIC: tenderness over the carpal tunnel on the left and normal dtr's on both upper extremities. SKIN: good turgor
--- OUTSIDE RECORDS SUMMARY | 2024-10-19 02:15 | XMS_ITS ---
Author Organization Owen Mcdonald MD Address [address] [place], [place] [address] Care Team Providers Care Power Shovel Operator Helper Name Role Phone Owen Mcdonald Primary Care Provider Results Component Value Reference Range Notes Complete Blood Count Auto Di ff Reviewed date:10/19/2024 12:45:02 PM Interpretation: Performing Lab:[facility], [address] [place] [address] Notes/Report: White Blood Count 6.9 4.8-10.8 X10*3/uL Red Blood Count 4.65 4.20-5.50 X10*6/uL Hemoglobin 13.4 12.0-16.0 g/dl Hematocrit 40.3 37.0-47.0 % Mean Corpuscular Volume 86.7 80.0-98.0 fL Mean Corpuscular Hemoglobin 28.8 27.0-33.0 pg Mean Corpuscular HGB Conc 33.3 31.0-35.0 g/dl Red Cell Distribution Width 14.6 11.0-16.0 % Platelet Count 189 160-400 X10*3/uL Mean Platelet Volume 8.8 9.4-12.3 fL Neutrophils Percent Auto 70.9 45-73 % Imm Gran Pct Auto 0.1 0.0-0.4 % Lymphocytes Percent Auto 18.8 20-40 % Monocytes Percent Auto 8.9 2-11 % Eosinophils Percent Auto 1.0 0-4 % Basophils Percent Auto 0.3 0-2 % NRBC Pct Auto 0.0 0.0-0.2 /100WBC Neutrophils Absolute Auto 4.9 2.0-8.3 x10*3/u L Imm Gran Abs Auto 0.01 0.00-0.03 X10*3/uL Lymphocytes Absolute Auto 1.3 1.2-4.9 X10*3/u L Monocytes Absolute Auto 0.6 0.1-1.2 X10*3/uL Eosinophils Absolute Auto 0.1 0.0-0.4 X10*3/u L Basophils Absolute Auto 0.0 0.0-0.2 X10*3/uL NRBC Abs Auto 0.000 0.0-0.012 X10*3/uL Comprehensive [place]. Panel Fa st Reviewed date:10/19/2024 05:13:39 PM Interpretation: Performing Lab:[facility], [address] [place] [phone] Notes/Report: Sodium 140 135-145 mmol/L Potassium 4.2 3.3-5.1 mmol/L Chloride 102 96-108 mmol/L Carbon Dioxide 27 22-29 mmol/L Anion Gap 15 12-20 Blood Urea Nitrogen 19 9-16 mg/dL Creatinine 0.69 0.5-1.4 mg/dL Estimated Glomerular Filt Rate > 60 Chronic Kidney Disease: Estimated GFR < 60 mL/min/1.73m2 Severe Kidney Disease: Estimated GFR < 15 mL/min/1.73m2 Glucose Fasting 111 60-99 mg/dL A fasting glucose from 100-125 mg/dl is considered impaired (pre-diabetes). Calcium 9.8 8.4-10.2 mg/dL Bilirubin Total 0.5 0.0-1.0 mg/dL Aspartate Amino Transferase 21 5-31 U/L Alanine Aminotransferase 13 0-31 U/L Total Protein 7.0 6.5-8.0 g/dL Albumin Level 4.3 3.5-5.0 g/dL Alkaline Phosphatase 70 39-117 U/L Lipid Panel Reviewed date:10/19/2024 12:45:11 PM Interpretation: Performing Lab:[address] [address] Notes/Report: Triglycerides 138 <150 mg/dL Desirable Triglyceride: less than 150 mg/dL Borderline High Triglyceride 150-199 mg/dL High Triglyceride: 200-499 mg/dL Very High Triglyceride: greater than or equal to 5OO mg/dL Cholesterol 122 <200 mg/dL Desirable Cholesterol: less than 200 mg/dL Borderline High Cholesterol: 200-239 mg/dL High Cholesterol: greater than 239 mg/dL LDL Cholesterol Calculated 51 <100 mg/dL Desirable LDL: less than 100 mg/dL Near Optimal/Above Optimal LDL: 110-129 mg/dL Borderline High LDL: 130-159 mg/dL High LDL: 160-189 mg/dL Very High LDL: greater than or equal to 190 mg/dL HDL Cholesterol 44 >40 mg/dL Desirable HDL: greater than 40 mg/dL Note: This HDL assay may give artificially low results in patients with liver disease. TSH reflex Free T4 Reviewed date:10/19/2024 12:44:44 PM Interpretation: Performing Lab:[address] [address] Notes/Report: TSH reflex Free T4 1.94 0.32-4.0 uIU/mL Hemoglobin A1c Reviewed date:10/19/2024 12:44:36 PM Interpretation: Performing Lab:[address] [address] Notes/Report: Hemoglobin A1c % 5.6 <6.0 % [...] average glucose, using the formula of the P6S-Iyxnveh Average Glucose study (ADAG), Diabetes Care, Vol.31,#8, Jan. 2007 REASON FOR VISIT yearly fasting labs Encounters Encounter Location Date Provider Diagnosis Owen Mcdonald MD [address] [place] [address] [place] [phone] 10/19/2024 Owen Mcdonald Acquired hypothyroid ism E03.9 ; Prediabetes R73.09 ; Pure hypercholesterolemia E78.00 and Thrombocytopenia D69.6 Assessments Encounter Date Diagnosis (ICD Code) Assessment Notes Treatment Notes Treatment Clinical Notes Section Notes 10/19/2024 Acquired hypothyroid ism (ICD-10 - E03.9) 10/19/2024 Prediabetes (ICD-10 - R73.09) 10/19/2024 Pure hypercholesterolemia (ICD-10 - E78.00) 10/19/2024 Thrombocytopenia (IC D-10 - D69.6) Plan Of Treatment Pending Test Test Name Order Date Microalbumin, Random 10/19/2024 UA ClnCatch+Micro w/rflx Cult 10/19/2024 Next Appt Details Provider Name:Owen Mcknight ier, 07/29/2025 01:30:00 PM, [address] [place] [address], [address] [place] [address], [phone], Provider Name:Owen Mcknight ier, 09/21/2025 08:00:00 AM, [address] [place] [address], Suite [facility], [place], [place], [phone], Provider Name:Owen Mcknight ier, 09/28/2025 09:30:00 AM, [address] [place] [address], Suite [facility], [place], [place], [phone], Progress Notes * Melanie SOLIS RDOB:[birth year] (84 yo F)Acc No.[id number]:10/19/2024 Progress Note Patient: Melanie CRESPO Provider: Joseph Mcdonald MD :1940 A ge:84 Y S ex:Female Date:10/19/2024 Address:[address] [place], [place] [phone] Subjective: * Chief Complaints: * 1 . Yearly fasting labs. * Medical History: Objective: * Vitals: Assessment: * Assessment: 1. A cquired hypothyroidism - E03.9 (Primary) 2 . P rediabetes - R73.09? 3. P ure hypercholesterolemia - E78.00 4 . T hrombocytopenia - D69.6 Plan: * Treatment: 2. P rediabetes L AB: Microalbumin, Random L AB: UA ClnCatch+Micro w/rflx Cult L AB: Complete Blood Count Auto Diff (Collection Date & Time - 10/19/2024 07:15 AM) L AB: Comprehensive [place]. Panel Fast (Collection Date & Time - 10/19/2024 07:15 AM) L AB: Lipid Panel (Collection Date & Time - 10/19/2024 07:15 AM) L AB: TSH reflex Free T4 (Collection Date & Time - 10/19/2024 07:15 AM) L AB: Hemoglobin A1c (Collection Date & Time - 10/19/2024 07:15 AM) 3. P ure hypercholesterolemia L AB: Microalbumin, Random L AB: UA ClnCatch+Micro w/rflx Cult L AB: Complete Blood Count Auto Diff (Collection Date & Time - 10/19/2024 07:15 AM) L AB: Comprehensive [place]. Panel Fast (Collection Date & Time - 10/19/2024 07:15 AM) L AB: Lipid Panel (Collection Date & Time - 10/19/2024 07:15 AM) L AB: TSH reflex Free T4 (Collection Date & Time - 10/19/2024 07:15 AM) L AB: Hemoglobin A1c (Collection Date & Time - 10/19/2024 07:15 AM) 4. T hrombocytopenia L AB: Microalbumin, Random L AB: UA ClnCatch+Micro w/rflx Cult L AB: Complete Blood Count Auto Diff (Collection Date & Time - 10/19/2024 07:15 AM) L AB: Comprehensive [place]. Panel Fast (Collection Date & Time - 10/19/2024 07:15 AM) L AB: Lipid Panel (Collection Date & Time - 10/19/2024 07:15 AM) L AB: TSH reflex Free T4 (Collection Date & Time - 10/19/2024 07:15 AM) L AB: Hemoglobin A1c (Collection Date & Time - 10/19/2024 07:15 AM) * Procedure Codes: 3 6415 VENIPUNCT, ROUTINE* * * The named appointment provid er may or may not be the originator of this progress note, and it is not deemed complete until electronically signed by the appointment provider. Sign off status: Pending * Provider: Joseph Mcdonald MD Date: 0 10/19/2024 Generated for Martina hughes/Jesse/Fatou on: 1 08/11/2024 12:58 PM EST
--- OUTSIDE RECORDS SUMMARY | 2024-10-26 05:30 | XMS_ITS ---
Author Organization Owen Mcdonald MD Address [address] [place], [place] [id number] Care Team Providers Care Card Fixer Name Role Phone Owen Mcdonald Primary Care Provider [phone] Results Component Value Reference Range Notes Microalbumin, Random Reviewed date:10/26/2024 04:11:31 PM Interpretation: Performing Lab:[facility], [address] [place] [address] Notes/Report: Creatinine Urine 47.28 Microalbumin Urine 8.0 Microalbum/Creatinine Ratio Ur 16.9 <30 ug/mg cr Albumin/Creatinine Ratio Reference Ranges: Normal: < 30 ug/mg creatinine Microalbuminuria: 30 - 300 ug/mg creatinine Clinical Albuminuria: > 300 ug/mg creatinine UA ClnCatch+Micro w/rflx Cul t Reviewed date:10/26/2024 02:01:04 PM Interpretation: Performing Lab:[facility], [address] [place] [phone] Notes/Report: Urine, Clean Catch Color Urine Dark Yellow Appearance Urine Turbid PH 7.5 5.0-9.0 Glucose Urine UA Negative Negative mg/dL Urine Blood Negative Negative Specific [place] - Urine 1.015 1.005-1.025 Urine Protein Negative Neg-Trace mg/dL Urine Ketones Negative Negative mg/dL Nitrite Urine Negative Negative Leukocyte Esterase Urine Small (1+) Negative RBC Urine 0-2 0-2 /HPF WBC Urine 11-20 0-5 /HPF Squamous Epithelial Cell Urine 0-2 0-2 /HPF Bacteria Urine None Seen None Seen Hyaline Casts Urine 0-2 0-2 /LPF Reason For Referral Reason poor balance pleas e eval and treat Has been there before Diagnosis 1 Poor balance (R26.89 ) Referral Organization Owen Mcdonald MD Referring Provider First Name Owen Referring Provider Last Name Harry Referring Provider Speciality Internal M edicine Referred Provider LAWRENCE OAKES Referred Provider Specialty Neurology General Notes Tatiana Condon 0 10/26/2024 11:08:52 AM >referral info faxed, Tatiana Condon 10/30/2024 11:26:31 AM > patient is aware of appt Referral Priority Routine Referral Appointment Date 12/01/2024 REASON FOR VISIT comp visits, Patient states very unsteady Medications Medication SIG (Take, Route, Frequency, Duration) [...] a day Active Citracal Calcium+D A ctive Social History [...] No Points 0 Interpretation Negative Vital Signs Blood pressure systolic 134 mm Hg 10/27/19 25 Blood pressure diastolic 50 mm Hg 025 Height 60.5 in 10/26/2024 Weight 136 lbs 10/26/2024 BMI 26.12 kg/m2 10/26/2024 weight is dwn 4 pounds since 09-28-24 Encounters Encounter Location Date Provider Diagnosis Owen Mcdonald MD [address] [place] [address] [place] [phone] 10/26/2024 Owen Mcdonald Prediabetes R73.09 ; Pure hypercholesterolemia E78.00 ; Acquired hypothyroidism E03.9 ; Poor balance R26.89 and Carpal tunnel syndrome G56.00 Assessments Encounter Date Diagnosis (ICD Code) Assessment Notes Treatment Notes Treatment Clinical Notes Section Notes 10/26/2024 Prediabetes (ICD-10 - R73.09) 10/26/2024 Pure hypercholesterolemia (ICD-10 - E78.00) 10/26/2024 Acquired hypothyroid ism (ICD-10 - E03.9) 10/26/2024 Poor balance (ICD-10 - R26.89) send to [facility] neurology/ dr oakes 10/26/2024 Carpal tunnel syndro me (ICD-10 - G56.00) awaiting surgery Plan Of Treatment Treatment Notes Assessment Notes Poor balance send to [facility] neurolo gy/ dr oakes Carpal tunnel syndrome awaiting surgery Referrals Referral Date Details 10/26/2024 10/26/2024, baylee bal ance please eval and treat Has been there before, LAWRENCE OAKES Next Appt Details Follow Up: 2 Months, Reason: Provider Name:Owen burnette, 07/29/2025 01:30:00 PM, [address] [place] [address], [place] [address], [place], [place], [phone], Provider Name:Owen burnette, 09/21/2025 08:00:00 AM, [address] [place] [address], [address], [phone], Provider Name:Owen burnette, 09/28/2025 09:30:00 AM, [address] [place] [address], [address], [place], [place], [phone], Progress Notes * Melanie SOLIS RDOB:[birth year] (84 yo F)Acc No.[id number]:10/26/2024 Patient: Melanie CRESPO Provider: Joseph Mcdonald MD :1940 A ge:84 Y S ex:Female Date:10/26/2024 Address:[address] [place], [place] [id number] Subjective: * Chief Complaints: * C omp visitsPatient states very unsteady * HPI: D epression Screening: PHQ-9 L ittle interest or pleasure in doing things N ot at all, F eeling down, depressed, or hopeless N ot at all, T rouble falling or staying asleep, or sleeping too much N ot at all, F eeling tired or having little energy N ot at all, P oor appetite or overeating N ot at all, F eeling bad about yourself or that you are a failure, or have let yourself or your family down N ot at all, T rouble concentrating on things, such as reading the newspaper or watching television N ot at all, M oving or speaking so slowly that other people could have noticed; or the opposite, being so fidgety or restless that you have been moving around a lot more than usual N ot at all, T houghts that you would be better off or of hurting yourself in some way N ot at all, T otal Score 0 . I nterpretation and Intervention D epression Screening Findings N egative, F ollow-Up for Depression : review of PHQ-9 found negative result, no follow-up needed. having trouble ambulation. having groceries delivered because can't carry the up the stairs. C ommunication Needs: Communication Needs D oes the patient have a hearing impairment N o, D oes the patient have a vision impairment? Y es, I f yes, what is the vision impairment? G lasses, D oes the patient have a cognition impairment? N o. F all Risk: History H ave you had any falls with injury in the past year? N o, H ave you had two or more falls in the past year? N o. S LINDA Questions: SDOH Questions I n the past year have you been worried about losing housing? N o, I n the past year have you or any family members you live with been unable to get any of the following when it was really needed? Check all that apply: N one. S ymptom(s): patient is a 84 yo female here for visit with review of recent labs and follow up of chronic issues. * ROS: G eneral/Constitutional: Change in appetite d enies. C hills d enies. F ever d enies. O phthalmologic: Blurred vision d enies. D ischarge d enies. P ain d enies. E NT: Decreased hearing d enies. S ore throat d enies.?Swollen glands d enies. E ndocrine: Cold intolerance d enies. E xcessive thirst d enies. H eat intolerance d enies. W eight loss d enies. R espiratory: Cough d enies. S hortness of breath at rest d enies. S hortness of breath with exertion d enies. W heezing d enies. C ardiovascular: Chest pain at rest d enies. C hest pain with exertion?denies. I rregular heartbeat d enies. S hortness of breath d enies. ? G astrointestinal: Abdominal pain d enies. C hange in bowel habits d enies. D iarrhea d enies. N ausea d enies. R ectal bleeding d enies. V omiting d enies . G enitourinary: Blood in urine d enies. D ifficulty urinating d enies. F requent urination d enies. U rinary incontinence D enies. M usculoskeletal: Patient complaining of p ain in her left wrist. P ainful joints d enies. W eakness d enies. S kin: Dry skin d enies. I tching d enies. D enies?Mole(s), changes in moles, new moles or any lesions of concern. D enies P hotosensitivity. R anneliese d enies. N eurologic: Admits B alance difficulty. A dmits D izziness,?denies. F ainting d enies. A dmits G ait abnormality. D enies H eadache,?denies. * Medical History: * Surgical History: * Hospitalization/Major Diagno stic Procedure: * Family History: F ather: 43 yrs. M other: 83 yrs, colon cancer. 1 son(s) . . Father-[place] Mother-[facility], Denies mental health/substance abuse family history, No pertinent family medical history, Denies mental health/substance abuse family history. * Social History: T obacco Use: T obacco Use/Smoking P atient is a f ormer smoker, H ow long has it been since you last smoked? > 10 years, A dditional Findings: Tobacco Non-User F ormer smoker, currently using no form of tobacco. D rugs/Alcohol: A lcohol Screen D id you have a drink containing alcohol in the past year? N o, P oints 0 , I nterpretation N egative. M iscellaneous: C affeine: no, decaff. Children: yes. Community involvements: no. Exercise: no. Housing: owning. Living with: alone. Marital status: single. Occupation: unemployed. Pets: none. Travel outside of the [place]: no. * Medications: T akingCitracal Calcium+D Vitamin D [...] Objective: * Vitals: H t: 60.5, Wt: 136, BMI:26.12, BP:134/50, Wt-k.69. weight is dwn 4 pounds since 09-28-24. * P ast Orders: L ab:Lipid Panel (Order Date - 10/19/2024) (Collection Date & Time - 10/19/2024 07:15 AM) Value Reference Range Triglycerides 138 <150 - mg/dL Cholesterol 122 <200 - mg/dL LDL Cholesterol Calculated 51 <100 - mg/dL HDL Cholesterol 44 >40 - mg/dL L ab:TSH reflex Free T4 (Order Date - 10/19/2024) (Collection Date & Time - 10/19/2024 07:15 AM) Value Reference Range TSH reflex Free T4 1.94 0.32-4.0 - uIU/mL L ab:Hemoglobin A1c (Order Date - 10/19/2024) (Collection Date & Time - 10/19/2024 07:15 AM) Value Reference Range Hemoglobin A1c % 5.6 <6.0 - % Estimated Average Glucose 114 - mg/dL Lab:Complete Blood Count Aut o Diff * Collection Date 10/19/2024 10/13/2024 Collection Time 07:15 AM 03:21 PM Order Date 10/19/2024 10/13/2024 White Blood Count 6.9 (Ref Range: 4.8-10.8 X10*3/uL) 6.7 (Ref Range: 4.8-10.8 X10*3/uL) Red Blood Count 4.65 (Ref Range: 4.20-5.50 X10*6/uL) 4.25 (Ref Range: 4.20-5.50 X10*6/uL) Hemoglobin 13.4 (Ref Range: 12.0-16.0 g/dl) 12.4 (Ref Range: 12.0-16.0 g/dl) Hematocrit 40.3 (Ref Range: 37.0-47.0 %) 36.6 L (Ref Range: 37.0-47.0 %) Mean Corpuscular Volume 86.7 (Ref Range: 80.0-98.0 fL) 86.1 (Ref Range: 80.0-98.0 fL) Mean Corpuscular Hemoglobin 28.8 (Ref Range: 27.0-33.0 pg) 29.2 (Ref Range: 27.0-33.0 pg) Mean Corpuscular HGB Conc 33.3 (Ref Range: 31.0-35.0 g/dl) 33.9 (Ref Range: 31.0-35.0 g/dl) Red Cell Distribution Width 14.6 (Ref Range: 11.0-16.0 %) 14.6 (Ref Range: 11.0-16.0 %) Platelet Count 189 (Ref Range: 160-400 X10*3/uL) 169 (Ref Range: 160-400 X10*3/uL) Mean Platelet Volume 8.8 L (Ref Range: 9.4-12.3 fL) 8.2 L (Ref Range: 9.4-12.3 fL) Neutrophils Percent Auto 70.9 (Ref Range: 45-73 %) 65.9 (Ref Range: 45-73 %) Imm Gran Pct Auto 0.1 (Ref Range: 0.0-0.4 %) 0.4 (Ref Range: 0.0-0.4 %) Lymphocytes Percent Auto 18.8 L (Ref Range: 20-40 %) 21.6 (Ref Range: 20-40 %) Monocytes Percent Auto 8.9 (Ref Range: 2-11 %) 10.9 (Ref Range: 2-11 %) Eosinophils Percent Auto 1.0 (Ref Range: 0-4 %) 0.9 (Ref Range: 0-4 %) Basophils Percent Auto 0.3 (Ref Range: 0-2 %) 0.3 (Ref Range: 0-2 %) NRBC Pct Auto 0.0 (Ref Range: 0.0-0.2 /100WBC) 0.0 (Ref Range: 0.0-0.2 /100WBC) Neutrophils Absolute Auto 4.9 (Ref Range: 2.0-8.3 x10*3/uL) 4.4 (Ref Range: 2.0-8.3 x10*3/uL) Imm Gran Abs Auto 0.01 (Ref Range: 0.00-0.03 X10*3/uL) 0.03 (Ref Range: 0.00-0.03 X10*3/uL) Lymphocytes Absolute Auto 1.3 (Ref Range: 1.2-4.9 X10*3/uL) 1.5 (Ref Range: 1.2-4.9 X10*3/uL) Monocytes Absolute Auto 0.6 (Ref Range: 0.1-1.2 X10*3/uL) 0.7 (Ref Range: 0.1-1.2 X10*3/uL) Eosinophils Absolute Auto 0.1 (Ref Range: 0.0-0.4 X10*3/uL) 0.1 (Ref Range: 0.0-0.4 X10*3/uL) Basophils Absolute Auto 0.0 (Ref Range: 0.0-0.2 X10*3/uL) 0.0 (Ref Range: 0.0-0.2 X10*3/uL) NRBC Abs Auto 0.000 (Ref Range: 0.0-0.012 X10*3/uL) 0.000 (Ref Range: 0.0-0.012 X10*3/uL) ???Lab:Comprehensive [place]. Panel Fast (Order Date - 10/19/2024) (Collection Date & Time - 10/19/2024 07:15 AM)?ValueReference Range?Ostkfb952816- 145 - mmol/L?Bilirubin Total0.50.0-1.0 - mg/dL?Aspartate Amino Udsuszqunow952-87 - U/L?Alanine Qspakcqzjmjitwps032-08 - U/L?Total Protein7.06.5-8.0 - g/dL?Albumin Level4.33.5-5.0 - g/dL?Alkaline Uudcsmbhzxp5458-111 - U/L?Potassium4.23.3-5.1 - mmol/L?Pvlaeixi504 96-108 - mmol/L?Carbon Ahahspt5111-65 - mmol/L?Anion Eub2220-47 - ?Blood Urea Azuzkmzy95U2-76 - mg/dL?Creatinine0.690.5-1.4 - mg/dL ?Estimated Glomerular Filt Rate> 60-?Glucose Ftioitp677B55-02 - mg/dL?Calcium9.88.4-10.2 - mg/dL ???Lab:Vitamin B12 and Folate (Order Date - 10/13/2024) (Collection Date & Time - 10/13/2024 03:21PM)?ValueReference Range?Vitamin P68172374-594 - pg/mL?Amdskw23.4> or = 4.0 - ng/mL ???Lab:Lactate Dehydrogenase (Order Date - 10/13/2024) (Collection Date & Time - 10/13/2024 03:21 PM)?ValueReference Range?Lactate Untzzuowgxjue476 122-220 - U/L * Examination: G eneral Examination: GENERAL APPEARANCE: w ell developed, well nourished, in no acute distress. HEAD: n ormocephalic, atraumatic. EYES: p upils equal, round, reactive to light and accommodation, sclera non-icteric. EARS: n ormal. ORAL CAVITY: m ucosa moist. THROAT: c lear. NECK/THYROID: n teodoro supple, full range of motion, no cervical lymphadenopathy, no bruits. SKIN: w arm and dry, no suspicious lesions. HEART: r egular rate and rhythm, S1, S2 normal, no murmurs.? LUNGS: c lear to auscultation bilaterally. BREASTS: N o mass, no lump. ABDOMEN: s oft, nontender, nondistended, bowel sounds present, normal, no organomegaly , no masses palpable. RECTAL EXAM: n o masses palpable, stool guaiac negative.? FEMALE GENITOURINARY: n ot done. EXTREMITIES: n o clubbing, cyanosis, or edema. NEUROLOGIC: n onfocal, motor strength normal upper and lower extremities, sensory exam intact no tremor and no cog wheeling . Assessment: * Assessment: 1. P rediabetes - R73.09 (Primary) 2 . P ure hypercholesterolemia - E78.00? 3. A cquired hypothyroidism - E03.9 4 . P oor balance - R26.89 5 . C arpal tunnel syndrome - G56.00 Plan: * Treatment: 2. P ure hypercholesterolemia L AB: Microalbumin, Random (Collection Date & Time - 10/26/2024 10:30 AM) L AB: UA ClnCatch+Micro w/rflx Cult (Collection Date & Time - 10/26/2024 10:30 AM) 3. P oor balance Notes: send to [facility] neurology/ dr oakes Referral To:LAWRENCE OAKES Neurology Reason:poor balance please eval and treat Has been there before 4. C arpal tunnel syndrome Notes: awaiting surgery * Procedure Codes: * Follow Up: 2 Months * * Sign off status: Completed true * Provider: Joseph Mcdonald MD Date: 0 10/26/2024 Generated for Martina hughes/Jesse/eTtalitasmitting on: 1 08/11/2024 12:59 PM EST History and Physical Notes * HPI (History of Present Illness) Category Sub-Category Detail Notes Category Not es Symptom(s) patient is a 84 yo female here for visit with review of recent labs and follow up of chronic issues. Depression Screening PHQ-9 Little inte rest or pleasure in doing things: Not at all having trouble ambulation. having groceries delivered because can't carry the up the stairs Feeling down, depressed, or hopeless: No t [...] Total Score: 0 Interpretation and Intervention Depression Matthiasalejandro antonio Findings: Negative Follow-Up for Depression: : review [...] patient have a vision impairmen t?: Yes If yes, what is the vision impairment?: Glasses Does the patient have a cognition impair ment?: No Examination Category Sub-Category Detail Notes Category Not es General Examination GENERAL APPEARANCE: well dev eloped, well nourished, in no acute distress HEAD: normocephalic, atrau matic EYES: pupils equal, round, reactive to light and accommodation, sclera non-icteric EARS: normal THROAT: clear NECK/THYROID: neck supple, full ra nge of motion, no cervical lymphadenopathy, no bruits HEART: regular rate and rhy thm, S1, S2 normal, no murmurs LUNGS: clear to auscultatio n bilaterally ABDOMEN: soft, nontender, non distended, bowel sounds present, normal, no organomegaly , no masses palpable NEUROLOGIC: nonfocal, motor stre ngth normal upper and lower extremities, sensory exam intact no tremor and no cog wheeling SKIN: warm and dry, no gene picious lesions EXTREMITIES: no clubbing, cyanosi s, or edema BREASTS: No mass, no lump RECTAL EXAM: no masses palpable, stool guaiac negative FEMALE GENITOURINARY: not done ORAL CAVITY: mucosa moist Consultation Request Notes Referral Date Referring Provider Referred Provider Not es 10/26/2024 Owen Mcdonald ALINA poor balanc e please eval and treat Has been there before
--- OUTSIDE RECORDS SUMMARY | 2024-12-29 06:00 | XMS_ITS ---
Author Organization Owen Mcdonald MD Address [address] [place], [place] [phone] Care Team Providers Care Mechanical Engineering Draftsperson Name Role Phone Owen Mcdonald Primary Care Provider Reason For Referral Reason poor balance pleas e eval and treat Diagnosis 1 Poor balance (R26.89 ) Referral Organization Owen Mcdonald MD Referring Provider First Name Owen Referring Provider Last Name Harry Referring Provider Speciality Internal M edicine Referred Provider LAWRENCE OAKES Referred Provider Specialty Neurology General Notes Tatiana Condon 0 01/01/2025 01:25:01 PM > referral info faxed on 12-29-2024 p [phone] Annette 01/25/2025 09:46:18 AM > was told by office to Taurus rivero Annette 01/26/2025 10:15:51 AM > patient is aware of Taurus garcia Annette 02/23/2025 01:43:03 PM >per patient she cancelled this appt Referral Priority Routine Referral Appointment Date 06/10/2025 REASON FOR VISIT 2 month Medications Medication SIG (Take, Route, Frequency, Duration) Notes Start Date End Date Status LORazepam 0.5 MG 1 tablet as needed Orally Once a day for 14 days 04/03/2019 Not-Taking Citracal Calcium+D A ctive Ibuprofen 800 MG 1 tablet with food o r milk Orally Three times a day for 30 day(s) 03/12/2017 Not-Taking Imitrex 50 MG 1 tablet as needed Orally Twice a day for 30 days 02/02/2019 Not-Taking Levothyroxine Sodium 50 MCG TAKE 1 TABLET BY MOUTH EVERY DAY IN THE MORNING ON AN EMPTY STOMACH for 90 Active Triamcinolone Acetonide 0.5 % 1 application Externally daily for 30 days 04/23/2023 Active Rosuvastatin Calcium 40 MG TAKE 1 TABLET BY MOUTH EVERY DAY for 90 Active Vitamin D 2000 UNIT as directed Orally twice a day Active Clopidogrel Bisulfate 75 MG TAKE 1 TABLET BY MOUTH EVERY DAY for 90 Active Vital Signs Blood pressure systolic 122 mm Hg 12/30/19 25 Blood pressure diastolic 60 mm Hg 025 Height 60.5 in 12/29/2024 Weight 134 lbs 12/29/2024 BMI 25.74 kg/m2 12/29/2024 weight is down 2 pounds [facility] 5-5-25 Encounters Encounter Location Date Provider Diagnosis Owen Mcdonald MD [address] [place] [address] Drive [address] [place], [place] [phone] 12/29/2024 Owen Mcdonald Poor balance R26.89 Assessments Encounter Date Diagnosis (ICD Code) Assessment Notes Treatment Notes Treatment Clinical Notes Section Notes 12/29/2024 Poor balance (ICD-10 - R26.89) need notes from [facility] neurology and send another referral for balance evaluation/ is going to physical therapy at [facility] Plan Of Treatment Treatment Notes Assessment Notes Poor balance need notes from [facility] neurology and send another referral for balance evaluation/ is going to physical therapy at [facility] Referrals Referral Date Details 12/29/2024 12/29/2024, baylee bal ance please eval and treatLAWRENCE Next Appt Details Follow Up: 3 Months, Reason: Provider Name:Owen burnette, 07/29/2025 01:30:00 PM, [address], [address], [place], [place], [phone], Provider Name:Owen burnette, 09/21/2025 08:00:00 AM, [address], [address], [place], [place], [phone], Provider Name:Owen Mcknight ier, 09/28/2025 09:30:00 AM, [address], [address], [place], [phone], Progress Notes * Melanie SOLIS RDOB:[birth year] (84 yo F)Acc No.[id number]:12/29/2024 Progress Notes Patient: Melanie CRESPO Provider: Joseph Mcdonald MD :1940 A ge:84 Y S ex:Female Date:12/29/2024 Address:[address] [place], [place] [phone] Subjective: * Chief Complaints: * 2 month * HPI: S ymptom(s): patient is a 84 yo female here for 2 month follow up visit/ the neurologist told the patient that the referral to evaluate her balance was not there although we had forwarded/ has trouble with stairs and can't move quickly. did fall after getting up quickly from the couch. uses walker at times due to balance. * ROS: G eneral/Constitutional: Denies C hills. [...] Objective: * Vitals: H t: 60.5, Wt: 134, BMI:25.74, BP:122/60, Wt-k.78. weight is down 2 pounds since 10-26-24. * Examination: G eneral Examination: GENERAL APPEARANCE: a lert, well hydrated, in no distress.? HEAD: n ormocephalic. SKIN: g ood turgor. HEART: r egular rate and rhythm, no murmurs, rubs, gallops.? LUNGS: c lear to auscultation bilaterally. MUSCULOSKELETAL: n o cogwheeling. Assessment: * Assessment: 1. P oor balance - R26.89 (Primary) Plan: * Treatment: * Procedure Codes: * Follow Up: 3 Months * * Sign off status: Completed true * Provider: Joseph Mcdonald MD Date: 0 12/29/2024 Generated for Martina hughes/Jesse/Fatou on: 08/11/2024 12:58 PM EST History and Physical Notes * HPI (History of Present Illness) Category Sub-Category Detail Notes Category Not es Symptom(s) patient is a 84 yo female here for 2 month follow up visit/ the neurologist told the patient that the referral to evaluate her balance was not there although we had forwarded/ has trouble with stairs and can't move quickly. did fall after getting up quickly from the couch. uses walker at times due to balance Examination Category Sub-Category Detail Notes Category Not es General Examination GENERAL APPEARANCE: alert, w ell hydrated, in no distress HEAD: normocephalic HEART: regular rate and rhy thm, no murmurs, rubs, gallops LUNGS: clear to auscultatio n bilaterally SKIN: good turgor MUSCULOSKELETAL: no cogwheeling Consultation Request Notes Referral Date Referring Provider Referred Provider Not es 12/29/2024 Owen Mcdonald ALINA poor balanc e please eval and treat
--- OUTSIDE RECORDS SUMMARY | 2025-02-09 03:14 | XMS_ITS ---
Author Organization Owen Mcdonald MD Address [address] [place] [phone] Care Team Providers Care High Court Justice Name Role Phone Owen Mcdonald Primary Care Provider REASON FOR VISIT Xray r knee Encounters Encounter Location Date Provider Diagnosis Owen Mcdonald MD [address] [facility] [address] [place] [phone] 02/09/2025 Owen Mcdonald Right knee pain M25.561 Assessments Encounter Date Diagnosis (ICD Code) Assessment Notes Treatment Notes Treatment Clinical Notes Section Notes 02/09/2025 Right knee pain (ICD-10 - M25.561) Plan Of Treatment Pending Test Test Name Order Date XR knee LT 2V 02/09/2025 Next Appt Details Provider Name:Owen burnette, 07/29/2025 01:30:00 PM, [address] [place] [address], [address], [phone], Provider Name:Owen burnette, 09/21/2025 08:00:00 AM, [address] [place] [address], [address], [phone], Provider Name:Owen Mcknight vasile, 09/28/2025 09:30:00 AM, [address], [address], [place], [phone], Progress Notes * FERNIE Melanie RDOB:[birth year] (84 yo F)Acc No.[id number]:02/09/2025 Patient: Melanie CRESPO :1940 A ge:84 Y S ex:Female Address:[address] [place] [phone] Subjective: * Chief Complaints: * X ray r knee * Medical History: * Surgical History: * Hospitalization/Major Diagno stic Procedure: * Medications: Objective: * Vitals: * Physical Examination: Assessment: * Assessment: 1. R ight knee pain - M25.561 Plan: * Treatment: * Procedure Codes: * true * Date: Generated for Martina hughes/Jesse/Nasirsmitting on: 08/11/2024 12:59 PM EST
--- OUTSIDE RECORDS SUMMARY | 2025-02-09 09:44 | XMS_ITS ---
Author Organization Owen Mcdonald MD Address [address] [place] [phone] Care Team Providers Care Public Health Representative Name Role Phone Owen Mcdonald Primary Care Provider [phone] Results Component Value Reference Range Notes XR knee RT 2V Reviewed date:02/12/2025 01:00:31 PM Interpretation: Performing Lab: Notes/Report: [address] [address] XRay Report Signed Patient: Melanie Solis MR#: [id number] : 1940 Acct:[id number] Age/Sex: 84 / F ADM Date: 02/09/25 Loc: HO.XRAY Attending Dr: Owen Mcdonald MD Ordering Physician: Owen Mcdonald MD Date of Service: 02/09/25 Procedure(s): XR knee RT 2V Accession Number(s): [id number] cc: Owen Mcdonald MD EXAMINATION: XR KNEE, RIGHT CLINICAL INFORMATION: PAIN RT KNEE COMPARISON: None available. TECHNIQUE: AP and lateral views of the right knee. FINDINGS: There is moderate severe narrowing of the lateral joint space and mild narrowing of the medial joint space. There is stippled and linear calcification visible in the medial and lateral joint lines. There is a small amount joint fluid. There are marginal osteophytes involving the 3 joint compartment, most pronounced along the lateral joint line. 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 Electronically signed by: Taj Salomon MD 02/09/2025 03:05 PM EDT RP Dictated By: Taj Salomon MD Signed By: <Electronically signed by Taj Salomon MD in OV> 02/09/25 1505 DD/ 1452 TD/TT: 02/09/25 1457 Merchandise Coordinator: [place] [address] XRay Report Signed Patient: Kay Solis MR#: [id number] : 1940 Acct:[id number] Age/Sex: 84 / F ADM Date: 02/09/25 Loc: YAMILKA Attending Dr: Owen Mcdonald MD Ordering Physician: Owen Mcdonald MD Date of Service: 02/09/25 Procedure(s): XR knee RT 2V Accession Number(s): [id number] cc: Owen Mcdonald MD EXAMINATION: XR KNEE, RIGHT CLINICAL INFORMATION: PAIN RT KNEE COMPARISON: None available. TECHNIQUE: AP and lateral views of the right knee. FINDINGS: There is moderate se elyse narrowing of the lateral joint space and mild narrowing of the med ial joint space. There is stippled an d linear calcification visible in the medial and lateral joint lines. There is a small lazaro unt joint fluid. There are marginal o steophytes involving the 3 joint compartment, most pronounced along the lateral joint line. 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 Electronically renate d by: Taj Salomon MD 02/09/2025 03:05 PM EDT RP Dictated By: Taj Salomon MD Signed By: <Elza be signed by Taj Salomon MD in OV> 02/09/25 1505 DD/ 1452 TD/TT: 02/09/25 1457 Merchandise Coordinator: XR knee LT 2V Reviewed date:02/09/2025 04:33:35 PM Interpretation: Performing Lab: Notes/Report: [address] [address] XRay Report Signed Patient: Melanie Solis MR#: [id number] : 1940 Acct:[id number] Age/Sex: 84 / F ADM Date: 02/09/25 Loc: HO.XRAY Attending Dr: Owen Mcdonald MD Ordering Physician: Owen Mcdonald MD Date of Service: 02/09/25 Procedure(s): XR knee LT 2V Accession Number(s): [id number] cc: Owen Mcdonald MD EXAMINATION: XR KNEE, LEFT CLINICAL INFORMATION: PAIN COMPARISON: None available. TECHNIQUE: AP and lateral views of the left knee. FINDINGS: There is no joint effusion. There is mild narrowing and medial lateral joint spaces. There is minimal linear calcification visible within the medial lateral joint spaces. There is moderate atherosclerotic calcifications in the vasculature. There is multiple small round punctate metallic foreign bodies in the soft tissues around the knee, lateral greater than medial. XR/XR knee LT 2V IMPRESSION: Mild joint space narrowing and chondrocalcinosis. Electronically signed by: Taj Salomon MD 02/09/2025 02:49 PM EDT RP Dictated By: Taj Salomon MD Signed By: <Electronically signed by Taj Salomon MD in OV> 02/09/25 1449 DD/ 1425 TD/TT: 02/09/25 1443 Merchandise Coordinator: [address] [address] XRay Report Signed Patient: Kay Solis MR#: [id number] : 1940 Acct:[id number] Age/Sex: 84 / F ADM Date: 02/09/25 Loc: HO.ADRIANO Attending Dr: wOen Mcdonald MD Ordering Physician: Owen Mcdonald MD Date of Service: 02/09/25 Procedure(s): XR knee LT 2V Accession Number(s): [id number] cc: Owen Mcdonald MD EXAMINATION: XR KNEE, LEFT CLINICAL INFORMATION: PAIN COMPARISON: None available. TECHNIQUE: AP and lateral views of the left knee. FINDINGS: There is no joint effusion. There is mild narrow ing and medial lateral joint spaces. There is minimal magdi ear calcification visible within the medial lateral joint spaces. There is moderate atherosclerotic calcifications in the vasculature. There is multiple sm all round punctate metallic foreign bodies in the soft tissues around the knee, lateral greater than medial. X R/XR knee LT 2V IMPRESSION: Mild joint space kacie rowing and chondrocalcinosis. Electronically renate d by: Taj Salomon MD 02/09/2025 02:49 PM EDT Dictated By: Taj Salomon MD Signed By: <Electron [facility] signed by Taj Salomon MD in OV> 02/09/25 1449 DD/ 1425 TD/TT: 02/09/25 1443 Merchandise Coordinator: REASON FOR VISIT bilateral x-rays Encounters Encounter Location Date Provider Diagnosis Owen Mcdonald MD [address] [place] [phone] 02/09/2025 Owen Mcdonald Pain in right knee M25.561 and Knee pain, left M25.562 Assessments Encounter Date Diagnosis (ICD Code) Assessment Notes Treatment Notes Treatment Clinical Notes Section Notes 02/09/2025 Pain in right knee (ICD-10 - M25.561) 02/09/2025 Knee pain, left (ICD-10 - M25.562) Plan Of Treatment Next Appt Details Provider Name:Owen burnette, 07/29/2025 01:30:00 PM, 10 [facility], [address], [place], [place], [phone], Provider Name:Owen Mcknight ier, 09/21/2025 08:00:00 AM, [address], [address], [place], [place], [phone], Provider Name:Owen Mcknight ier, 09/28/2025 09:30:00 AM, [address], [address], [place], [place], [phone], Progress Notes * Melanie SOLIS RDOB:[birth year] (84 yo F)Acc No.[id number]:02/09/2025 Patient: Melanie CRESPO :1940 A ge:84 Y S ex:Female Address:[address] [place] [address] Subjective: * Chief Complaints: * B ilateral x-rays * Medical History: * Surgical History: * Hospitalization/Major Diagno stic Procedure: * Medications: Objective: * Vitals: * Physical Examination: Assessment: * Assessment: 1. P ain in right knee - M25.561 2 . K nee pain, left - M25.562 ? Plan: * Treatment: 2. K nee pain, left I maging: XR knee LT 2V (Performed Date - 02/09/2025) * Procedure Codes: * true * Date: Generated for Martina hughes/Jesse/eTransmitting on: 08/11/2024 12:58 PM EST
--- OUTSIDE RECORDS SUMMARY | 2025-04-23 03:00 | XMS_ITS ---
Author Organization Owen Mcdonald MD Address [address] [place], [place] [id number] Care Team Providers Care Manager Production Name Role Phone Owen Mcdonald Primary Care Provider Results Component Value Reference Range Notes Liver Panel Reviewed date:04/23/2025 04:24:28 PM Interpretation: Performing Lab:[facility], [address] [place] [phone] Notes/Report: Bilirubin Total 0.6 0.0-1.0 mg/dL Bilirubin Direct 0.2 0.0-0.5 mg/dL Aspartate Amino Transferase 26 5-31 U/L Alanine Aminotransferase 20 0-31 U/L Total Protein 6.7 6.5-8.0 g/dL Albumin Level 4.4 3.5-5.0 g/dL Alkaline Phosphatase 70 39-117 U/L Glucose Fasting Reviewed date:04/23/2025 04:26:49 PM Interpretation: Performing Lab:[facility], [address] [place] [phone] Notes/Report: Glucose Fasting 100 60-99 mg/dL A fasting glucose from 100-125 mg/dl is considered impaired (pre-diabetes). Lipid Panel with Reflex Reviewed date:04/23/2025 04:27:57 PM Interpretation: Performing Lab:[facility], [address] [place] [phone] Notes/Report: Triglycerides 168 <150 mg/dL Desirable Triglyceride: less than 150 mg/dL Borderline High Triglyceride 150-199 mg/dL High Triglyceride: 200-499 mg/dL Very High Triglyceride: greater than or equal to 5OO mg/dL Cholesterol 152 <200 mg/dL Desirable Cholesterol: less than 200 mg/dL Borderline High Cholesterol: 200-239 mg/dL High Cholesterol: greater than 239 mg/dL LDL Cholesterol Calculated 76 <100 mg/dL Desirable LDL: less than 100 mg/dL Near Optimal/Above Optimal LDL: 110-129 mg/dL Borderline High LDL: 130-159 mg/dL High LDL: 160-189 mg/dL Very High LDL: greater than or equal to 190 mg/dL HDL Cholesterol 43 >40 mg/dL Desirable HDL: greater than 40 mg/dL Note: This HDL assay may give artificially low results in patients with liver disease. Hemoglobin A1c Reviewed date:04/23/2025 12:07:46 PM Interpretation: Performing Lab:[address] [phone] Notes/Report: Hemoglobin A1c % 5.3 <6.0 % Hemoglobin A1C Reference Range Adults: 4.8 - 6.0 % Non diabetic: < 6.0 % Goal: < 7.0 % Additional Action Suggested: > 8.0 % Note: Hemoglobin A1c results are invalid for patients with abnormal amounts of HbF. Blood transfusions may impact the HbA1c concentration in the patient sample. Estimated Average Glucose 105 eAG = Estimated average glucose which is %A1C expressed as average glucose, using the formula of the H9X-Trwwzef Average Glucose study (ADAG), Diabetes Care, Vol.31,#8, 2007 REASON FOR VISIT fasting lipids Encounters Encounter Location Date Provider Diagnosis Owen Mcdonald MD [address] [place] [address] Drive [address] [place], [place] [phone] 04/23/2025 Owen Mcdonald Prediabetes R73.09 a nd Pure hypercholesterolemia E78.00 Assessments Encounter Date Diagnosis (ICD Code) Assessment Notes Treatment Notes Treatment Clinical Notes Section Notes 04/23/2025 Prediabetes (ICD-10 - R73.09) 04/23/2025 Pure hypercholesterolemia (ICD-10 - E78.00) Plan Of Treatment Next Appt Details Provider Name:Owen Mcknight vasile, 07/29/2025 01:30:00 PM, [address] [place] [address], Suite [facility], [place], [place], [phone], Provider Name:Owen Mcknight josepr, 09/21/2025 08:00:00 AM, [address] [place] [address], Suite [facility], [place], [place], [phone], Provider Name:Owen Mcknight ier, 09/28/2025 09:30:00 AM, [address] [place] [address], Suite [facility], [place], [place], [phone], Progress Notes * Melanie SOLIS RDOB:[birth year] (84 yo F)Acc No.[id number]:04/23/2025 Progress Note Patient: Melanie CRESPO Provider: Joseph Mcdonald MD :1940 A ge:84 Y S ex:Female Date:04/23/2025 Address:[address] [place], [place] [phone] Subjective: * Chief Complaints: * 1 . Fasting lipids. * Medical History: Objective: * Vitals: Assessment: * Assessment: 1. P rediabetes - R73.09 (Primary) 2 . P ure hypercholesterolemia - E78.00? Plan: * Treatment: 2. P ure hypercholesterolemia L AB: Liver Panel (Collection Date & Time - 04/23/2025 08:00 AM) L AB: Glucose Fasting (Collection Date & Time - 04/23/2025 08:00 AM) L AB: Lipid Panel with Reflex (Collection Date & Time - 04/23/2025 08:00 AM) L AB: Hemoglobin A1c (Collection Date & Time - 04/23/2025 08:00 AM) * Procedure Codes: 3 6415 VENIPUNCT, ROUTINE* * * The named appointment provid er may or may not be the originator of this progress note, and it is not deemed complete until electronically signed by the appointment provider. Sign off status: Pending * Provider: Joseph Mcdonald MD Date: 1 Generated for Martina hughes/Jesse/Fatou on: 08/11/2024 12:59 PM EST
--- OUTSIDE RECORDS SUMMARY | 2025-04-29 05:15 | XMS_ITS ---
Author Organization Owen Mcdonald MD Address [address] [place], [place] [id number] Care Team Providers Care Drafter Directional Survey Name Role Phone Owen Mcdonald Primary Care Provider [phone] REASON FOR VISIT 6 month Medications Medication SIG (Take, Route, Frequency, Duration) Notes Start Date End Date Status Levothyroxine Sodium 50 MCG TAKE 1 TABLET BY MOUTH EVERY DAY IN THE MORNING ON AN EMPTY STOMACH for 90 Active Citracal Calcium+D A ctive [...] 1 TABLET BY MOUTH EVERY DAY Active Vital Signs Blood pressure systolic 112 mm Hg 04/29/20 25 Blood pressure diastolic 60 mm Hg 025 Height 60.5 in 04/29/2025 Weight 138 lbs 04/29/2025 BMI 26.5 kg/m2 04/29/2025 weight is up 4 pounds since 12-29-24 Encounters Encounter Location Date Provider Diagnosis Owen Mcdonald MD [address] [place] [phone] 04/29/2025 Owen Mcdonald Pure hypercholestero lemia E78.00 and Poor balance R26.89 Assessments Encounter Date Diagnosis (ICD Code) Assessment Notes Treatment Notes Treatment Clinical Notes Section Notes 04/29/2025 Pure hypercholesterolemia (ICD-10 - E78.00) doing well on meds. liver tests normal, will continue current regiment 04/29/2025 Poor balance (ICD-10 - R26.89) going to physical therapy. advised a cane Plan Of Treatment Medication Medication Name Sig Start Date Stop Date Notes Rosuvastatin Calcium 40 MG TAKE 1 TABLET BY MOUTH EVERY DAY Treatment Notes Assessment Notes Pure hypercholesterolemia doing well on meds. liver tests normal, will continue current regiment Poor balance going to physical th era. advised a cane Next Appt Details Provider Name:Owen burnette, 07/29/2025 01:30:00 PM, [address] [place] [address], [phone], Provider Name:Owen burnette, 09/21/2025 08:00:00 AM, [address] [place] [address], [phone], Provider Name:Owen burnette, 09/28/2025 09:30:00 AM, [address] [place] [address], [phone], Progress Notes * Melanie SOLIS RDOB:[birth year] (84 yo F)Acc No.[id number]:04/29/2025 Progress Notes Patient: Melanie CRESPO Provider: Joseph Mcdonald MD :1940 A ge:84 Y S ex:Female Date:04/29/2025 Address:[address] [place], [place] [address] Subjective: * Chief Complaints: * 6 month * HPI: S ymptom(s): patient is a 84 yo female here for 6 month follow up visit/ still having trouble walking. ortho says that she needs knee replacement. * ROS: G eneral/Constitutional: Denies C hills. [...] Objective: * Vitals: H t: 60.5, Wt: 138, BMI:26.5, BP:112/60, Wt-k.6. weight is up 4 pounds since 12-29-24. * P ast Orders: L ab:Glucose Fasting (Order Date - 04/23/2025) (Collection Date & Time - 04/23/2025 08:00 AM) Value Reference Range Glucose Fasting 100 H 60-99 - mg/dL L ab:Lipid Panel with Reflex (Order Date - 04/23/2025) (Collection Date & Time - 04/23/2025 08:00 AM) Value Reference Range Triglycerides 168 H <150 - mg/dL Cholesterol 152 <200 - mg/dL LDL Cholesterol Calculated 76 <100 - mg/dL HDL Cholesterol 43 >40 - mg/dL L ab:Hemoglobin A1c (Order Date - 04/23/2025) (Collection Date & Time - 04/23/2025 08:00 AM) Value Reference Range Hemoglobin A1c % 5.3 <6.0 - % Estimated Average Glucose 105 - mg/dL L ab:Liver Panel (Order Date - 04/23/2025) (Collection Date & Time - 04/23/2025 08:00 AM) Value Reference Range Bilirubin Total 0.6 0.0-1.0 - mg/dL Bilirubin Direct 0.2 0.0-0.5 - mg/dL Aspartate Amino Transferase 26 5-31 - U/L Alanine Aminotransferase 20 0-31 - U/L Total Protein 6.7 6.5-8.0 - g/dL Albumin Level 4.4 3.5-5.0 - g/dL Alkaline Phosphatase 70 39-117 - U/L * Examination: G eneral Examination: GENERAL APPEARANCE: a lert, well hydrated, in no distress.? HEAD: n ormocephalic. SKIN: g ood turgor. HEART: r egular rate and rhythm, no murmurs, rubs, gallops.? LUNGS: n o wheezes, rales, rhonchi, good air movement, clear to auscultation bilaterally. Assessment: * Assessment: 1. P ure hypercholesterolemia - E78.00 (Primary) 2 . P oor balance - R26.89? Plan: * Treatment: 2. P oor balance Notes: going to physical therapy. advised a cane * Procedure Codes: * * Sign off status: Completed true * Provider: Joseph Mcdonald MD Date: 06/29/2024 Generated for Martina hughes/Jesse/Donnyitting on: 08/11/2024 01:00 PM EST History and Physical Notes * HPI (History of Present Illness) Category Sub-Category Detail Notes Category Not es Symptom(s) patient is a 84 yo female here for 6 month follow up visit/ still having trouble walking. ortho says that she needs knee replacement. Examination Category Sub-Category Detail Notes Category Not es General Examination GENERAL APPEARANCE: alert, w ell hydrated, in no distress HEAD: normocephalic HEART: regular rate and rhy thm, no murmurs, rubs, gallops LUNGS: no wheezes, rales, r honchi, good air movement, clear to auscultation bilaterally SKIN: good turgor
--- OUTSIDE RECORDS SUMMARY | 2025-06-10 13:00 | XMS_ITS | Patient Health Record ---
Author Organization [facility] Address [address] [place] [id number] Care Team Providers Care Superintendent [employer] Operations Name Role Phone Owen Mcdonald MD Primary Care Provider Ranjit Ventura Jr Unavailable [phone] Allergies Allergen (clinical drug ingredient) Drug/Non Drug Allergy documented on EMR Reaction Allergy Type Onset Date Status Substance with sulfonamide structure and antibacterial mechanism of action (substance) sulfa (uncoded) Unknown Allergy Active sulfamethoxazole / trimethoprim Bactrim Unknown Drug Allergy Active Floxin Otic Unknown Drug Allergy Activ e Reason For Referral No Information Medications Medication SIG (Take, Route, Frequency, Duration) Notes Start Date End Date Status Levothyroxine Sodium 50 MCG Tablet 1 tablet in the morning on an empty stomach Orally Once a day; Duration: 30 day(s) Active Clopidogrel Bisulfate 75 MG Tablet 1 tablet Orally Once a day; Duration: 30 day(s) Active Magnesium 300 MG Capsule 1 capsule with a meal Orally Once a day; Duration: 30 day(s) Active PriLOSEC OTC 20 MG Tablet Delayed Release 1 tablet Orally twice a day Not-Taking/PRN Vitamin D (Cholecalciferol) 50 MCG (2000 UT) Capsule 1 capsule Orally Once a day; Duration: 30 day(s) Active Probiotic 250 MG Capsule 1 capsule Orall y once a day Active Multi Vitamin/Minerals 1 Tablet 1 Orally qd Active Synthroid 50 MCG Tablet 1 tablet Orally Once a day Active Vitamin D3 2000 UNIT Capsule 1 tablet Orally twice a day Active ICaps 1 Capsule 1 Orally twice a day Active Flaxseed Oil 1000 MG Capsule 1 Orally twice a day Active Immunizations Vaccine Route Administration Date Status Comme nts Influenza Unknown 03/06/2021 Administered Influenza Unknown 04/16/2023 Administered Influenza Unknown 04/14/2024 Administered Social History Social History Drugs/Alcohol: Social Info Question Answer Notes Alcohol Screen Did you have a drink containing alcohol in the past year? No Points 0 Interpretation Negative Additional Details Category Social Info Options Details Miscellaneous: Marital status: Occupation: retired Problems Problem Type SNOMED Code ICD Code Onset Dates Problem Status W/U Status Risk Notes Problem Gastro-esophagea l reflux disease without esophagitis (122470766) Gastro-esophage al reflux disease without esophagitis (K21.9) Active confirmed Problem Change in bowel habit (36566907) Change in bowel habits (R19.4) Active confirmed Problem Screening for colon cancer (048565794) Screening for colon cancer (Z12.11) Active confirmed Vital Signs Temperature 97.5 degrees Fahrenheit 07/29/2024 Blood pressure diastolic 00 mm Hg 07/29/2024 Height 59.50 in 07/29/2024 Blood pressure systolic 000 mm Hg 07/29/2024 Weight 143 lbs 07/29/2024 BMI 28.40 kg/m2 07/29/2024 Encounters Encounter Location Date Provider Diagnosis [facility] [address] [place] [address] 07/29/2024 Ranjit Quinn Jr Gastro-esophageal reflux disease [...] COLONOSCOPY 06/26/2017 Next Appt Details Provider Name:Ranjit Elle gilmore Jr, 08/02/2025 10:40:00 AM, [address] [facility], [address], [place], [address], Insurance Providers Payer Name Payer Address Payer Phone Subscriber Number Group Number Insured Name Patient Relationship to Insured Coverage Start Date Coverage End Date MEDICARE OF [place] [address] [place] [address] [phone] [id number] SOPHIE ENCISO Self - patient is the insured [employer] ATT[employer] CLAIMS [address] [place] [address] [id number] MORAIMA ENCISOLOTTE Self - patient is [...]
--- OUTSIDE RECORDS SUMMARY | 2025-06-10 13:00 | XMS_ITS | Patient Health Record ---
Author Organization Owen Mcdonald MD Address [address] [place], [place] [address] Care Team Providers Care Batch And Furnace Manager Name Role Phone Owen Mcdonald Primary Care Provider Results Component Value Reference Range Notes Complete Blood Count Auto Di ff Reviewed date:10/19/2024 12:45:02 PM Interpretation: Performing Lab:[facility] [place], [address] [place] [phone] Notes/Report: White Blood Count 6.9 4.8-10.8 X10*3/uL [...] NRBC Abs Auto 0.000 0.0-0.012 X10*3/uL Comprehensive Stout. Panel Fa st Reviewed date:10/19/2024 05:13:39 PM Interpretation: Performing Lab:[facility] [place], [address] [place] [phone] Notes/Report: Sodium 140 135-145 mmol/L Potassium 4.2 [...] Panel Reviewed date:10/19/2024 12:45:11 PM Interpretation: Performing Lab:[facility] [place], [address] [place] [phone] Notes/Report: Triglycerides 138 <150 mg/dL Desirable Triglyceride: [...] T4 Reviewed date:10/19/2024 12:44:44 PM Interpretation: Performing Lab:[facility] [place], [address] [place] [phone] Notes/Report: TSH reflex Free T4 1.94 0.32-4.0 uIU/mL Hemoglobin A1c Reviewed date:10/19/2024 12:44:36 PM Interpretation: Performing Lab:[address] [phone] Notes/Report: Hemoglobin A1c % 5.6 <6.0 % [...] average glucose, using the formula of the M5D-Wgnqakc Average Glucose study (ADAG), Diabetes Care, Vol.31,#8, Jan. 2007 Liver Panel Reviewed date:04/23/2025 04:24:28 PM Interpretation: Performing Lab:[facility] [place], [address] [place] [phone] Notes/Report: Bilirubin Total 0.6 0.0-1.0 mg/dL Bilirubin Direct 0.2 0.0-0.5 mg/dL Aspartate Amino Transferase 26 5-31 U/L Alanine Aminotransferase 20 0-31 U/L Total Protein 6.7 6.5-8.0 g/dL Albumin Level 4.4 3.5-5.0 g/dL Alkaline Phosphatase 70 39-117 U/L Glucose Fasting Reviewed date:04/23/2025 04:26:49 PM Interpretation: Performing Lab:[facility] [place], [address] [place] [phone] Notes/Report: Glucose Fasting 100 60-99 mg/dL A fasting glucose from 100-125 mg/dl is considered impaired (pre-diabetes). Lipid Panel with Reflex Reviewed date:04/23/2025 04:27:57 PM Interpretation: Performing Lab:[facility] [place], [address] [place] [phone] Notes/Report: Triglycerides 168 <150 mg/dL Desirable Triglyceride: [...] A1c Reviewed date:04/23/2025 12:07:46 PM Interpretation: Performing Lab:[facility] [place], [address] [place] [phone] Notes/Report: Hemoglobin A1c % 5.3 <6.0 % [...] average glucose, using the formula of the B7E-Xqvgzpz Average Glucose study (ADAG), Diabetes Care, Vol.31,#8, Jan. 2007 Erythrocyte Sedimentation Ra te Reviewed date:07/28/2024 07:23:33 PM Interpretation: Performing Lab:[facility] [place], [address] [place] [phone] Notes/Report: Erythrocyte Sedimentation Rate 18 0-20 MM/HR Patients with polycythemia and many hemoglobin abnormalities may have depressed sed rates whereas patients with anemia may have elevated sed rates. XR hip BI w PEL1V Reviewed date:08/13/2024 10:12:56 AM Interpretation: Performing Lab: Notes/Report: [address] [address] XRay Report Signed Patient: Melanie Solis MR#: [id number] : 1940 Acct:[id number] Age/Sex: 83 / F ADM Date: 08/11/24 Loc: HOJESSE Attending Dr: Owen Mcdonald MD Ordering Physician: Owen Mcdonald MD Date of Service: 08/11/24 Procedure(s): XR hip BI w PEL1V Accession Number(s): [id number] cc: Owen Mcdonald MD EXAMINATION: XR BILATERAL [...] signed by Greg Stanton MD in OV> 08/11/241420 DD/ 115 TD/TT: 08/11/24 1234 Supervisor Packing Room: [address] [address] XRay Report Signed Patient: Melanie Solis MR#: [id number] : 1940 Acct:[id number] Age/Sex: 83 / F ADM Date: 08/11/24 Loc: HO.XRAY Attending Dr: Owen Mcdonald MD Ordering Physician: Owen Mcdonald MD Date of Service: 08/11/24 Procedure(s): XR hip BI w PEL1V Accession Number(s): [id number] cc: Owen Mcdonald MD EXAMINATION: XR BILATERAL [...] Stanton MD in OV> 08/11/24 142 DD/ 115 TD/TT: 08/11/24 1234 Supervisor Packing Room: Nelida Hartley date:10/26/2024 04:11:31 PM Interpretation: Performing Lab:[facility] [place], [address] [place] [phone] Notes/Report: Creatinine Urine 47.28 Microalbumin Urine 8.0 Microalbum/Creatinine Ratio Ur 16.9 <30 ug/mg cr Albumin/Creatinine Ratio Reference Ranges: Normal: < 30 ug/mg creatinine Microalbuminuria: 30 - 300 ug/mg creatinine Clinical Albuminuria: > 300 ug/mg creatinine UA ClnCatch+Micro w/rflx Cul t Reviewed date:10/26/2024 02:01:04 PM Interpretation: Performing Lab:[facility] [place], [address] [place] [phone] Notes/Report: Urine, Clean Catch Color Urine Dark Yellow Appearance Urine Turbid PH 7.5 5.0-9.0 Glucose Urine UA Negative Negative mg/dL Urine Blood Negative Negative Specific Partridge - Urine 1.015 1.005-1.025 Urine Protein Negative [...] date:02/12/2025 01:00:31 PM Interpretation: Performing Lab: Notes/Report: [address] [address] XRay Report Signed Patient: Melanie Solis MR#: [id number] : 1940 Acct:[id number] Age/Sex: 84 / F ADM Date: 02/09/25 Loc: HO.XRAY Attending Dr: Owen Mcdonald MD Ordering Physician: Owen Mcdonald MD Date of Service: 02/09/25 Procedure(s): XR knee RT 2V Accession Number(s): [id number] cc: Owen Mcdonald MD EXAMINATION: XR KNEE, [...] in OV> 02/09/25 1505 DD/ 1452 TD/TT: 02/09/251456 Supervisor Packing Room: [address] [address] XRay Report Signed Patient: Melanie Solis MR#: [id number] : 1940 Acct:[id number] Age/Sex: 84 / F ADM Date: 02/09/25 Loc: HO.XRAY Attending Dr: Owen Mcdonald MD Ordering Physician: Owen Mcdonald MD Date of Service: 02/09/25 Procedure(s): XR kne e RT 2V Accession Number(s): [id number] cc: Owen Mcdonald MD EXAMINATION: XR KNEE, [...] in OV> 02/09/25 1505 DD/ 1452 TD/TT: 08/19/25 1457 Supervisor Packing Room: XR knee LT 2V Reviewed date:02/09/2025 04:33:35 PM Interpretation: Performing Lab: Notes/Report: [address] [address] XRay Report Signed Patient: Melanie Solis MR#: [id number] : 1940 Acct:[id number] Age/Sex: 84 / F ADM Date: 02/09/25 Loc: HO.XRAY Attending Dr: Owen Mcdonald MD Ordering Physician: Owen Mcdonald MD Date of Service: 02/09/25 Procedure(s): XR knee LT 2V Accession Number(s): [id number] cc: Owen Mcdonald MD EXAMINATION: XR KNEE, [...] 02/09/25 1449 DD/ 1425 TD/TT: 02/09/25 1443 Supervisor Packing Room: [address] [address] XRay Report Signed Patient: Melanie Solis MR#: [id number] : 1940 Acct:[id number] Age/Sex: 84 / F ADM Date: 02/09/25 Loc: HO.[place] Attending Dr: Owne Mcdonald MD Ordering Physician: Owen Mcdonald MD Date of Service: 02/09/25 Procedure(s): XR kne e LT 2V Accession Number(s): [id number] cc: Owen Mcdonald MD EXAMINATION: XR KNEE, [...] 02/09/25 1449 DD/ 1425 TD/TT: 02/09/25 1443 Supervisor Packing Room: C Reactive Protein Reviewed date:07/28/2024 07:21:12 PM Interpretation: Performing Lab:[facility] [place], [address] [place] [phone] Notes/Report: C Reactive Protein 0.36 < or = 0.50 mg/dL MR lumbar spine wo con Reviewed date:08/17/2024 12:31:14 PM Interpretation: Performing Lab: Notes/Report: [address] [address] Magnetic Resonance Report Signed Patient: Melanie Solis MR#: [id number] : 1940 Acct:[id number] Age/Sex: 83 / F ADM Date: 08/16/24 Loc: HO.MRI Attending Dr: Owen Mcdonald MD Ordering Physician: Owen Mcdonald MD Date of Service: 08/16/24 Procedure(s): MR lumbar spine wo con Accession Number(s): [id number] cc: Owen Mcdonald MD CLINICAL HISTORY: LBP MR lumbar spine with and without gadolinium Comparison: CR - LUMBAR SPINE 2TO 3 [id number] - 08/18/15 15:09 EST Findings: 5 lumbar [...] 2. Mild multilevel canal stenoses. 3. Multilevel sqtu-ea-fqizgvdv foraminal stenoses as described above. This document has been electronically signed by: Ayde Roberts MD on 08/16/2024 18:33:10 Dictated By: Ayde Roberts MD Signed By: <Electronically signed by Ayde Roberts MD in OV> 08/16/241832 DD/ 32 TD/TT: 08/16/241832 Supervisor Packing Room: [address] [address] Magnetic Resonance Report Signed Patient: Melanie Solis MR#: [id number] : 1940 Acct:[id number] Age/Sex: 83 / F ADM Date: 08/16/24 Loc: HO.MRI Attending Dr: Owen Mcdonald MD Ordering Physician: Owen Mcdonald MD Date of Service: 08/16/24 Procedure(s): MR lumbar spine wo con Accession Number(s): [id number] cc: Owen Mcdonald MD CLINICAL HISTORY: LBP MR lumbar spine with and without gadolinium Comparison: CR - LUMBAR SPINE 2TO 3 [id number] - 08/18/15 15:09 EST Findings: 5 lumbar [...] 2. Mild multilevel canal stenoses. 3. Multilevel ulnx-ry-hmuozgag foraminal stenoses as described above. This document has be en electronically signed by: Ayde Roberts MD on 08/16/2024 18:33:10 Dictated By: Ayde Roberts MD Signed By: <Electronically signed by Ayde Roberts MD in OV> 08/16/241832 DD/ 32 TD/TT: 08/16/241832 Supervisor Packing Room: Complete Blood Count Auto Di ff Reviewed date:10/13/2024 06:22:54 PM Interpretation: Performing Lab:[facility] [place], [address] [place] [phone] Notes/Report: White Blood Count 6.7 4.8-10.8 X10*3/uL [...] Dehydrogenase Reviewed date:10/13/2024 06:21:06 PM Interpretation: Performing Lab:[facility] [place], [address] [place] [phone] Notes/Report: Lactate Dehydrogenase 159 122-220 U/L Vitamin B12 and Folate Reviewed date:10/13/2024 06:21:00 PM Interpretation: Performing Lab:[facility] [place], [address] [place] [phone] Notes/Report: Vitamin B12 599 200-900 pg/mL NORMAL 200-900 PG/ML INDETERMINATE 160-199 PG/ML DEFICIENT < 160 PG/ML Folate 14.4 > or = 4.0 ng/mL Reference Values: > or = 4.0 ng/mL < 4.0 ng/mL suggests folate deficiency Methotrexate, aminopterin and folinic acid (leucovorin) are chemotherapeutic agents whose molecular structures are similar to folate; therefore, the Local Area Network Administrator folate assay cannot be used for patients using these drugs. Jared Mora Reviewed date:10/19/2024 12:44:18 PM Interpretation: Performing Lab:[facility] [place], [address] [place] [phone] Notes/Report: Jared Mora See Note Specimen held untested for 24 hours; Call to request Chemistry testing. Urine Culture Reviewed date:10/27/2024 12:14:11 PM Interpretation: Performing Lab:[facility] [place], [address] [place] [phone] Notes/Report: Urine Culture Report Result Urine Culture 10,000 to 50,000 cfu/ml Urine Culture Mixed bacterial thee a characteristic of Urine Culture urogenital contamination. Jared Mora Reviewed date:04/23/2025 11:28:38 AM Interpretation: Performing Lab:[facility] [place], [address] [place] [phone] Notes/Report: Jared Mora See Note Specimen held [...] Referring Provider Last Name Harry Referring Provider [facility] Referred Provider Brinda Esquivel Referred Provider [...] Referring Provider Last Name Harry Referring Provider [facility] edicine Referred Provider LAWRENCE OAKES Referred Provider [...] Referring Provider Last Name Harry Referring Provider [facility] edicine Referred Provider LAWRENCE OAKES Referred Provider Specialty Neurology General Notes Tatiana Condon 0 01/01/2025 01:25:01 PM > referral info faxed on 12-29-2024 p [phone] Annette 01/25/2025 09:46:18 AM > was told [...] Referring Provider Last Name Harry [facility] Referred Provider ALINE ARBOLEDA Referred [...] ON AN EMPTY STOMACH for 90 Active Ibuprofen 800 MG 1 tablet with food o r milk Orally Three times a day for 30 day(s) 03/12/2017 Not-Taking Imitrex 50 MG 1 tablet as needed Orally Twice a day for 30 days 02/02/2019 Not-Taking LORazepam 0.5 MG 1 tablet as needed Orally Once a day for 14 days 04/03/2019 Not-Taking Citracal Calcium+D A ctive Vitamin D 2000 UNIT as directed Orally twice a day Active Triamcinolone Acetonide 0.5 % 1 application Externally daily for 30 days 04/23/2023 Active Rosuvastatin Calcium 40 MG TAKE 1 TABLET BY MOUTH EVERY DAY Active Clopidogrel Bisulfate 75 MG TAKE 1 TABLET BY MOUTH EVERY DAY for 90 Active Immunizations Vaccine Route Administration Date Status Comme nts Flu Vaccine IM Intramuscular 06/03/2012 Administered PPSV23 (Pnemovax) Unknown 08/21/2009 Administered Flu Vaccine IM Intramuscular 02/24/2013 Administered Prevnar 13 IM Intramuscular 01/15/2014 Administered Influenza High Dose IM Intramuscular 04/03/2018 Administer ed pt was given the vaccine at [facility]. Influenza High Dose IM Intramuscular 04/14/2019 Administer [...] Problem Status W/U Status Risk Notes Problem 243328174 Thyroid nodule (E04.1) Active confirm ed Problem 519501956 Thrombocytopenia (D69.6) Active confirmed Problem Carpal tunnel syndrome (11887753) Carpal tunnel syndrome (G56.00) Active confirmed Problem Anxiety (23035769) Anxiety (F41.9) Active confi rmed Problem 87532211 Polymyalgia rheu matica (M35.3) Active confirmed Problem 35504760 Visual hallucina tions (R44.1) Active confirmed Problem 8127229 Arthritis (M19.90) Active confirmed Problem 801012497 Osteopenia (M85.80) Active confirmed Problem 412955013 Tubular adenoma of colon (D12.6) Active confirmed Problem 378495941 Gastroesophageal reflux disease without esophagitis (K21.9) Active confirmed Problem 693016476 Acquired hypothyroidism (E03.9) Active confirmed Problem 3493731 Prediabetes (R73.09) Active confirmed Problem Osteoporosis (72496851) Osteoporosis (M81.0) Active confirmed Problem 5016400 Migraine with au ra and without status migrainosus, not intractable (G43.109) Active confirmed Problem 221863823 Cervical disc di sease (M50.90) Active confirmed Problem 91351326 Intrinsic eczema (L20.84) Active confirmed Problem Hearing loss (48423706) Hearing loss (H91.90) Active confirmed Problem 14751952 Sciatica of righ t side (M54.31) Active confirmed Problem 034332420 History of palpitations (Z87.898) Active confirmed Problem 661646709 Pure hypercholesterolemia (E78.00) Active confirmed Problem 888700045 Arthritis of kne e (M17.10) Active confirmed Problem Problem with balance (180104908) Balance problems (R26.89) Active confirmed Problem 671060814 Poor balance (R26.89) Active confirme d Problem 2147093439584367 Arthritis of le ft knee (M17.12) Active confirmed Problem 330344657175569 Acute migraine (G43.909) Active confirmed Vital Signs Blood pressure diastolic 60 mm Hg 04/29/2025 tuan ght is up 4 pounds since 12-29-24 Height 60.5 in 04/29/2025 weight is up 4 pounds since 12-29-24 Blood pressure systolic 112 mm Hg 04/29/2025 weig ht is up 4 pounds since 12-29-24 Weight 138 lbs 04/29/2025 weight is up 4 pounds since 12-29-24 BMI 26.5 kg/m2 04/29/2025 weight is up 4 pounds since 12-29-24 Encounters Encounter Location Date Provider Diagnosis Owen Mcdonald MD [address] [place] [id number] 10/19/2024 Owen Mcdonald Acquired hypothyroid ism E03.9 ; Prediabetes R73.09 ; Pure hypercholesterolemia E78.00 and Thrombocytopenia D69.6 Owen Mcdonald MD [address] [place] [id number] 04/23/2025 Owen Mcdonald Prediabetes R73.09 a nd Pure hypercholesterolemia E78.00 Owen Mcdonald MD [address] [place] [id number] 07/28/2024 Owen Mcdonald Polymyalgia rheumati ca M35.3 and Encounter for Medicare annual examination with abnormal findings Z00.01 Owen Mcdonald MD [address] [place] [id number] 08/11/2024 Owen Mcdonald Pain in right hip M2 5.551 and Pain in left hip M25.552 Owen Mcdonald MD [address] [place] [id number] 08/24/2024 Owen Mcdonald Spinal stenosis M48. 00 Owen Mcdonald MD [address] [place] [address] [id number] 09/28/2024 Owen Mcdonald Carpal tunnel syndro me G56.00 Owen Mcdonald MD [address] [place] [id number] 10/26/2024 Owen Mcdonald Prediabetes R73.09 ; Pure hypercholesterolemia E78.00 ; Acquired hypothyroidism E03.9 ; Poor balance R26.89 and Carpal tunnel syndrome G56.00 Owen Mcdonald MD [address] [place] [address] [id number] 12/29/2024 Owen Mcdonald Poor balance R26.89 Owen Mcdonald MD [address] [place] [address] [id number] 04/29/2025 Owen Mcdonald Pure hypercholestero lemia E78.00 and Poor balance R26.89 Owen Mcdonald MD [address] [place] [address] [id number] 08/13/2024 Owen Mcdonald MD [address] [place] [address] [id number] 08/13/2024 Owen Mcdonald Lumbar back pain M54 .50 Owen Mcdonald MD [address] [place] [id number] 08/21/2024 Owen Mcdonald MD [address] [place] [address] [id number] 08/25/2024 Owen Mcdonald MD [address] [place] [id number] 02/09/2025 Owen Mcdonald Right knee pain M25. 561 Owen Mcdonald MD [address] [place] [id number] 02/09/2025 Owen Bombardier Pain in right knee M 25.561 and [...] finding of MRI with patient, [facility]/28/[facility]24 Carpal tunnel syndro me (ICD-10 - G56.00) try a wrist splint/ order faxed to [facility] [place] dept, pending diagnostic testing 10/26/2024 Prediabetes (ICD-10 - R73.09) 12/29/2024 Poor balance (ICD-10 - R26.89) need notes from [facility] and send another referral for balance evaluation/ is going to physical therapy at [facility] 04/29/2025 Pure hypercholesterolemia (ICD-10 - E78.00) doing well on meds. liver tests normal, will continue current regiment 08/13/2024 Lumbar back pain (IC D-10 - M54.50) 02/09/2025 Right knee pain (ICD -10 - M25.561) 02/09/2025 Pain in right knee (ICD-10 - M25.561) 10/19/2024 Prediabetes (ICD-10 - R73.09) 04/23/2025 Pure hypercholesterolemia (ICD-10 - E78.00) 07/28/2024 Encounter for Medica re annual examination with abnormal findings (ICD-10 - Z00.01) 10/26/2024 Pure hypercholesterolemia (ICD-10 - E78.00) 04/29/2025 Poor balance (ICD-10 - R26.89) going to physical therapy. advised a cane 02/09/2025 Knee pain, left (ICD -10 - M25.562) 10/19/2024 Pure hypercholesterolemia (ICD-10 - E78.00) 10/26/2024 Acquired hypothyroid ism (ICD-10 - E03.9) 10/19/2024 Thrombocytopenia (IC D-10 - D69.6) 10/26/2024 Poor balance (ICD-10 - R26.89) send to [facility]/ dr oakes 10/26/2024 Carpal tunnel syndro [...] 04/14/2021 Next Appt Details Provider Name:Owen burnette, 07/29/2025 01:30:00 PM, [address] [place] [address], [address], [place], [place], [phone], Provider Name:Owen burnette, 09/21/2025 08:00:00 AM, [address] [place] [address], Suite [facility], [place], [place], [id number], Provider Name:Owen burnette, 09/28/2025 09:30:00 AM, [address] [place] [address], Suite [facility], [place], [place], [id number], Insurance Providers Payer Name Payer Address Payer Phone Subscriber Number Group Number Insured Name Patient Relationship to Insured Coverage Start Date Coverage End Date [employer] [address] [place] [address] [id number] Melanie Solis Self - patient is the insured [employer] OF [facility] [address] [place] [address] [id number] Melanie Solis Self - patient is [...]
--- OUTSIDE RECORDS SUMMARY | 2025-06-10 13:00 | XMS_ITS | Patient Health Record ---
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 Name Role Phone Owen Mcdonald MD Primary Care Provider Kiara Long Unavailable [phone] Allergies Allergen (clinical drug ingredient) Drug/Non Drug [...] Problem Acquired hammer toe of right foot (9113395576034867) Other hammer toe(s) (acquired), right foot (M20.41) Active confirmed Problem Acquired hammer toe of left foot (0516688898737842) Other hammer toe(s) (acquired), left foot (M20.42) Active confirmed Problem Acquired hallux valgus (81392039) Hallux valgus (acquired), right foot (M20.11) Active confirmed Problem Acquired hallux valgus (82724367) Hallux valgus (acquired), left foot (M20.12) Active confirmed Problem Acquired hallux valgus (82083472) Hallux valgus (acquired), right foot (M20.11) Active confirmed Problem Acquired hammer toe of right foot (8893205732676643) Hammer toe of right foot (M20.41) Active confirmed Problem Localized, primary osteoarthritis of the ankle and/or foot (893668220) Osteoarthritis of right ankle and foot (M19.071) Active confirmed Problem Bilateral atherosclerosis of arteries of lower limbs (disorder) (06070320952504986 ) Atherosclerosis of artery of both lower extremities (I70.203) Active confirmed Problem Localized, primary osteoarthritis of the ankle and/or foot (732805799) Arthritis of joint of lesser toe, left (M19.072) Active confirmed Problem Localized, primary osteoarthritis of the ankle and/or foot (711973393) Arthritis of joint of lesser toe, right (M19.071) Active confirmed Plan Of Treatment Pending Test Test Name Order Date X ray : Foot, right 2V 09/08/2012 X ray : Foot, right 2V 09/07/2013 X ray : Foot, right 3V 10/29/2017 X ray : Foot, right 3V 04/11/2022 63023-FHLW SKIN LESIONS, 2 TO 4 03/05/20 24 P2221-[place] DYSTROPHIC NAILS ANY # Insurance Providers Payer Name Payer Address Payer Phone Subscriber Number Group Number Insured Name Patient Relationship to Insured Coverage Start Date Coverage End Date Medicare National [facility] [employer] [address] [place] [address] [phone] [id number] IrmaStacieMelanie Self - patient is the insured [employer] [address] [place] [address] [phone] [id number] Nikolas Soliste Self - patient is [...] 04/23/2019 Hospitalization History Reason Date[place]Month/[place] [facility] [place]
== END 2025-06-10 10:27 | disposition home or self-care (01) ==
LOC: HO.MAMMO 10:26
PROVIDERS: PCP Internal Medicine; Visit Provider Internal Medicine
DX: Z12.31 Encounter for screening mammogram for malignant neoplasm of breast (principal)
CPT/HCPCS: 77063; 77067

== ENCOUNTER → 2025-06-10 10:30 | Outpatient (BNV) | payer MEDICARE, SELFPAY | PROVIDERS: PCP Internal Medicine; Visit Provider Internal Medicine | DX: Z12.31 Encounter for screening mammogram for malignant neoplasm of breast (principal) | CPT/HCPCS: 77063; 77067 ==